=== PATIENT | female | born 1960 | race Caucasian/White ===

== ENCOUNTER 2024-05-19 13:02 | Outpatient (AMB) | payer MEDICARE, SELFPAY ==
[2024-05-19 13:07] VITALS: BP 136/70; PULSE 83; O2SAT 95; BMI 32.3
--- NOTE | 2024-05-19 13:07 | MHC.OFFVIS ---
Vital Signs 05/19/24 13:07 Height 5 ft 2 in Weight 176 lb 5.917 oz BMI 32.3 BP 136/70 Blood Pressure Location Lt brachial Position Sitting Pulse 83 Pulse Source Pulse Oximeter Pulse Oximetry (%) 95 Oxygen Delivery Method Room Air Intake Visit Reasons: RA/PSA/MR RECIEVED Intake Note: Patient presents today for RA/PSA follow up. She was last seen by Dr. Lindsey on 02/20/2024. Patient is requesting Celebrex refill, and hydroxychloroquine, Lefleunomide, and Taltz. Allergies adalimumab [From Humira] Allergy (Mild, Verified 05/19/24 13:12) rashes amoxicillin Allergy (Mild, Verified 05/19/24 13:12) Rash Sulfa (Sulfonamide Antibiotics) Allergy (Mild, Verified 05/19/24 13:12) rashes Medication List - Last Reconciled 05/19/24 by Michele Jorgensen MD albuterol-budesonide 90-80 mcg/actuation 2 inhalations inhalation DAILY PRN alendronate 70 mg PO QWEEK celecoxib (Celebrex) 200 mg PO BID cetirizine (Zyrtec) 10 mg PO DAILY PRN cyclosporine 0.05% 1 drp ophthalmic (eye) Q12H estradiol 0.01%(0.1mg/gram) 1 appful vaginal DAILY oqjiainrfsj-mxxjkymkf-lfolhlou 100-62.5-25 mcg (Trelegy Ellipta) 1 inh inhalation DAILY hydroxychloroquine 200 mg PO BID ixekizumab (Taltz Autoinjector) 80 mg subcut Q4W leflunomide 10 mg PO DAILY levothyroxine (Synthroid) 100 mcg PO DAILY lisinopril 40 mg PO DAILY multivitamin 1 tab PO DAILY pantoprazole 40 mg PO DAILY simvastatin 40 mg PO DAILY trospium 20 mg PO BID HPI HPI RA/PSA/MR RECIEVED: Details: She is doing well. No recent exacerbations of psoriatic arthritis. Psoriasis in lower extremities has resolved on current regimen. She saw Dr. Lindsey in 02/17/2024. Dr. Lindsey increased leflunomide dose. Review of Systems Const All systems reviewed & are unremarkable except as noted in HPI and below Physical Exam Vital Signs: Last Vital Signs Pulse 83 05/19/24 13:07 BP 136/70 05/19/24 13:07 Pulse Ox 95 05/19/24 13:07 Oxygen Delivery Method Room Air 05/19/24 13:07 BMI result Body Mass Index 32.3 Const Other: General: Comfortable CVS: RRR Respiratory: clear to auscultation bilaterally. Good respiratory effort Skin: No lesions seen MSK: No tenderness on palpation of all joints of upper extremity lower extremity. No synovitis present. Good range of motion of all joints. Assessment & Plan Assessment & Plan (1) Psoriatic arthritis: Comment: Initially diagnosed with rheumatoid arthritis by Dr. Stoner. Anti CCP positive greater than 250 and rheumatoid factor positivity 198. Diagnosis was changed to psoriatic arthritis by Dr. Potts. She has been on leflunomide since 01/17/2024, Taltz, hydroxychloroquine and Celebrex. Failed treatment with methotrexate, Humira, Enbrel, Orencia, Stelara, Cosentyx from 2020 to 10/17/2022. Remicade was started 11/16/2022 and discontinued due to development of exacerbation of psoriasis. In remission on leflunomide 20 mg daily, Taltz, hydroxychloroquine 400 mg daily and Celebrex 200 mg twice a day. Code(s): L40.50 - Arthropathic psoriasis, unspecified Category: Medical Plan: Labs for disease and drug monitoring ordered. After lab results are back, we will send prescription for leflunomide 20 mg daily, Taltz 80 mg subcutaneous injection every 4 weeks, hydroxychloroquine 400 mg daily and Celebrex 200 mg twice a day Return to clinic in 3 months (2) Other halfway (current) drug therapy: Code(s): Z79.899 - Other halfway (current) drug therapy Category: Medical Plan: See above Plan . Orders: Orders Alanine Aminotransferase Today L40.50 - Arthropathic psoriasis, unspecified, Z79.899 - Other halfway (current) drug therapy C Reactive Protein Today L40.50 - Arthropathic psoriasis, unspecified, Z79.899 - Other middle or intermediate school principal (current) drug therapy Complete Blood Count Auto Diff Today L40.50 - Arthropathic psoriasis, unspecified, Z79.899 - Other halfway (current) drug therapy T Spot TB Today L40.50 - Arthropathic psoriasis, unspecified, Z79.899 - Other halfway (current) drug therapy Aspartate Amino Transferase Today L40.50 - Arthropathic psoriasis, unspecified, Z79.899 - Other halfway (current) drug therapy Creatinine Today L40.50 - Arthropathic psoriasis, unspecified, Z79.899 - Other middle or intermediate school principal (current) drug therapy Erythrocyte Sedimentation Rate Today L40.50 - Arthropathic psoriasis, unspecified, Z79.899 - Other halfway (current) drug therapy Hepatitis B,C Profile Today L40.50 - Arthropathic psoriasis, unspecified, Z79.899 - Other middle or intermediate school principal (current) drug therapy Medications: New celecoxib (Celebrex) Take 1 tablet BID with food 200 mg PO BID 60 caps 2RF leflunomide 20 mg PO DAILY Coding Level of Care Code Est Pt Level 4 (83429) Complex EM visit Add On G2211 Diagnoses Psoriatic arthritis L40.50 Other middle or intermediate school principal (current) drug therapy Z79.890
== END 2024-05-19 13:41 | disposition home or self-care (01) ==
PROVIDERS: PCP Nurse Practitioner; Visit Provider Internal Medicine Rheumatology
DX: L40.50 Arthropathic psoriasis, unspecified (principal); Z79.899 Other long term (current) drug therapy
CPT/HCPCS: 99214; G2211

== ENCOUNTER 2024-05-19 13:02 | Outpatient (REF) | payer MEDICARE, SELFPAY ==
[2024-05-19 14:34] LABS: MANUAL DIFF FLAG NO
[2024-05-19 14:53] LABS: Basophils Absolute Auto 0.1 X10*3/uL (0.0-0.2); Basophils Percent Auto 0.9 % (0-2); Eosinophils Absolute Auto 0.2 X10*3/uL (0.0-0.4); Eosinophils Percent Auto 2.8 % (0-4); Hematocrit 38.9 % (37.0-47.0); Hemoglobin 12.7 g/dl (12.0-16.0); Imm Gran Abs Auto 0.01 X10*3/uL (0.00-0.03); Imm Gran Pct Auto 0.1 % (0.0-0.4); Lymphocytes Absolute Auto 2.2 X10*3/uL (1.2-4.9); Lymphocytes Percent Auto 27.2 % (20-40); Mean Corpuscular HGB Conc 32.6 g/dl (31.0-35.0); Mean Corpuscular Hemoglobin 30.8 pg (27.0-33.0); Mean Corpuscular Volume 94.2 fL (80.0-98.0); Mean Platelet Volume 9.8 fL (9.4-12.3); Monocytes Absolute Auto 0.9 X10*3/uL (0.1-1.2); Monocytes Percent Auto 10.9 % (2-11); Neutrophils Absolute Auto 4.6 x10*3/uL (2.0-8.3); Neutrophils Percent Auto 58.1 % (45-73); Platelet Count 239 X10*3/uL (160-400); Red Blood Count 4.13 X10*6/uL (4.20-5.50); Red Cell Distribution Width 13.1 % (11.0-16.0)
[2024-05-19 15:16] LABS: Alanine Aminotransferase 30 U/L (0-31); Aspartate Amino Transferase 42 U/L (5-31); C Reactive Protein < 0.10 mg/dL (< or = 0.50); Estimated Glomerular Filt Rate > 60
[2024-05-19 15:31] LABS: Erythrocyte Sedimentation Rate 12 MM/HR (0-20)
[2024-05-20 04:45] LABS: HBc Num1 0.11 S/CO (0.00-0.79); HBsAGNum1 0.42 S/CO (0.00-0.99); Hepatitis B Core Antibody Nonreactive (Nonreactive); Hepatitis B Surface Antigen Negative (Negative); ~HepC Num1 0.07 S/CO (0.00-0.79); ~Hepatitis B Surface Antibody NONREACTIVE (Nonreactive); ~Hepatitis C Antibody Nonreactive (Nonreactive)
[2024-05-21 23:42] LABS: TS Negative Control Passed; TS Panel A 0; TS Panel B 0; TS Positive Control Passed; TSpotTB Negative (Negative)
== END 2024-05-19 13:03 | disposition home or self-care (01) ==
LOC: HO.LAB 13:02
PROVIDERS: PCP Nurse Practitioner; Visit Provider Internal Medicine Rheumatology
DX: L40.50 Arthropathic psoriasis, unspecified (principal); Z79.899 Other long term (current) drug therapy
CPT/HCPCS: 36415; 82565; 84450; 84460; 85025; 85652; 86140; 86481; 86704; 86706; 86803; 87340; 99212

== ENCOUNTER 2024-08-19 12:25 | Outpatient (AMB) | payer MEDICARE, SELFPAY ==
[2024-08-19 12:27] VITALS: BP 150/100; PULSE 78; O2SAT 98; BMI 32.2
--- NOTE | 2024-08-19 12:27 | A.OFFVIS_ITS ---
Vital Signs 08/19/24 12:27 Height 5 ft 2 in Weight 176 lb BMI 32.2 BP 150/100 H Blood Pressure Location Rt brachial Position Sitting Pulse 78 Pulse Source Pulse Oximeter Pulse Oximetry (%) 98 Oxygen Delivery Method Room Air Intake Visit Reasons: Follow Up 3mo Intake Note: Patient presents today for RA/PSA follow up. Allergies adalimumab [From Humira] Allergy (Mild, Verified 08/19/24 12:27) rashes amoxicillin Allergy (Mild, Verified 08/19/24 12:27) Rash Sulfa (Sulfonamide Antibiotics) Allergy (Mild, Verified 08/19/24 12:27) rashes HPI HPI Follow Up 3mo: Details: She feels well. Loosing hair. No joint swelling or joint pain or joint stif fness. No rash or PsO. No recent infections. Occationally she has pain in her legs responding to tylenol PRN. Review of Systems Const All systems reviewed & are unremarkable except as noted in HPI and below Physical Exam Vital Signs: Last Vital Signs Pulse 78 08/19/24 12:27 BP 150/100 H 08/19/24 12:27 Pulse Ox 98 08/19/24 12:27 Oxygen Delivery Method Room Air 08/19/24 12:27 BMI result Body Mass Index 32.2 Const Other: General: Comfortable CVS: RRR Respiratory: clear to auscultation bilaterally. Good respiratory effort Skin: No lesions seen MSK: No tenderness on palpation of all joints of upper extremity lower extremity. No synovitis present. Good range of motion of all joints. Assessment & Plan Assessment & Plan (1) Psoriatic arthritis: Comment: In remission on current regimen. She is loosing hair, which maybe related to drug side effect from leflunomide. She had mild elevation in AST 04/2024, which maybe due to drug side effect (leflunomide vs celebrex). Repeating labs this visit. Initially diagnosed with rheumatoid arthritis by Dr. Stoner. Anti CCP positive greater than 250 and rheumatoid factor positivity 198. Diagnosis was changed to psoriatic arthritis by Dr. Potts. She has been on leflunomide since 01/17/2024, Taltz, hydroxychloroquine and Celebrex. Failed treatment with methotrexate, Hu melissa, Enbrel, Orencia, Stelara, Cosentyx from 2020 to 10/17/2022. Remicade was started 11/16/2022 and discontinued due to development of exacerbation of psoriasis. In remission on leflunomide 20 mg daily, Taltz, hydroxychloroquine 400 mg daily and Celebrex 200 mg twice a day. Leflunomide d/c 08/19/2024 due to hair loss and mild transaminitis (AST) Code(s): L40.50 - Arthropathic psoriasis, unspecified Category: Medical Plan: Stop leflunomide Labs for disease and drug monitoring ordered. Continue Taltz 80 mg subcutaneous injection every 4 weeks Continue hydroxychloroquine 400 mg daily. Requesting last eye exam for surveillance Celebrex 200 mg twice a day Return to clinic in 3 months (2) Other snf (current) drug therapy: Code(s): Z79.899 - Other environmental health nurse (current) drug therapy Category: Medical Plan: See above (3) Hyperparathyroidism: Comment: Mild elevation 69.4 06/2024 labs. Vitamin-D level is normal. She has sufficient vitamin-D. Code(s): E21.3 - Hyperparathyroidism, unspecified Category: Medical Plan: I recommend rechecking PTH in 6 months Patient has sufficient vitamin-D from diet and does not need further supplementation Follow-up with PCP (4) Muscle cramp: Comment: Intermittent in bilateral calves when resting in the evening. I will rule out electrolyte disturbance with labs. We discussed importance of adequate hydration. Code(s): R25.2 - Cramp and spasm Category: Medical Plan: She will try to increase her water intake daily Labs ordered Return to clinic in 3 months Plan . Orders: Orders Aspartate Amino Transferase Today Z79.60 - peer health promoter (current) use of unspecified immunomodulators and immunosuppressants Creatinine Today Z79.60 - [facility] (current) use of unspecified immunomodulators and immunosuppressants Potassium Today R25.2 - Cramp and spasm Albumin Level Today R25.2 - Cramp and spasm Alanine Aminotransferase Today Z79.60 - peer health promoter (current) use of unspecified immunomodulators and immunosuppressants Complete Blood Count Auto Diff Today Z79.60 - peer health promoter (current) use of unspecified immunomodulators and immunosuppressants Erythrocyte Sedimentation Rate Today Z79.899 - Other environmental health nurse (current) drug therapy C Reactive Protein Today R74.01 - Elevation of levels of liver transaminase levels, Z79.899 - Other snf (current) drug therapy Magnesium Today R25.2 - Cramp and spasm Calcium Today R25.2 - Cramp and spasm Coding Level of Care Code Est Pt Level 4 (35669) Complex EM visit Add On G2211 Diagnoses Psoriatic arthritis L40.50 Other snf (current) drug therapy Z79.899 Hyperparathyroidism E21.3 Muscle cramp R25.2
== END 2024-08-19 13:00 | disposition home or self-care (01) ==
PROVIDERS: PCP Nurse Practitioner; Visit Provider Internal Medicine Rheumatology
DX: L40.50 Arthropathic psoriasis, unspecified (principal); Z79.899 Other long term (current) drug therapy; E21.3 Hyperparathyroidism, unspecified; R25.2 Cramp and spasm
CPT/HCPCS: 99214; G2211

== ENCOUNTER 2024-08-19 12:25 | Outpatient (REF) | payer MEDICARE, SELFPAY ==
[2024-08-19 18:11] LABS: MANUAL DIFF FLAG NO
[2024-08-19 18:14] LABS: Basophils Absolute Auto 0.1 X10*3/uL (0.0-0.2); Basophils Percent Auto 1.2 % (0-2); Eosinophils Absolute Auto 0.3 X10*3/uL (0.0-0.4); Eosinophils Percent Auto 2.4 % (0-4); Hematocrit 40.8 % (37.0-47.0); Hemoglobin 13.2 g/dl (12.0-16.0); Imm Gran Abs Auto 0.03 X10*3/uL (0.00-0.03); Imm Gran Pct Auto 0.3 % (0.0-0.4); Lymphocytes Percent Auto 19.7 % (20-40); Mean Corpuscular HGB Conc 32.4 g/dl (31.0-35.0); Mean Corpuscular Hemoglobin 30.9 pg (27.0-33.0); Mean Corpuscular Volume 95.6 fL (80.0-98.0); Mean Platelet Volume 11.1 fL (9.4-12.3); Monocytes Absolute Auto 0.9 X10*3/uL (0.1-1.2); Monocytes Percent Auto 8.4 % (2-11); Platelet Count 245 X10*3/uL (160-400); Red Blood Count 4.27 X10*6/uL (4.20-5.50); Red Cell Distribution Width 12.8 % (11.0-16.0); White Blood Count 10.3 X10*3/uL (4.8-10.8)
[2024-08-19 18:20] LABS: Alanine Aminotransferase 27 U/L (0-31)
[2024-08-19 18:22] LABS: Alanine Aminotransferase 30 U/L (0-31); Albumin Level 4.4 g/dL (3.5-5.0); Aspartate Amino Transferase 38 U/L (5-31); C Reactive Protein 0.11 mg/dL (< or = 0.50); Calcium 9.6 mg/dL (8.4-10.2); Estimated Glomerular Filt Rate > 60; Magnesium 2.1 mg/dL (1.6-2.6); Potassium 4.4 mmol/L (3.3-5.1)
[2024-08-19 19:03] LABS: Erythrocyte Sedimentation Rate 8 MM/HR (0-20)
[2024-08-24 13:14] LABS: Alkaline Phosphatase Bone 11.7 mcg/L (5.6-29.0)
== END 2024-08-19 12:26 | disposition home or self-care (01) ==
LOC: HO.HKASLDS 12:25
PROVIDERS: PCP Nurse Practitioner; Visit Provider Internal Medicine Rheumatology
DX: R25.2 Cramp and spasm (principal); Z79.60 Long term (current) use of unspecified immunomodulators and immunosuppressants; R74.01 Elevation of levels of liver transaminase levels; Z79.899 Other long term (current) drug therapy; L40.50 Arthropathic psoriasis, unspecified; E21.3 Hyperparathyroidism, unspecified
CPT/HCPCS: 36415; 82040; 82310; 82565; 83735; 84075; 84132; 84450; 84460; 85025; 85652; 86140; 99212

== ENCOUNTER 2024-11-16 12:42 | Outpatient (AMB) | payer MEDICARE, SELFPAY ==
[2024-11-16 12:45] VITALS: BP 126/70; PULSE 70; O2SAT 98; BMI 32.5
--- NOTE | 2024-11-16 12:45 | MHC.OFFVIS ---
Vital Signs 11/16/24 12:45 Height 5 ft 2 in Weight 177 lb 11.081 oz BMI 32.5 BP 126/70 Blood Pressure Location Rt brachial Position Sitting Pulse 70 Pulse Source Pulse Oximeter Pulse Oximetry (%) 98 Oxygen Delivery Method Room Air Intake Visit Reasons: 3 Months Intake Note: Patient presents today for RA/PSA follow up. Allergies adalimumab [From Humira] Allergy (Mild, Verified 11/16/24 12:45) rashes amoxicillin Allergy (Mild, Verified 11/16/24 12:45) Rash Sulfa (Sulfonamide Antibiotics) Allergy (Mild, Verified 11/16/24 12:45) rashes HPI HPI 3 Months: Details: Hx bleeding PUD about 10 years ago on advil. 1 month ago she had EGD, which was normal per patient. Left elbow swelling occurred a month ago. Denies trauma. After stopping leflunomide she has not had increased hair loss. Physical Exam Vital Signs: Last Vital Signs Pulse 70 11/16/24 12:45 BP 126/70 11/16/24 12:45 Pulse Ox 98 11/16/24 12:45 Oxygen Delivery Method Room Air 11/16/24 12:45 BMI result Body Mass Index 32.5 Const Other: General: Comfortable CVS: RRR Respiratory: clear to auscultation bilaterally. Good respiratory effort Skin: No lesions seen MSK: No tenderness on palpation of all joints of upper extremity lower extremity. Left olecranon bursa enlargement present without erythema or tenderness. No synovitis present. Normal range of motion of all joints. Office Procedures AMB Joint Injection/Aspiration Joint Injection/Aspiration Details: Duplicate procedure ordered in error Coding Procedure code (CPT) selection complete AMB Joint Injection/Aspiration Joint Injection/Aspiration Details: Left olecranon bursa Prep: site was prepped using aseptic technique Injected: 2 cc of 1% plain lidocaine was injected into left olecranon bursa with 25 gauge 1-1/2 inch needle. Using 18 gauge 1 in needle 5 cc of hemorrhagic synovial fluid was aspirated from joint. Procedure: The patient tolerated the procedure well. Postprocedure protocol was discussed with patient. Coding 01116 - Medium joint Procedure code (CPT) selection complete Office Meds lidocaine (PF) 10 mg/mL (1 %) injection solution Performing Provider: Michele Jorgensen MD Performing Location: [facility] Administered by: Michele Jorgensen MD on 11/16/24 13:40 Dose Route Admin Location Dispensed Lot Number Expiration Date [employer] Prosthetics Assistant 20 mg Infiltration 2 mL [id number] [facility] Assessment & Plan Assessment & Plan (1) Psoriatic arthritis: Comment: In remission on current regimen. She had mild elevation in AST 04/2024 downtrending on labs from July 2024, which maybe due to drug side effect (leflunomide vs celebrex). Repeating labs this visit. She has history of bleeding peptic ulcer disease on Advil in the past. To reduce her risk of recurrent peptic ulcer disease I will try to reduce Celebrex frequency. A few years ago she discontinued Celebrex with increased joint pain. Initially diagnosed with rheumatoid arthritis by Dr. Stoner. Anti CCP positive greater than 250 and rheumatoid factor positivity 198. Diagnosis was changed to psoriatic arthritis by Dr. Potts. She has been on leflunomide since 01/17/2024, Taltz, hydroxychloroquine and Celebrex. Failed treatment with methotrexate, Humira, Enbrel, Orencia, Stelara, Cosentyx from 2020 to 10/17/2022. Remicade was started 11/16/2022 and discontinued due to development of exacerbation of psoriasis. In remission on leflunomide 20 mg daily, Taltz, hydroxychloroquine 400 mg daily and Celebrex 200 mg twice a day. Leflunomide d/c 08/19/2024 due to hair loss and mild transaminitis (AST). Code(s): L40.50 - Arthropathic psoriasis, unspecified Category: Medical Plan: Labs for diseaseand drug monitoring ordered. Continue Taltz 80 mg subcutaneous injection every 4 weeks Continue hydroxychloroquine 400 mg daily. Scheduled for eye exam 03/2025 Reduce Celebrex 200 mg twice a day to daily Return to clinic in 3 months (2) Other jail (current) drug therapy: Code(s): Z79.899 - Other emt intermediate (current) drug therapy Category: Medical Plan: See above (3) Hyperparathyroidism: Comment: Mild elevation 69.4 06/2024 labs. Code(s): E21.3 - Hyperparathyroidism, unspecified Category: Medical Plan: I recommend rechecking PTH, vitamin-D and calcium level. (4) Muscle cramp: Comment: Intermittent in bilateral calves when resting in the evening. Electrolytes normal. Resolved with increasing hydration Code(s): R25.2 - Cramp and spasm Category: Medical Plan: Continue hydration (5) Transaminitis: Code(s): R74.01 - Elevation of levels of liver transaminase levels Category: Medical Plan: See above (6) Olecranon bursitis, left elbow: Comment: Likely traumatic. Code(s): M70.22 - Olecranon bursitis, left elbow Category: Medical Plan: Patient had aspiration of left olecranon bursa. 5 cc of hemorrhagic fluid was aspirated. Post care was discussed with patient. She will monitor for signs of infection. Return to clinic in 3 months Plan . Orders: Orders Complete Blood Count Auto Diff Today Z79.60 - assisted (current) use of unspecified immunomodulators and immunosuppressants Alanine Aminotransferase Today Z79.60 - adjunct faculty for medical terminology (current) use of unspecified immunomodulators and immunosuppressants Vitamin D 25-OH Total Today E21.3 - Hyperparathyroidism, unspecified Creatinine Today Z79.60 - adjunct faculty for medical terminology (current) use of unspecified immunomodulators and immunosuppressants Aspartate Amino Transferase Today Z79.60 - assisted (current) use of unspecified immunomodulators and immunosuppressants Erythrocyte Sedimentation Rate Today Z79.899 - Other emt intermediate (current) drug therapy C Reactive Protein Today Z79.899 - Other jail (current) drug therapy Parathyroid Hormone Intact Today E21.3 - Hyperparathyroidism, unspecified Calcium Today E21.3 - Hyperparathyroidism, unspecified AMB Joint Injection/Aspiration Today M70.22 - Olecranon bursitis, left elbow AMB Joint Injection/Aspiration Today M70.22 - Olecranon bursitis, left elbow Medications: New lidocaine (PF) 20 mg (2 mL) Infiltration ONCE 2 mL 0RF M70.22 - Olecranon bursitis, left elbow Refilled ixekizumab (Taltz Autoinjector) 80 mg subcut Q4W 1 mL 2RF Discontinued leflunomide Discontinued Reason: Doctor's Order 20 mg PO DAILY 30 tabs 2RF Coding Level of Care Code Est Pt Level 4 (25224) Complex EM visit Add On G2211 Diagnoses Psoriatic arthritis L40.50 Other emt intermediate (current) drug therapy Z79.899 Hyperparathyroidism E21.3 Muscle cramp R25.2 Transaminitis R74.01 Olecranon bursitis, left elbow M70.22 CPT Codes Coding - 24605 Medium joint: 24371 - Medium joint ([id number])
== END 2024-11-16 13:23 | disposition home or self-care (01) ==
LOC: HO.RHES 12:43
PROVIDERS: PCP Nurse Practitioner; Visit Provider Internal Medicine Rheumatology
DX: L40.50 Arthropathic psoriasis, unspecified (principal); Z79.899 Other long term (current) drug therapy; E21.3 Hyperparathyroidism, unspecified; R25.2 Cramp and spasm; R74.01 Elevation of levels of liver transaminase levels; M70.22 Olecranon bursitis, left elbow
CPT/HCPCS: 20605; 99214

== ENCOUNTER 2024-11-16 12:42 | Outpatient (REF) | payer MEDICARE, SELFPAY ==
--- OUTSIDE RECORDS SUMMARY | 2024-11-16 14:35 | XMS_ITS | Data Portability ---
Author Organization [facility], [facility] Address [address] [place] [address] Care Team Providers Care Supervisor Liquid Yeast Name Role Phone [facility] Raw Sampler NEHA YARBROUGH Director Emergency Department FAITH CARSON Primary Care Provider [facility] Wage And Salary Specialist TEE SALMON Heavy Duty Mechanic Farm Equipment Assessment Encounter Date Assessment Date Assessment LastModified by Organization Details LastModified Time 01/20/2024 01/20/2024 We completed your Medicare Wellness exam today. This was an opportunity to assess your overall well being including your ability to care for yourself, your mobility, memory, mental health, as well as your safety. With advancing age, it is important to assign someone in your life as your Health Care Proxy (HCP). This person should know what is important to you and what your wishes are for medical procedures if you cannot communicate your wishes yourself (severe illness, unconsciousness) . We discussed having a completed Health Care Proxy form today. In addition, today we started a conversation about your End of Life wishes. These conversations will continue over the years. Please consider reading the book, Being Mortal by Sohail Garcia to help frame future conversations. We discussed the purpose of a MOLST form (Medical Orders for Life Sustaining Treatment) and completed this form if appropriate per your wishes. Vision and Hearing are senses that are critically important as we age. When impaired, they can contribute to memory loss, falls, and make it harder to drive, talk to family and friends, and engage in the world. Please get your vision checked yearly and your hearing checked when you start to notice hearing loss. We discussed approaches to lowering your risk of heart disease and stroke . Your blood pressure is at goal. Your cholesterol is at goal. We discussed cancer screening you may need as well as vaccines to prevent infections. Colon Cancer : Your risk of colon cancer is higher than average due to family history. Due for colorectal screenin. If you are not planning to have a colonoscopy please screen with stool cards yearly. Breast Cancer : Breast Cancer Screening (mammography). Next mammogram due: 2023. Cervical Cancer Screening (pap test). Next pap due: not needed. Prostate Cancer : PSA testing for ages 55-69 risks and benefits discussed . Influenza Vaccine : Flu shot yearly. Tetanus Vaccine : Every 10 years. Due: 2028. The following vaccines are available from your pharmacy: Pneumonia Vaccine : PCV20: once after age 65. Shingles Vaccine : 2 shots after age 50. Covid Vaccine : Make sure you have received the most up to date covid vaccine. Your personal health goal for the year is: Not available 01/20/2024 12:37:21 Plan of Treatment Reminders Order Date Submit Date Provider Last Modified By Organization Details Last Modified Time Details Appointments Wellness Visit 30 2024 11:30A Hoa Carson NP Not available Not available Not available Lab HbA1c (hemoglob in A1c), blood 2024 025 [facility], [address] [place] [address], [id number], 10/04/2024 16:25:47 TSH, serum or plasma [address] [facility], [address] [place] [address], [id number], 08/20/2024 23:23:32 T4, free, serum [address] [facility], [address] [place] [address], [id number], 08/20/2024 23:23:32 CBC 2023 024 [facility], [address] [place] [address], [id number], 01/21/2024 10:14:05 magnesium , blood 2023 024 [facility], [address] [place] [address], 98624, 01/22/2024 12:00:18 CMP, serum or plasma 2023 024 [facility], [address] [place] [address], 78824, 01/22/2024 12:00:17 ferritin, serum or plasma 2023 024 [facility], [address] [place] [address], [id number], 01/21/2024 10:56:28 vitamin B12, serum 2023 024 [facility], [address] [place] [address], [id number], 01/22/2024 12:14:50 urinalysi s, dipstick 2023 024 [facility], [address] [place] [address], [id number], 12/08/2023 13:33:12 culture, urine 2023 024 [facility], [address] [place] [address], [id number], 12/09/2023 21:47:50 Referral None recorded. Procedures None recorded. Surgeries None recorded. Imaging MAMMO, screening , tomosynth esis, bilateral - Note to Provider: 2nd look consult/D iag Mammo/US Breast/Gu ided Asp/Breas t Bx as clinicall y indicated . [address] - Outpatient Imaging, All Locations, [place], [address], 01/23/2024 09:20:56 bone density - last scan 06/11/22[address] - Outpatient Imaging, All Locations, [place], [address], 01/20/2024 13:26:02 Medication Orders levothyro xine 100 mcg tablet 2024 025 [facility], [facility] [address], [facility] [address], [place], [place], [id number], 08/20/2024 23:23:33 prednison e 10 mg tablet 2023 024 [facility], [address] [place] [address], [id number], 08/18/2024 09:37:03 ketoconaz ole 2 % topical cream 2023 024 [facility], [address] [place] [address], [id number], 04/27/2024 16:22:05 prednison e 20 mg tablet 2023 025 [facility], [address] [place] [address], [id number], 08/18/2024 09:46:56 Macrobid 100 mg capsule 2023 024 [facility], [address] [place] [address], [id number], 01/20/2024 11:38:59 Patient TargetsNo targets recorded. Patient Instructions Encounter Date Encounter Id Patient Instructions Last Modified By Organization Details Last Modified Time 01/20/2024 [id number] vision screen* Not available 01/20/2024 12:27:47 CCM: The provide r and patient discussed the Chronic Care Management program, including the services provided, and any fees associated with them. [email or web address] Not available 01/20/2024 11:35:57 Reason for Referral None Reported. Results Created Date Observation Date Name Description Value Unit Range Abnormal Flag Note LastModifiedBy Organization Detail LastModifiedTime 12/08/19 24 12/08/2023 POC UA glu UA NEGATI VE Not Available [facility] [address] [facility], [place], [address], 12/08/2023 11:23:10 12/08/19 24 12/08/2023 POC UA clarity UA CLEAR Not Available [facility] [address] [place] [address], [id number], 12/08/2023 11:23:10 12/08/19 24 12/08/2023 POC UA uro UA 1.0000 Not Available [facility] [address] [place] [address], [address], 12/08/2023 11:23:10 12/08/19 24 12/08/2023 POC UA ket UA NEGATI VE Not Available [facility] [address] [place] [address], [address]23[address], 12/08/2023 11:23:10 12/08/19 24 12/08/2023 POC UA pro UA NEGATI VE Not Available [facility] [address] [place] [address], [id number], 12/08/2023 11:23:10 12/08/19 24 12/08/2023 POC UA nit UA NEGATI VE Not Available [facility] [address] [place] [address], 53697, 12/08/2023 11:23:10 12/08/19 24 12/08/2023 POC UA carlita UA 1+ abnormal Not Available [facility] [address] [place] [address], 49453, 12/08/2023 11:23:10 12/08/19 24 12/08/2023 POC UA pH UA 6.5000 Not Available [facility] [address] [place] [address], 78544, 12/08/2023 11:23:10 12/08/19 24 12/08/2023 POC UA SG UA 1.0200 Not Available [facility] [address] [place] [address], 87584, 12/08/2023 11:23:10 12/08/19 24 12/08/2023 POC UA color UA YELLOW Not Available [facility] [address] [place] [address], 23757, 12/08/2023 11:23:10 12/08/19 24 12/08/2023 POC UA blo UA NEGATI VE Not Available [facility] [address] [place], [address], 12/08/2023 11:23:10 12/08/19 24 12/08/2023 POC UA jim UA NEGATI VE Not Available [facility] [address] [place] [address], 17890, 12/08/2023 11:23:10 12/08/19 24 12/09/2023 CULTU RE, URINE , ROUTI NE culture, urine, routine CULTU RE, URINE , ROUTI NE Micro Numbe r: [id number] Test Statu s: Final Speci men Sourc e: Urine Speci men Quali ty: Adequ ate Resul t: Mixed genit al karissa isola freddy. These super ficia l bacte celestine are not indic ative of a urina ry tract infec tion. No furth er organ ism ident ifica tion is warra nted on this speci men. If clini carson indic ated, recol lect clean -catc h, mid-s tream urine and trans rosa immed iatel y to Urine Cultu re Trans port Tube. Not Available [facility] [place] [facility] [address], [place], [address], 12/09/2023 21:47:50 01/16/20 24 01/16/2024 HGB A1C hemoglobin A1C 5.6 % 4.8-6. 0 Goal: <7% in Patie nts with Diabe dariel An A1c betwe en 5.7-6 .4% is ident ified as pre-d iabet es and sugge sts risk for progr essio n to diabe dariel Two a1c value s of 6.5% or highe r is consi stent with a diagn osis of diabe dariel but may need furth er confi rmati on Not Available [address], [address], 01/16/2024 11:38:53 01/16/20 24 01/16/2024 HGB A1C estimated average glucose 114.0 mg/dL Not Available [address], [address], 01/16/2024 11:38:53 01/16/20 24 01/20/2024 LIPID PANEL cholesterol 152 mg/dL <200 mg/dl Elbert able 200-2 39 mg/dl Borde rline High >240 mg/dl High Not Available [address], [address], 01/20/2024 12:51:01 01/16/20 24 01/20/2024 LIPID PANEL triglyceride s 82 mg/dL <150 mg/dL Jessica l 150-1 99 mg/dL Borde rline High 200-4 99 mg/dL High >500 mg/dL Very High Not Available [address], [address], 01/20/2024 12:51:01 01/16/20 24 01/20/2024 LIPID PANEL direct HDL 64 mg/dL <40 mg/dl - Major Risk for CHD >60 mg/dl - Negat emilia Risk for CHD Not Available [address], [address], 01/20/2024 12:51:01 01/16/20 24 01/20/2024 RENAL PANEL glucose 90 mg/dL 70-100 Not Available [address], [address], 01/20/2024 12:51:02 01/16/20 24 01/20/2024 RENAL PANEL BUN 22 mg/dL 7-18 high Not Available [address], 49[address], 01/20/2024 12:51:02 01/16/20 24 01/20/2024 RENAL PANEL creatinine 1.1 mg/dL 0.8-1. 3 Not Available [address], 73749, 01/20/2024 12:51:02 01/16/20 24 01/20/2024 RENAL PANEL B/C 20.0 ratio Not Available [address], 99661, 01/20/2024 12:51:02 01/16/20 24 01/20/2024 RENAL PANEL GFR 55.8 mL/mi n abnormal >=60m L/min - Jessica l or midly reduc ed <60mL /min- Decre ased kidne y funct ion <15mL /min - Kidne y failu re [facility] calcu lates estim ated Glome rular Filtr ation Rate (eGFR ) using the Chron ic Kidne y Disea se Epide miolo gy Colla borat ion (CKD- EPI) Equat ion (Rosendo r et. al 2020) as recom dario d by the Natio nal Kidne y Found ation . eGFR is based on age, serum creat inine , and sex. CKD-E PI does not calcu late eGFR by race, does not apply to child miladis (age <18 years ), and shoul d not be used in pregn jimmie. Not Available [address], [address], 01/20/2024 12:51:02 01/16/20 24 01/20/2024 RENAL PANEL sodium 143 mmol/ L 136-14 5 Not Available [address], [address], 01/20/2024 12:51:02 01/16/20 24 01/20/2024 RENAL PANEL potassium 4.5 mmol/ L 3.5-5. 1 Not Available [address], [address]92, 01/20/2024 12:51:02 01/16/20 24 01/20/2024 RENAL PANEL chloride 105 mmol/ L 96-107 Not Available [address], 45843, 01/20/2024 12:51:02 01/16/20 24 01/20/2024 RENAL PANEL anion gap 13.2 5.0-15 .0 Not Available [address], 74219, 01/20/2024 12:51:02 01/16/20 24 01/20/2024 RENAL PANEL CO2 25 mmol/ L 21-32 Not Available [address], 73978, 01/20/2024 12:51:02 01/16/20 24 01/20/2024 RENAL PANEL calcium 9.7 mg/dL 8.5-10 .3 Not Available [address], 78515, 01/20/2024 12:51:02 01/16/20 24 01/20/2024 RENAL PANEL albumin 4.0 g/dL 3.4-5. 0 Not Available [address], 85715, 01/20/2024 12:51:02 01/16/20 24 01/20/2024 RENAL PANEL phosphorous 3.70 mg/dL 2.50-4 .90 Not Available [address], 52774, 01/20/2024 12:51:02 01/16/20 24 01/20/2024 LDL - CALCU LATED LDL - calculated 71.6 RISK CATEG ORY LDL GOAL _ CHD or CHD Risk Equiv alent s <100 mg/dl (10-y ear risk >20%) 2+ Risk Facto rs <130 mg/dl (10-y ear risk <= 20%) 0-1 Risk Facto r? <160 mg/dl ? Almos t all peopl e with 0-1 risk facto r have a 10 year risk <10%, thus 10 year risk asses ment in peopl e with 0-1 risk facto r is not neces candace. Not Available [address], [address], 01/20/2024 12:51:02 01/20/20 24 01/21/2024 JAKE TIN ferritin 99 NG/mL 15-200 Not Available [address], [address], 01/21/2024 10:56:28 01/20/20 24 01/21/2024 VITAM IN D 25-HY DROXY TOTAL vitamin D 25-hydroxy EIA 58.9 NG/mL 20.0-9 9.9 Thera py is based on measu remen t of total 25-OH D, with level s less than 20 ng/mL indic ative of Vitam in D defic iency . Level s betwe en 20ng/ mL and 30 ng/mL sugge st insuf ficie ncy. Optim al Level s are great er than 30 ng/mL . Not Available [address], [address], 01/21/2024 10:56:29 01/20/20 24 01/21/2024 TSH TSH 0.44 uIU/m L 0.50-6 .00 low The Ameri can Colle ge of Endoc rinol ogy and Ameri can Thyro id Assoc iatio n recom mend goal TSH value s betwe en 0.4-4 .0 mIU/m L. Not Available [address], [address], 01/21/2024 11:12:17 01/20/20 24 01/22/2024 COMP. METAB OLIC PANEL glucose 78 mg/dL 70-100 Not Available [address], 287[address], 01/22/2024 12:00:17 01/20/20 24 01/22/2024 COMP. METAB OLIC PANEL BUN 24 mg/dL 7-18 high Not Available [address], [address]60, 01/22/2024 12:00:17 01/20/20 24 01/22/2024 COMP. METAB OLIC PANEL creatinine 1.2 mg/dL 0.8-1. 3 Not Available [address], 06709, 01/22/2024 12:00:17 01/20/20 24 01/22/2024 COMP. METAB OLIC PANEL B/C 20.0 ratio Not Available [address], 00143, 01/22/2024 12:00:17 01/20/20 24 01/22/2024 COMP. METAB OLIC PANEL GFR 50.2 mL/mi n abnormal >=60m L/min - Jessica l or midly reduc ed <60mL /min- Decre ased kidne y funct ion <15mL /min - Kidne y failu re [facility] calcu lates estim ated Glome rular Filtr ation Rate (eGFR ) using the Chron ic Kidne y Disea se Epide miolo gy Colla borat ion (CKD- EPI) Equat ion (Rosendo r et. al 2020) as recom dario d by the Natio nal Kidne y Found ation . eGFR is based on age, serum creat inine , and sex. CKD-E PI does not calcu late eGFR by race, does not apply to child miladis (age <18 years ), and shoul d not be used in pregn jimmie. Not Available [address], [address], 01/22/2024 12:00:17 01/20/20 24 01/22/2024 COMP. METAB OLIC PANEL sodium 141 mmol/ L 136-14 5 Not Available [address], [address], 01/22/2024 12:00:17 01/20/20 24 01/22/2024 COMP. METAB OLIC PANEL potassium 5.4 mmol/ L 3.5-5. 1 high Not Available [address], 08130, 01/22/2024 12:00:17 01/20/20 24 01/22/2024 COMP. METAB OLIC PANEL chloride 104 mmol/ L 96-107 Not Available [address], [address], 01/22/2024 12:00:17 01/20/20 24 01/22/2024 COMP. METAB OLIC PANEL anion gap 15.6 5.0-15 .0 high Not Available [address], 16[address], 01/22/2024 12:00:17 01/20/20 24 01/22/2024 COMP. METAB OLIC PANEL CO2 21 mmol/ L 21-32 Not Available [address], 87491, 01/22/2024 12:00:17 01/20/20 24 01/22/2024 COMP. METAB OLIC PANEL calcium 9.6 mg/dL 8.5-10 .3 Not Available [address], 93627, 01/22/2024 12:00:17 01/20/20 24 01/22/2024 COMP. METAB OLIC PANEL total protein 8.3 g/dL 6.4-8. 2 high Not Available [address], 6[address]28, 01/22/2024 12:00:17 01/20/20 24 01/22/2024 COMP. METAB OLIC PANEL albumin 4.4 g/dL 3.4-5. 0 Not Available [address], 98586, 01/22/2024 12:00:17 01/20/20 24 01/22/2024 COMP. METAB OLIC PANEL globulin 3.9 g/dL Not Available [address], 93615, 01/22/2024 12:00:17 01/20/20 24 01/22/2024 COMP. METAB OLIC PANEL A/G 1.1 ratio 0.8-2. 0 Not Available [address], 20255, 01/22/2024 12:00:17 01/20/20 24 01/22/2024 COMP. METAB OLIC PANEL total bilirubin 0.40 mg/dL 0.00-1 .00 Not Available [address], [address], 01/22/2024 12:00:17 01/20/20 24 01/22/2024 COMP. METAB OLIC PANEL AST 37 U/L 0-37 Not Available [address], 14336, 01/22/2024 12:00:17 01/20/20 24 01/22/2024 COMP. METAB OLIC PANEL ALT 35 U/L 6-63 Not Available [address], 6[address], 01/22/2024 12:00:17 01/20/20 24 01/22/2024 COMP. METAB OLIC PANEL alk. phos. 89 U/L 50-136 Not Available [address], [address]86, 01/22/2024 12:00:17 01/20/20 24 01/22/2024 MAGNE SIUM magnesium 2.1 mg/dL 1.8-2. 4 Not Available [address], 10727, 01/22/2024 12:00:18 01/20/20 24 01/22/2024 PTH INTAC T WITH CALCI UM PTH intact 74.5 pg/mL 9.6-66 .3 high Not Available [address], [address]84, 01/22/2024 12:00:18 01/20/20 24 01/22/2024 PTH INTAC T WITH CALCI UM calcium 9.6 mg/dL 8.5-10 .3 Not Available [address], [address]30, 01/22/2024 12:00:18 01/20/20 24 01/22/2024 VITAM IN B12 vitamin B12 1012 pg/mL 230-10 50 Not Available [address], [address]61, 01/22/2024 12:14:50 01/20/20 24 01/20/2024 visio n scree n* Right Not Available [address], [address]98, 01/20/2024 11:41:22 01/20/20 24 01/20/2024 visio n scree n* Left Not Available [address], [address]87, 01/20/2024 11:41:22 01/20/20 24 01/20/2024 visio n scree n* Both Not Available [address], 365[address], 01/20/2024 11:41:22 01/20/20 24 01/20/2024 visio n scree n* Corrective Lenses glasse s Not Available [address], [address], 01/20/2024 11:41:22 03/19/20 24 03/19/2024 FREE T4 free T4 1.27 NG/dL 0.75-1 .54 Not Available [address], [address], 03/19/2024 15:46:48 03/19/20 24 03/19/2024 TSH TSH 2.40 uIU/m L 0.50-6 .00 The Ameri can Colle ge of Endoc rinol ogy and Ameri can Thyro id Assoc iatio n recom mend goal TSH value s betwe en 0.4-4 .0 mIU/m L. Not Available [address], [address], 03/19/2024 16:08:35 05/31/20 24 06/01/2024 COMP. METAB OLIC PANEL glucose 91 mg/dL 70-100 Not Available [address], [address]462, 06/01/2024 15:49:00 05/31/20 24 06/01/2024 COMP. METAB OLIC PANEL BUN 11 mg/dL 7-18 Not Available [address], [address], 06/01/2024 15:49:00 05/31/20 24 06/01/2024 COMP. METAB OLIC PANEL creatinine 0.8 mg/dL 0.8-1. 3 Not Available [address], [address]362, 06/01/2024 15:49:00 05/31/20 24 06/01/2024 COMP. METAB OLIC PANEL B/C 13.8 ratio Not Available [address], [address], 06/01/2024 15:49:00 05/31/20 24 06/01/2024 COMP. METAB OLIC PANEL GFR >=60ML /MIN mL/mi n normal >=60m L/min - Jessica l or midly reduc ed <60mL /min- Decre ased kidne y funct ion <15mL /min - Kidne y failu re [facility] calcu lates estim ated Glome rular Filtr ation Rate (eGFR ) using the Chron ic Kidne y Disea se Epide miolo gy Colla borat ion (CKD- EPI) Equat ion (Rosendo bernard et. al 2020) as recom dario d by the Natio nal Kidne y Found ation . eGFR is based on age, serum creat inine , and sex. CKD-E PI does not calcu late eGFR by race, does not apply to child miladis (age <18 years ), and shoul d not be used in pregn jimmie. Not Available [address], [address], 06/01/2024 15:49:00 05/31/20 24 06/01/2024 COMP. METAB OLIC PANEL sodium 146 mmol/ L 136-14 5 high Not Available [address], 7[address], 06/01/2024 15:49:00 05/31/20 24 06/01/2024 COMP. METAB OLIC PANEL potassium 4.5 mmol/ L 3.5-5. 1 Not Available [address], [address], 06/01/2024 15:49:00 05/31/20 24 06/01/2024 COMP. METAB OLIC PANEL chloride 109 mmol/ L 96-107 high Not Available [address], [address], 06/01/2024 15:49:00 05/31/20 24 06/01/2024 COMP. METAB OLIC PANEL anion gap 10.8 5.0-15 .0 Not Available [address], [address], 06/01/2024 15:49:00 05/31/20 24 06/01/2024 COMP. METAB OLIC PANEL CO2 26 mmol/ L 21-32 Not Available [address], [address]32, 06/01/2024 15:49:00 05/31/20 24 06/01/2024 COMP. METAB OLIC PANEL calcium 9.1 mg/dL 8.5-10 .3 Not Available [address], [address], 06/01/2024 15:49:00 05/31/20 24 06/01/2024 COMP. METAB OLIC PANEL total protein 6.8 g/dL 6.4-8. 2 Not Available [address], 06398, 06/01/2024 15:49:00 05/31/20 24 06/01/2024 COMP. METAB OLIC PANEL albumin 3.9 g/dL 3.4-5. 0 Not Available [address], 06277, 06/01/2024 15:49:00 05/31/20 24 06/01/2024 COMP. METAB OLIC PANEL globulin 2.9 g/dL Not Available [address], 36480, 06/01/2024 15:49:00 05/31/20 24 06/01/2024 COMP. METAB OLIC PANEL A/G 1.3 ratio 0.8-2. 0 Not Available [address], 84184, 06/01/2024 15:49:00 05/31/20 24 06/01/2024 COMP. METAB OLIC PANEL total bilirubin 0.60 mg/dL 0.00-1 .00 Not Available [address], [address], 06/01/2024 15:49:00 05/31/20 24 06/01/2024 COMP. METAB OLIC PANEL AST 29 U/L 0-37 Not Available [address], 57889, 06/01/2024 15:49:00 05/31/20 24 06/01/2024 COMP. METAB OLIC PANEL ALT 36 U/L 6-63 Not Available [address], [address]127, 06/01/2024 15:49:00 05/31/20 24 06/01/2024 COMP. METAB OLIC PANEL alk. phos. 78 U/L 50-136 Not Available [address], [address]48, 06/01/2024 15:49:00 05/31/20 24 06/05/2024 ALKAL INE PHOSP HATAS E, BONE SPECI FIC alkaline phosphatase, bone specific 10.7 mcg/L 5.6-29 .0 Refer ence Range , Preme nopau awa (mcg/ L) 35-45 years 5.0-1 8.2 Not Available [facility] [address] [place], [address], 06/05/2024 15:03:00 07/15/19 25 07/15/2024 PTH INTAC T PTH intact 69.4 pg/mL 9.6-66 .3 high Not Available [address], [address], 07/15/2024 16:01:25 07/15/19 25 07/15/2024 VITAM IN D 25-HY DROXY TOTAL vitamin D 25-hydroxy EIA 49.2 NG/mL 20.0-9 9.9 Thera py is based on measu remen t of total 25-OH D, with level s less than 20 ng/mL indic ative of Vitam in D defic iency . Level s betwe en 20ng/ mL and 30 ng/mL sugge st insuf ficie ncy. Optim al Level s are great er than 30 ng/mL . Not Available [address], [address], 07/15/2024 16:09:45 07/15/19 25 07/19/2024 RENAL PANEL glucose 93 mg/dL 70-100 Not Available [address], [address], 07/19/2024 09:50:35 07/15/19 25 07/19/2024 RENAL PANEL BUN 15 mg/dL 7-18 Not Available [address], [address], 07/19/2024 09:50:35 07/15/19 25 07/19/2024 RENAL PANEL creatinine 0.8 mg/dL 0.8-1. 3 Not Available [address], [address], 07/19/2024 09:50:35 07/15/19 25 07/19/2024 RENAL PANEL B/C 18.8 ratio Not Available [address], [address], 07/19/2024 09:50:35 07/15/19 25 07/19/2024 RENAL PANEL GFR >=60ML /MIN mL/mi n normal >=60m L/min - Jessica l or midly reduc ed <60mL /min- Decre ased kidne y funct ion <15mL /min - Kidne y failu re [facility] calcu lates estim ated Glome rular Filtr ation Rate (eGFR ) using the Chron ic Kidne y Disea se Epide miolo gy Colla borat ion (CKD- EPI) Equat ion (Rosendo r et. al 2020) as recom dario d by the Natio nal Kidne y Found ation . eGFR is based on age, serum creat inine , and sex. CKD-E PI does not calcu late eGFR by race, does not apply to child miladis (age <18 years ), and shoul d not be used in pregn jimmie. Not Available [address], [address], 07/19/2024 09:50:35 07/15/19 25 07/19/2024 RENAL PANEL sodium 144 mmol/ L 136-14 5 Not Available [address], [address], 07/19/2024 09:50:35 07/15/19 25 07/19/2024 RENAL PANEL potassium 4.6 mmol/ L 3.5-5. 1 Not Available [address], [address], 07/19/2024 09:50:35 07/15/19 25 07/19/2024 RENAL PANEL chloride 107 mmol/ L 96-107 Not Available [address], 06387, 07/19/2024 09:50:35 07/15/19 25 07/19/2024 RENAL PANEL anion gap 9.8 5.0-15 .0 Not Available [address], [address]107, 07/19/2024 09:50:35 07/15/19 25 07/19/2024 RENAL PANEL CO2 27 mmol/ L 21-32 Not Available [address], [address], 07/19/2024 09:50:35 07/15/19 25 07/19/2024 RENAL PANEL calcium 9.4 mg/dL 8.5-10 .3 Not Available [address], [address], 07/19/2024 09:50:35 07/15/19 25 07/19/2024 RENAL PANEL albumin 4.1 g/dL 3.4-5. 0 Not Available [address], [address], 07/19/2024 09:50:35 07/15/19 25 07/19/2024 RENAL PANEL phosphorous 3.10 mg/dL 2.50-4 .90 Not Available [address], [address], 07/19/2024 09:50:35 07/15/19 25 07/19/2024 ALT ALT 30 U/L 6-63 Not Available [address], [address], 07/19/2024 11:27:15 07/15/19 25 07/19/2024 ALKAL INE PHOSP HATAS E, BONE SPECI FIC alkaline phosphatase, bone specific 10.5 mcg/L 5.6-29 .0 Refer ence Range , Preme nopau awa (mcg/ L) 35-45 years 5.0-1 8.2 Not Available [facility] [address] [place] [address], [place], [address], 07/19/2024 16:43:00 10/05/19 25 10/04/2024 HGB A1C hemoglobin A1C 5.4 % 4.8-6. 0 Goal: <7% in Patie nts with Diabe dariel An A1c betwe en 5.7-6 .4% is ident ified as pre-d iabet es and sugge sts risk for progr essio n to diabe dariel Two a1c value s of 6.5% or highe r is consi stent with a diagn osis of diabe dariel but may need furth er confi rmati on Not Available [address], [address], 10/04/2024 16:25:47 10/05/19 25 10/04/2024 HGB A1C estimated average glucose 108.3 mg/dL Not Available [address], [address], 10/04/2024 16:25:47 10/05/19 25 10/04/2024 BASIC METAB OLIC PANEL glucose 87 mg/dL 70-100 Not Available [address], [address], 10/04/2024 16:32:23 10/05/19 25 10/04/2024 BASIC METAB OLIC PANEL BUN 11 mg/dL 7-18 Not Available [address], [address], 10/04/2024 16:32:23 10/05/19 25 10/04/2024 BASIC METAB OLIC PANEL creatinine 0.8 mg/dL 0.8-1. 3 Not Available [address], [address], 10/04/2024 16:32:23 10/05/19 25 10/04/2024 BASIC METAB OLIC PANEL B/C 13.8 ratio Not Available [address], [address], 10/04/2024 16:32:23 10/05/19 25 10/04/2024 BASIC METAB OLIC PANEL GFR >=60ML /MIN mL/mi n normal >=60m L/min - Jessica l or midly reduc ed <60mL /min- Decre ased kidne y funct ion <15mL /min - Kidne y failu re [facility] calcu lates estim ated Glome rular Filtr ation Rate (eGFR ) using the Chron ic Kidne y Disea se Epide miolo gy Colla borat ion (CKD- EPI) Equat ion (Rosendo r et. al 2020) as recom dario d by the Natio nal Kidne y Found ation . eGFR is based on age, serum creat inine , and sex. CKD-E PI does not calcu late eGFR by race, does not apply to child miladis (age <18 years ), and shoul d not be used in pregn jimmie. Not Available [address], [address], 10/04/2024 16:32:23 10/05/19 25 10/04/2024 BASIC METAB OLIC PANEL sodium 144 mmol/ L 136-14 5 Not Available [address], [address], 10/04/2024 16:32:23 10/05/19 25 10/04/2024 BASIC METAB OLIC PANEL potassium 4.6 mmol/ L 3.5-5. 1 Not Available [address], [address], 10/04/2024 16:32:23 10/05/19 25 10/04/2024 BASIC METAB OLIC PANEL chloride 106 mmol/ L 96-107 Not Available [address], [address], 10/04/2024 16:32:23 10/05/19 25 10/04/2024 BASIC METAB OLIC PANEL anion gap 11.8 5.0-15 .0 Not Available [address], [address], 10/04/2024 16:32:23 10/05/19 25 10/04/2024 BASIC METAB OLIC PANEL CO2 26 mmol/ L 21-32 Not Available [address], [address], 10/04/2024 16:32:23 10/05/19 25 10/04/2024 BASIC METAB OLIC PANEL calcium 9.4 mg/dL 8.5-10 .3 Not Available [address], [address], 10/04/2024 16:32:23 10/05/19 25 10/04/2024 LIPID PANEL cholesterol 180 mg/dL <200 mg/dl Elbert able 200-2 39 mg/dl Borde rline High >240 mg/dl High Not Available [address], [address], 10/04/2024 16:32:25 10/05/19 25 10/04/2024 LIPID PANEL triglyceride s 106 mg/dL <150 mg/dL Jessica l 150-1 99 mg/dL Borde rline High 200-4 99 mg/dL High >500 mg/dL Very High Not Available [address], [address], 10/04/2024 16:32:25 10/05/19 25 10/04/2024 LIPID PANEL direct HDL 71 mg/dL <40 mg/dl - Major Risk for CHD >60 mg/dl - Negat emilia Risk for CHD Not Available [address], [address], 10/04/2024 16:32:25 10/05/19 25 10/04/2024 LDL - CALCU LATED LDL - calculated 88 RISK CATEG ORY LDL GOAL _ CHD or CHD Risk Equiv alent s <100 mg/dl (10-y ear risk >20%) 2+ Risk Facto rs <130 mg/dl (10-y ear risk <= 20%) 0-1 Risk Facto r? <160 mg/dl ? Almos t all peopl e with 0-1 risk facto r have a 10 year risk <10%, thus 10 year risk asses ment in peopl e with 0-1 risk facto r is not norris maria. Not Available [facility] [address] [place], [address], 10/04/2024 16:32:26 12/02/19 24 12/02/2023 pulmo nary funct ion test* No observ ation record ed. [facility] [address] [place], [address], 12/12/2023 12:50:10 03/10/2003/10/2024 chema BROOKS No observ ation record ed. [email or web address] [facility] [address] [place], [address], 03/12/2024 08:18:03 Result Notes None recorded. 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 Yarbrough (pulmona ry) Not Available [facility] 3 03:54:07 Acid reflux 215840872 Active 2018 PER PULMONAR Y CONSULT NOTE 09/11/18 Faith Carson NP [address] [place] [address], [address] , [facility] 5 23:20:31 Candidia sis of the esophagu s 77391203 Active 2018 Not Available [facility] 3 03:54:06 Esophage al chest pain 17779011 Completed 201803/26/2019 Josey Lema MD [address] [place] [address], [address] , [facility] 9 12:12:06 Atypical chest pain 038107525 Completed 201803/26/2019 Josey Lema MD [address] [place] [address], [address] , [facility] 9 12:13:01 Swallowi ng painful 08929769 Active 2018 Not Available [facility] 3 03:54:07 Esophage al dysphagi a 42387994 Active 2018 Not Available [facility] 3 03:54:07 Prediabe dariel 975416084 Active 2019 Not Available [facility] 3 03:54:07 Essentia l hyperten aneudy 48057080 Active 2020 Faith Carson NP [address] [place] [address], [address] , [facility] 3 22:52:15 Restless legs 72455379 Active 2021 Not Available [facility] 3 03:54:07 SARS-CoV -2 Active 2022 Not Available [facility] 3 03:54:07 Hyperpar athyroid ism 66047232 Active 2022 Faith Carson NP [address] [place] [address], [address] , [facility] 5 09:54:09 Psoriati c arthriti s 297800625 Active 2022 Not Available [facility] 3 03:54:06 Osteopen ia with high fracture risk 94578772130 9101 Active 2022 Not Available [facility] 3 03:54:06 Family history of cancer of colon 624320593 Active 2024 Faith Carson NP [address] [place] [address], [address] , [facility] 5 10:05:39 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 Not Available [facility] 3 03:54:06 Rotator cuff shoulder syndrome and allied disorder s Completed 05/19/2013 Not Available [facility] 3 02:03:33 Carpal tunnel syndrome 99526976 Active Not Available [facility] 3 03:54:07 Gastroes ophageal reflux disease 754720950 Active 2007 Elyse Nunez RN null, [facility] 4 16:28:51 Rheumato id arthriti s 14625747 Active 2004 Elyse Nunez RN null, [facility] 4 16:28:51 Enthesop athy of wrist AND/OR carpus 98232546 Completed 200505/19/2013 Not Available [facility] 3 02:03:35 Synoviti s and tenosyno vitis 920557411 Completed 05/19/2013 Not Available [facility] 3 02:04:12 Elevated level of transami nase and lactic acid dehydrog enase 008928658 Completed 12/17/2018 Removal Reason: normal recently Josey Lema MD [address] [place] [address], [address] , [facility] 9 06:13:03 Sj? ? ?gren's syndrome 69979255 Active 2005 Not Available [facility] 3 03:54:07 Disorder of function of stomach 051613598 Active 2006 Not Available [facility] 3 03:54:07 Tendinit is 13460004 Active 2004 Not Available [facility] 3 03:54:07 Enthesop athy of hip region 95960431 Completed 200605/19/2013 Not Available [facility] 3 02:03:09 Pain of hip region 37450335 Completed 200705/19/2013 Not Available [facility] 3 02:01:32 Psoriasi s with arthropa thy Active Not Available [facility] 3 03:54:07 On examinat ion - a rash Completed 05/19/2013 Not Available [facility] 3 02:00:49 Psoriasi s 3182603 Completed 08/14/2018 Removal Reason: resolved Josey Lema MD [address] [place] [address], [address] , [facility] 9 10:00:45 Hyperlip idemia 06783671 Active Faith Carson NP [address] [place] [address], [address] , [facility] 4 12:35:28 Neuralgi a 13415626 Active 2006 Not Available [facility] 3 03:54:06 Hypothyr oidism 33785686 Active Faith Carson NP [address] [place] [address], [address] , [facility] 3 22:52:17 Pain in limb 33813012 Completed 200405/19/2013 Not Available [facility] 3 02:00:56 Malaise and fatigue 606770804 Completed 05/19/2013 Not Available [facility] 3 02:00:19 Problem Notes None recorded. Procedures Surgical History Date Name Laterality Status Provider Name and Address Organization Details Recorded Time 2023 Medicare Wellness Visit completed Dawit Pradhan MA [facility] 4 11:29:21 2022 62556: Therapeutic Exercise completed CHAUNCEY WILEY, PT [address] [place], [address], [facility] 3 09:54:59 2022 Neuromuscular re-education completed CHAUNCEY WILEY, PT [address] [place], [address], [facility] 3 10:00:40 2022 Treatment and Advice completed CHAUNCEY WILEY, PT [address] [place], [address], [facility] 3 09:43:32 2022 [address]: Therapeutic Exercise completed CHAUNCEY WILEY, PT [address] [facility], [address], [facility] 3 09:47:55 2022 Neuromuscular re-education completed CHAUNCEY WILEY, PT [address] [place], [address], [facility] 3 09:59:00 2022 Treatment and Advice completed CHAUNCEY WILEY, PT [address] [place], [address], [facility] 3 09:44:56 2022 Neuromuscular re-education completed CHAUNCEY WILEY, PT [address] [place], [address], [facility] 3 15:03:16 2022 Treatment and Advice completed CHAUNCEY WILEY, PT [address] [place], [address], [facility] 3 15:05:50 2022 Suture/staple Removal completed Michele Starkey RN [facility] 3 14:10:26 2022 [address]: Therapeutic Exercise completed CHAUNCEY WILEY, PT [address] [place], [address], [facility] 3 11:39:46 2022 Neuromuscular re-education completed CHAUNCEY WILEY, PT [address] [place], [address], [facility] 3 12:01:14 2022 [address]: Therapeutic Activities - Direct 1:1 completed CHAUNCEY WILEY, PT [address] [place], [address], [facility] 3 12:01:20 2022 Treatment and Advice completed CHAUNCEY WILEY, PT [address] [place], [address], [facility] 3 11:35:13 2022 [address]: Therapeutic Exercise completed CHAUNCEY WILEY, PT [address] [place], [address], [facility] 3 10:01:36 2022 Treatment and Advice completed CHAUNCEY WILEY, PT [address] [place], [address], [facility] 3 09:58:11 2022 Punch Biopsy completed Hilda Danielson PA-C [address] [place], [address], [facility] 3 20:57:07 2022 Physical Activity Counselling completed CHAUNCEY WILEY, PT [address] [place], [address], [facility] 3 09:02:30 2022 [address]: PT Memo, Moderate Complexity completed CHAUNCEY WILEY, PT [address] [place], [address], [facility] 3 09:02:33 2022 Treatment and Advice completed CHAUNCEY WILEY, PT [address] [place], [address], [facility] 3 10:04:29 2021 Trigger Finger Injection RB completed Vance Hernandez MD [address] [place] [address], [address], [facility] 2 09:47:42 2021 prevention-cardiovascu lar risk reduction counseling completed Faith Carson NP [address] [place] [address], [address], [facility] 2 16:05:17 2020 Generic Procedure Template completed Tee Stoner MD [address] [place] [address], [address], [facility] 1 09:19:15 2020 prevention-cardiovascu lar risk reduction counseling completed Cheryl Ruiz MA [facility] 1 08:46:41 2020 prevention-annual alcohol misuse screening completed Cheryl Ruiz MA [facility] 1 08:46:41 05/06/ 2021 Incise and Drain without packing completed Faith Carson NP [address] [place] [address], [address], [facility] 1 22:22:52 2018 Skin Tag Removal (up to 15) completed Josey Lema MD [address] [place] [address], [address], [facility] 9 08:20:54 2018 Jacklyn - EGD completed Wally Villasenor MD [address] [place] [address], [address], [facility] 9 15:28:12 2018 Esophagoduodenoscopy completed Catherine Hitchcock MD [address] [place] [address], [address], [facility] 9 18:05:06 2018 Post hospital/SNF follow-up/Transitional Care completed Faith Carson NP [address] [place] [address], [address], [facility] 9 13:23:43 2012 Generic Procedure Template completed Tee Stoner MD [address] [place] [address], [address], [facility] 3 08:19:55 2011 Generic Procedure Template completed Tee Stoner MD [address] [place] [address], [address], [facility] 2 12:03:39 2011 Shoulder (Right) Injection completed Tee Stoner MD [address] [place] [address], [address], [facility] 2 10:17:04 Imaging Results Imaging Date Name Status LastModified by Organiz [facility] Details LastModified Time 12/02/2023 pulmonary function test* completed [facility] [address] [place], [address], 12/12/2023 12:50:10 03/10/2024 MAMMO, screening completed [address] [place], [address], 03/12/2024 08:18:03 Procedure Notes None recorded. Medical Equipment None Reported. Allergies Allergen ID Allergen Name Allergen Category Reaction Reaction Severity Criticality Documentation Date Start Date Code Code System Note Provider Name and Address Organization Details Recorded Time 504637 adhesive environme nt,medica tion other Not available Not available 02/11/2013 33559 UNK Blis ters Can use paper tape Wyatt Juarez LPN [facility] 5 08:48:17 65186 Humira medicatio n rash Not available Not available 11/14/2009 54365 4 RxNorm Not Available [facility] 1 06:05:41 3283 Substance with sulfonami de structure and antibacte rial mechanism of action (substanc e) medicatio n rash Not available Not available 08/22/2008 18362 8003 SNOMED Not Available [facility] 1 06:05:20 3284 amoxicill in medicatio n rash Not available Not available 08/22/2008 723 RxNorm Not Available [facility] 1 06:05:20 Medications Name Sig Start Date Stop Date Status Note LastModified by Organization Details LastModified Time Prescript ion - New 10/29 completed orencia (self injectab le) Not Available Not Available Not Available Prescript ion - Prior Authoriza tion Request INJECT 45MG SUBCUTAN EOUSLY EVERY 12 WEEKS (CAUTION IF LATEX ALLERGY- NEEDLE CAP CONTAINS LATEX) 05/05 completed Not Available Not Available Not Available carisopro dol 350 mg tablet TAKE 1 OR 2 TABLETS BY MOUTH AT BEDTIME DAILY 01/18 completed Not taking Not Available Not Available Not Available celecoxib 200 mg capsule TAKE 1 CAPSULE TWICE A DAY active Not Available Not Available No t Available Qvar 80 mcg/actua tion Metered Aerosol oral inhaler Inhale 2 puffs twice a day by inhalati on route as directed . 02/07 completed Using Treligy Not Available Not Available Not Available prednison e 10 mg tablet Take 6 tablets by mouth on day 1, 5 tablets by mouth on day 2, 4 tablets by mouth on day 3, 3 tablets by mouth on day 4, 2 tablets by mouth on day 5, 1 tablet by mouth on day 6 08/18 completed Not Available Not Available Not Available doxycycli ne hyclate 100 mg capsule Take 1 capsule every 12 hours by oral route for 7 days. 01/17 completed Not Available Not Available Not Available fluconazo le 150 mg tablet TAKE 1 TABLET BY MOUTH ONCE 03/08 completed Not Available Not Available Not Available ranitidin e 300 mg tablet Take 1 tablet every day by oral route. 08/29 completed Pt not taking Not Available Not Available Not Available Claritin 10 mg tablet Take 1 tablet every day by oral route. 02/07 completed Pt stopped, not needed, sx gone Not Available Not Available Not Available sucralfat e 1 gram tablet Take 1 tablet by mouth 15 minutes before meals tid and at hs. 08/29 completed Not Available Not Available Not Available lisinopri l 20 mg tablet Take 1 tablet every day by oral route. 01/23 completed Not Available Not Available Not Available famotidin e 40 mg tablet 08/22 completed Take 1.00 tabs every day Not Available Not Available Not Available prednison e 20 mg tablet Take 2 tablets every day by oral route with meal(s) for 5 days, for itchy rash. 08/18 completed Not Available Not Available Not Available alendrona te 70 mg tablet TAKE 1 TABLET BY MOUTH WEEKLY WITH 8 OZ OF PLAIN WATER 30 MINUTES BEFORE FIRST FOOD, DRINK OR MEDS. STAY UPRIGHT FOR 30 MINS active Not Available Not Available No t Available prednison e 5 mg tablet 2 po qd 11/02 completed 5 mg/d 10/24/20 Not Available Not Available Not Available clobetaso l 0.05 % topical cream APPLY A THIN LAYER TO THE AFFECTED AREA(S) BY TOPICAL ROUTE 2 TIMES PER DAY 07/24 completed Not Available Not Available Not Available leflunomi de 10 mg tablet 1 po qod for 1 week, then 1 po qd 04/14 completed Not Available Not Available Not Available Zyrtec 10 mg tablet Take 1 tablet every day by oral route. active Not Available Not Available No t Available azathiopr ine 50 mg tablet TAKE 2 TABLETS DAILY 08/01 completed Not Available Not Available Not Available acetamino phen 300 mg-codein e 30 mg tablet Take 1 tablet every 6 hours by oral route. 01/30 completed Not Available Not Available Not Available amlodipin e 5 mg tablet TAKE 1 TABLET BY MOUTH DAILY 01/19 completed Not Available Not Available Not Available methotrex ate sodium 25 mg/mL injection solution INJECT 1ML EVERY WEEK DIRECTED 02/07 completed Pt not taking 09/13/19 Not Available Not Available Not Available omeprazol e 40 mg capsule,d elayed release Take 1 capsule every day by oral route. 11/24 completed Not Available Not Available Not Available leflunomi de 20 mg tablet Take 1 tablet every day by oral route for 30 days. active Not Available Not Available No t Available triamcino lone acetonide 0.1 % topical cream 01/19 completed Not Available Not Available Not Available simvastat in 40 mg tablet TAKE 1 TABLET BY MOUTH DAILY active Not Available Not Available No t Available levothyro xine 100 mcg tablet Take 1 tablet by mouth daily x 6 days/wk and 1/2 tablet on Sundays (6.5 tabs/wk) . 2024 active Not Available Not Available Not Avai lable prednisol one acetate 1 % eye drops,rosi pension 12/07 completed Not Available Not Available Not Available prednison e 1 mg tablet TAKE 4 TABLETS DAILY 11/26 completed Consult note Rheum 10/01/22 3 tabs daily Not Available Not Available Not Available prednison e 2.5 mg tablet 11/26 completed Not Available Not Available Not Available pantopraz ole 40 mg tablet,de layed release TAKE ONE TABLET BY MOUTH TWICE A DAY active Not Available Not Available No t Available lisinopri l 10 mg tablet Take 1 tablet every day by oral route in the evening. 01/17 completed Not Available Not Available Not Available levothyro xine 150 mcg tablet 1 tab daily 08/14 completed is taking 112mcg Not Available Not Available Not Available Qvar 40 mcg/actua tion Metered Aerosol oral inhaler Inhale 2 puffs twice a day by inhalati on route. 08/11 completed Not Available Not Available Not Available lisinopri l 30 mg tablet TAKE 1 TABLET DAILY 01/21 completed Not Available Not Available Not Available docusate sodium 100 mg capsule TAKE 1 CAPSULE BY MOUTH ONCE DAILY FOR 10 DAYS NEEDED FOR CONSTIPA TION 01/21 completed Not Available Not Available Not Available gabapenti n 300 mg capsule TAKE 3 CAPSULES BY MOUTH TWICE DAILY 10/24 completed 1 cap twice daily Not Available Not Available Not Available omeprazol e 20 mg capsule,d elayed release TAKE 1 CAPSULE BY MOUTH EVERY DAY 01/30 completed Not Available Not Available Not Available leucovori n calcium 5 mg tablet 2 tabs po approx 8 - 12 hrs after weekly MTX dose 02/07 completed Not Available Not Available Not Available folic acid 1 mg tablet TAKE 1 TABLET BY MOUTH DAILY 02/07 completed Pt not taking 09/13/19 Not Available Not Available Not Available hydroxyzi ne HCl 25 mg tablet Take 1-2 tabs PO QHS PRN itch 01/19 completed Not Available Not Available Not Available BD Tuberculi n Syringe 1 mL 25 gauge x 5/8 USE DIRECTED 01/21 completed Not Available Not Available Not Available hydroxych loroquine 200 mg tablet TAKE 1 TABLET TWICE A DAY active Not Available Not Available No t Available estradiol 0.01% (0.1 mg/gram) vaginal cream APPLY 1 GRAM VAGINALL Y TWICE WEEKLY 2024 active Not Available Not Available Not Avai lable ketoconaz ole 2 % topical cream APPLY TO THE AFFECTED AREA(S) BY TOPICAL ROUTE ONCE DAILY active Not Available Not Available No t Available betametha sone dipropion ate 0.05 % topical ointment Apply a thin film to the affected skin areas by topical route once daily 01/[address]Gordo langley Not Available Not Available Not Available lisinopri l 40 mg tablet TAKE 1 TABLET BY MOUTH DAILY active Not Available Not Available No t Available levothyro xine 112 mcg tablet TAKE 1 TABLET BY MOUTH DAILY 01/22 completed Not Available Not Available Not Available tobramyci n 0.3 %-dexamet hasone 0.1 % eye drops,rosi pension INSTILL 1 DROP INTO AFFECTED EYE(S) BY OPHTHALM IC ROUTE EVERY 6 HOURS x 5 days 03/08 completed Not Available Not Available Not Available oxycodone 5 mg tablet TAKE 1 TABLET BY MOUTH EVERY SIX HOURS NEEDED FOR PAIN FOR 3 DAYS 01/18 completed Not Available Not Available Not Available Laxative (bisacody l) 5 mg tablet,de layed release 08/18 completed Not Available Not Available Not Available calcium 750 mg chewable tablet Take by oral route. 12/15 completed Not Available Not Available Not Available Methotrex ate Sodium Parentera l 25 mg/mL injection solution active Not Available Not Available Not Available cyclospor ine 0.05 % eye drops in a dropperet te bid active Not Available Not Available Not Available nitrofura ntoin monohydra te/macroc rystals 100 mg capsule Take 1 capsule every 12 hours by oral route. 01/19 completed Not Available Not Available Not Available trospium 20 mg tablet Take 1 tablet twice a day by oral route for 90 days. 01/19 completed Not Available Not Available Not Available darifenac in ER 7.5 mg tablet,ex tended release 24 hr Take 1 tablet every day by oral route for 30 days. 01/19 completed Not Available Not Available Not Available Fish Oil active 2 bid Not Available Not Avai lable Not Available folic acid 2mg daily active Not Available Not Available No t Available prednisol one 60mg daily 2012 active taking 10mg daily 03-31-15 Not Available Not Available Not Available flaxseed active bid Not Available Not Avai lable Not Available B-100 Complex 08/14 completed qd Not Available Not Available Not Available Restasis twice daily 03/08 completed Not Available Not Available Not Available Humira Pen 40 mg/0.8 mL subcutane ous kit INJECT 40MG (0.8ML) SUBCUTAN EOUSLY EVERY OTHER WEEK REFRI GERATE * 2008 active Not Available Not Available Not Avai lable trospium ER 60 mg capsule,e xtended release 24 hr Take 1 capsule every day by oral route. 10/24 completed Not taking, unavaila ble Not Available Not Available Not Available GaviLyte- G 236 gram-22.7 4 gram-6.74 gram-5.86 gram oral solution 08/18 completed Not Available Not Available Not Available Stelara 90 mg/mL subcutane ous syringe Inject 1 mL by subcutan eous route. 03/31 completed Not Available Not Available Not Available Stelara 45 mg/0.5 mL subcutane ous syringe INJECT 45MG SUBCUTAN EOUSLY EVERY 12 WEEKS (CAUTION IF LATEX ALLERGY- NEEDLE CAP CONTAINS LATEX) 12/20 completed ineffect emilia Not Available Not Available Not Available Orencia 125 mg/mL subcutane ous syringe active Not Available Not Available Not Available Myrbetriq 25 mg tablet,ex tended release Take 1 tablet every day by oral route for 90 days. active Not Available Not Available No t Available Breo Ellipta 100 mcg-25 mcg/dose powder for inhalatio n Inhale 1 puff every day by inhalati on route. 11/24 completed Not Available Not Available Not Available Breo Ellipta 08/14 completed pt. unsure of dose Not Available Not Available Not Available Cosentyx 300 mg/2 Syringes (150 mg/mL) subcutane ous syringe 11/26 completed Not Available Not Available Not Available Cosentyx Pen 300 mg/2 pens (150 mg/mL) subcutane ous pen injector INJECT THE CONTENTS OF 2 PENS (300 MG) UNDER THE SKIN EVERY 4 WEEKS 11/26 completed Not Available Not Available Not Available albuterol sulfate 90 mcg/actua tion breath activated powder inhaler Inhale 2 puffs every 4 hours by inhalati on route. active Not Available Not Available No t Available Taltz Autoinjec tor 80 mg/mL subcutane ous q 8 weeks active q 4 weeks 08/18/24 Not Available Not Available Not Available Inflectra 100 mg intraveno us solution q 8 weeks 12/07 completed Not Available Not Available Not Available Inflectra q 8 weeks 07/24 completed Not Available Not Available Not Available Trelegy Ellipta 100 mcg-62.5 mcg-25 mcg powder for inhalatio n Inhale 1 puff every day by inhalati on route. active Not Available Not Available No t Available Vitals Date Recorded Body height Oxygen saturation Oxygen saturation in Arterial blood by Pulse oximetry Heart rate Systolic blood pressure Diastolic blood pressure Provider Name and Address Organization Details Last Updated DateTime 4 156.85 cm 98 % 98 % 75 /min 106 mm[Hg] 66 mm[Hg] Dawit PradhanNICHOLAS [facility] 4 11:17:55 Date Recorded Body height Body mass index (BMI) Body weight Oxygen saturation Oxygen saturation in Arterial blood by Pulse oximetry Heart rate Systolic blood pressure Diastolic blood pressure Provider Name and Address Organization Details Last Updated DateTime 4 156.85 cm 32.6 kg/m2 55754.8 5 g 96 % 96 % 80 /min 116 mm[Hg] 68 mm[Hg] Dawit Pradhan NICHOLAS [facility] 4 11:40:05 Date Recorded Body height Provider Name an d Address Organization Details Last Updated DateTime 04/14/2024 156.85 cm FRANCI Gonzales [facility] 04/14/2024 10:22:43 Date Recorded Body height Body mass index (BMI) Body weight Oxygen saturation Oxygen saturation in Arterial blood by Pulse oximetry Heart rate Body temperature Systolic blood pressure Diastolic blood pressure Provider Name and Address Organization Details Last Updated DateTime 4 156.85 cm 32.6 kg/m2 92098.8 5 g 97 % 97 % 82 /min 98 [degF] 114 mm[Hg] 66 mm[Hg] Dawit PradhanNICHOLAS [facility] 4 15:04:49 Date Recorded Body height Body mass index (BMI) Body weight Oxygen saturation Oxygen saturation in Arterial blood by Pulse oximetry Heart rate Systolic blood pressure Diastolic blood pressure Provider Name and Address Organization Details Last Updated DateTime 5 156.85 cm 32.4 kg/m2 41181.2 6 g 95 % 95 % 70 /min 122 mm[Hg] 82 mm[Hg] Dawit Pradhan NICHOLAS [facility] 5 09:39:10 Social History Question Answer Notes LastModified by Organizat ion Details LastModified Time Tobacco Smoking Status Former Smoker 4 cigs/d for couple years Josey Lema MD [address] [place] [address], [phone], [facility] 08/14/2018 10:22:07 What Is Your Level Of Caffeine Consumption? Moderate 1 Cup Coffee Information not available 08/14/2018 How Much Tobacco Do You Chew? None [email or web address] Information not available 05/16/2011 What Type Of Diet Are You Following? REGULAR [email or web address] Information not available 05/16/2011 Which Illicit Or Recreational Drugs Have You Used? None [email or web address] Information not available 05/16/2011 Education 12 Information no t available 08/14/2018 What Is The Highest Grade Or Level Of School You Have Completed Or The Highest Degree You Have Received? [id number] Information not available 01/18/2022 Have There Been Any Changes To Your Family Or Social Situation? No [email or web address] Information not available 01/17/2021 When Did You Quit Smoking? 16+yearssin celastcigar ette Information not available 08/14/2018 How Many Days In The Past Year Have You Had A Heavy Drinking Consumption (4+ Female, 5+ Male)? 0 02/11/13 [email or web address] Information not available 02/11/2013 Are There Any Guns Present In Your Home? Yes Locked Information not available 08/14/2018 Do You Use Insect Repellent Routinely? No [email or web address] Information not available 01/17/2021 Live Alone Or With Others? With Others Information not available 08/14/2018 CCM Consent Discussion 01/20/2024 [email or web address] Information not available 01/21/2024 Marital Status Ariel; Since 1979 Information not available 08/14/2018 Mosquito Repellent Used Routinely Yes Information not available 08/14/2018 What Was The Date Of Your Most Recent Tobacco Screening? 08/18/2024 Information not available 08/18/2024 How Many Children Do You Have? 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 [email or web address] Information not available 01/20/2024 What Is Your Relationship Status? Information not available 01/18/2022 Do You Use Your Seat Belt Or Car Seat Routinely? Yes [email or web address] Information not available 01/17/2021 Seat Belts Used Routinely Yes Information not available 08/14/2018 Smoke Alarm In Home Yes Information not available 08/14/2018 Do You Have Smoke And Carbon Monoxide Detectors In Your Home? Yes [email or web address] Information not available 01/17/2021 At What Age Did You Start Smoking Tobacco? 16 Information not available 04/14/2024 Are You Passively Exposed To Smoke? No [email or web address] Information not available 01/17/2021 How Much Tobacco Do You Smoke? No Information not available 01/20/2024 General Stress Level Medium Information not available 08/14/2018 Do You Use Sunscreen Routinely? Yes Information not available 08/14/2018 How Many Years Have You Smoked Tobacco? 3 Information not available 04/14/2024 Sex: Female Functional Status Question Answer Note LastModified by Organizat ion Details LastModified Time Do you use any illicit or recreational drugs? No Information not available 01/18/2022 Do you or have you ever used any other forms of tobacco or nicotine? No Information not available 01/21/2023 What is your level of alcohol consumption? None Information not available 01/18/2022 Are you currently employed? No Information not available 01/21/2023 What is your occupation? retired Information not available 01/21/2023 What is your exercise level? Moderate Information not available 01/20/2024 Mental Status None recorded. Family History Relationship Description Onset Age of this Age Resolved Age Notes LastModified by Organization Details LastModified Time Mother Arthritis [email or web address] Not available 05/14/2013 08:41:43 Mother Chronic obstructive pulmonary disease 77 from lung compli cation s of COPD, a year after her husbd [email or web address] Not available 08/14/2018 10:15:14 Mother Malignant neoplasm of urinary bladder 77 Not available 01/17 14:08:50 Brother Malignant tumor of colon 64 Not available 08/18 10:07:02 Brother Pancreatitis blocke d duct, lost 99% of pancre atic functi on [email or web address] Not available 08/14/2018 10:17:17 Brother Malignant neoplasm of prostate 60 recurr ence age 70 Not available 08/18/2024 10:06:42 Brother Hypertensive disorder Not available 02/28 08:09:11 Brother Hypertensive disorder both take lisino pril Not available 03/10/2020 08:10:06 Brother Methicillin resistant Staphylococc us aureus infection Not available 11/02 11:46:29 Brother Malignant neoplasm of prostate 75 Not available 08/18 10:06:24 Paternal Grandmother Diabetes mellitus [email or web address] Not available 2018 10:13:04 Father Myocardial infarction 77 from heart. in 2005 [email or web address] Not available 08/14/2018 10:14:00 Sister Crohn's disease 47 from bowel- relate d issues 2010 Not available 11/02/2020 11:46:49 Sister Depressive disorder [email or web address] Not available 2018 10:17:56 Sister Diabetes mellitus 47 Not available 01/18 08:47:49 Notes:has 5 sibs. she was in the middle. 3 older brothers, younger sister Medical History Condition Response SKIN Y Hyperlipidemia Y Rheumatoid Arthritis Y Hypothyroid Y NEUROLOGIC Y EYE Y GERD Y RHEUMATOLOGIC Y Gynecological History Statement/Question Response Hysterectomy Y Obstetrics History GPAL:G 0 P 0 0 0 0 Immunizations Vaccine Type Date Status Note Provider Nam e and Address Organization Details Recorded Time influenza, unspecified formulation 5 completed Not Available [facility] 04/15/2023 19:29:43 influenza, unspecified formulation 5 completed Not Available [facility] 04/15/2023 19:29:43 Novel Nouxrcgar-[id number], all formulations 9 completed Not Available [facility] 04/15/2023 19:29:43 influenza, unspecified formulation 9 completed Not Available [facility] 04/15/2023 19:29:43 Influenza, split virus, trivalent, preservative 2 completed Not Available [facility] 07/17/2019 02:25:03 Influenza, split virus, trivalent, PF 3 completed Not Available [facility] 07/17/2019 02:29:18 Influenza, split virus, quadrivalent, PF 5 completed Not Available [facility] 07/17/2019 02:20:11 Influenza, split virus, trivalent, preservative 4 completed Not Available [facility] 04/15/2023 19:29:43 Influenza, split virus, quadrivalent, PF 7 completed Not Available [facility] 07/17/2019 02:28:43 Tdap 9 completed Not Available [facility] 07/17/2019 02:37:59 pneumococcal polysaccharide PPV23 9 completed Not Available [facility] 07/17/2019 02:24:00 Influenza, split virus, quadrivalent, PF 9 completed Not Available [facility] 07/17/2019 02:32:22 influenza, unspecified formulation 8 completed Not Available [facility] 04/15/2023 19:29:43 Influenza, split virus, quadrivalent, PF 0 completed Amanda Magana LPN null, [facility] 03/28/2020 09:07:39 zoster recombinant 9 completed Faith Carson, LISANDRA [address] [place] [address], [phone], [facility] 01/20/2024 12:33:26 zoster recombinant 9 completed Faith Carson NP [address] [place], [address], [facility] 01/20/2024 12:33:26 Pneumococcal conjugate PCV 13 2 completed LUIS A Saldana, [facility] 02/06/2022 10:00:50 Influenza, split virus, trivalent, preservative 0 completed Not Available [facility] 07/17/2019 02:17:47 COVID-19, mRNA, LNP-S, PF, 30 mcg/0.3 mL dose 1 completed Not Available [facility] 04/15/2023 19:29:43 COVID-19, mRNA, LNP-S, PF, 30 mcg/0.3 mL dose 1 completed Not Available [facility] 04/15/2023 19:29:43 Influenza, split virus, quadrivalent, preservative 1 completed Faith Carson, LISANDRA [address], [place], , [facility] 01/20/2024 12:29:14 COVID-19, mRNA, LNP-S, PF, 30 mcg/0.3 mL dose 1 completed Faith Carson NP [address], [place], , [facility] 01/20/2024 12:33:26 COVID-19, mRNA, LNP-S, PF, 30 mcg/0.3 mL dose 2 completed Faith Carson NP [address], [place], , [facility] 01/20/2024 12:33:26 Influenza, split virus, quadrivalent, preservative 2 completed Faith Carson NP [address], [place], , [facility] 01/20/2024 12:33:26 COVID-19, mRNA, LNP-S, PF, 30 mcg/0.3 mL dose 2 completed Not Available [facility] 04/15/2023 19:29:43 COVID-19, mRNA, LNP-S, PF, 30 mcg/0.3 mL dose 3 completed LUIS A Taylor, [facility] 05/01/2023 11:15:19 influenza, unspecified formulation 3 completed Faith Carson NP [address], [place], , [facility] 07/24/2023 10:12:02 Influenza, MDCK, quadrivalent, PF 1 completed Faith Carson NP [address], [place], , [facility] 01/20/2024 12:33:26 COVID-19, mRNA, LNP-S, PF, 30 mcg/0.3 mL dose, melina-sucrose 2 completed Faith Carson NP [address], [place], , [facility] 01/20/2024 12:33:26 COVID-19, mRNA, LNP-S, bivalent, PF, 30 mcg/0.3 mL dose 2 completed Faith Carson NP [address] [place], [address], [facility] 08/18/2024 10:11:10 COVID-19, mRNA, LNP-S, PF, melina-sucrose, 30 mcg/0.3 mL 3 completed Faith Carson, LISANDRA [address] [place], [address], [facility] 01/20/2024 12:33:26 Influenza, split virus, quadrivalent, PF 2 completed Faith Carson NP [address] [place] [address], [phone], [facility] 01/20/2024 12:33:27 RSV, recombinant, protein subunit RSVpreF, adjuvant reconstituted, 0.5 mL, PF 4 [facility] 01/20/[facility] 16:44:22 Pneumococcal conjugate PCV20, polysaccharide XJH400 conjugate, adjuvant, PF 4 completed [facility] 01/20/2024 16:45:04 COVID-19, mRNA, LNP-S, PF, 100 mcg/0.5mL dose or 50 mcg/0.25mL dose 4 completed [facility] 03/31/2024 14:25:14 influenza, unspecified formulation 4 completed [facility] 03/29/2024 15:40:20 COVID-19, mRNA, LNP-S, PF, melina-sucrose, 30 mcg/0.3 mL 4 completed Vale Stubbs LPN [facility] 03/31/2024 14:25:14 Past Encounters Encounter ID Performer Location Encounter Start Date Encounter Closed Date Diagnosis/Indication Diagnosis SNOMED-CT Code Diagnosis ICD10 Code Diagnosis Note [id number] Tee Stoner MD Rheumatol nam, [address] [place] [address] 04/30/2005 08:15:49 04/30/2005 10:29:35 [id number] [facility] - [address] [place] [address] 04/30/2005 08:54:28 04/30/2005 08:55:08 [id number] [facility] [address] [facility] , [address] [place] [address] 06/10/2005 09:41:15 06/10/2005 12:09:53 [id number] Tee Stoner MD Rheumatol nam[address] [place] [address] 06/10/2005 09:15:29 06/11/2005 08:51:05 [id number] [facility] - [address] [place] [address] 07/23/2005 16:20:28 07/23/2005 16:20:51 [id number] Tee Stoner MD Rheumatol nam[address] [place] [address] 08/02/2005 07:54:43 08/02/2005 14:05:46 [id number] [facility] - [address] [place] [address] 09/02/2005 11:37:20 09/02/2005 11:37:34 [id number] Tee Stoner MD Rheumatevan [address] [place] [address] 09/06/2005 10:38:11 09/11/2005 17:15:28 [id number] FAMILY PRACTICE TREATMENT NURSE [facility], [facility], OFFICE [address] [place], [place] [address] [address] 09/11/2005 15:24:06 09/11/2005 16:22:21 [id number] Tee Stoner MD Rheumatol nam, [address] [place] [address] 10/25/2005 08:16:03 10/28/2005 11:17:02 [id number] [facility] - [address] [place] [address] 10/25/2005 10:20:50 10/25/2005 10:21:13 [id number] [facility] - [facility] [place] [address] 12/06/2005 12:51:39 12/06/2005 13:21:17 [id number] [facility] [place] [address] 01/17/2006 07:55:17 01/17/2006 16:06:31 [id number] [facility] - [facility] [place] [address] 01/17/2006 08:11:36 01/17/2006 08:11:52 [id number] [facility] - [facility] [place] [place] [address] 04/01/2006 09:23:48 04/01/2006 09:23:56 [id number] Tee Stoner MD Rheumatol nam[address] [place] [address] 04/21/2006 07:57:26 04/22/2006 14:30:06 [id number] [facility] - [facility] [place] [address] 05/13/2006 15:44:26 05/13/2006 15:44:39 [id number] [facility] - [facility] [place] [address] 07/01/2006 15:28:53 07/01/2006 15:29:03 [id number] Tee Stoner MD Rheumatol nam[address] [place] [address] 07/22/2006 07:49:19 07/28/2006 06:29:14 [id number] Tee Stoner MD Rheumatol nam[address] [place] [address] 10/31/2006 10:27:55 11/03/2006 06:33:52 [id number] [facility] - [place] [address] [place] [address] 10/31/2006 12:43:06 10/31/2006 12:43:09 [id number] Tee Stoner MD Rheumatol ogjames, [address] [place], [place] [address] 02/12/2007 09:32:13 02/17/2007 09:27:21 [id number] Tee Stoner MD Rheumatol ogjames, [address] [place], [place] [address] 05/15/2007 08:01:37 07/20/2008 02:02:29 [id number] [facility] - [address] [place], [place] [address] 05/15/2007 08:25:19 05/15/2007 08:25:27 [id number] Tee Stoner MD Rheumatol ogjames, [address] [place], [place] [address] 08/21/2007 07:54:56 07/20/2008 02:02:29 [id number] Tee Stoner MD Rheumatol ogjames, [address] [place] [address] 11/20/2007 08:02:08 07/20/2008 02:02:29 [id number] [facility] , [address] [place] [address] 11/20/2007 08:34:54 07/20/2008 02:02:29 [id number] [facility] [address] [facility] , [address] [place] [address] 11/20/2007 00:00:00 07/20/2008 02:02:29 [id number] Tee Stoner MD Rheumatol ogjames, [address] [place] [address] 12/04/2007 16:16:20 07/20/2008 02:02:29 [id number] [facility] , [address] [place] [address] 12/04/2007 00:00:00 07/20/2008 02:02:29 [id number] Tee Stoner MD Rheumatol nam, [address] [place] [address] 02/22/2008 07:58:07 07/20/2008 02:02:29 [id number] Tee Stoner MD Rheumatol ogjames, [address] [place], [place] [address] 08/22/2008 07:59:39 08/24/2008 12:15:06 [id number] Tee Stoner MD Rheumatol ogjames, [address] [place], [place] [address] 02/13/2009 09:30:34 02/14/2009 09:26:12 [id number] [facility] - [address] [place] [address] 08/22/2008 08:36:47 08/22/2008 08:37:25 [id number] Tee Stoner MD Rheumatol nam, [address] [place], [place] [address] 07/03/2009 08:02:29 07/04/2009 09:24:55 [id number] Tee Stoner MD Rheumatol nam, [address] [place], [place] [address] 10/03/2009 09:36:17 10/03/2009 13:20:33 [id number] Tee Stoner MD Rheumatol ogjames, [address] [place], [place] [address] 11/14/2009 07:58:49 11/15/2009 08:46:00 [id number] Tee Stoner MD Rheumatol ogjames, [address] [place], [place] [address] 12/22/2009 11:35:50 12/25/2009 13:37:31 [id number] Tee Stoner MD Rheumatol nam, [address] [place], [place] [address] 01/16/2010 08:11:00 01/18/2010 08:13:58 [id number] Tee Stoner MD Rheumatol nam, [address] [place], [place] [address] 02/27/2010 07:57:47 03/01/2010 08:47:02 [id number] Tee Stoner MD Rheumatol ogjames, [address] [place] [address] 04/12/2010 08:16:55 04/13/2010 09:31:47 [id number] Tee Stoner MD Rheumatol ogy, [address] [place], [place] [address] 07/27/2010 07:55:55 07/27/2010 15:53:18 [id number] Tee Stoner MD Rheumatol ogy, [address] [place], [place] [address] 10/25/2010 07:53:10 10/25/2010 12:12:23 [id number] Tee Stoner MD Rheumatol ogy, [address] [place], [place] [address] 11/22/2010 07:50:03 11/22/2010 09:06:18 [id number] [facility] , [address] [place], [place] [address] 11/22/2010 08:28:23 11/22/2010 08:42:00 [id number] Tee Stoner MD Rheumatol ogy, [address] [place], [place] [address] 02/19/2011 14:34:31 02/20/2011 08:55:54 [id number] Tee Stoner MD Rheumatol ogy, [address] [place], [place] [address] 03/22/2011 07:55:09 03/22/2011 09:18:50 [id number] Tee Stoner MD Rheumatol ogy, [address] [place], [place] [address] 05/17/2011 08:01:28 05/17/2011 08:27:35 [id number] Tee Stoner MD Rheumatol ogjames, [address] [place], [place] [address] 09/16/2011 07:55:09 09/16/2011 12:23:39 [id number] Tee Stoner MD Rheumatol ogjames, [address] [place], [place] [address] 11/07/2011 08:49:08 11/07/2011 10:50:53 [id number] Tee Stoner MD Rheumatol ogy, [address] [place], [place] [address] 01/09/2012 11:18:54 01/09/2012 13:47:08 [id number] Tee Stoner MD Rheumatol ogy, [address] [place] [address] 02/03/2012 07:55:58 02/03/2012 11:10:35 [id number] Tee Stoner MD Rheumatol ogjames, [address] [place] [address] 03/23/2012 10:20:36 03/23/2012 11:01:58 [id number] Tee Stoner MD Rheumatol ogjames, [address] [place] [address] 04/22/2012 08:54:06 04/22/2012 15:13:23 [id number] Tee Stoner MD Rheumatol ogjames, [address] [place] [address] 07/17/2012 11:36:27 07/17/2012 12:08:38 [id number] Tee Stoner MD Rheumatol ogjames, [address] [place] [address] 08/13/2012 08:56:23 08/17/2012 09:01:15 [id number] Tee Stoner MD Rheumatol ogjames, [address] [place] [address] 09/24/2012 08:37:11 09/28/2012 09:29:02 [id number] Tee Stoner MD Rheumatol ogjames, [address] [place] [address] 12/24/2012 08:37:39 12/28/2012 09:19:37 [id number] Tee Stoner MD Rheumatol ogjames, [address] [place] [address] 02/11/2013 08:54:07 02/12/2013 09:23:05 Rheumatoid arthritis [id number] Hx of RA with secondary Sjogren's. Sj? ? ?gren's syndrome [id number] Mild sicca sx's. 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 I have not seen reports of this previously . Some improvemen t on higher dose of AZA and the prednisone , but rash persists and active synovitis despite azathiopri ne and prednisone . We have been through most medication options. I do not want to try cyclospori n as she has had tendency toward HTN in past. . Tolerating meds. Continue for now. I asked Dr Simpson re use of Stellara, but he did not think skin bad enough to warrant that. . Some LFT abnormalit y coincident with increasing the AZA dose. Follow labs q 2 mo. Long-term drug therapy [id number] AZA. Mild LFT abnormalit y. Follow counts. [id number] Tee Stoner MD Rheumatol [address] [address] 05/14/2013 08:15:49 05/17/2013 10:47:22 Rheumatoid arthritis [id number] Hx of RA with secondary Sjogren's. Inflammato ry arthritis has definitely flared. Despite azathiopri ne 250 daily, prednisone 5 daily she has active synovitis multiple joints. Enbrel clearly provoked a bad psoriasis- like rash and all TNF agents need to be avoided. We have been through methotrexa te, leflunomid e, Plaquenil. She has allergy to sulfasalaz ine. Azathiopri ne is ineffectiv e. Cyclospori n is relatively contraindi cated with her hypertensi on. I would like to try her on Orencia. We discussed medication . Recurrence of the psoriasis- like rash should be much less likely on this medication . I discussed that it may take 2-3 months to see results. For the meantime, she should continue on the azathiopri ne. We will have to fly for prior authorizat ion. Influenza vaccine needed [id number] Tee Stoner MD Rheumatol nam, [address] [address] 06/07/2013 11:25:45 06/08/2013 09:35:50 Rheumatoid arthritis [id number] Hx of RA with secondary Sjogren's. Inflammato ry arthritis has definitely flared. Despite azathiopri ne 250 daily, prednisone 5 daily she has active synovitis multiple joints. Enbrel clearly provoked a bad psoriasis- like rash and all TNF agents need to be avoided. We have been through methotrexa te, leflunomid e, Plaquenil. She has allergy to sulfasalaz ine. Azathiopri ne is ineffectiv e. Cyclospori n is relatively contraindi cated with her hypertensi on. To start Orencia. I have suggested she hold off until next week. Weathers's palsy [id number] O nset 5 days ago. On prednisone . Improving. Discussed Tx: usual course is 10 d prednisone . Taper off over next 5 days. Lyme test negative, but will repeat in approx 2-3 mo. [id number] Tee Stoner MD Rheumatol [address] [address] 06/14/2013 15:24:46 06/15/2013 09:28:06 Rheumatoid arthritis [id number] Hx of RA with secondary Sjogren's. Inflammato ry arthritis has definitely flared. Despite azathiopri ne 250 daily, prednisone 5 daily she has active synovitis multiple joints. Enbrel clearly provoked a bad psoriasis- like rash and all TNF agents need to be avoided. We have been through methotrexa te, leflunomid e, Plaquenil. She has allergy to sulfasalaz ine. Azathiopri ne is ineffectiv e. Cyclospori n is relatively contraindi cated with her hypertensi on. To start Orencia. I have suggested she hold off until next week. [id number] Tee Stoner MD Rheumatol [address] [address] 07/06/2013 09:33:14 2013 09:48:01 Rheumatoid arthritis 47492070 Hx of RA with secondary Sjogren's. Inflammato ry arthritis flared recently. She was on high dose prednisone for 10 days and concurrent ly, started Orencia. Now after 1 mo Orencia, still feeling very well with only minimal joint sx's. Continue Orencia. Reduce AZA to 100 mg daily (and expect to try to d/c if still doing well at next visit.) Continue prednisone 5/d for now. Return 2 mo. Weathers's palsy [id number] R esolved after about 2 weeks. Treated with high dose prednisone . Long-term drug therapy [id number] AZA. Mild LFT abnormalit y. Follow counts. Reducing dose. [id number] Tee Stoner MD Rheumatol [address] [place] [address] 08/31/2013 07:56:54 08/31/2013 08:15:57 Rheumatoid arthritis 92253582 Hx of RA with secondary Sjogren's. Inflammato ry arthritis flared recently. . Now after 2.5 mo Orencia, feeling very well with only minimal joint sx's. Continue Orencia. Reduce AZA to 50mg daily for 1 mo, then d/c. Continue prednisone 5/d for now. Return 4 mo. Expect to wean off prednisone starting next visit. [id number] Tee Stoner MD Rheumatol [address] [place] [address] 01/06/2014 08:39:52 01/06/2014 09:09:00 Rheumatoid arthritis 65497577 Psoriasis 9339604 TNF induced psoriasis. Onset ~ 2010. Still persisting . Psoriasis with arthropathy 67953260 Probable psoriatic arthritis in a patient with ahx of definite hx RA, whose psoriasis was induced by Enbrel. I have not seen reports of this previously . Both her RA and what I am assuming is Ps Arth is improved on Orencia. Continue for now. [id number] Tee Stoner MD Rheumatol [address] [place] [address] 03/17/2014 10:53:42 03/17/2014 11:22:48 Rheumatoid arthritis 75353435 Psoriasis with arthropathy 36118331 Probable psoriatic arthritis in a patient with a definite hx RA, whose psoriasis was induced by Enbrel. I have not seen reports of this previously . Both her RA and what I am assuming is Ps Arth initially improved on Orencia plus AZA. Stopped AZA about 10 mo ago. Now polyarticu lar small joint flare that includes DIP joints. Very symptomati c. Plan: Increase prednisone : 20 for 2 days then taper gradually to 7 mg and call to report. Intolerant of MTX, LEF. Restart AZA at 200 mg daily. Return 2 mo . Psoriasis 0915039 TNF induced psoriasis. Onset ~ 2010. Still persisting , but better than it was.. [id number] Tee Stoner MD Rheumatol [address] [address] 05/17/2014 08:22:43 05/18/2014 09:26:10 Psoriasis with arthropathy 89807409 Probable psoriatic arthritis in a patient with a definite hx RA, whose psoriasis was induced by Enbrel. I have not seen reports of this previously . Both her RA and what I am assuming is Ps Arth initially improved on Orencia plus AZA. Stopped AZA for a few months and had significan t flare. Now joint sx's well controlled again on current meds: Orencia, AZA 200/d, and prednisone 3 mg/d. Plan: Cont Orencia. Reduce AZA to 150/d. Continue prednisone 3mg/d until at least next visit. Labs today. Return 3 mo. . Long-term drug therapy [id number] AZA. . Follow counts. Reducing dose. Rheumatoid arthritis 89882976 Sj? ? ?gren's syndrome 90421701 Mild sicca sx's. Has periph neuropathy perhaps related. [id number] Tee Stoner MD Rheumatol [facility] [place], [address] [address] 08/22/2014 08:45:21 08/29/2014 10:22:42 Psoriasis with arthropathy 83900136 Probable psoriatic arthritis in a patient with a definite hx RA, whose psoriasis was induced by Enbrel. I have not seen reports of this previously . Both her RA and what I am assuming is Ps Arth initially improved on Orencia plus AZA. Stopped AZA for a few months and had significan t flare. but now joint sx's again well controlled on current meds: Orencia, AZA 150/d, and prednisone 3 mg/d. Plan: Cont Orencia. Continue prednisone 3mg/d until at least next visit. Labs today. Return 3 mo. . Rheumatoid arthritis 91873915 Sero+, CCP+ RA sx's and synovitis well controlled with meds as above. Psoriasis 2023055 TNF induced psoriasis. Onset ~ 2010. Still persisting . Apparently same drug induced psoriasis type rash has been reported with Orencia. Since starting Orencia, psoriasis is no worse, but also no better despite the AZA. Apremilast (Otezla) might be an option, but it does not have efficacy for RA. Long-term drug therapy [id number] AZA. . Follow counts. Sj? ? ?gren's syndrome 28596607 Mild sicca sx's. Has periph neuropathy perhaps related. Unchanged, follow sx's. [id number] Tee Stoner MD Rheumatol [address] [place] [address] 11/14/2014 08:34:26 11/15/2014 09:49:34 Psoriasis with arthropathy 41642643 Probable psoriatic arthritis in a patient with a definite hx RA, whose psoriasis was induced by Enbrel. I have not seen reports of this previously . Both her RA and what I am assuming is Ps Arth initially improved on Orencia plus AZA. Stopped AZA for a few months and had significan t flare. but now joint sx's again well controlled on current meds: Orencia, AZA 150/d, and prednisone 3 mg/d. Plan: Cont Orencia. Continue prednisone 3mg/d until at least next visit. Labs today. Return 3 mo. . Sciatica 15203022 She clark s a prior history of lumbar fusion, but I do not have access to details. She now has had a month of right sciatic pain, worse at night. She does not have any sensory, reflex, or muscular strength changes on exam. We should update a plain x-ray. I have suggested she go back and see [facility]. Therapeuti carson, I will give her a short course of prednisone . Long-term drug therapy [id number] AZA. . Follow counts. [id number] Tee Stoner MD [facility]umat[facility] [address] [place] [address] 12/26/2014 08:13:24 12/29/2014 10:20:47 Psoriasis with arthropathy 83023661 Both her RA and what I am assuming is Ps Arth initially improved on Orencia plus AZA. However, psoriasis persists, is worse. Stop Orencia, continue azathiopri ne, start Stelara under supervisio n of Dr. Simpson. Psoriasis 5662667 TNF induced psoriasis. Onset ~ 2010. Still persisting . We now think this is likely [place] psoriasis with associated psoriatic arthritis. Plan is to start treatment with Stelara. [id number] Tee Stoner MD Rheumatol [address] [place] [address] 02/07/2015 08:40:17 02/08/2015 16:17:35 Psoriasis with arthropathy 75303632 Both her RA and what appears to be Ps Arth initially improved on Orencia plus AZA. However, psoriasis persists, is worse. Stopped Orencia, continues azathiopri ne, started Stelara under supervisio n of Dr. Simpson. Peripheral joint symptoms seem adequately controlled so far. Psoriasis has not yet responded. Continue azathiopri ne 150 mg daily. Check labs. Return 3 months. Long-term drug therapy [id number] AZA. . Follow counts. Neuralgia 92057135 She h as a long history of some lower extremity neuropathi c pains, possibly related to her secondary Sjogren's. In the remote past she was on gabapentin for this but stopped it. Recently, however, she was given gabapentin for a right lumbar radiculopa thy and noted that it was quite helpful for her ongoing foot symptoms. The plan had been to taper her off the gabapentin , but I see no reason why she should not continue on this if it is helpful. She has no perceived side effects. [id number] Tee Stoner MD Rheumatol [facility] [place], [address] [place] [address] 03/31/2015 08:37:34 04/03/2015 11:56:37 Psoriasis with arthropathy 46403007 L40.50 Now felt to have [place] psoriasis with psoriatic arthritis. On Stellar about 2 mo. Psoriasis improving, but the arthritis component has not yet responded. I have read reports of a discordant response to Stelara regarding psoriasis vs the arthritis. Continue azathiopri ne 150 mg daily. Check labs. Return 3 months. Took recent short course of prednisone and this was helpful. Long-term drug therapy 652341634 Z79.899 AZA. . Follow counts. Rheumatoid arthritis 698 48048 M05.79 Sero+, CCP+ RA sx's and synovitis well controlled with meds as above. Sj? ? ?gren's syndrome 99683669 M35.01 Mild sicca sx's. Has periph neuropathy perhaps related. Unchanged, follow sx's. [id number] Tee Stoner MD Rheumatol [facility] [place], [facility] [address] [facility] [place] [address] 06/02/2015 08:36:01 06/02/2015 09:27:28 Psoriasis with arthropathy 84323812 L40.50 Now felt to have [place] psoriasis with psoriatic arthritis. Current flare in arthritis has the clinical appearance of psoriatic arthritis, not a flare in her RA. On Stelara about 4 mo. Psoriasis perhaps a little, but the arthritis component is worse. I have read of reports of a discordant response to Stelara regarding psoriasis vs the arthritis. Confusing case. Offered to arrange second opinion. She will think about it. Discussed options. She developed the psoriasis while on TNF agents. Previously LFT abnormalit y when on combo of MTX + LEF. It is not clear that she had problem from the MTX alone. I have asked her to go back on injectable MTX at 15/wk, reduce AZA to 100/d. For symptom control, will give prednisone again: 15 for 1 wk, 10 fr 1 wk, then 7.5 until next visit in 4-5 weeks. Next dose of Stelara is in about 2 mo. and we will have to decide before then whether it is worthwhile continuing it. Active or passive immunization [id number] Z23 Rheumatoid arthritis 698 37431 M05.79 Sero+, CCP+ RA sx's and synovitis seems well controlled .Current joint flare suggests PsArth. Long-term drug therapy 302192171 Z79.899 AZA. . Follow counts. [id number] Tee Stoner MD Rheumatol [facility] [place], [facility] [address] [place] [address] 07/10/2015 08:14:25 07/10/2015 08:50:44 Psoriasis with arthropathy 48165651 L40.50 Now felt to have [place] psoriasis with psoriatic arthritis. Current flare in arthritis has the clinical appearance of psoriatic arthritis, not a flare in her RA. On Stelara about 5 mo. Since last visit some improvemen t in psoriasis and in arthritis. This could be related to boost in prednisone to current 7.5/d and/or to resuming MTX. Plan will be to check labs, increase MTX dose tp 20 mg/wk unless lab abnormalit y. Continue prednisone at 7.5 mg for next 3 weeks, then down to 5 mg. See her again in about 5 weeks. Rheumatoid arthritis 698 59109 M05.79 Sero+, CCP+ RA sx's and synovitis seems well controlle. Most of current joint sxs incolve DIP joints and is more suggestive of psoriatic arthritis. . Quite unusual to have both conditions , but I think that is what we are seeing. Long-term drug therapy 184914340 Z79.899 AZA. . Follow counts. Now MTX. Psoriasis 6674994 L40.9 TNF induced psoriasis? ? Onset ~ 2010. Still persisting . We now think this is likely [place] psoriasis with associated psoriatic arthritis. Improvemen t with current drugs. [id number] Tee Stoner MD Rheumatol [address] [address] 08/07/2015 08:11:32 08/07/2015 08:43:26 Psoriasis with arthropathy 98070479 L40.50 Now felt to have [place] psoriasis with psoriatic arthritis. Current flare in arthritis has the clinical appearance of psoriatic arthritis, not a flare in her RA. On Stelara about 6 mo. Still not adequate control of inflammato ry arthritis. Too many involved joints to inject locally. Suggested further increase MTX to 25 mg sc weekly. Increase predniosne back to 7.5 mg. I want to try to get her off the azathiopri ne, but continue at 100mg/d for now. Re-check labs about 4 weeks, return 6 wweks. WILL BE NEEDING re-treatme nt with Stelara early May Long-term drug therapy 292506332 Z79.899 AZA. . Follow counts. Now MTX. Psoriasis 8719546 L40.9 TNF induced psoriasis? ? Onset ~ 2010. Still persisting . We now think this is likely [place] psoriasis with associated psoriatic arthritis. Improvemen t with current drugs. Rheumatoid arthritis 698 25411 M05.79 Sero+, CCP+ Most of current joint sxs incolve DIP joints and is more suggestive of psoriatic arthritis. . Quite unusual to have both conditions , but I think that is what we are seeing. [id number] Tee Stoner MD Rheumatol [address] [place] [address] 09/22/2015 08:16:58 09/22/2015 08:45:04 Psoriasis with arthropathy 65146173 L40.50 Now felt to have [place] psoriasis with psoriatic arthritis. Current flare in arthritis has the clinical appearance of psoriatic arthritis, not a flare in her RA. On Stelara about 9 mo. Still not adequate control of inflammato ry arthritis, but better than she was at last visit. Continue MTX 25 mg sc weekly. Continue current prednisone 7.5 weekly. I want to try to get her off the azathiopri ne, but continue at 100mg/d for now. Re check labs WILL BE NEEDING re-treatme nt with Stelara early May Rheumatoid arthritis 698 58329 M05.79 Sero+, CCP+ Most of current joint sxs incolve DIP joints and is more suggestive of psoriatic arthritis. . Quite unusual to have both conditions , but I think that is what we are seeing. Long-term drug therapy 487528073 Z79.899 AZA. . Follow counts. Now MTX. Neuralgia 65719780 M79.2 She has a long history of some lower extremity neuropathi c pains, possibly related to her secondary Sjogren's. In the remote past she was on gabapentin for this but stopped it. Recently, however, she was given gabapentin for a right lumbar radiculopa thy and noted that it was quite helpful for her ongoing foot symptoms. The plan had been to taper her off the gabapentin , but I see no reason why she should not continue on this if it is helpful. She has no perceived side effects. [id number] Tee Stoner MD Rheumatol [facility] [place], [facility] [address] [facility] [place] [address] 10/31/2015 08:18:04 10/31/2015 10:53:50 Psoriasis with arthropathy 05868922 L40.50 Now felt to have [place] psoriasis with psoriatic arthritis. Current flare in arthritis has the clinical appearance of psoriatic arthritis, not a flare in her RA. On Stelara about 9 mo. Sicnce last visit doing better. Arthritis under good control and psoriasis has resolved. fNot sure if this is prednisone (current 7.5/d) or stelara etc. Try reducing prednisone to 5 mg/d. Continue other meds. STELARA 45mg injected today. I am anxious to get her on less medication . Hope to taper AZA next visit. Re check labs Return 3 mo Psoriasis 1332328 L40.9 TNF induced psoriasis? ? Onset ~ 2010. We now think this is likely [place] psoriasis with associated psoriatic arthritis. Improvemen t with current drugs. Long-term drug therapy 951180457 Z79.899 AZA. . Follow counts. Now MTX. Update labs today and return 3 mo Hereditary and idiopathic peripheral neuropathy 770890143 G60.9 Lower extrem sx's stable. Gabapentin helps. ?? related to Sjogren's (though this is not a definite dx in pt). [id number] Tee Stoner MD Rheumatol nam, [address] [place], [place] [address] 01/30/2016 08:13:30 01/30/2016 08:36:31 Psoriasis with arthropathy 76527302 L40.50 Psoriasis and Psoriatic arthritis. Finally under good control. Psoriasis virtually clear.Cont inue Stelara and injectable MTX. Will try to taper her off AZA. Continue pred 5/d for now. Rheumatoid arthritis 698 77646 M06.9 Sero +, CCP+ RA. This pre-dated her psoriatic arthritis. Current meds are controllin g this well. No chronic deformity. Sj? ? ?gren's syndrome 74178279 M35.01 Mild sicca sx's. Has periph neuropathy perhaps related. Unchanged, follow sx's. Hereditary and idiopathic peripheral neuropathy 736431990 G60.9 Lower extrem sx's stable. Gabapentin helps. ?? related to Sjogren's (though this is not a definite dx in pt). Long-term drug therapy 715673340 Z79.899 AZA. . Follow counts. Now MTX. Update labs today and return 3 mo [id number] Tee Stoner MD Rheumatol nam, [address] [place], [place] [address] 04/30/2016 08:15:21 05/02/2016 09:07:29 Psoriasis with arthropathy 24553648 L40.50 Psoriasis and Psoriatic arthritis. Finally under good control. Psoriasis virtually clear.Cont inue Stelara and injectable MTX. Has tapered off AZA. Will have her reduce MTX to 20mg sc weekly. Continue pred 5/d for now, but if doing well in 2 mo, try reduceing to 4 mg. Stellara 40 mg today. [id number] Tee Stoner MD Rheumatol nam, [address] [place], [place] [address] 08/01/2016 08:25:50 08/02/2016 07:39:03 Fatigue 87849513 R53.83 Increasee fatigue lately. Requests TSH check. Ordered. Psoriasis with arthropathy 34166812 L40.50 Psoriasis and Psoriatic arthritis. Finally under good control. Psoriasis virtually clear.Cont inue Stelara and injectable MTX. Has tapered off AZA. Will have her continue MTX 20mg sc weekly.Red uce prednisone to 3 mg. Will try to taper off very slowly, then we will work on the MTX.Haylee ra 40 mg today. Long-term drug therapy 410637725 Z79.899 AZA. . Follow counts. Now MTX. Update labs today and return 3 mo [id number] Tee Stoner MD Rheumatol [facility] [place], [address] [place] [address] 10/29/2016 08:42:57 10/29/2016 09:12:13 Psoriasis with arthropathy 34618895 L40.50 Psoriasis and Psoriatic arthritis. Finally under good control. Psoriasis virtually clear.Arth ritis seems a little more active than last time.Elisabeth nue Stelara and injectable MTX. . Will have her continue MTX 20mg sc weekly.Gay rice prednisone at 3 mg.Stellar a 40 mg today. Today's mild flare in sxs could be that she is due for another Stelara injeciton. If her sxs do not settle down in 2 or 3 weeks, could consider increasing prednisone back to 4 mg and/or inceasing MTX back to 25 mg/wk sc. Return 3 mo, but told to call sooner if she feels the need for more prednisone etc. Long-term drug therapy 908757307 Z79.899 Follow counts. Now MTX. Update labs today and return 3 mo Hereditary and idiopathic peripheral neuropathy 485976629 G60.9 Lower extrem sx's stable. Gabapentin helps. ?? related to Sjogren's (though this is not a definite dx in pt). Sxs stable, but gabapepnti n is necessary. Psoriasis 5684688 L40.9 TNF induced psoriasis? ? Onset ~ 2010. We now think this is likely [place] psoriasis with associated psoriatic arthritis. Finally improvemen t with current drugs. [id number] Tee Stoner MD Rheumatol og, [address] [place] [address] 01/30/2017 08:48:33 01/30/2017 09:25:32 Psoriasis with arthropathy 46633219 L40.50 Psoriasis and Psoriatic arthritis. Finally under good control. Psoriasis virtually clear.Arth ritis seems very well controlled .Continue Stelara and injectable MTX. . Will have her continue MTX 20mg sc weekly. Will have her try to taper off prednisone entirely: should be off by April. Stellara 40 mg today. Return 3 mo Long-term drug therapy 914705815 Z79.899 Follow counts. Now MTX. Update labs today and return 3 mo [id number] Tee Stoner MD Rheumatol nam, [facility] [address] [facility] [place] [address] 05/05/2017 08:35:51 05/05/2017 09:11:53 Psoriasis with arthropathy 68967685 L40.50 Psoriasis and Psoriatic arthritis. Finally under good control. Psoriasis virtually clear.Arth ritis seems very well controlled .Continue Stelara and injectable MTX. . Will have her continue MTX 20mg sc weekly. She will taper off prednisone entirely: should be off by May. Stellara 40 mg today. Return 3 mo Active or passive immunization [id number] Z23 Dyspnea on exertion 6084 5006 R06.09 Reportedly has some lung disease associated with her arthritis. 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 If related to arthritis, much more likely to be interstiti al dz.Also should at least consider MTX toxicity, though she has been off and on this for more than 10 years. She is seeing Dr Yarbrough again soon. I have asked that she have a copy of note sent to me. Long-term drug therapy 252047707 Z79.899 Follow counts. Now MTX. Update labs today and return 3 mo [id number] Tee Stoner MD Rheumatol nam, [facility] [address] [facility] [place] [address] 08/11/2017 08:37:04 08/11/2017 09:00:01 Psoriasis with arthropathy 05594708 L40.50 Psoriasis and Psoriatic arthritis. Finally under good control. Psoriasis virtually clear.Arth ritis seems very well controlled with the exceptio of new sl swelling L 4th DIP.Contin ue Stelara and injectable MTX. . Will have her continue MTX 20mg sc weekly. Try topical Asperecrem e to one involved finger. Return for injection if not improving. Stellara 45mg today. Return 3 mo Long-term drug therapy 737610768 Z79.899 Follow counts. Now MTX. Update labs today and return 3 mo [id number] Tee Stoner MD Rheumatol [place], [address] [place] [address] 11/07/2017 13:30:37 11/07/2017 13:58:00 Psoriasis with arthropathy 93888280 L40.50 Psoriasis and Psoriatic arthritis. She had been under good control. Psoriasis virtually clear. Now swelling and pain DIP and PIP joints. This looks like flare of PsArth rather than her RA.She was scheduled for Stelara next week. We will give Stellara 45mg today.Incr ease MTX to 25 mg sc/wk.Pred nisone course for 6 days. Repeat if needed.If ongoing sxs will need to see me earlier. Return 3 mo Long-term drug therapy 182189874 Z79.899 Follow counts. Now MTX. Update labs today and return 3 mo Rheumatoid arthritis 698 06963 M06.9 Documented CCP+ RA, but current joint sxs appear much more like PsArth. [id number] Tee Stoner MD Rheumatol nam, [address] [place] [address] 01/12/2018 08:36:17 01/12/2018 08:51:13 Psoriasis with arthropathy 82199067 L40.50 Psoriasis and Psoriatic arthritis. She had been under good control. Psoriasis virtually clear. Stelara, MTX now at 25 mg sc weekly. Considerab ly improved from last visit 2 mo ago. Continue current meds.check labs today. Return 1 mo for her Stelara injection. Long-term drug therapy 315262212 Z79.899 Follow counts. Now MTX. Update labs today [id number] Tee Stoner MD Rheumatol [facility] [place], [address] [address] 02/16/2018 08:11:10 02/16/2018 08:36:50 Psoriasis with arthropathy 82789258 L40.50 Psoriasis and Psoriatic arthritis. She had been under good control. Psoriasis clear. Stelara, MTX now at 25 mg sc weekly. Doing very well.Some residual swelling at PIP joints, but no sxs. Inadverten tly given 90 mg dose of Stelara today. Disclosed this to patient. I can see no possible harm from this. Incident report followed. Return 3 mo. Long-term drug therapy 050952170 Z79.899 Follow counts. Now MTX. Update labs today [id number] Tee Stoner MD Rheumatol [address] [address] 05/25/2018 08:16:07 05/25/2018 08:47:25 Psoriasis with arthropathy 77355445 L40.50 Psoriasis and Psoriatic arthritis. She had been under good control. Psoriasis clear. Stelara, MTX now at 25 mg sc weekly. Doing very well. Some residual swelling at PIP joints, but no sxs. Stelara today. Long-term drug therapy 210957095 Z79.899 MTX. 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 Should obtain. Leukocytosis 988867316 D 72.829 Mild leukocytos is at last labs. re-check today. [id number] Josey Lema MD , [facility], OFFICE [address] [place] [address] 08/14/2018 09:34:49 08/14/2018 10:29:52 Hyperlipidemia 23592027 E78.5 Gastroesop hageal reflux disease 987708934 K21.0 Family his tory of diabetes mellitus 585947891 Z83.3 Body mass index 30+ - obesity 621842698 Z68.30 Psoriasis with arthropathy 24368544 L40.50 Hypothyroidism 12982476 E03.9 [id number] Tee Stoner MD Rheumatol [address] [place] [address] 08/24/2018 08:15:51 08/24/2018 08:48:49 Psoriasis with arthropathy 72251597 L40.50 Psoriasis and Psoriatic arthritis. She had been under good control. Psoriasis clear. Stelara, MTX now at 25 mg sc weekly. Doing very well. Some residual swelling at PIP joints, but no sxs. Stelara today. Carpal kvng ilana syndrome of left wrist 6315737972 93715 G56.02 Mild, but convincing sxs of L CTS. No obvious precipitia nt. Suggested splinting, espec at night (loosely). If not improving, discussed options. Long-term drug therapy 360026350 Z79.899 MTX. On halfway MTX; Needs lab monitoring ; Check CBC, LFT's, creat Update labs today Also discussed Shingrix vaccine. Should obtain. Rheumatoid arthritis 698 20217 M06.9 Documented CCP+ RA, but current joint sxs appear much more like PsArth. [id number] Tee Stoner MD Rheumatol [facility] [place], [facility] [address] [facility] [place] [address] 11/24/2018 08:19:17 11/26/2018 06:06:07 Psoriasis with arthropathy 17460238 L40.50 Psoriasis and Psoriatic arthritis. She had been under good control. Psoriasis clear. Stelara, MTX now at 25 mg sc weekly. Doing very well. Some residual swelling at PIP joints, but no sxs. Stelara today. Hypothyroidism 87384266 E03.9 On replacemen t. Most recent TSH 0.48. Will re-check TFTs. Send results to Primary Care. Nocturnal muscle cramp 1074547548 93545 G47.62 Bothersome . Taking supplement al calcium and quite a lot of magnesium (she thinks). Check Mg level to be sure not too much.discu ssed treatment strategies . Could try small amount tonic water at bedtime. Psoriasis 0824368 L40.9 TNF induced psoriasis? ? Onset ~ 2010. We now think this is likely [place] psoriasis with associated psoriatic arthritis. Finally improvemen t with current drugs. Continue Stelara and MTX. [id number] Josey Lema MD , [facility], OFFICE [address] [facility] [place] [address] 12/15/2018 14:03:20 12/17/2018 08:30:44 Adult health examination 518323368 Z00.00 UTD on colonoscop y. will obtain from GI. Depression screening 171 284479 Z13.89 0/6 normal screen. Body mass index 30+ - obesity 471075823 Z68.30 Obesity increases risks for several chronic diseases (ex: diabetes, hypertensi on, chronic reflux) and also increases risk for cancer (ex: breast, prostate, colon, and uterine). We discussed the importance of getting to a healthy body weight. reviewed the BMI chart. Gastroesop hageal reflux disease 759526395 K21.0 controlled on current regimen. Hypothyroidism 38075285 E03.9 TSH now in normal range with the dose reduction we did last time. Hyperlipidemia 32577009 E78.5 LDL at goal (under 130) with simvastati n. Moderate p ersistent asthma 279921484 J45.[address] Yarbrough's regimen. Neuralgia 28484227 M79.2 continue current medication s to manage this. Screening for malignant neoplasm of cervix 140358701 Z12.4 discussed HPV screening as well. Active or passive immunization 309230346 Z23 recommende d these vaccines. will obtain dates of Shingrix from pharmacy. Screening for disorder 635629365 Z11.59 will add for next year [id number] Catherine Hitchcock MD , [facility], OFFICE [address] [place] [address] 02/10/2019 10:17:17 02/10/2019 15:06:27 Epigastric pain 87029036 R10.13 Lightheadedness 55509706 8 R42 [id number] Tee Stoner MD Rheumatol og, [address] [address] 02/15/2019 08:16:44 02/15/2019 08:56:01 Psoriasis with arthropathy 10250222 L40.50 Psoriasis and Psoriatic arthritis. She had been under good control. Psoriasis clear. Stelara, MTX now at 25 mg sc weekly. Doing very well. Some residual swelling at PIP joints, but no sxs. Advised reducing MTX to 20 mg sc/wk. Stelara today. Asthma 445203683 J45.90 9 Some asthma for about a year, she says.Recen t ER visit for SOB. Improveing with bronchdila tors, but still 1 flight [place]. Will give 5 d moderate dose prednisone for asthma and for chest wall pain. (Should avoid NSAID with GERD and possible ulcer disease). Chest wall pain 36156942 6 R07.89 Tender chest wall directly over the sterno-man ubrial articulati on. No swelling.T his is not a joint involved by RA. I suppose it could possibly be related to psoriatic arthritis. Sxs improving. No specific treatment. [id number] Catherine Hitchcock MD , [facility], OFFICE [address] [place] [address] 03/03/2019 10:38:13 03/03/2019 15:50:00 Candidiasis of the esophagus 32653400 B37.81 [id number] Wally Villasenor MD [facility] [address] [place] [address] 03/22/2019 13:29:39 03/24/2019 06:58:05 [id number] Josey Lema MD , [facility], OFFICE [address] [place] [address] 03/26/2019 10:40:54 03/26/2019 17:56:27 Multiple skin tags 317216154 L91.8 removed. see procedure note. reviewed warning signs to report. Epidermoid cyst of skin 120272310 L72.3 L axilla, benign, asymptomat ic. recommende d against excision since it doesn't have symptoms. Atypical chest pain 1025 77413 R07.89 disability form filled out with her. [id number] Catherine Hitchcock MD , [facility], OFFICE [address] [place] [address] 05/03/2019 07:34:04 05/03/2019 15:26:31 Active or passive immunization 280187578 Z23 [id number] Tee Stoner MD Rheumatol [facility] [place], [facility] [address] [place] [address] 06/10/2019 08:00:03 06/10/2019 08:38:31 Psoriasis with arthropathy 76644327 L40.50 Psoriasis and Psoriatic arthritis. She had been under good control on Stelata + MTX. . Psoriasis clear.Lawson joe, stopped MTX 2 weeks ago because of fatigue and GI distress. I am worried arthritis will flare again.Lizz batista see if she can tolerate 10 mg sc/wk. 4 wks late for Stelara. Give today. Rheumatoid arthritis 698 86974 M06.9 Documented CCP+ RF + rheumatoid arthritis with mild secondary Sjogren's. She had this starting over 12 yrs ago. More recent joint findings appear much more like PsArth. She is felt to have both Sero+ RA and Psoriatic arthritis. Long-term drug therapy 025458968 Z79.899 MTX. On halfway MTX; Needs lab monitoring ; Check CBC, LFT's, creat Update labs today Had Shingix and pneumococc al vaccines. [id number] Tee Stoner MD Rheumatol james, [address] [place] [address] 08/30/2019 11:12:54 09/06/2019 07:16:53 Psoriasis with arthropathy 51204334 L40.50 Psoriasis and Psoriatic arthritis. She had been under good control on Stelata + MTX. . Psoriasis clear.Lawson joe, stopped MTX 2 months ago because of fatigue and GI distress.N ow mild recurrence psoriasis and worsening inflammato ry joint sxs. For current sxs, can give brief course prednisone : 20 mg 7 d, 10 mg 7 days.Try leflunomid e again: 10 mg qod for 1 week, then 10 mg daily. If tolerated, my want to further increase dose. Has follow up in 2 weeks for next Stelara injection. Will need to follow labs on LEF. Rheumatoid arthritis 698 87088 M06.9 Documented CCP+ RF + rheumatoid arthritis with mild secondary Sjogren's. She had this starting well over 12 yrs ago. More recent joint findings appear much more like [place]. She is felt to have both Sero+ RA and Psoriatic arthritis. Candidiasi s of the esophagus 07585668 B37.81 Thought related to steroid inhalers.S xs improved. [id number] Tee Stoner MD Rheumatol [facility] [place], [address] [place] [address] 09/13/2019 08:16:21 09/13/2019 15:34:17 Psoriasis with arthropathy 41519486 L40.50 Psoriasis and Psoriatic arthritis. She had been under good control on Stelata + MTX. . Psoriasis clear.Lawson joe, stopped MTX 2 months ago because of fatigue and GI distress.N ow mild recurrence psoriasis and worsening inflammato ry joint sxs. we gave prednisone : 20 mg 7 d, and now 10 mgTried LEF, but did not tolerate. I am reluctant to consider changing from Stelara which has been useful for the past 4 years.She definitely was doing better with concurrent MTX. Plan luanne be to see if very low dose prednisone is adequate to control sxs while on Stelara.Pr ednisone 7.5/d for 2 wks, then 5/d, and perhaps reduce further by 1 mg increments .With hx of esophageal candidiasi s, the prednisone is not ideal.If not, perhaps consider trying very low doses of injectable MTX again. Discussed risk of rheum meds and saavedra virus. Stelara injection today Fibromyalgia 303178295 M 79.7 Stable dose Soma at hs for years. Just low dose: 350 mg/hs. Works particular ly well for sleep and fibromyalg ia sxs. I see no reason to alter this, though I explained that she will need to have this prescribed through Primary Care in the future. [id number] Tee Stoner MD Rheumatol ogy, [facility] [address] [place] [address] 12/21/2019 07:57:16 12/21/2019 12:15:16 Psoriasis with arthropathy 53339324 L40.50 Psoriasis and Psoriatic arthritis. ALSO sero + , CCP+ RA. Psoriasis and PsArth sxs have been predominan t. She had been under good control on Stelata + MTX. . Psoriasis clear.Lawson joe, stopped MTX 5 months ago because of fatigue and GI distress.S katerine stopping MTX recurrence psoriasis and worsening inflammato ry joint sxs.Multip le joint pain, stiffness, and describes swelling. Prednisone course gave transient relief. Discussed options.Al though co-existin g RA and PsArth, the Psoriatic arthritis seems to predominat e.Will have her try Cosentyx with loading dose. May well require maintainan ce dose of 300/wk.Dis cussed med, risks. Hx diverticul osis, not diverticul itis. Discussed risk of rheum meds and saavedra virus. Note to reviewers: MTX various dates: intolerant , ineffectiv e.LEF August 2019: intolerant (GI)SSZ: AllergyEnb rel: Ineffectiv eHumira: 2007 - 2009: effective but induced severe psoriasis (Other TNF drugs therefore contraindi cated)Edmund fco 2012 - 2014: ineffectiv e.Stelara 2014 - present: Lost effectiven ess. Hypothyroidism 27908213 E03.9 On replacemen t. Last check 1 yr ago. Will re-check TSH Send results to Primary Care. Rheumatoid arthritis 698 04448 M06.9 Documented CCP+ RF + rheumatoid arthritis with mild secondary Sjogren's. She had this starting well over 12 yrs ago. More recent joint findings appear much more like PsArth. She is felt to have both Sero+ RA and Psoriatic arthritis. Sj? ? ?gren's syndrome 69985734 M35.01 Mild sicca sx's. Has periph neuropathy perhaps related. Unchanged, follow sx's. [id number] Tee Stoner MD Rheumatol og, [facility] [address] [facility] [place] [address] 02/08/2020 08:32:32 02/09/2020 12:39:04 Psoriasis with arthropathy 06714036 L40.50 Psoriasis and Psoriatic arthritis. ALSO sero + , CCP+ RA. Psoriasis and PsArth sxs have been predominan t. She had been under good control on Stelata + MTX. . Psoriasis clear.Lawson joe, stopped MTX 7 months ago because of fatigue and GI distress.A fter stopping MTX recurrence psoriasis and worsening inflammato ry joint sxs.Multip le joint pain, stiffness, and describes swelling. Now on Cosentyx and seems to be doing very well, but prednisone could be contributi ng. Taper prednisone : 6 mg Jan, 5 mg Sept 4 mg Mar etc. Return 3 mo. Discussed risk of rheum meds and saavedra virus. Note to reviewers: MTX various dates: intolerant , ineffectiv e.LEF August 2019: intolerant (GI)SSZ: AllergyEnb rel: Ineffectiv eHumira: 2007 - 2009: effective but induced severe psoriasis (Other TNF drugs therefore contraindi cated)Edmund fco 2012 - 2014: ineffectiv e.Stelara 2015 - present: Lost effectiven ess. Long-term drug therapy 431826093 Z79.899 On prednisone 6 mg and anticipate taper off. Takes calcium.Clark d Shingix and pneumococc al vaccines. [id number] MD ARIAN Stubbs, [facility], OFFICE [address] [facility] [place] [address] 02/29/2020 08:01:41 02/29/2020 08:59:18 Hypothyroidism 19566142 E03.9 Elevated blood-pressure reading without diagnosis of hypertension 106372678 R03.0 [id number] Catherine Hitchcock MD , [facility], OFFICE [address] [place] [address] 03/10/2020 08:02:47 03/10/2020 08:23:18 Essential hypertension 66855552 I10 Hypothyroidism 56285620 E03.9 [id number] Suzanna Padilla MD , [facility], OFFICE [address] [place] [address] 03/28/2020 06:44:31 03/28/2020 10:58:32 Active or passive immunization 809572518 Z23 [id number] Catherine Hitchcock MD , [facility], OFFICE [address] [place] [address], [place] [address] 03/30/2020 08:57:43 03/30/2020 11:04:00 Essential hypertension 14653110 I10 Blood gluc ose outside reference range 772241498 R73.09 RBC's - megaloblasts 165 501629 R71.8 [id number] Catherine Hitchcock MD , [facility], OFFICE [address] [place] [address] 05/04/2020 09:01:05 05/04/2020 10:00:11 Essential hypertension 94310258 I10 Hypothyroidism 17437678 E03.9 Prediabetes 496347050 R7 3.03 Psoriasis with arthropathy 09755164 L40.50 F/b rheumatolo gy. Flare improving. Rheumatoid arthritis 698 83095 M06.9 F/b rheumatolo gy. Flare improving. [id number] Tee Stoner MD Rheumatol [facility] [place], [address] [address] 05/16/2020 08:05:40 05/18/2020 07:06:43 Psoriasis with arthropathy 26452097 L40.50 Psoriasis and Psoriatic arthritis. ALSO sero + , CCP+ RA. Psoriasis and PsArth sxs have been predominan t. She had been under good control on Stelata + MTX. . Psoriasis clear.Renny diaz, stopped MTX 7 months ago because of fatigue and GI distress.A fter stopping MTX recurrence psoriasis and worsening inflammato ry joint sxs.Multip le joint pain, stiffness, and describes swelling. Now on Cosentyx and seems to be helping, but recent polyarticu lar flare. Seems to flare about a week prior to her montly Cosentyx.T aper prednisone : 5 mg/d. But if begins to be more symptomati c week before Cosentyx, may take 7 days of 7.5. Consider trial on Celebrex (though she has a sulfa allergy). Return 3 mo. Note to reviewers: MTX various dates: intolerant , ineffectiv e.LEF August 2019: intolerant (GI)SSZ: AllergyEnb rel: Ineffectiv eHumira: 2007: effective but induced severe psoriasis (Other TNF drugs therefore contraindi cated)Edmund fco 2012 - 2014: ineffectiv e.Stelara 2014 - present: Lost effectiven ess. Long-term current use of systemic steroid 6917037089 68482 Z79.52 Last BMD 2008. Repeat. [id number] Tee Stoner MD Rheumatol [facility] [place], [facility] [address] [place] [address] 08/08/2020 08:07:21 08/09/2020 19:05:44 Psoriasis with arthropathy 47700583 L40.50 Psoriasis and Psoriatic arthritis. ALSO sero + , CCP+ RA. Psoriasis and PsArth sxs have been predominan t. She had been under good control on Stelata + MTX. . Psoriasis clear. However, stopped MTX because of fatigue and GI distress. After stopping MTX recurrence psoriasis and worsening inflammato ry joint sxs. Multiple joint pain, stiffness, and describes swelling. Now on Cosentyx and seems to be helping, but recent polyarticu lar flare. Still on prednisone , currently 10 mg. Discussed halfway prednisone . Start alendronat e (see below) Needs additional DMARD. She has both RA and PsArth. Will try adding Plaquenil. (Has been on this in remote past; no record of intoleranc e.) Will need eye exam if stays on for > 6 mo. Also consider Tremfya ? Return 3 mo. Note to reviewers: MTX various dates: intolerant , ineffectiv e. LEF August 2019: intolerant (GI) SSZ: Allergy Enbrel: Ineffectiv e Humira: 2007: effective but induced severe psoriasis (Other TNF drugs therefore relatively contraindi cated) Orencia 2012: ineffectiv e. Stelara 2014 - present: Lost effectiven ess. Rheumatoid arthritis 698 48785 M06.9 Documented CCP+ RF + rheumatoid arthritis with mild secondary Sjogren's. She had this starting well over 12 yrs ago. More recent joint findings appear much more like PsArth, though last flare up involved mostly hand PIP joints. She is felt to have both Sero+ RA and Psoriatic arthritis. Osteopenia 565701019 M85 .80 Osteopenia on recent scan, but bone density hip declined by 21% and patient still on prednisone . Discussed risks alendronat e. Start med and continue while on prednisone . [id number] Tee Stoner MD Rheumatol nam, [address] [place], [place] [address] 10/24/2020 07:56:07 10/24/2020 19:52:28 Psoriasis with arthropathy 97052849 L40.50 Psoriasis and Psoriatic arthritis. ALSO sero + , CCP+ RA. Psoriasis and PsArth sxs have been predominan t. She had been under good control on Stelata + MTX. . Psoriasis clear. However, stopped MTX because of fatigue and GI distress and after stopping MTX, recurrence psoriasis and worsening inflammato ry joint sxs. Now on Cosentyx, prednisone 5 mg/d, and recently started Plaquenil. Seems to be doing quite well. Advised reduce prednisone to 4 mg/d for 1 mo, then 3 mg/d until follow up with dr Hernandez. Note to reviewers: MTX various dates: intolerant , ineffectiv e. LEF August 2019: intolerant (GI) SSZ: Allergy Enbrel: Ineffectiv e Humira: 2007 - 2009: effective but induced severe psoriasis (Other TNF drugs therefore relatively contraindi cated) Orencia 2012 - 2014: ineffectiv e. Stelara 2014 - present: Lost effectiven ess. Long-term current use of systemic steroid 0117327602 66539 Z79.52 Osteopenia on bone scan (Done at [facility] [place] 05[place]2020). On alendronat e since 07/2020. [id number] LISANDRA Benjamin, [facility], OFFICE [address] [facility] [place], [place] [address] 11/02/2020 10:52:21 11/02/2020 12:24:41 Essential hypertension 34218329 I10 Abscess of left axilla 7595109986 1083748 L02.932 [id number] Catherine Hitchcock MD , [facility], OFFICE [address] [facility] [place] [address] 01/17/2021 13:22:37 01/17/2021 14:30:28 Adult health examination 724512403 Z00.00 Your personal health plan:Healt hy diet -- recommende d focusing on vegetables , fruits, whole grains, and legumes as much as possibleEx ercise -- aim for at least 30 minutes dailyVacci rashmi -- up to datePreven tative screenings -- colonoscop y next due 02/2029, due for mammogram, will need BMD next year at [facility] [place], next Pap 2021 Depression screening 171 358486 Z13.31 depression screening tool administer ed, entered into emr, scored and discussed, time greater than 7.5 minutes Screening for alcohol abuse 460615008 Z13.39 Counseling 282794866 Z71 .89 Lipoma of back 860915583 D17.1 Screening mammography 24 465852 Z12.31 Long-term drug therapy 359519546 Z79.899 Essential hypertension 72611109 I10 Prediabetes 466291998 R7 3.03 Psoriasis with arthropathy 56016668 L40.50 F/b rheumatolo gy. Stable. Rheumatoid arthritis 698 15968 M06.9 F/b rheumatolo gy. Stable. Sj? ? ?gren's syndrome 64454698 M35.00 Stable. Gastroesop hageal reflux disease 316270670 K21.9 Doing well w/ PPI. Osteopenia 414940815 M85 .80 [id number] Tee Stoner MD Rheumatol ogy, [address] [place] [address] 02/06/2021 08:39:58 02/06/2021 19:23:51 Psoriasis with arthropathy 06375124 L40.50 Psoriasis and Psoriatic arthritis. ALSO sero + , CCP+ RA. See HPI. Psoriasis and PsArth sxs have been predominan t. She had been under good control on Stelata + MTX. . Psoriasis clear. However, stopped MTX because of fatigue and GI distress and after stopping MTX, recurrence psoriasis and worsening inflammato ry joint sxs. Now on Cosentyx, prednisone 3 mg/d, and recently started Plaquenil. Some increase synovitis several finger joints today. Local injections x 4. Note to reviewers: MTX various dates: intolerant , ineffectiv e. LEF August 2019: intolerant (GI) SSZ: Allergy Enbrel: Ineffectiv e Humira: 2007: effective but induced severe psoriasis (Other TNF drugs therefore relatively contraindi cated) Orencia 2012: ineffectiv e. Stelara 2014 - present: Lost effectiven ess. Long-term current use of systemic steroid 1880578591 10456 Z79.52 Osteopenia on bone scan (Done at [facility] 05/[place]). On alendronat e since 07/2020. Finger joint effusion 29 0788383 M25.441 M25.442 Injections R 2,3,5 PIP, L 3 PIP. See procedure note. [id number] Amelie Hernandez MD Rheumatol [facility] [place], [facility] [address] [facility] [place], [place] [address] 07/31/2021 11:31:28 07/31/2021 15:26:30 Psoriasis with arthropathy 68017763 L40.50 Psoriasis and Psoriatic arthritis. ALSO sero + , CCP+ RA. See HPI. Psoriasis and PsArth sxs have been predominan t. She had been under good control on Stelata + MTX. . Psoriasis clear. However, stopped MTX because of fatigue and GI distress and afterstopp ing MTX, recurrence psoriasis and worsening inflammato ry joint sxs. Now on Cosentyx, prednisone 3 mg/d, and Plaquenil. Will check labs.Short course of prednisone .Reassess in 2 months. Patient got the COVID booster, flu shot.Will arrange for PCV-13. Note to reviewers: MTX various dates: intolerant , ineffectiv e. LEF August 2019: intolerant (GI) SSZ: Allergy Enbrel: Ineffectiv e Humira: 2007: effective but induced severe psoriasis (Other TNF drugs therefore relatively contraindi cated) Orencia 2012: ineffectiv e. Stelara 2014 - present: Lost effectiven ess. Long-term current use of systemic steroid 2305719205 66250 Z79.52 Osteopenia on bone scan (Done at [facility] 05/2020). On alendronat e since 07/2020. Unintentio nal weight loss 776151618 R63.4 Patient to follow with pcp on this, soon.Check above labs.Shelli moreno is not a smoker.She is UTD with mammogram and colonoscop y per patient. [id number] Amelie Hernandez MD Rheumatol ogjames, [facility] [address] [facility] [place] [address] 10/03/2021 11:01:38 10/07/2021 09:09:22 Psoriasis with arthropathy 20466943 L40.50 Psoriasis and Psoriatic arthritis. ALSO sero + , CCP+ RA. See HPI. Psoriasis and PsArth sxs have been predominan t. She had been under good control on Stelata + MTX. . Psoriasis clear. However, stopped MTX because of fatigue and GI distress and afterstopp ing MTX, recurrence psoriasis and worsening inflammato ry joint sxs. Now on Cosentyx, prednisone 3 mg/d, and Plaquenil. States that she is doing well. Try to decrease plaquenil to once daily.Brittny ent to follow with ophthalmol nam.Pkan also to wean celebrex in the future. Will check labs before next visit.RTC in 4 months. Patient got the COVID series. Counselled about 4th dose.Shelli moreno got flu shot, shingrix and PPV23. Note to reviewers: MTX various dates: intolerant , ineffectiv e. LEF August 2019: intolerant (GI) SSZ: Allergy Enbrel: Ineffectiv e Humira: 2007 - 2009: effective but induced severe psoriasis (Other TNF drugs therefore relatively contraindi cated) Orencia 2012 - 2014: ineffectiv e. Stelara 2015 - present: Lost effectiven ess. Long-term current use of systemic steroid 8417465337 24171 Z79.52 Osteopenia on bone scan (Done at [facility] 05/2020). On alendronat e since 07/2020. Unintentio nal weight loss 921581159 R63.4 Patient lost about 20 pounds over 6 months (October 18-April 19). Weight stabilized since the beginning of the year. Patient to follow with pcp on this Patient is not a smoker.She is UTD with mammogram and colonoscop y per patient. Macrocytosis 859907902 D 75.89 Patient is off methotrexa te.If labs normal, patient needs a hematology evaluation . [id number] Jean Claude Tristan MD , [facility], OFFICE [address] [facility] [place] [place] [address] 01/18/2022 08:10:23 01/18/2022 09:21:26 Adult health examination 571630516 Z00.00 Your personal health plan:Healt hy diet -- recommende d focusing on vegetables , fruits, whole grains, and legumes as much as possibleEx ercise -- aim for at least 30 minutes dailyVacci rashmi -- up to datePreven tative screenings -- colonoscop y next due 2023, due for mammogram, needs [place] this year at [facility], Pap updated today Counseling 402544299 Z71 .9 including cardiovasc ular risk reduction counseling Depression screening 171 328018 Z13.31 depression screening tool administer ed, entered into emr, scored and discussed, time greater than 7.5 minutes Screening for alcohol abuse 885168804 Z13.39 Screening for malignant neoplasm of cervix 902527769 Z12.4 Atrophic vaginitis 75219 000 N95.2 Restless legs 99493535 G 25.81 Able to get to sleep w/ Tylenol Arthritis. Essential hypertension 28304563 I10 At goal <130/80. Gastroesop hageal reflux disease 133809177 K21.9 Stable on pantoprazo wilmer, f/b Dr. Villasenor. Hyperlipidemia 40715628 E78.5 Stable on statin. Hypothyroidism 12981310 E03.9 Moderate p ersistent asthma 035573976 J45.40 Stable. Psoriasis with arthropathy 72284964 L40.50 F/b rheumatolo gy. Stable. Rheumatoid arthritis 698 23538 M06.9 F/b rheumatolo gy. Stable. Sj? ? ?gren's syndrome 74757690 M35.00 F/b rheumatolo gy. Stable. Prediabetes 397359499 R7 3.03 A1c 5.8 as of 01/2021. Osteopenia 307295358 M85 .80 On alendronat e. Last DXA 05/2020 at [facility]. Screening mammography 24 657606 Z12.31 Conjunctivitis 3950945 H 10.9 [id number] Amelie Hernandez MD Rheumatol nam, [facility] [address] [facility] [place] [address] 02/06/2022 09:17:50 02/12/2022 08:38:48 Rheumatoid arthritis 22175955 M06.9 Psoriasis with arthropathy 73463563 L40.50 Psoriasis and Psoriatic arthritis. ALSO sero + , CCP+ RA. See HPI. Psoriasis and PsArth sxs have been predominan t. She had been under good control on Stelata + MTX. . Psoriasis clear. However, stopped MTX because of fatigue and GI distress and after stopping MTX, recurrence psoriasis and worsening inflammato ry joint sxs. Now on Cosentyx, prednisone 3 mg/d, and Plaquenil. Having a flare now, will give a short course of prednisone .Patient to follow with ophthalmol nam.Plan also to wean celebrex in the future. Patient got the COVID series.Pat ient got Shingrix and PPV23. Patient to get PCV-13 today.Brittny ent to get flu shot in the fall. Will check labs before next visit.RTC in 4 months. Note to reviewers: MTX various dates: intolerant , ineffectiv e. LEF August 2019: intolerant (GI) SSZ: Allergy Enbrel: Ineffectiv e Humira: 2007 - 2009: effective but induced severe psoriasis (Other TNF drugs therefore relatively contraindi cated) Orencia 2012 - 2014: ineffectiv e. Stelara 2014 - present: Lost effectiven ess. Long-term current use of systemic steroid 1139629104 99874 Z79.52 Osteopenia on bone scan (Done at [facility] 05/2020). On alendronat e since 07/2020.Bon e density next visit. Unintentio nal weight loss 659966793 R63.4 Patient lost about 20 pounds over 6 months (October 18-April 19). Weight stabilized since the beginning of the year. States that her weight has stabilized . Patient is not a smoker.She is UTD with mammogram and colonoscop y per patient. Active or passive immunization 815667857 Z23 [id number] MD ARIAN Wise, [facility], OFFICE [address] [facility] [place] [address] 11/26/2022 11:06:42 11/26/2022 12:44:24 Pain of hip region 09533380 M25.559 Etiology unclear -- psoriatic arthritis vs osteoarthr itis. Will check X-rays, refer as indicated. Hyperparathyroidism 6699 9008 E21.3 Needs labs rechecked. Has osteopenia per DXA 06/11/22. Restless legs 38708958 G 25.81 Able to get to sleep w/ Tylenol Arthritis but states RLE symptoms are bothersome . Essential hypertension 17711106 I10 Not at goal <130/80. Will increase lisinopril to 40mg/d and recheck in three weeks. [id number] Jean Claude Tristan MD , [facility], OFFICE [address] [place] [address] 12/18/2022 09:34:40 12/18/2022 09:56:46 Essential hypertension 65440047 I10 Patient currently taking lisinopril 40mg QD in the PM. Patient denies concerns/s valente effect, sob, cp, clark, n/v, swelling in feet/ankle s. Patient has not consistent ly been monitoring BPs home and has a home BP cuff. Average BP during visit: 126/73 (126/74, 126/71, 125/73). Patient BP at goal of <130/80. Patient will f/u with [facility] at [place] on 01/21/23. New prescripti on for lisinopril 40mg sent to pharmacy. [id number] Jean Claude Tristan MD , [facility], OFFICE [address] [place] [address] 01/21/2023 09:21:18 01/21/2023 11:12:37 Adult health examination 128352286 Z00.00 Your personal health plan:Healt hy diet -- recommende d focusing on vegetables , fruits, whole grains, and legumes as much as possibleEx ercise -- aim for at least 30 minutes dailyVacci rashmi -- up to datePreven tative screenings -- colonoscop y next due 2023, due for mammogram, final Pap in 2023, DXA due late 2022 into 2023 Depression screening 171 126787 Z13.31 depression screening tool administer ed Screening for alcohol abuse 222735577 Z13.39 Alcohol use screening tool administer ed Pain of bi lateral hip joints 4585261670 9684204 M25.551 M25.552 Essential hypertension 26212360 I10 At goal <130/80 w/ lisinopril 40mg/d, will continue. Hypothyroidism 30839231 E03.9 Hyperthyro id -- will decrease dose and recheck in 7-8 weeks. Moderate p ersistent asthma 818844992 J45.40 Stable. Prediabetes 412739651 R7 3.03 A1c 5.6, stable. Rheumatoid arthritis 698 90355 M06.9 F/b rheumatolo gy -- now through [facility] in [facility]. Sj? ? ?gren's syndrome 54471205 M35.00 F/b Dr. Jorgensen at [facility] in [facility]. Psoriatic arthritis 1563 72841 L40.50 F/b Dr. Jorgensen at [facility] in [facility]. Psoriasis 2120061 L40.9 Requests treatment. Osteopenia with high fracture risk 6863380192 86155 M85.80 Taking alendronat e. Due for DXA 05/2023- 24. Mammography abnormal 168 440842 R92.8 Will have additional imaging soon at [facility]. [id number] Navjot Colon MD Sports Medicine, [facility] [address] [facility] [place] [address] 03/13/2023 08:40:36 03/13/2023 15:52:28 Pain of hip region 45637134 M25.551 M25.552 Nikki is a 62-year-ol d female with bilateral hip pain that I believe is due to greater trochanter ic pain syndrome. We discussed that most likely this is related to a local tendinitis of her hip abductor's bilaterall y. We also discussed the potential that this may be secondary to her autoimmune disease although I do feel this is less likely. I reviewed this diagnosis with her as well as discussing treatment. We discussed that physical therapy has shown to be the superior treatment for long-term symptom relief. We also discussed the use of Tylenol or NSAIDs as well as corticoste roid injections for further symptom control. Unfortunat tigist due to a history of a gastric ulcer NSAIDs are contraindi cated for her. She would like to try physical therapy and was given a referral and will call to set up an appointmen t. Her will plan to follow-up with me in 12 weeks if her symptoms have not improved. [id number] VAUGHN WILEY, PT Physical Therapy, [address] [place] [address] 04/18/2023 09:24:41 04/18/2023 14:51:28 Pain of left hip joint 5719996404 09029 M25.552 Pain of ri ght hip joint 2246959840 10536 M25.551 Muscle weakness 83656920 M62.81 [id number] ELBA Langley MD , [facility], OFFICE [address] [facility] [place] [address] 04/22/2023 16:20:40 04/22/2023 17:17:53 Pruritic rash 31793082 L28.2 complex current medical hx. will r/o FDE vs infectious etiologyre ports honey crust with wet sensation with scratching , will defer to PCP vis a vis add abx for secondary impetigini zation since I don't see that clinically .use bag balm, sarna and avoid scratching . Use zyrtec 10 mgs every AM and hydroxyzin e at night PRN Scratch/it ch cycle discussed; rash improves 80% in 2 weeks if scratching stopped. Use cold to decrease itch impulse. Avoid triggers. Use gentle soaps (Dr. Slater's [place]; avoid Ivory, Dial or [place]). Moisturize each day to improve skin barrier function. (oTc Cerave, Sarna, Vanicream) . ALL Free & Clear preferred laundry products, no dryer sheets, etc. Avoid prolonged bathing with hot water. Recommend cetirizine each AM, +/- benadryl as tolerated at PM. Neoplasm o f uncertain behavior of skin of lower limb 04446181 D48.5 R upper merida, PS vs Majocchi's granuloma vs lichenifie d eczemasent for pathology, pt advised may receive results over the portal before I have reviewed them. Long-term current use of immunosuppressive drug 148693595 Z79.60 Lichenified eczema 99349 4008 L28.0 unclear fully from biopsy results except not PS or fungal componentR upper merida, chronic eczematous process however the mention of pityriasis rubra may indicate either an infection or medication reaction. [id number] VAUGHN WILEY, PT Physical Therapy, [address] [address] 04/23/2023 09:16:19 04/23/2023 10:07:38 Pain of left hip joint 6591607806 89249 M25.552 Pain of ri ght hip joint 2586410749 11481 M25.551 Muscle weakness 24750748 M62.81 [id number] VAUGHN WILEY, PT Physical Therapy, [address] [address] 04/30/2023 11:21:08 04/30/2023 12:25:35 Pain of left hip joint 2885288008 25265 M25.552 Pain of ri ght hip joint 8363302212 22667 M25.551 Muscle weakness 76157078 M62.81 [id number] ELBA Langley MD , [facility], OFFICE [address] [place] [address] 05/02/2023 13:39:26 05/02/2023 14:11:07 Neoplasm of uncertain behavior of skin of lower limb 35037481 D48.5 R upper merida, PS vs Majocchi's granuloma vs lichenifie d eczemasent for pathology, pt advised may receive results over the portal before I have reviewed them. [id number] VAUGHN WILEY, PT Physical Therapy, [address] [address] 05/05/2023 14:23:08 05/05/2023 15:23:32 Pain of left hip joint 3611434746 50223 M25.552 Pain of ri ght hip joint 1883144011 26748 M25.551 Muscle weakness 39677405 M62.81 [id number] VAUGHN WILEY, PT Physical Therapy, [address] [address] 05/14/2023 09:28:22 05/14/2023 10:02:19 Pain of left hip joint 4188668931 55844 M25.552 Pain of ri ght hip joint 2199332299 34573 M25.551 Muscle weakness 56902551 M62.81 [id number] VAUGHN WILEY, PT Physical Therapy, [address] [address] 05/20/2023 09:26:31 05/20/2023 10:34:58 Pain of left hip joint 1496142816 08324 M25.552 Pain of ri ght hip joint 1864784423 55388 M25.551 Muscle weakness 77306520 M62.81 [id number] Jean Claude Tristan MD , [facility], OFFICE [address] [place] [address] [place] [address] 07/24/2023 09:25:11 07/24/2023 10:25:52 Essential hypertension 90629816 I10 Not at goal <130/80; will add amlodipine 5mg/d and recheck in three weeks. If not at goal then would increase to 7.5mg/d and recheck again three weeks later. Immunization due 8649497 08 Z28.39 [id number] Jean Claude Tristan MD , [facility], OFFICE [address] [place] [address] [place] [address] 08/15/2023 09:24:07 08/15/2023 09:37:30 Essential hypertension 97141922 I10 Your blood pressure is at goal.Pleas e call with any concerning side effects or symptoms.D iscuss lifestyle changes: DASH dietLow sodium 2300 mg per dayExercis eWeight lossSmokin g counseling /Osman Dent/ dsNutritio n consult/co unselingRe commended alcohol intake [id number] James Huntley MD , [facility], OFFICE [address] [place] [address] [place] [address] 12/08/2023 10:58:03 12/08/2023 11:46:47 Dysuria 87125624 R30.0 consitent with prior UTIs, Will get culture, rx macrobid. Follow up if not improving or new symptoms develop. [id number] Suzanna Padilla MD , [facility], OFFICE [address] [facility] [place] [address] 01/20/2024 11:25:02 01/20/2024 12:44:57 Adult health examination 597744034 Z00.00 Your personal health plan:Healt hy diet -- recommende d focusing on vegetables , fruits, whole grains, and legumes as much as possibleEx ercise -- aim for at least 30 minutes dailyVacci rashmi -- up to datePreven tative screenings -- colonoscop y next due 2024, due for mammogram, DXA due late 2022 into 2023 Depression screening 171 972153 Z13.31 depression screening tool administer ed Screening for alcohol abuse 027473551 Z13.39 Alcohol use screening tool administer ed Essential hypertension 08573652 I10 At goal <130/80 on current regimen but has been dizzy w/ even lower readings recently; will hold amlodipine and monitor -- will send readings from home next week. Cramp in l ower leg associated with rest 246639410 G47.62 Etiology unclear; will check labs. Hypothyroidism 18876570 E03.9 Due for recheck. Hyperlipidemia 92127738 E78.5 Stable on statin, will continue. Postmenopausal state 764 02223 Z78.0 Taking alendronat e, due for recheck. Screening for malignant neoplasm of breast 105623705 Z12.39 [id number] Jean Claude Tristan MD , [facility], OFFICE [address] [place] [address] 04/14/2024 10:16:53 04/14/2024 11:56:22 Eruption 904000714 R21 unclear cause, though review of info in UTD on cutaneous reactions to covid vaccines suggests that rarely morbillifo rm eruptions occur following administra tion of mRNA especially . There is nothing else in history to suggest a drug reaction, contact dermatitis , viral exanthem, or scabies infestatio n. She seems well and denies fever or other systemic sxs. We agreed that a short course of PO steroid is reasonable to help calm the scratch-it ch cycle. If this is in fact a reaction to covid vaccine, rash can be expected to resolve within a total of 2 weeks or so. If pt finishes prednisone burst and rash is unchanged, she should make sure to come for an in-person visit for re-eval. [id number] SHAYY BLACKMAN MD , [facility], OFFICE [address] [place] [address] 04/27/2024 14:54:14 04/27/2024 15:36:46 Tinea pedis 1666591 B35.3 Eruption 022761384 R21 Unclear cause of allergic type rash. Only possible trigger eggs which she will avoid now. Prednisone taper, continue cetirizine , return precaution s given. [id number] Suzanna Padilla MD , [facility], OFFICE [address] [facility] [place] [address] 08/18/2024 09:19:08 08/18/2024 10:32:59 Essential hypertension 64521139 I10 Z79.899 Essentiall y at goal <130/80 on current regimen, will continue. Hyperparathyroidism 6699 9008 E21.3 Not taking vitamin D per rheumatolo gist -- states she d/c'd it summer 2023. PTH is still elevated. Will see Dr. Jorgensen tomorrow and will ask about this. Osteopenia with high fracture risk 2936113750 57742 M85.80 Taking alendronat e. Scheduled for repeat DXA 08/2024. Family his tory of cancer of colon 467722624 Z80.0 Brother had colectomy; pt thinks before age 65. Pt will have colonoscop y next month. Psoriatic arthritis 1563 80018 L40.50 F/b Dr. Jorgensen. Prediabetes 605153538 R7 3.03 A1c 5.6 as of 12/2023, stable. Overdue for recheck. Rheumatoid arthritis 698 72938 M06.9 F/b rheumatolo gist Michele Jorgensen MD, now based in [place]. Hypothyroidism 06670949 E03.9 Stable on current regimen; due for recheck 02/2025. Acid reflux 587805947 K2 1.9 Taking pantoprazo le per [facility] w/ good effect, will continue. Health Concerns Section Related Observation LastModified by Organization Detai ls LastModified Time None Recorded Concern Status LastModified by Organization Details LastModified Time None Recorded Advance Directives Directive None Recorded Payers Encounter Date Sequence Insurance Name Policy Number Policy Higuera Covered Member ID Higuera Member ID Guarantor Name 12/08/2023 1 [facility] (MEDICARE REPLACEMENT /ADVANTAGE - PPO) [id number] Nikki Kumar [id number] Nikki Kumar 01/20/2024 1 [facility] (MEDICARE REPLACEMENT /ADVANTAGE - PPO) [id number] Nikki Kumar [id number] Nikki Kumar 04/14/2024 1 [facility] (MEDICARE REPLACEMENT /ADVANTAGE - PPO) [id number] Nikki Kumar [id number] Nikki Kumar 04/27/2024 1 [facility] (MEDICARE REPLACEMENT /ADVANTAGE - PPO) [id number] Nikki Kumar [id number] Nikki Kumar 08/18/2024 1 [facility] (MEDICARE REPLACEMENT /ADVANTAGE - PPO) [id number] Nikki Kumar [id number] Nikki Kumar Notes Date Note Type Note Provider Name and Address Organization Details Recorded Time 12/08/2023 text/html a [facility] Dysuria ur inary symptomsReported bypatient.Duration:Symp toms began 5 days ago Severity:Symptoms persisting Associated Symptoms:Burning on urination(and itching);Urinary frequency James Huntley MD [address] [place] [address], [phone] 12/08/2023 11:37:59 01/20/2024 text/html Risk Assessment and Lifestyle Change Counseling (Medicare)Reported bypatient.Coronary Artery Disease Risk Assessment:No Family history of coronary artery disease; No personal history of diabetes; No history of peripheral vascular disease, AAA, or carotid disease; No personal history of coronary artery disease Breast Cancer Risk Assessment:No family history of breast cancer; No history of breast cancer or dcis Colon Cancer Risk Assessment:Family history of pre cancerous colon polyps or colon cancer Lung Cancer Risk Assessment:Former smoker quit more than 15 years ago; No asbestos exposure Cognitive/Behavioral Risk Assessment:No personal history of mental illness; No family history of mental illness Safety Risk Assessment:Has grab bars in bathroom; Has rails on steps Functional Status:Patient does not have trouble hearing the television or radio when others do not.; Patient does not have to strain or struggle to hear/understand conversations; Patient does not need help with preparing meals, transportation, shopping, taking medicine, managing finances, or other activities of daily living.; Does not live alone; Patient was not unsteady and did not take longer than 30 seconds during the timed get up and go test. Diet:Counseled about eating a diet low in trans and saturated fats and high in fiber, fruits and vegetables Exercise counseling:Discussed the importance of daily physical activity; Discussed the importance of weight bearing exercise Safety:Counseled about protecting skin from the sun and lowering the risk of skin cancer --here for wellness visit --states BP has been low -- noticed dizziness while pulling weeds in her garden past three days: 87/59 to 110/56 on calibrated BP machine--says she's drinking lots of water -- all day -- and more when dizzy --she has lost a few pounds since adding amlodipine six months ago--will hold amlodipine and monitor -- will continue lisinopril for now and send readings next week--of note, has had swelling in feet and ankle as well -- will monitor off amlodipine --says her legs ache at noc -- has to move them to control the discomfort--not new -- will check labs Faith Carson NP [address] [place] [address], [phone], [facility] 01/21/2024 23:24:33 04/14/2024 text/html Patient agreed t o this visit via phone or secure telehealth platform. Patient understands this is a scheduled visit and the usual procedures with regard to billing and confidentiality apply.Patient was notified that the provider location is [facility] location: homeDuring the visit the patient? s medical history and medical record were reviewed.The patient was notified to call our office for worsening or urgent symptoms. VV to discuss a rash that started about 10 days ago. She thinks it's an allergic rx to something . It started on bilateral upper arms, since then has spread also to back and sides of legs and stomach. Rash consists of little bumps , is itchy all over and prickly . Denies new soaps, lotions, or detergents, no travel outside of this area. She had COVID vax on 03/30/24 but had no reactions to previous ones. Denies fevers, joint pain or body aches. Myrbetriq and hydroxychloroquine are relatively new meds, but predate the rash by a couple of months. Denies any rash on hands or face. Michael Michele PA-C [address] [place] [address], [phone], [facility] 04/14/2024 11:54:09 04/27/2024 text/html 04/27/24Rash per silke, itchyPrednisone helped but when stopped it came backRecently increased leflunomide to 20 mg (3 months ago) no other recent med changesTaking zyrtec dailyHas asthma - no new wheeze or dyspneaThis summer couldn't eat eggs - made her vomitNow egg sandwiches twice a week but none this week 04/14/24:VV to discuss a rash that started about 10 days ago. She thinks it's an allergic rx to something . It started on bilateral upper arms, since then has spread also to back and sides of legs and stomach. Rash consists of little bumps , is itchy all over and prickly . Denies new soaps, lotions, or detergents, no travel outside of this area. She had COVID vax on 03/30/24 but had no reactions to previous ones. Denies fevers, joint pain or body aches. Myrbetriq and hydroxychloroquine are relatively new meds, but predate the rash by a couple of months. Denies any rash on hands or face. SHAYY GARCIA MD [address] [place] [address], [phone], [facility] 04/27/2024 15:33:12 08/18/2024 text/html Patient informed and consents to use of AI assisted recording to improve documentation of visit. The patient, with a history of psoriatic arthritis, rheumatoid arthritis, and Sjogren's syndrome, presents for a routine follow-up. She reports no new symptoms or changes in her condition. The patient has been experiencing hair loss, which she attributes to her medication, leflunomide. She expresses a desire to discontinue this medication due to this side effect.The patient also reports that she is not currently taking vitamin D. This was discontinued by her can line operator last summer due to high levels. The patient does not recall the exact level at the time it was discontinued.The patient is due for a colonoscopy and a bone density test next month. She has a family history of colon and prostate cancer, with one brother having had colon cancer before age 65 and another brother having had prostate cancer.The patient is currently taking alendronate for osteoporosis. She reports no issues with tolerating this medication. Faith Carson NP [address] [place] [address], [phone], [facility] 08/20/2024 23:23:52 OBGyn Episode No OBEpisode recorded.
[2024-11-16 18:11] LABS: MANUAL DIFF FLAG NO
[2024-11-16 18:29] LABS: Basophils Absolute Auto 0.1 X10*3/uL (0.0-0.2); Basophils Percent Auto 1.2 % (0-2); Eosinophils Absolute Auto 0.1 X10*3/uL (0.0-0.4); Eosinophils Percent Auto 1.6 % (0-4); Hematocrit 41.6 % (37.0-47.0); Hemoglobin 13.3 g/dl (12.0-16.0); Imm Gran Abs Auto 0.02 X10*3/uL (0.00-0.03); Imm Gran Pct Auto 0.2 % (0.0-0.4); Lymphocytes Absolute Auto 2.5 X10*3/uL (1.2-4.9); Lymphocytes Percent Auto 28.6 % (20-40); Mean Corpuscular Hemoglobin 30.6 pg (27.0-33.0); Mean Corpuscular Volume 95.9 fL (80.0-98.0); Monocytes Absolute Auto 0.7 X10*3/uL (0.1-1.2); Monocytes Percent Auto 8.2 % (2-11); Neutrophils Absolute Auto 5.2 x10*3/uL (2.0-8.3); Neutrophils Percent Auto 60.2 % (45-73); Platelet Count 259 X10*3/uL (160-400); Red Blood Count 4.34 X10*6/uL (4.20-5.50); Red Cell Distribution Width 13.2 % (11.0-16.0); White Blood Count 8.7 X10*3/uL (4.8-10.8)
[2024-11-16 18:40] LABS: Alanine Aminotransferase 20 U/L (0-31); Aspartate Amino Transferase 35 U/L (5-31); C Reactive Protein < 0.10 mg/dL (< or = 0.50); Calcium 9.4 mg/dL (8.4-10.2); Estimated Glomerular Filt Rate > 60
[2024-11-16 18:57] LABS: Vitamin D 25-OH Total 99.2 ng/mL (>30)
[2024-11-16 19:06] LABS: Erythrocyte Sedimentation Rate 8 MM/HR (0-20)
[2024-11-16 19:14] LABS: Parathyroid Hormone Intact 152.2 pg/mL (8.7-77.1)
== END 2024-11-16 12:43 | disposition home or self-care (01) ==
LOC: HO.HKASLDS 12:42
PROVIDERS: PCP Nurse Practitioner; Visit Provider Internal Medicine Rheumatology
DX: M70.22 Olecranon bursitis, left elbow (principal); E21.3 Hyperparathyroidism, unspecified; L40.50 Arthropathic psoriasis, unspecified; R25.2 Cramp and spasm; Z79.60 Long term (current) use of unspecified immunomodulators and immunosuppressants; Z79.899 Other long term (current) drug therapy
CPT/HCPCS: 20605; 36415; 82306; 82310; 82565; 83970; 84450; 84460; 85025; 85652; 86140; 99212; J2003

== ENCOUNTER 2025-01-10 10:45 | Outpatient (AMB) | payer MEDICARE, SELFPAY ==
--- NOTE | 2025-01-10 10:47 | A.OFFVIS_ITS ---
Vital Signs 01/10/25 10:48 Height 5 ft 2 in Weight 177 lb 7.554 oz BMI 32.5 BP 122/66 Blood Pressure Location Lt brachial Position Sitting Pulse 73 Pulse Source Pulse Oximeter Pulse Oximetry (%) 97 Oxygen Delivery Method Room Air Intake Visit Reasons: Hyperparathyroidism, unspecified Intake Note: New patient present today for Hyperparathyroidism, unspecified. Allergies adalimumab (From Humira) Allergy (Mild, Verified 01/10/25 10:50) rashes amoxicillin Allergy (Mild, Verified 01/10/25 10:50) Rash Sulfa (Sulfonamide Antibiotics) Allergy (Mild, Verified 01/10/25 10:50) rashes Medication List - Last Reconciled 01/10/25 by Kyra Whitaker MD albuterol-budesonide 90-80 mcg/actuation 2 inhalations inhalation DAILY PRN alendronate 70 mg PO QWEEK celecoxib (Celebrex) 200 mg PO BID cetirizine (Zyrtec) 10 mg PO DAILY PRN cyclosporine 0.05% 1 drp ophthalmic (eye) Q12H estradiol 0.01%(0.1mg/gram) 1 appful vaginal DAILY zenmtdylypl-rkijbawbz-fsonfjwy 100-62.5-25 mcg (Trelegy Ellipta) 1 inh inhalation DAILY hydroxychloroquine 200 mg PO BID ixekizumab (Taltz Autoinjector) 80 mg subcut Q4W levothyroxine (Synthroid) 100 mcg PO DAILY lisinopril 40 mg PO DAILY mirabegron ER (Myrbetriq) 25 mg PO DAILY multivitamin 1 tab PO DAILY pantoprazole 40 mg PO DAILY simvastatin 40 mg PO DAILY trospium 20 mg PO BID HPI Comments Details: 64-year-old female coming in today for initial evaluation of elevated PTH level. Labs from 11/16/2024 show calcium of 9.4, vitamin-D 99.2, PTH intact 152.2, EGFR greater than 60. Labs from July 2024 show a calcium of 9.6 with albumin of 4.4, corrected calcium would be 9.2. Normal magnesium. PTH was checked by rheum, she follows with them for RA and psoriatic arthritis both. Bone density : at [facility] , 2021 or 2022, has one scheduled for March or April 2025, per patient last was normal Fosamax 70 mg weekly for 10 years ?? Prescribed by PCP Faith Carson NP. so either diagnosed with osteoporosis many years ago or osteopenia with high FRAX? patient doesnt know. 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 DJD Kidney stones : none Family history : no one with calcium problems ,or kidney stones or osteoporosis vitamin D : 1000 units of vitamin D in one a day multivitamin Calcium : 400 mg of calcium in one a day multivitamin , milk: a glass daily, yogurt: daily in the morning a cup , cheese: 2-3 servings per week Physical exam General: sitting comfortably in no acute distress HEENT: normocephalic/atraumatic, Neck: supple Cardiac: normal heart sounds Pulm: normal breath sounds B/L, no added breath sounds Abd: not distended, no tenderness Extremities: no edema, no signs of myxedema Laboratory Tests 08/19/24 11/16/24 13:10 13:30 Creatinine 0.80 Estimated GFR > 60 Calcium 9.6 9.4 Magnesium 2.1 Albumin 4.4 25-OH Vitamin D Total 99.2 PTH Intact 152.2 H Physical Exam Vital Signs: Last Vital Signs Pulse 73 01/10/25 10:48 BP 122/66 01/10/25 10:48 Pulse Ox 97 01/10/25 10:48 Oxygen Delivery Method Room Air 01/10/25 10:48 BMI result Body Mass Index 32.5 Assessment & Plan Assessment & Plan (1) Hyperparathyroidism: Comment: Mild elevation 69.4 06/2024 labs. Code(s): E21.3 - Hyperparathyroidism, unspecified Category: Medical Plan: 64-year-old female coming in today for initial evaluation of elevated PTH level. PTH was checked by Rheumatology. She had labs done in October 2024 which showed calcium of 9.4, vitamin-D 99.2, intact PTH 152.2, EGFR greater than 60. Labs prior to that in July 2024 showed calcium of 9.6 with albumin of 4.4, corrected calcium would be 9.2. Normal magnesium. She apparently has a history of osteoporosis or osteopenia with high FRAX as she has been on Fosamax 70 mg weekly for about 10 years. This is prescribed by PCP. I do not have any records available for her previous bone density. She is scheduled to get another bone density scan in follow up this year in 2024. She has a history of lumbar surgery for DJD in her 40s, so they do include her forearm. I told her this is important especially when evaluating hyperparathyroidism. She has no history of kidney stones. Age is greater than 50. Her calcium levels are not elevated. I have had some recently elevated PTH levels at [place] [facility], I would like to repeat her labs at [facility] 1st. If that is still shows elevated PTH level, she could have some elevation in PTH attributed to being on Fosamax. Antiresorptives to cause PTH elevation. Otherwise she has normal kidney function, vitamin-D is good so not related to those. If PTH continues to be elevated, we will consider getting a kidney ultrasound, 24 hour urine calcium evaluation as well as getting her bone density repeated. I will also try to obtain records of previous bone density scan. I did discuss with her that Fosamax is usually given book for about 5-6 years after which bone density is usually reassessed, maybe she continued to have suboptimal results which is why she is still on Fosamax. She has never had any fractures. I recommended her to discuss this with her primary care provider to see when she is supposed to come off the Fosamax or what is the plan for her osteoporosis. Patient has a appointment with PCP tomorrow, she will discuss with her. Plan: -ordered PTH, calcium, albumin, ionized calcium, creatinine, phosphorus, magnesium, bone resorption markers, vitamin-D to be done at [facility] -obtain bone density results -follow up in 5-6 weeks to discuss results -decreased multivitamin used to every other day given vitamin-D is on the higher side and she is taking 1000 units of vitamin-D daily Plan I spent 45 minutes in reviewing the record, seeing the patient and documenting in the medical record. Orders: Orders Calcium, Ionized Today E21.3 - Hyperparathyroidism, unspecified, M81.0 - Age- related osteoporosis without current pathological fracture Collagen Type I C-Telopeptide Today E21.3 - Hyperparathyroidism, unspecified, M81.0 - Age-related osteoporosis without current pathological fracture Parathyroid Hormone Intact Today E21.3 - Hyperparathyroidism, unspecified, M81.0 - Age-related osteoporosis without current pathological fracture Phosphorus Today E21.3 - Hyperparathyroidism, unspecified, M81.0 - Age-related osteoporosis without current pathological fracture Vitamin D 25-OH Total Today E21.3 - Hyperparathyroidism, unspecified, M81.0 - Age-related osteoporosis without current pathological fracture Creatinine Today E21.3 - Hyperparathyroidism, unspecified, M81.0 - Age-related osteoporosis without current pathological fracture Albumin Level Today E21.3 - Hyperparathyroidism, unspecified, M81.0 - Age- related osteoporosis without current pathological fracture Calcium Today E21.3 - Hyperparathyroidism, unspecified, M81.0 - Age-related osteoporosis without current pathological fracture Alkaline Phosphatase Bone Today E21.3 - Hyperparathyroidism, unspecified, M81.0 - Age-related osteoporosis without current pathological fracture Magnesium Today E21.3 - Hyperparathyroidism, unspecified, M81.0 - Age-related osteoporosis without current pathological fracture Patient Instructions: Do fasting 8 AM blood work at [facility] [address] [facility] Follow up in 6 weeks to discuss results Coding Level of Care Code New Pt Level 4 (34513) Diagnoses Hyperparathyroidism E21.3 Time Spent (min) 45
[2025-01-10 10:48] VITALS: BP 122/66; PULSE 73; O2SAT 97; BMI 32.5
--- OUTSIDE RECORDS SUMMARY | 2025-01-10 11:41 | XMS_ITS | Data Portability ---
Author Organization [facility], [facility] Address [address] [place] [address] Care Team Providers Care Sheet Sorter Name Role Phone [facility] Job Training Specialist NEHA YARBROUGH Senior Mechanical Project Engineer [facility] Band Saw Runner TEE SALMON Business Risk Analyst AZEEM IGLESIAS Primary Care Provider [phone] Assessment Encounter Date Assessment Date Assessment LastModified [...] Time Details Appointments Wellness Visit 30 2024 03:30P Hoa IGLESIAS NP Not available Not available Not available Lab HbA1c (hemoglob in A1c), blood 2024 025 [facility], [address] [place] [address], [id number], 10/04/2024 16:25:47 TSH, serum or plasma [address] [facility], [address] [place] [address], [id number], 08/20/2024 23:23:32 T4, free, serum [address] [facility], [address] [place] [address], [id number], 08/20/2024 23:23:32 CBC 2023 024 [facility], [address] [place] [address], 42506, 01/21/2024 10:14:05 magnesium , blood 2023 024 [facility], [address] [place] [address], [id number], 01/22/2024 12:00:18 CMP, serum or plasma 2023 024 [facility], [address] [place] [address], 53279, 01/22/2024 12:00:17 ferritin, serum or plasma 2023 024 [facility], [address] [place] [address], 41354, 01/21/2024 10:56:28 vitamin B12, serum 2023 024 [facility], [address] [place] [address], 64793, 01/22/2024 12:14:50 urinalysi s, dipstick 2023 024 [facility], [address] [place] [address], [id number], 12/08/2023 13:33:12 culture, urine 2023 024 [facility], [address] [place] [address], [id number], 12/09/2023 21:47:50 Referral None recorded. Procedures None recorded. Surgeries None recorded. Imaging MAMMO, screening , tomosynth esis, bilateral - Note to Provider: 2nd look consult/D iag Mammo/US Breast/Gu ided Asp/Breas t Bx as clinicall y indicated . [address] - Outpatient Imaging, All Locations, [place], [address], 01/23/2024 09:20:56 bone density - last scan 06/11/22[address] - Outpatient Imaging, All Locations, [place], [address], 01/20/2024 13:26:02 Medication Orders levothyro xine 100 mcg tablet 2024 025 [facility], [facility] [address], [facility] [address], [place], [place], [id number], 08/20/2024 23:23:33 prednison e 10 mg tablet 2023 024 [facility], [address] [place] [address], [id number], 08/18/2024 09:37:03 ketoconaz ole 2 % topical cream 2023 024 [facility], [address] [place] [address], [id number], 04/27/2024 16:22:05 prednison e 20 mg tablet 2023 025 [facility], [address] [place] [address], [id number], 08/18/2024 09:46:56 Macrobid 100 mg capsule 2023 024 [facility], [address] [place] [address], [id number], 01/20/2024 11:38:59 Patient TargetsNo targets recorded. Patient Instructions Encounter Date Encounter Id Patient Instructions Last Modified By Organization Details Last Modified Time 01/20/2024 [id number] vision screen* Not available 01/20/2024 12:27:47 CCM: [...] UA glu UA NEGATI VE Not Available [facility] [address] [facility], [place], [address], 12/08/2023 11:23:10 12/08/19 24 12/08/2023 POC UA clarity UA CLEAR Not Available [facility] [address] [place] [address], 11254, 12/08/2023 11:23:10 12/08/19 24 12/08/2023 POC UA uro UA 1.0000 Not Available [facility] [address] [place] [address], 79791, 12/08/2023 11:23:10 12/08/19 24 12/08/2023 POC UA ket UA NEGATI VE Not Available [facility] [address] [place] [address], 64604, 12/08/2023 11:23:10 12/08/19 24 12/08/2023 POC UA pro UA NEGATI VE Not Available [facility] [address] [place] [address], 21215, 12/08/2023 11:23:10 12/08/19 24 12/08/2023 POC UA nit UA NEGATI VE Not Available [facility] [address] [place] [address], 92801, 12/08/2023 11:23:10 12/08/19 24 12/08/2023 POC UA carlita UA 1+ abnormal Not Available [facility] [address] [place] [address], 39974, 12/08/2023 11:23:10 12/08/19 24 12/08/2023 POC UA pH UA 6.5000 Not Available [facility] [address] [place] [address], 54924, 12/08/2023 11:23:10 12/08/19 24 12/08/2023 POC UA SG UA 1.0200 Not Available [facility] [address] [place] [address], 67506, 12/08/2023 11:23:10 12/08/19 24 12/08/2023 POC UA color UA YELLOW Not Available [facility] [address] [place] [address], 749[address], 12/08/2023 11:23:10 12/08/19 24 12/08/2023 POC UA blo UA NEGATI VE Not Available [facility] [address] [place], [address], 12/08/2023 11:23:10 12/08/19 24 12/08/2023 POC UA jim UA NEGATI VE Not Available [facility] [address] [place], [address], 12/08/2023 11:23:10 12/08/19 24 12/09/2023 CULTU RE, URINE , ROUTI NE culture, urine, routine CULTU RE, URINE , ROUTI NE Micro Numbe r: [id number] Test Statu s: Final Speci men [...] Cultu re Trans port Tube. Not Available [facility] [address], [place], [address], 12/09/2023 21:47:50 01/16/20 24 01/16/2024 HGB A1C [...] furth er confi rmati on Not Available [address], [address], 01/16/2024 11:38:53 01/16/20 24 01/16/2024 HGB A1C estimated average glucose 114.0 mg/dL Not Available [address], 97398, 01/16/2024 11:38:53 01/16/20 24 01/20/2024 LIPID PANEL cholesterol 152 mg/dL <200 mg/dl Elbert able 200-2 39 mg/dl Borde rline High >240 mg/dl High Not Available [address], 426[address], 01/20/2024 12:51:01 01/16/20 24 01/20/2024 LIPID PANEL triglyceride s 82 mg/dL <150 mg/dL Jessica l 150-1 99 mg/dL Borde rline High 200-4 99 mg/dL High >500 mg/dL Very High Not Available [address], 69[address], 01/20/2024 12:51:01 01/16/20 24 01/20/2024 LIPID PANEL direct HDL 64 mg/dL <40 mg/dl - Major Risk for CHD >60 mg/dl - Negat emilia Risk for CHD Not Available [address], [address], 01/20/2024 12:51:01 01/16/20 24 01/20/2024 RENAL PANEL glucose 90 mg/dL 70-100 Not Available [address], 87693, 01/20/2024 12:51:02 01/16/20 24 01/20/2024 RENAL PANEL BUN 22 mg/dL 7-18 high Not Available [address], 01539, 01/20/2024 12:51:02 01/16/20 24 01/20/2024 RENAL PANEL creatinine 1.1 mg/dL 0.8-1. 3 Not Available [address], 23608, 01/20/2024 12:51:02 01/16/20 24 01/20/2024 RENAL PANEL B/C 20.0 ratio Not Available [address], 18742, 01/20/2024 12:51:02 01/16/20 24 01/20/2024 RENAL PANEL [...] be used in pregn jimmie. Not Available [address], 17390, 01/20/2024 12:51:02 01/16/20 24 01/20/2024 RENAL PANEL sodium 143 mmol/ L 136-14 5 Not Available [address], 30558, 01/20/2024 12:51:02 01/16/20 24 01/20/2024 RENAL PANEL potassium 4.5 mmol/ L 3.5-5. 1 Not Available [address], 59115, 01/20/2024 12:51:02 01/16/20 24 01/20/2024 RENAL PANEL chloride 105 mmol/ L 96-107 Not Available [address], 79380, 01/20/2024 12:51:02 01/16/20 24 01/20/2024 RENAL PANEL anion gap 13.2 5.0-15 .0 Not Available [address], 39560, 01/20/2024 12:51:02 01/16/20 24 01/20/2024 RENAL PANEL CO2 25 mmol/ L 21-32 Not Available [address], 56455, 01/20/2024 12:51:02 01/16/20 24 01/20/2024 RENAL PANEL calcium 9.7 mg/dL 8.5-10 .3 Not Available [address], 58876, 01/20/2024 12:51:02 01/16/20 24 01/20/2024 RENAL PANEL albumin 4.0 g/dL 3.4-5. 0 Not Available [address], 79082, 01/20/2024 12:51:02 01/16/20 24 01/20/2024 RENAL PANEL phosphorous 3.70 mg/dL 2.50-4 .90 Not Available [address], 80945, 01/20/2024 12:51:02 01/16/20 24 01/20/2024 LDL - CALCU LATED LDL - calculated 71.6 RISK CATEG ORY LDL GOAL _ CHD or CHD Risk Equiv alent s <100 mg/dl (10-y ear risk >20%) 2+ Risk Facto rs <130 mg/dl (10-y ear risk <= 20%) 0-1 Risk Facto r <160 mg/dl Almo st all peopl e with 0-1 risk facto r have a 10 year risk <10%, thus 10 year risk asses ment in peopl e with 0-1 risk facto r is not neces candaec. Not Available [address], 85074, 01/20/2024 12:51:02 01/20/20 24 01/21/2024 JAKE TIN ferritin 99 NG/mL 15-200 Not Available [address], 51938, 01/21/2024 10:56:28 01/20/20 24 01/21/2024 VITAM IN [...] er than 30 ng/mL . Not Available [address], 11016, 01/21/2024 10:56:29 01/20/20 24 01/21/2024 TSH TSH 0.44 uIU/m L 0.50-6 .00 low The Ameri can Colle ge of Endoc rinol ogy and Ameri can Thyro id Assoc iatio n recom mend goal TSH value s betwe en 0.4-4 .0 mIU/m L. Not Available [address], 34412, 01/21/2024 11:12:17 01/20/20 24 01/22/2024 COMP. METAB OLIC PANEL glucose 78 mg/dL 70-100 Not Available [address], 79058, 01/22/2024 12:00:17 01/20/20 24 01/22/2024 COMP. METAB OLIC PANEL BUN 24 mg/dL 7-18 high Not Available [address], 54847, 01/22/2024 12:00:17 01/20/20 24 01/22/2024 COMP. METAB OLIC PANEL creatinine 1.2 mg/dL 0.8-1. 3 Not Available [address], 63732, 01/22/2024 12:00:17 01/20/20 24 01/22/2024 COMP. METAB OLIC PANEL B/C 20.0 ratio Not Available [address], 36313, 01/22/2024 12:00:17 01/20/20 24 01/22/2024 COMP. METAB [...] be used in pregn jimmie. Not Available [address], 86021, 01/22/2024 12:00:17 01/20/20 24 01/22/2024 COMP. METAB OLIC PANEL sodium 141 mmol/ L 136-14 5 Not Available [address], 92524, 01/22/2024 12:00:17 01/20/20 24 01/22/2024 COMP. METAB OLIC PANEL potassium 5.4 mmol/ L 3.5-5. 1 high Not Available [address], 77664, 01/22/2024 12:00:17 01/20/20 24 01/22/2024 COMP. METAB OLIC PANEL chloride 104 mmol/ L 96-107 Not Available [address], 35225, 01/22/2024 12:00:17 01/20/20 24 01/22/2024 COMP. METAB OLIC PANEL anion gap 15.6 5.0-15 .0 high Not Available [address], 32480, 01/22/2024 12:00:17 01/20/20 24 01/22/2024 COMP. METAB OLIC PANEL CO2 21 mmol/ L 21-32 Not Available [address], 75668, 01/22/2024 12:00:17 01/20/20 24 01/22/2024 COMP. METAB OLIC PANEL calcium 9.6 mg/dL 8.5-10 .3 Not Available [address], 17368, 01/22/2024 12:00:17 01/20/20 24 01/22/2024 COMP. METAB OLIC PANEL total protein 8.3 g/dL 6.4-8. 2 high Not Available [address], 82240, 01/22/2024 12:00:17 01/20/20 24 01/22/2024 COMP. METAB OLIC PANEL albumin 4.4 g/dL 3.4-5. 0 Not Available [address], 74927, 01/22/2024 12:00:17 01/20/20 24 01/22/2024 COMP. METAB OLIC PANEL globulin 3.9 g/dL Not Available [address], 54793, 01/22/2024 12:00:17 01/20/20 24 01/22/2024 COMP. METAB OLIC PANEL A/G 1.1 ratio 0.8-2. 0 Not Available [address], 85922, 01/22/2024 12:00:17 01/20/20 24 01/22/2024 COMP. METAB OLIC PANEL total bilirubin 0.40 mg/dL 0.00-1 .00 Not Available [address], 78089, 01/22/2024 12:00:17 01/20/20 24 01/22/2024 COMP. METAB OLIC PANEL AST 37 U/L 0-37 Not Available [address], 17512, 01/22/2024 12:00:17 01/20/20 24 01/22/2024 COMP. METAB OLIC PANEL ALT 35 U/L 6-63 Not Available [address], 70086, 01/22/2024 12:00:17 01/20/20 24 01/22/2024 COMP. METAB OLIC PANEL alk. phos. 89 U/L 50-136 Not Available [address], 57535, 01/22/2024 12:00:17 01/20/20 24 01/22/2024 MAGNE SIUM magnesium 2.1 mg/dL 1.8-2. 4 Not Available [address], 30313, 01/22/2024 12:00:18 01/20/20 24 01/22/2024 PTH INTAC T WITH CALCI UM PTH intact 74.5 pg/mL 9.6-66 .3 high Not Available [address], 68154, 01/22/2024 12:00:18 01/20/20 24 01/22/2024 PTH INTAC T WITH CALCI UM calcium 9.6 mg/dL 8.5-10 .3 Not Available [address], 91791, 01/22/2024 12:00:18 01/20/20 24 01/22/2024 VITAM IN B12 vitamin B12 1012 pg/mL 230-10 50 Not Available [address], 67128, 01/22/2024 12:14:50 01/20/20 24 01/20/2024 visio n scree n* Right Not Available [address], 06326, 01/20/2024 11:41:22 01/20/20 24 01/20/2024 visio n scree n* Left Not Available [address], 47289, 01/20/2024 11:41:22 01/20/20 24 01/20/2024 visio n scree n* Both Not Available [address], 79504, 01/20/2024 11:41:22 01/20/20 24 01/20/2024 visio n scree n* Corrective Lenses glasse s Not Available [address], 67353, 01/20/2024 11:41:22 03/19/20 24 03/19/2024 FREE T4 free T4 1.27 NG/dL 0.75-1 .54 Not Available [address], 43582, 03/19/2024 15:46:48 03/19/20 24 03/19/2024 TSH TSH 2.40 uIU/m L 0.50-6 .00 The Ameri can Colle ge of Endoc rinol ogy and Ameri can Thyro id Assoc iatio n recom mend goal TSH value s betwe en 0.4-4 .0 mIU/m L. Not Available [address], 08967, 03/19/2024 16:08:35 05/31/20 24 06/01/2024 COMP. METAB OLIC PANEL glucose 91 mg/dL 70-100 Not Available [address], 11872, 06/01/2024 15:49:00 05/31/20 24 06/01/2024 COMP. METAB OLIC PANEL BUN 11 mg/dL 7-18 Not Available [address], 03895, 06/01/2024 15:49:00 05/31/20 24 06/01/2024 COMP. METAB OLIC PANEL creatinine 0.8 mg/dL 0.8-1. 3 Not Available [address], 85031, 06/01/2024 15:49:00 05/31/20 24 06/01/2024 COMP. METAB OLIC PANEL B/C 13.8 ratio Not Available [address], 49001, 06/01/2024 15:49:00 05/31/20 24 06/01/2024 COMP. METAB [...] be used in pregn jimmie. Not Available [address], 69923, 06/01/2024 15:49:00 05/31/20 24 06/01/2024 COMP. METAB OLIC PANEL sodium 146 mmol/ L 136-14 5 high Not Available [address], 56030, 06/01/2024 15:49:00 05/31/20 24 06/01/2024 COMP. METAB OLIC PANEL potassium 4.5 mmol/ L 3.5-5. 1 Not Available [address], 15858, 06/01/2024 15:49:00 05/31/20 24 06/01/2024 COMP. METAB OLIC PANEL chloride 109 mmol/ L 96-107 high Not Available [address], 24565, 06/01/2024 15:49:00 05/31/20 24 06/01/2024 COMP. METAB OLIC PANEL anion gap 10.8 5.0-15 .0 Not Available [address], 94177, 06/01/2024 15:49:00 05/31/20 24 06/01/2024 COMP. METAB OLIC PANEL CO2 26 mmol/ L 21-32 Not Available [address], 45711, 06/01/2024 15:49:00 05/31/20 24 06/01/2024 COMP. METAB OLIC PANEL calcium 9.1 mg/dL 8.5-10 .3 Not Available [address], 23070, 06/01/2024 15:49:00 05/31/20 24 06/01/2024 COMP. METAB OLIC PANEL total protein 6.8 g/dL 6.4-8. 2 Not Available [address], 07641, 06/01/2024 15:49:00 05/31/20 24 06/01/2024 COMP. METAB OLIC PANEL albumin 3.9 g/dL 3.4-5. 0 Not Available [address], 22591, 06/01/2024 15:49:00 05/31/20 24 06/01/2024 COMP. METAB OLIC PANEL globulin 2.9 g/dL Not Available [address], 64060, 06/01/2024 15:49:00 05/31/20 24 06/01/2024 COMP. METAB OLIC PANEL A/G 1.3 ratio 0.8-2. 0 Not Available [address], 86419, 06/01/2024 15:49:00 05/31/20 24 06/01/2024 COMP. METAB OLIC PANEL total bilirubin 0.60 mg/dL 0.00-1 .00 Not Available [address], 56477, 06/01/2024 15:49:00 05/31/20 24 06/01/2024 COMP. METAB OLIC PANEL AST 29 U/L 0-37 Not Available [address], 63430, 06/01/2024 15:49:00 05/31/20 24 06/01/2024 COMP. METAB OLIC PANEL ALT 36 U/L 6-63 Not Available [address], 11387, 06/01/2024 15:49:00 05/31/20 24 06/01/2024 COMP. METAB OLIC PANEL alk. phos. 78 U/L 50-136 Not Available [address], 55926, 06/01/2024 15:49:00 05/31/20 24 06/05/2024 ALKAL INE PHOSP HATAS E, BONE SPECI FIC alkaline phosphatase, bone specific 10.7 mcg/L 5.6-29 .0 Refer ence Range , Preme nopau awa (mcg/ L) 35-45 years 5.0-1 8.2 Not Available [facility] [address], [place], [address], 06/05/2024 15:03:00 07/15/19 25 07/15/2024 PTH INTAC T PTH intact 69.4 pg/mL 9.6-66 .3 high Not Available [address], 12636, 07/15/2024 16:01:25 07/15/19 25 07/15/2024 VITAM IN [...] er than 30 ng/mL . Not Available [address], 37471, 07/15/2024 16:09:45 07/15/19 25 07/19/2024 RENAL PANEL glucose 93 mg/dL 70-100 Not Available [address], 77103, 07/19/2024 09:50:35 07/15/19 25 07/19/2024 RENAL PANEL BUN 15 mg/dL 7-18 Not Available [address], 57981, 07/19/2024 09:50:35 07/15/19 25 07/19/2024 RENAL PANEL creatinine 0.8 mg/dL 0.8-1. 3 Not Available [address], 49219, 07/19/2024 09:50:35 07/15/19 25 07/19/2024 RENAL PANEL B/C 18.8 ratio Not Available [address], 46636, 07/19/2024 09:50:35 07/15/19 25 07/19/2024 RENAL PANEL [...] be used in pregn jimmie. Not Available [address], 33589, 07/19/2024 09:50:35 07/15/19 25 07/19/2024 RENAL PANEL sodium 144 mmol/ L 136-14 5 Not Available [address], 63843, 07/19/2024 09:50:35 07/15/19 25 07/19/2024 RENAL PANEL potassium 4.6 mmol/ L 3.5-5. 1 Not Available [address], 77784, 07/19/2024 09:50:35 07/15/19 25 07/19/2024 RENAL PANEL chloride 107 mmol/ L 96-107 Not Available [address], 07508, 07/19/2024 09:50:35 07/15/19 25 07/19/2024 RENAL PANEL anion gap 9.8 5.0-15 .0 Not Available [address], 09398, 07/19/2024 09:50:35 07/15/19 25 07/19/2024 RENAL PANEL CO2 27 mmol/ L 21-32 Not Available [address], 21751, 07/19/2024 09:50:35 07/15/19 25 07/19/2024 RENAL PANEL calcium 9.4 mg/dL 8.5-10 .3 Not Available [address], 22665, 07/19/2024 09:50:35 07/15/19 25 07/19/2024 RENAL PANEL albumin 4.1 g/dL 3.4-5. 0 Not Available [address], 00571, 07/19/2024 09:50:35 07/15/19 25 07/19/2024 RENAL PANEL phosphorous 3.10 mg/dL 2.50-4 .90 Not Available [address], 63737, 07/19/2024 09:50:35 07/15/19 25 07/19/2024 ALT ALT 30 U/L 6-63 Not Available [address], 56920, 07/19/2024 11:27:15 07/15/19 25 07/19/2024 ALKAL INE PHOSP HATAS E, BONE SPECI FIC alkaline phosphatase, bone specific 10.5 mcg/L 5.6-29 .0 Refer ence Range , Preme nopau awa (mcg/ L) 35-45 years 5.0-1 8.2 Not Available [facility] [address] [place] [address], [place], [address], 07/19/2024 16:43:00 04//20 25 10/04/2024 HGB A1C hemoglobin A1C 5.4 [...] furth er confi rmati on Not Available [address], 0[address]79, 10/04/2024 16:25:47 10/05/19 25 10/04/2024 HGB A1C estimated average glucose 108.3 mg/dL Not Available [address], 61115, 10/04/2024 16:25:47 10/05/19 25 10/04/2024 BASIC METAB OLIC PANEL glucose 87 mg/dL 70-100 Not Available [address], 12568, 10/04/2024 16:32:23 10/05/19 25 10/04/2024 BASIC METAB OLIC PANEL BUN 11 mg/dL 7-18 Not Available [address], 68296, 10/04/2024 16:32:23 10/05/19 25 10/04/2024 BASIC METAB OLIC PANEL creatinine 0.8 mg/dL 0.8-1. 3 Not Available [address], 09582, 10/04/2024 16:32:23 10/05/19 25 10/04/2024 BASIC METAB OLIC PANEL B/C 13.8 ratio Not Available [address], 75229, 10/04/2024 16:32:23 10/05/19 25 10/04/2024 BASIC METAB [...] be used in pregn jimmie. Not Available [address], 03877, 10/04/2024 16:32:23 10/05/19 25 10/04/2024 BASIC METAB OLIC PANEL sodium 144 mmol/ L 136-14 5 Not Available [address], 02059, 10/04/2024 16:32:23 10/05/19 25 10/04/2024 BASIC METAB OLIC PANEL potassium 4.6 mmol/ L 3.5-5. 1 Not Available [address], 79609, 10/04/2024 16:32:23 10/05/19 25 10/04/2024 BASIC METAB OLIC PANEL chloride 106 mmol/ L 96-107 Not Available [address], 93865, 10/04/2024 16:32:23 10/05/19 25 10/04/2024 BASIC METAB OLIC PANEL anion gap 11.8 5.0-15 .0 Not Available [address], 40555, 10/04/2024 16:32:23 10/05/19 25 10/04/2024 BASIC METAB OLIC PANEL CO2 26 mmol/ L 21-32 Not Available [address], 79229, 10/04/2024 16:32:23 10/05/19 25 10/04/2024 BASIC METAB OLIC PANEL calcium 9.4 mg/dL 8.5-10 .3 Not Available [address], 03733, 10/04/2024 16:32:23 10/05/19 25 10/04/2024 LIPID PANEL cholesterol 180 mg/dL <200 mg/dl Elbert able 200-2 39 mg/dl Borde rline High >240 mg/dl High Not Available [address], 29758, 10/04/2024 16:32:25 10/05/19 25 10/04/2024 LIPID PANEL triglyceride s 106 mg/dL <150 mg/dL Jessica l 150-1 99 mg/dL Borde rline High 200-4 99 mg/dL High >500 mg/dL Very High Not Available [address], 41489, 10/04/2024 16:32:25 10/05/19 25 10/04/2024 LIPID PANEL direct HDL 71 mg/dL <40 mg/dl - Major Risk for CHD >60 mg/dl - Negat emilia Risk for CHD Not Available [address], 77294, 10/04/2024 16:32:25 10/05/19 25 10/04/2024 LDL - CALCU LATED LDL - calculated 88 RISK CATEG ORY LDL GOAL _ CHD or CHD Risk Equiv alent s <100 mg/dl (10-y ear risk >20%) 2+ Risk Facto rs <130 mg/dl (10-y ear risk <= 20%) 0-1 Risk Facto r <160 mg/dl Almo st all peopl e with 0-1 risk facto r have a 10 year risk <10%, thus 10 year risk asses ment in peopl e with 0-1 risk facto r is not norris maria. Not Available [facility] [address] [place], [address], 10/04/2024 16:32:26 11/17/19 25 11/16/2024 lab resul t PTH 152.2 high Not Available [facility] (Medical Records) [address] [place], [address], 12/08/2024 02:10:57 12/02/19 24 12/02/2023 pulmo nary funct ion test* No observ ation record ed. [facility] [address] [place], [address], 12/12/2023 12:50:10 03/10/20 24 03/10/2024 MAMMO , scree didier No observ ation record ed. [email or web address] [address] [place], [address], 03/12/2024 08:18:03 Result Notes None recorded. 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 Yarbrough (pulmona ry) Not Available [facility] 3 03:54:07 Acid reflux 251370034 Active 2018 PER PULMONAR Y CONSULT NOTE 09/11/18 Faith Carson NP [address] [place], [address] , [facility] 5 23:20:31 Candidia sis of the esophagu s 24824718 Active 2018 Not Available [facility] 3 03:54:06 Esophage al chest pain 82094441 Completed 201803/26/2019 Josey Lema MD [address] [place] [address], [phone] , [facility] 9 12:12:06 Atypical chest pain 871109709 Completed 201803/26/2019 Josey Lema MD [address] [place] [address], [phone] , [facility] 9 12:13:01 Swallowi ng painful 37114281 Active 2018 Not Available [facility] 3 03:54:07 Esophage al dysphagi a 14448381 Active 2018 Not Available [facility] 3 03:54:07 Prediabe dariel 688800616 Active 2019 Not Available [facility] 3 03:54:07 [facility] hyperten aneudy 86240657 Active 2020 Faith Carson NP [address] [place] [address], [id number] , [facility] 3 22:52:15 Restless legs 76692270 Active 2021 Not Available [facility] 3 03:54:07 SARS-CoV -2 Active 2022 Not Available [facility] 3 03:54:07 Hyperpar athyroid ism 69948851 Active 2022 Faith Carson NP [address] [place] [address], [id number] , [facility] 5 09:54:09 Psoriati c arthriti s 723231140 Active 2022 Not Available [facility] 3 03:54:06 Osteopen ia with high fracture risk 25790594107 9101 Active 2022 Not Available [facility] 3 03:54:06 Family history of cancer of colon 220903757 Active 2024 Faith Carson NP [address] [place] [address], [id number] , [facility] 5 10:05:39 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 Not Available [facility] 3 03:54:06 Rotator cuff shoulder syndrome and allied disorder s Completed 05/19/2013 Not Available [facility] 3 02:03:33 Carpal tunnel syndrome 51663434 Active Not Available [facility] 3 03:54:07 Gastroes ophageal reflux disease 509159668 Active 2007 Elyse Nunez RN null, [facility] 4 16:28:51 Rheumato id arthriti s 98586391 Active 2004 Elyse Nunez RN null, [facility] 4 16:28:51 Enthesop athy of wrist AND/OR carpus 37904781 Completed 200505/19/2013 Not Available [facility] 3 02:03:35 Synoviti s and tenosyno vitis [id number] Completed 05/19/2013 Not Available [facility] 3 02:04:12 Elevated level of transami nase and lactic acid dehydrog enase [id number] Completed 12/17/2018 Removal Reason: normal recently Josey Lema MD [address] [place] [address], [address] , [facility] 9 06:13:03 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 2005 Not Available [facility] 3 03:54:07 Disorder of function of stomach 218339817 Active 2006 Not Available [facility] 3 03:54:07 Tendinit is 95651799 Active 2004 Not Available [facility] 3 03:54:07 Enthesop athy of hip region 32333933 Completed 200605/19/2013 Not Available [facility] 3 02:03:09 Pain of hip region 85033521 Completed 200705/19/2013 Not Available [facility] 3 02:01:32 Psoriasi s with arthropa thy Active Not Available [facility] 3 03:54:07 On examinat ion - a rash Completed 05/19/2013 Not Available [facility] 3 02:00:49 Psoriasi s 9090923 Completed 08/14/2018 Removal Reason: resolved Josey Lema MD [address] [place], [address] , [facility] 9 10:00:45 Hyperlip idemia 16474119 Active Faith Carson NP [address] [place], [address] , [facility] 4 12:35:28 Neuralgi a 59861354 Active 2006 Not Available [facility] 3 03:54:06 Hypothyr oidism 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 Procedures Surgical History Date Name Laterality Status Provider Name and Address Organization Details Recorded Time 2023 Medicare Wellness Visit completed Dawit Pradhan MA [facility] 4 11:29:21 2022 32745: Therapeutic Exercise completed CHAUNCEY WILEY, PT [address] [place], [address], [facility] 3 09:54:59 2022 Neuromuscular re-education completed CHAUNCEY WILEY, PT [address] [place], [address], [facility] 3 10:00:40 2022 Treatment and Advice completed CHAUNCEY WILEY, PT [address] [place], [address], [facility] 3 09:43:32 2022 29560: Therapeutic Exercise completed CHAUNCEY WILEY, PT [address] [place], [address], [facility] 3 09:47:55 2022 Neuromuscular re-education completed CHAUNCEY WILEY, PT [address] [place], [address], [facility] 3 09:59:00 2022 Treatment and Advice completed CHAUNCEY WILEY, PT [address] [place], [address], [facility] 3 09:44:56 2022 Neuromuscular re-education completed CHAUNCEY WILEY, PT [address] [place], [address], [facility] 3 15:03:16 2022 Treatment and Advice completed CHAUNCEY WILEY, PT [address] [place], [address], [facility] 3 15:05:50 2022 Suture/staple Removal completed Michele Starkey RN [facility] 3 14:10:26 2022 94972: Therapeutic Exercise completed CHAUNCEY WILEY, PT [address] [place], [address], [facility] 3 11:39:46 2022 Neuromuscular re-education completed CHAUNCEY WILEY, PT [address] [place], [address], [facility] 3 12:01:14 2022 66033: Therapeutic Activities - Direct 1:1 completed CHUANCEY WILEY, PT [address] [place], [address], [facility] 3 12:01:20 2022 Treatment and Advice completed CHAUNCEY WILEY, PT [address] [place], [address], [facility] 3 11:35:13 2022 03870: Therapeutic Exercise completed CHAUNCEY WILEY, PT [address] [place], [place], , [facility] 3 10:01:36 2022 Treatment and Advice completed CHAUNCEY WILEY, PT [address] [place], [address], [facility] 3 09:58:11 2022 Punch Biopsy completed Hilda Danielson PA-C [address] [place], [place], , [facility] 3 20:57:07 2022 Physical Activity Counselling completed CHAUNCEY WILEY, PT [address] [place], [address], [facility] 3 09:02:30 2022 60418: PT Eval, Moderate Complexity completed CHAUNCEY WILEY, PT [address] [place], [address], [facility] 3 09:02:33 2022 Treatment and Advice completed CHAUNCEY WILEY, PT [address] [place], [place], , [facility] 3 10:04:29 2021 Trigger Finger Injection RB completed Vance Hernandez MD [address] [place] [address], [address], [facility] 2 09:47:42 2021 prevention-cardiovascu lar risk reduction counseling completed Faith Carson NP [address] [place] [address], [address], [facility] 2 16:05:17 2020 Generic Procedure Template completed Tee Stoner MD [address] [place] [address], [address], [facility] 1 09:19:15 2020 prevention-cardiovascu lar risk reduction counseling completed Cheryl Ruiz, [facility] 1 08:46:41 2020 prevention-annual alcohol misuse screening completed Cheryl Ruiz MA [facility] 1 08:46:41 2020 Incise and Drain without packing completed Faith Carson NP [address] [place] [address], [address], [facility] 1 22:22:52 2018 Skin Tag Removal (up to 15) completed Josey Lema MD [address] [place] [address], [address], [facility] 9 08:20:54 2018 Jacklyn - EGD completed Wally Villasenor MD [address] [place] [address], [address], [facility] 9 15:28:12 2018 Esophagoduodenoscopy completed Catherine Hitchcock MD [address] [place] [address], [address], [facility] 9 18:05:06 2018 Post hospital/SNF follow-up/Transitional Care completed Faith Carson NP [address] [place] [address], [address], [facility] 9 13:23:43 2012 Generic Procedure Template completed Tee Stoner MD [address] [place] [address], [address], [facility] 3 08:19:55 2011 Generic Procedure Template completed Tee Stoner MD [address] [place] [address], [address], [facility] 2 12:03:39 2011 Shoulder (Right) Injection completed Tee Stoner MD [address] [place] [address], [address], [facility] 2 10:17:04 Imaging Results None recorded. Procedure Notes None recorded. Medical Equipment None Reported. Allergies Allergen ID Allergen Name Allergen Category Reaction Reaction Severity Criticality Documentation Date Start Date Code Code System Note Provider Name and Address Organization Details Recorded Time 549123 adhesive environme nt,medica tion other Not available Not available 02/11/2013 84978 UNK Blis ters Can use paper tape Wyatt Juarez LPN [facility] 5 08:48:17 86977 Humira medicatio n rash Not available Not available 11/14/2009 74848 4 RxNorm Not Available [facility] 1 06:05:41 3283 Substance with sulfonami de structure and antibacte rial mechanism of action (substanc e) medicatio n rash Not available Not available 08/22/2008 46331 8003 SNOMED Not Available [facility] 1 06:05:20 3284 amoxicill in medicatio n rash Not available Not available 08/22/2008 723 RxNorm Not Available [facility] 1 06:05:20 Medications Name Sig Start Date [...] t Available levothyro xine 100 mcg tablet TAKE 1 TABLET BY MOUTH DAILY X 6 DAYS/WK AND 1/2 TABLET ON SUNDAYS (6.5 TABS/WK) . 2024 active Not Available Not Available Not Avai lable prednisol one acetate 1 % eye drops,rosi pension active Not Available Not Available Not Available prednison [...] TAKE 3 CAPSULES BY MOUTH TWICE DAILY 04/27 /2021 completed 1 cap twice daily Not Available [...] (bisacody l) 5 mg tablet,de layed release 02/19 /2025 completed Not Available Not Available Not Available [...] t Available Vitals Date Recorded Body height Body mass index (BMI) Body weight Oxygen saturation Oxygen saturation in Arterial blood by Pulse oximetry Heart rate Systolic And Diastolic Provider Name and Address Organization Details Last Updated DateTime 5 156.85 cm 32.4 kg/m2 51971.2 6 g 95 % 95 % 70 /min 122/82 mm[Hg] Dawit Pradhan MA [facility] 5 09:39:10 Date Recorded Body height Oxygen saturation Oxygen saturation in Arterial blood by Pulse oximetry Heart rate Systolic And Diastolic Provider Name and Address Organization Details Last Updated DateTime 4 156.85 cm 98 % 98 % 75 /min 106/66 mm[Hg] Dawit Pradhan MA [facility] 4 11:17:55 Date Recorded Body height Body mass index (BMI) Body weight Oxygen saturation Oxygen saturation in Arterial blood by Pulse oximetry Heart rate Systolic And Diastolic Provider Name and Address Organization Details Last Updated DateTime 4 156.85 cm 32.6 kg/m2 04811.8 5 g 96 % 96 % 80 /min 116/68 mm[Hg] Dawit Pradhan MA [facility] 4 11:40:05 Date Recorded Body height Provider Name an d Address Organization Details Last Updated DateTime 04/14/2024 156.85 cm Tania Maria Stella [facility] 04/14/2024 10:22:43 Date Recorded Body height Body mass index (BMI) Body weight Oxygen saturation Oxygen saturation in Arterial blood by Pulse oximetry Heart rate Body temperature Systolic And Diastolic Provider Name and Address Organization Details Last Updated DateTime 4 156.85 cm 32.6 kg/m2 75849.8 5 g 97 % 97 % 82 /min 98 [degF] 114/66 mm[Hg] Dawit Pradhan MA [facility] 4 15:04:49 Social History Question Answer Notes LastModified by Organizat ion Details LastModified Time Tobacco Smoking Status Former Smoker 4 cigs/d for couple years Josey Lema MD [address] [place] [address], [address], [facility] 08/14/2018 10:22:07 What Is Your Level Of [...] Or The Highest Degree You Have Received? [id number] Information not available 01/18/2022 Have There Been Any Changes To Your Family Or Social Situation? No [email or web address] Information not available 01/17/2021 When Did You Quit Smoking? 16+yearssin lan johnson Information not available 08/14/2018 How Many Days In The Past Year Have You Had A Heavy Drinking Consumption (4+ Female, 5+ Male)? 0 02/11/13 [email or web address] Information not available 02/11/2013 Are There Any Guns Present In Your Home? Yes Locked Information not available 08/14/2018 Do You Use Insect Repellent Routinely? No [email or web address] Information not available 01/17/2021 Live Alone Or [...] Children Do You Have? 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 [email or web address] Information not available 01/20/2024 What Is Your Relationship Status? Information not available 01/18/2022 Do You Use Your Seat Belt Or Car Seat Routinely? Yes [email or web address] Information not available 01/17/2021 Seat Belts Used Routinely Yes Information not available 08/14/2018 Smoke Alarm In Home Yes Information not available 08/14/2018 Do You Have Smoke And Carbon Monoxide Detectors In Your Home? Yes [email or web address] Information not available 01/17/2021 At What Age Did You Start Smoking Tobacco? 16 Information not available 04/14/2024 Are You Passively Exposed To Smoke? No [email or web address] Information not available 01/17/2021 How Much Tobacco [...] Father Myocardial infarction 77 from heart. in 2006 [email or web address] Not available 08/14/2018 10:14:00 Sister Crohn's disease 47 from bowel- relate d issues 2010 Not available 11/02/2020 11:46:49 Sister Depressive disorder [email or web address] Not available 2018 10:17:56 Sister Diabetes mellitus 47 Not available 01/18 08:47:49 Notes:has 5 sibs. she was in the middle. 3 older brothers, younger sister Medical History Condition Response SKIN Y Hypothyroid Y NEUROLOGIC Y EYE Y GERD Y RHEUMATOLOGIC Y Hyperlipidemia Y Rheumatoid Arthritis Y Gynecological History Statement/Question Response Hysterectomy Y Obstetrics History GPAL:G 0 P 0 0 0 0 Immunizations Vaccine Type Date Status Note Provider Nam e and Address Organization Details Recorded Time influenza, unspecified formulation 5 completed Not Available [facility] 04/15/2023 19:29:43 influenza, unspecified formulation 5 completed Not Available [facility] 04/15/2023 19:29:43 Novel Hweutsskn-[id number], all formulations 9 completed Not Available [facility] 04/15/2023 19:29:43 influenza, unspecified formulation 9 completed Not Available [facility] 04/15/2023 19:29:43 Influenza, split virus, trivalent, preservative 2 completed Not Available [facility] 07/17/2019 02:25:03 Influenza, split virus, trivalent, PF 3 completed Not Available [facility] 07/17/2019 02:29:18 Influenza, split virus, quadrivalent, PF 5 completed Not Available [facility] 07/17/2019 02:20:11 Influenza, split virus, trivalent, preservative 4 completed Not Available [facility] 04/15/2023 19:29:43 Influenza, split virus, quadrivalent, PF 7 completed Not Available [facility] 07/17/2019 02:28:43 Tdap 9 completed Not Available [facility] 07/17/2019 02:37:59 pneumococcal polysaccharide PPV23 9 completed Not Available [facility] 07/17/2019 02:24:00 Influenza, split virus, quadrivalent, PF 9 completed Not Available [facility] 07/17/2019 02:32:22 influenza, unspecified formulation 8 completed Not Available [facility] 04/15/2023 19:29:43 Influenza, split virus, quadrivalent, PF 0 completed Amanda Magana LPN null, [facility] 03/28/2020 09:07:39 zoster recombinant 9 completed Faith Carson NP [address] [place] [address], [address], [facility] 01/20/2024 12:33:26 zoster recombinant 9 completed Faith Carson NP [address] [place] [address], [address], [facility] 01/20/2024 12:33:26 Pneumococcal conjugate PCV 13 2 completed Lissett Park LPN null, [facility] 02/06/2022 10:00:50 Influenza, split virus, trivalent, preservative 0 completed Not Available [facility] 07/17/2019 02:17:47 COVID-19, mRNA, LNP-S, PF, 30 mcg/0.3 mL dose 1 completed Not Available [facility] 04/15/2023 19:29:43 COVID-19, mRNA, LNP-S, PF, 30 mcg/0.3 mL dose 1 completed Not Available [facility] 04/15/2023 19:29:43 Influenza, split virus, quadrivalent, preservative 1 completed Faith Carson NP [address] [place] [address], [address], [facility] 01/20/2024 12:29:14 COVID-19, mRNA, LNP-S, PF, 30 mcg/0.3 mL dose 1 completed Faith Carson NP [address] [place], [address], [facility] 01/20/2024 12:33:26 COVID-19, mRNA, LNP-S, PF, 30 mcg/0.3 mL dose 2 completed Faith Carson NP [address] [place], [place], , [facility] 01/20/2024 12:33:26 Influenza, split virus, quadrivalent, preservative 2 completed Faith Carson, LISANDRA [address] [place], [place], , [facility] 01/20/2024 12:33:26 COVID-19, mRNA, LNP-S, PF, 30 mcg/0.3 mL dose 2 completed Not Available [facility] 04/15/2023 19:29:43 COVID-19, mRNA, LNP-S, PF, 30 mcg/0.3 mL dose 3 completed Mary Salamanca LPN [facility] 05/01/2023 11:15:19 influenza, unspecified formulation 3 completed Fatih Carson, LISANDRA [address] [place] [address], , [facility] 07/24/2023 10:12:02 Influenza, MDCK, quadrivalent, PF 1 completed Faith Carson NP [address] [place], [place], , [facility] 01/20/2024 12:33:26 COVID-19, mRNA, LNP-S, PF, 30 mcg/0.3 mL dose, melina-sucrose 2 completed Faith Carson NP [address] [place], [place], , [facility] 01/20/2024 12:33:26 COVID-19, mRNA, LNP-S, bivalent, PF, 30 mcg/0.3 mL dose 2 completed Faith Carson NP [address] [place], [address], [facility] 08/18/2024 10:11:10 COVID-19, mRNA, LNP-S, PF, melina-sucrose, 30 mcg/0.3 mL 3 completed Faith Carson, LISANDRA [address] [place], [address], [facility] 01/20/2024 12:33:26 Influenza, split virus, quadrivalent, PF 2 completed Faith Carson, SWING DRIVER [address] [place], [address], [facility] 01/20/2024 12:33:27 RSV, recombinant, protein subunit RSVpreF, adjuvant reconstituted, 0.5 mL, PF 4 completed [facility] 01/20/2024 16:44:22 Pneumococcal conjugate PCV20, polysaccharide ALS177 conjugate, adjuvant, PF 4 completed [facility] 01/20/2024 16:45:04 COVID-19, mRNA, LNP-S, PF, 100 mcg/0.5mL dose or 50 mcg/0.25mL dose 4 completed [facility] 03/31/2024 14:25:14 influenza, unspecified formulation 4 completed [facility] 03/29/2024 15:40:20 COVID-19, mRNA, LNP-S, PF, melina-sucrose, 30 mcg/0.3 mL 4 completed [facility] 03/31/2024 14:25:14 Past Encounters Encounter ID Performer Location Encounter Start Date Encounter Closed Date Diagnosis/Indication Diagnosis SNOMED-CT Code Diagnosis ICD10 Code Diagnosis Note [id number] Tee Stoner MD [facility], [address] [place] [address] 04/30/2005 08:15:49 04/30/2005 10:29:35 [id number] [facility] - [address] [place] [address] 04/30/2005 08:54:28 04/30/2005 08:55:08 [id number] [facility] [address] , [facility] [address] [place] [address] 06/10/2005 09:41:15 06/10/2005 12:09:53 [id number] Tee Stoner MD Rheumat[address] [place] [address] 06/10/2005 09:15:29 06/11/2005 08:51:05 [id number] [facility] - [address] [place] [address] 07/23/2005 16:20:28 07/23/2005 16:20:51 [id number] Tee Stoner MD Rheumatol [address] [place] [address] 08/02/2005 07:54:43 08/02/2005 14:05:46 [id number] [facility] - [address] [place] [address] 09/02/2005 11:37:20 09/02/2005 11:37:34 [id number] Tee Stoner MD Rheumatol nam, [address] [place] [address] 09/06/2005 10:38:11 09/11/2005 17:15:28 [id number] FAMILY PRACTICE TREATMENT NURSE [facility] FP, [facility], OFFICE [facility] [place] [address] 09/11/2005 15:24:06 09/11/2005 16:22:21 [id number] Tee Stoner MD Rheumatol nam, [address] [place] [address] 10/25/2005 08:16:03 10/28/2005 11:17:02 [id number] [facility] - [address] [place] [address] 10/25/2005 10:20:50 10/25/2005 10:21:13 [id number] [facility] - [address] [place] [address] 12/06/2005 12:51:39 12/06/2005 13:21:17 [id number] Tee Stoner MD Rheumatol nam, [address] [place] [address] 01/17/2006 07:55:17 01/17/2006 16:06:31 [id number] [facility] - [facility] [place] [address] 01/17/2006 08:11:36 01/17/2006 08:11:52 [id number] [facility] - [facility] [place] [address] 04/01/2006 09:23:48 04/01/2006 09:23:56 [id number] Tee Stoner MD Rheumatol [address] [place] [address] 04/21/2006 07:57:26 04/22/2006 14:30:06 [id number] [facility] - [facility] [place] [address] 05/13/2006 15:44:26 05/13/2006 15:44:39 [id number] [facility] - [facility] [place] [address] 07/01/2006 15:28:53 07/01/2006 15:29:03 [id number] Tee Stoner MD Rheumatol [address] [place] [address] 07/22/2006 07:49:19 07/28/2006 06:29:14 [id number] Tee Stoner MD Rheumatol [address] [place] [address] 10/31/2006 10:27:55 11/03/2006 06:33:52 [id number] [facility] - [facility] [place] [address] 10/31/2006 12:43:06 10/31/2006 12:43:09 [id number] Tee Stoner MD Rheumatol [address] [place] [address] 02/12/2007 09:32:13 02/17/2007 09:27:21 [id number] Tee Stoner MD Rheumatol [address] [place] [address] 05/15/2007 08:01:37 07/20/2008 02:02:29 [id number] [facility] - [facility] [address] [place], [place] [address] 05/15/2007 08:25:19 05/15/2007 08:25:27 [id number] Tee Stoner MD Rheumatol nam, [address] [place], [place] [address] 08/21/2007 07:54:56 07/20/2008 02:02:29 [id number] Tee Stoner MD Rheumatol nam, [address] [place], [place] [address] 11/20/2007 08:02:08 07/20/2008 02:02:29 [id number] [facility] [address] [facility] , [address] [place], [place] [address] 11/20/2007 08:34:54 07/20/2008 02:02:29 [id number] [facility] [facility] , [address] [place], [place] [address] 11/20/2007 00:00:00 07/20/2008 02:02:29 [id number] Tee Stoner MD Rheumatol nam, [address] [place], [place] [address] 12/04/2007 16:16:20 07/20/2008 02:02:29 [id number] [facility] [address] [facility] , [address] [place], [place] [address] 12/04/2007 00:00:00 07/20/2008 02:02:29 [id number] Tee Stoner MD Rheumatol nam, [address] [place], [place] [address] 02/22/2008 07:58:07 07/20/2008 02:02:29 [id number] Tee Stoner MD Rheumatol nam, [address] [place], [place] [address] 08/22/2008 07:59:39 08/24/2008 12:15:06 [id number] Tee Stoner MD Rheumatol nam, [address] [place], [place] [address] 02/13/2009 09:30:34 02/14/2009 09:26:12 [id number] [facility] - [facility] [address], [place] [address] 08/22/2008 08:36:47 08/22/2008 08:37:25 [id number] Tee Stoner MD Rheumatol nam, [address], [place] [address] 07/03/2009 08:02:29 07/04/2009 09:24:55 [id number] Tee Stoner MD Rheumatol anm, [address] [place], [place] [address] 10/03/2009 09:36:17 10/03/2009 13:20:33 [id number] Tee Stoner MD Rheumatol nam, [address] [place], [place] [address] 11/14/2009 07:58:49 11/15/2009 08:46:00 [id number] Tee Stoner MD Rheumatol nam, [address] [place], [place] [address] 12/22/2009 11:35:50 12/25/2009 13:37:31 [id number] Tee Stoner MD Rheumatol nam, [address] [place], [place] [address] 01/16/2010 08:11:00 01/18/2010 08:13:58 [id number] Tee Sotner MD Rheumatol nam, [address] [place], [place] [address] 02/27/2010 07:57:47 03/01/2010 08:47:02 [id number] Tee Stoner MD Rheumatol nam, [address] [place], [place] [address] 04/12/2010 08:16:55 04/13/2010 09:31:47 [id number] Tee Stoner MD Rheumatol nam, [address] [place], [place] [address] 07/27/2010 07:55:55 07/27/2010 15:53:18 [id number] Tee Stoner MD Rheumatol nam, [address] [place] [address] 10/25/2010 07:53:10 10/25/2010 12:12:23 [id number] Tee Stoner MD Rheumatol ogy, [address] [place], [place] [address] 11/22/2010 07:50:03 11/22/2010 09:06:18 [id number] [facility] , [address] [place], [place] [address] 11/22/2010 08:28:23 11/22/2010 08:42:00 [id number] Tee Stoner MD Rheumatol ogjames, [address] [place], [place] [address] 02/19/2011 14:34:31 02/20/2011 08:55:54 [id number] Tee Stoner MD Rheumatol nam, [address] [place], [place] [address] 1 03/22/2011 07:55:09 03/22/2011 09:18:50 [id number] Tee Stoner MD Rheumatol nam, [address] [place], [place] [address] 1 05/17/2011 08:01:28 05/17/2011 08:27:35 [id number] Tee Stoner MD Rheumatol ogjames, [address] [place], [place] [address] 1 09/16/2011 07:55:09 09/16/2011 12:23:39 [id number] Tee Stoner MD Rheumatol nam, [address] [place], [place] [address] 1 11/07/2011 08:49:08 11/07/2011 10:50:53 [id number] Tee Stoner MD Rheumatol og[facility]ames, [address] [place], [place] [address] 01/09/2012 11:18:54 01/09/2012 13:47:08 [id number] Tee Stoner MD Rheumatol nam, [address] [place], [place] [address] 02/03/2012 07:55:58 02/03/2012 11:10:35 [id number] Tee Stoner MD Rheumatol nam, [address] [place] [address] 1 03/23/2012 10:20:36 03/23/2012 11:01:58 [id number] Tee Stoner MD Rheumatol ogy, [address] [place] [address] 1 04/22/2012 08:54:06 04/22/2012 15:13:23 [id number] Tee Stoner MD Rheumatol [facility]ames, [address] [place] [address] 1 07/17/2012 11:36:27 07/17/2012 12:08:38 [id number] Tee Stoner MD Rheumatol [facility]ames, [address] [place] [address] 1 08/13/2012 08:56:23 08/17/2012 09:01:15 [id number] Tee Stoner MD Rheumatol [facility]ames, [address] [place] [address] 1 09/24/2012 08:37:11 09/28/2012 09:29:02 [id number] Tee Stoner MD Rheumatol og, [address] [place] [address] 1 12/24/2012 08:37:39 12/28/2012 09:19:37 [id number] Tee Stoner MD Rheumatol og, [address] [place] [address] 1 02/11/2013 08:54:07 02/12/2013 09:23:05 Rheumatoid arthritis 20695472 Hx of RA with secondary Sjogren's. 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 Has periph neuropathy perhaps related. Psoriasis with arthropathy 63409218 Probable psoriatic arthritis in a patient with [...] labs q 2 mo. Long-term drug therapy 591112990 AZA. Mild LFT abnormalit y. Follow counts. [id number] Tee Stoner MD Rheumatol [facility] [address] [facility] [place] [address] 05/14/2013 08:15:49 05/17/2013 10:47:22 Rheumatoid arthritis 32661500 Hx of RA with secondary Sjogren's. Inflammato [...] for prior authorizat ion. Influenza vaccine needed [id number] Tee Stoner MD Rheumatol [facility] [address] [facility] [place] [address] 06/07/2013 11:25:45 06/08/2013 09:35:50 Rheumatoid arthritis 01424437 Hx of RA with secondary Sjogren's. Inflammato [...] hold off until next week. Weathers's palsy 134208426 O nset 5 days ago. On prednisone . Improving. Discussed Tx: usual course is 10 d prednisone . Taper off over next 5 days. Lyme test negative, but will repeat in approx 2-3 mo. [id number] Tee Stoner MD Rheumatol [facility] [place] [address] 06/14/2013 15:24:46 06/15/2013 09:28:06 Rheumatoid arthritis 77688890 Hx of RA with secondary Sjogren's. Inflammato [...] suggested she hold off until next week. [id number] Tee Stoner MD Rheumatol [address] [place] [address] 07/06/2013 09:33:14 2013 09:48:01 Rheumatoid arthritis 85102465 Hx of RA with secondary Sjogren's. Inflammato [...] for now. Return 2 mo. Weathers's palsy 048063044 R esolved after about 2 weeks. Treated with high dose prednisone . Long-term drug therapy 214465706 AZA. Mild LFT abnormalit y. Follow counts. Reducing dose. [id number] Tee Stoner MD Rheumatol [address] [place] [address] 08/31/2013 07:56:54 08/31/2013 08:15:57 Rheumatoid arthritis 54330319 Hx of RA with secondary Sjogren's. Inflammato ry arthritis flared recently. . Now after 2.5 mo Orencia, feeling very well with only minimal joint sx's. Continue Orencia. Reduce AZA to 50mg daily for 1 mo, then d/c. Continue prednisone 5/d for now. Return 4 mo. Expect to wean off prednisone starting next visit. [id number] Tee Stoner MD Rheumatol [address] [address] 01/06/2014 08:39:52 01/06/2014 09:09:00 Rheumatoid arthritis 13036212 Psoriasis 7445637 TNF induced psoriasis. Onset ~ 2010. Still persisting . Psoriasis with arthropathy 76729779 Probable psoriatic arthritis in a patient with ahx of definite hx RA, whose psoriasis was induced by Enbrel. I have not seen reports of this previously . Both her RA and what I am assuming is Ps Arth is improved on Orencia. Continue for now. [id number] Tee Stoner MD Rheumatol [address] [address] 03/17/2014 10:53:42 03/17/2014 11:22:48 Rheumatoid arthritis 67686172 Psoriasis with arthropathy 63330223 Probable psoriatic arthritis in a patient with [...] mg daily. Return 2 mo . Psoriasis 5409734 TNF induced psoriasis. Onset ~ 2010. Still persisting , but better than it was.. [id number] Tee Stoner MD Rheumatol [address] [address] 05/17/2014 08:22:43 05/18/2014 09:26:10 Psoriasis with arthropathy 54248303 Probable psoriatic arthritis in a patient with [...] Return 3 mo. . Long-term drug therapy 893402584 AZA. . Follow counts. Reducing dose. Rheumatoid arthritis 44418620 Sj gren's syndrome 89977529 Mild sicca sx's. Has periph neuropathy perhaps related. [id number] Tee Stoner MD Rheumatol [address] [place] [address] 08/22/2014 08:45:21 08/29/2014 10:22:42 Psoriasis with arthropathy 52037948 Probable psoriatic arthritis in a patient with [...] today. Return 3 mo. . Rheumatoid arthritis 71307492 Sero+, CCP+ RA sx's and synovitis well controlled with meds as above. Psoriasis 8042936 TNF induced psoriasis. Onset ~ 2010. Still persisting . Apparently same drug induced psoriasis type rash has been reported with Orencia. Since starting Orencia, psoriasis is no worse, but also no better despite the AZA. Apremilast (Otezla) might be an option, but it does not have efficacy for RA. Long-term drug therapy 340433453 AZA. . Follow counts. Sj gren's syndrome 12017160 Mild sicca sx's. Has periph neuropathy perhaps related. Unchanged, follow sx's. [id number] Tee Stoner MD Rheumatol [address] [place] [address] 11/14/2014 08:34:26 11/15/2014 09:49:34 Psoriasis with arthropathy 87288556 Probable psoriatic arthritis in a patient with [...] Labs today. Return 3 mo. . Sciatica 08985292 She clark s a prior history of lumbar fusion, but I do not have access to details. She now has had a month of right sciatic pain, worse at night. She does not have any sensory, reflex, or muscular strength changes on exam. We should update a plain x-ray. I have suggested she go back and see [facility]. Therapeuti carson, I will give her a short course of prednisone . Long-term drug therapy 377057748 AZA. . Follow counts. [id number] Tee Stoner MD Rheumatol [address] [address] 12/26/2014 08:13:24 12/29/2014 10:20:47 Psoriasis with arthropathy 11417003 Both her RA and what I am assuming is Ps Arth initially improved on Orencia plus AZA. However, psoriasis persists, is worse. Stop Orencia, continue azathiopri ne, start Stelara under supervisio n of Dr. Simpson. 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 Still persisting . We now think this is likely [place] psoriasis with associated psoriatic arthritis. Plan is to start treatment with Stelara. [id number] Tee Stoner MD Rheumatol [address] [address] 02/07/2015 08:40:17 02/08/2015 16:17:35 Psoriasis with arthropathy 89551247 Both her RA and what appears to be Ps Arth initially improved on Orencia plus AZA. However, psoriasis persists, is worse. Stopped Orencia, continues azathiopri ne, started Stelara under supervisio n of Dr. Simpson. Peripheral joint symptoms seem adequately controlled so far. Psoriasis has not yet responded. Continue azathiopri ne 150 mg daily. Check labs. Return 3 months. Long-term drug therapy 298263998 AZA. . Follow counts. Neuralgia 82127873 She h as a long history of [...] helpful. She has no perceived side effects. [id number] Tee Stoner MD Rheumatol [address] [address] 03/31/2015 08:37:34 04/03/2015 11:56:37 Psoriasis with arthropathy 54070764 L40.50 Now felt to have [place] psoriasis with psoriatic arthritis. On Stellar about 2 mo. Psoriasis improving, but the arthritis component has not yet responded. I have read reports of a discordant response to Stelara regarding psoriasis vs the arthritis. Continue azathiopri ne 150 mg daily. Check labs. Return 3 months. Took recent short course of prednisone and this was helpful. Long-term drug therapy 330440959 Z79.899 AZA. . Follow counts. Rheumatoid arthritis 698 77097 M05.79 Sero+, CCP+ RA sx's and synovitis well controlled with meds as above. 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 Has periph neuropathy perhaps related. Unchanged, follow sx's. [id number] Tee Stoner MD Rheumatol [address] [address] 06/02/2015 08:36:01 06/02/2015 09:27:28 Psoriasis with arthropathy 33088453 L40.50 Now felt to have [place] psoriasis with psoriatic arthritis. Current flare in [...] worthwhile continuing it. Active or passive immunization 900919495 Z23 Rheumatoid arthritis 698 92285 M05.79 Sero+, CCP+ RA sx's and synovitis seems well controlled .Current joint flare suggests PsArth. Long-term drug therapy 908476144 Z79.899 AZA. . Follow counts. [id number] Tee Stoner MD Rheumatol [facility], [facility] [address] [place] [address] 07/10/2015 08:14:25 07/10/2015 08:50:44 Psoriasis with arthropathy 66528316 L40.50 Now felt to have [place] psoriasis with psoriatic arthritis. Current flare in [...] in about 5 weeks. Rheumatoid arthritis 698 85888 M05.79 Sero+, CCP+ RA sx's and synovitis seems well controlle. Most of current joint sxs incolve DIP joints and is more suggestive of psoriatic arthritis. . Quite unusual to have both conditions , but I think that is what we are seeing. Long-term drug therapy 283777156 Z79.899 AZA. . Follow counts. Now MTX. Psoriasis 2739863 L40.9 TNF induced psoriasis? ? Onset ~ 2010. Still persisting . We now think this is likely [place] psoriasis with associated psoriatic arthritis. Improvemen t with current drugs. [id number] Tee Stoner MD Rheumatol [address] [address] 08/07/2015 08:11:32 08/07/2015 08:43:26 Psoriasis with arthropathy 75170517 L40.50 Now felt to have [place] psoriasis with psoriatic arthritis. Current flare in [...] with Stelara early May Long-term drug therapy 784269441 Z79.899 AZA. . Follow counts. Now MTX. Psoriasis 6444510 L40.9 TNF induced psoriasis? ? Onset ~ 2010. Still persisting . We now think this is likely [place] psoriasis with associated psoriatic arthritis. Improvemen t with current drugs. Rheumatoid arthritis 698 00656 M05.79 Sero+, CCP+ Most of current joint sxs incolve DIP joints and is more suggestive of psoriatic arthritis. . Quite unusual to have both conditions , but I think that is what we are seeing. [id number] Tee Stoner MD Rheumatol [address] [address] 09/22/2015 08:16:58 09/22/2015 08:45:04 Psoriasis with arthropathy 82038966 L40.50 Now felt to have [place] psoriasis with psoriatic arthritis. Current flare in [...] BE NEEDING re-treatme nt with Stelara early October Rheumatoid arthritis 698 06112 M05.79 Sero+, CCP+ Most of current joint sxs incolve DIP joints and is more suggestive of psoriatic arthritis. . Quite unusual to have both conditions , but I think that is what we are seeing. Long-term drug therapy 652365526 Z79.899 AZA. . Follow counts. Now MTX. Neuralgia 71485117 M79.2 She has a long history of [...] helpful. She has no perceived side effects. [id number] Tee Stoner MD Rheumatol james, [address] [place] [address] 10/31/2015 08:18:04 10/31/2015 10:53:50 Psoriasis with arthropathy 85968988 L40.50 Now felt to have [place] psoriasis with psoriatic arthritis. Current flare in [...] Re check labs Return 3 mo Psoriasis 0468096 L40.9 TNF induced psoriasis? ? Onset ~ 2010. We now think this is likely [place] psoriasis with associated psoriatic arthritis. Improvemen t with current drugs. Long-term drug therapy 206689155 Z79.899 AZA. . Follow counts. Now MTX. Update labs today and return 3 mo Hereditary and idiopathic peripheral neuropathy 835717355 G60.9 Lower extrem sx's stable. Gabapentin helps. ?? related to Sjogren's (though this is not a definite dx in pt). [id number] Tee Stoner MD Rheumatol [address] [place] [address] 01/30/2016 08:13:30 01/30/2016 08:36:31 Psoriasis with arthropathy 29284414 L40.50 Psoriasis and Psoriatic arthritis. Finally under good control. Psoriasis virtually clear.Cont inue Stelara and injectable MTX. Will try to taper her off AZA. Continue pred 5/d for now. Rheumatoid arthritis 698 84296 M06.9 Sero +, CCP+ RA. This pre-dated her psoriatic arthritis. Current meds are controllin g this well. No chronic deformity. Sj gren's syndrome 83827769 M35.01 Mild sicca sx's. Has periph neuropathy perhaps related. Unchanged, follow sx's. Hereditary and idiopathic peripheral neuropathy 723655221 G60.9 Lower extrem sx's stable. Gabapentin helps. ?? related to Sjogren's (though this is not a definite dx in pt). Long-term drug therapy 672937835 Z79.899 AZA. . Follow counts. Now MTX. Update labs today and return 3 mo [id number] Tee Stoner MD Rheumatol [address] [place] [address] 04/30/2016 08:15:21 05/02/2016 09:07:29 Psoriasis with arthropathy 68319202 L40.50 Psoriasis and Psoriatic arthritis. Finally under good control. Psoriasis virtually clear.Cont inue Stelara and injectable MTX. Has tapered off AZA. Will have her reduce MTX to 20mg sc weekly. Continue pred 5/d for now, but if doing well in 2 mo, try reduceing to 4 mg. Stellara 40 mg today. [id number] Tee Stoner MD Rheumatol [address] [place] [address] 08/01/2016 08:25:50 08/02/2016 07:39:03 Fatigue 93823016 R53.83 Increasee fatigue lately. Requests TSH check. Ordered. Psoriasis with arthropathy 22325194 L40.50 Psoriasis and Psoriatic arthritis. Finally under good control. Psoriasis virtually clear.Cont inue Stelara and injectable MTX. Has tapered off AZA. Will have her continue MTX 20mg sc weekly.Red uce prednisone to 3 mg. Will try to taper off very slowly, then we will work on the MTX.Haylee ra 40 mg today. Long-term drug therapy 943337425 Z79.899 AZA. . Follow counts. Now MTX. Update labs today and return 3 mo [id number] Tee Stoner MD Rheumatol [address] [place] [address] 10/29/2016 08:42:57 10/29/2016 09:12:13 Psoriasis with arthropathy 13289446 L40.50 Psoriasis and Psoriatic arthritis. Finally under good control. Psoriasis virtually clear.Arth ritis seems a little more active than last time.Elisabeth nue Stelara and injectable MTX. . Will have her continue MTX 20mg sc weekly.Gay nasirin prednisone at 3 mg.Stellar a 40 mg [...] for more prednisone etc. Long-term drug therapy 249241517 Z79.899 Follow counts. Now MTX. Update labs today and return 3 mo Hereditary and idiopathic peripheral neuropathy 357215503 G60.9 Lower extrem sx's stable. Gabapentin helps. ?? related to Sjogren's (though this is not a definite dx in pt). Sxs stable, but gabapepnti n is necessary. Psoriasis 0669128 L40.9 TNF induced psoriasis? ? Onset ~ 2010. We now think this is likely [place] psoriasis with associated psoriatic arthritis. Finally improvemen t with current drugs. [id number] Tee Stoner MD Rheumatol james, [address] [place] [address] 01/30/2017 08:48:33 01/30/2017 09:25:32 Psoriasis with arthropathy 80698738 L40.50 Psoriasis and Psoriatic arthritis. Finally under good control. Psoriasis virtually clear.Arth ritis seems very well controlled .Continue Stelara and injectable MTX. . Will have her continue MTX 20mg sc weekly. Will have her try to taper off prednisone entirely: should be off by April. Stellara 40 mg today. Return 3 mo Long-term drug therapy 889911886 Z79.899 Follow counts. Now MTX. Update labs today and return 3 mo [id number] Tee Stoner MD Rheumatol [facility], [address], [place] [address] 05/05/2017 08:35:51 05/05/2017 09:11:53 Psoriasis with arthropathy 87292302 L40.50 Psoriasis and Psoriatic arthritis. Finally under good control. Psoriasis virtually clear.Arth ritis seems very well controlled .Continue Stelara and injectable MTX. . Will have her continue MTX 20mg sc weekly. She will taper off prednisone entirely: should be off by May. Stellara 40 mg today. Return 3 mo Active or passive immunization 085641751 Z23 Dyspnea on exertion 6084 5006 R06.09 [...] note sent to me. Long-term drug therapy 355159496 Z79.899 Follow counts. Now MTX. Update labs today and return 3 mo [id number] Tee Stoner MD Rheumatol [facility], [address] [place] [address] 08/11/2017 08:37:04 08/11/2017 09:00:01 Psoriasis with arthropathy 34176739 L40.50 Psoriasis and Psoriatic arthritis. Finally under [...] today. Return 3 mo Long-term drug therapy 080971547 Z79.899 Follow counts. Now MTX. Update labs today and return 3 mo [id number] Tee Stoner MD Rheumatol nam, [address] [place] [address] 11/07/2017 13:30:37 11/07/2017 13:58:00 Psoriasis with arthropathy 05443746 L40.50 Psoriasis and Psoriatic arthritis. She had [...] earlier. Return 3 mo Long-term drug therapy 063135875 Z79.899 Follow counts. Now MTX. Update labs today and return 3 mo Rheumatoid arthritis 698 46466 M06.9 Documented CCP+ RA, but current joint sxs appear much more like PsArth. [id number] Tee Stoner MD Rheumatol nam, [address] [place] [address] 01/12/2018 08:36:17 01/12/2018 08:51:13 Psoriasis with arthropathy 35602403 L40.50 Psoriasis and Psoriatic arthritis. She had been under good control. Psoriasis virtually clear. Stelara, MTX now at 25 mg sc weekly. Considerab ly improved from last visit 2 mo ago. Continue current meds.check labs today. Return 1 mo for her Stelara injection. Long-term drug therapy 070295284 Z79.899 Follow counts. Now MTX. Update labs today [id number] Tee Stoner MD Rheumatol nam, [address] [place] [address] 02/16/2018 08:11:10 02/16/2018 08:36:50 Psoriasis with arthropathy 06983430 L40.50 Psoriasis and Psoriatic arthritis. She had been under good control. Psoriasis clear. Stelara, MTX now at 25 mg sc weekly. Doing very well.Some residual swelling at PIP joints, but no sxs. Inadverten tly given 90 mg dose of Stelara today. Disclosed this to patient. I can see no possible harm from this. Incident report followed. Return 3 mo. Long-term drug therapy 649784141 Z79.899 Follow counts. Now MTX. Update labs today [id number] Tee Stoner MD Rheumatol nam, [address] [place] [address] 05/25/2018 08:16:07 05/25/2018 08:47:25 Psoriasis with arthropathy 70855838 L40.50 Psoriasis and Psoriatic arthritis. She had been under good control. Psoriasis clear. Stelara, MTX now at 25 mg sc weekly. Doing very well. Some residual swelling at PIP joints, but no sxs. Stelara today. Long-term drug therapy 758970145 Z79.899 MTX. On care home MTX; Needs lab monitoring ; Check CBC, LFT's, creat Update labs today Also discussed Shingrix vaccine. Should obtain. Leukocytosis 318827076 D 72.829 Mild leukocytos is at last labs. re-check today. [id number] Josey Lema MD , [facility], OFFICE [address] [place] [address] 08/14/2018 09:34:49 08/14/2018 10:29:52 Hyperlipidemia 20758937 E78.5 Gastroesop hageal reflux disease 487816962 K21.0 Family his tory of diabetes mellitus 979173382 Z83.3 Body mass index 30+ - obesity 816594430 Z68.30 Psoriasis with arthropathy 62048376 L40.50 Hypothyroidism 47459513 E03.9 [id number] Tee Stoner MD Rheumatol ogy, [facility] [address] [place] [address] 08/24/2018 08:15:51 08/24/2018 08:48:49 Psoriasis with arthropathy 08670309 L40.50 Psoriasis and Psoriatic arthritis. She had been under good control. Psoriasis clear. Stelara, MTX now at 25 mg sc weekly. Doing very well. Some residual swelling at PIP joints, but no sxs. Stelara today. Carpal kvng ilana syndrome of left wrist 2887555337 13269 G56.02 Mild, but convincing sxs of L CTS. No obvious precipitia nt. Suggested splinting, espec at night (loosely). If not improving, discussed options. Long-term drug therapy 137183139 Z79.899 MTX. On technician terminal and repeater MTX; Needs lab monitoring ; Check CBC, LFT's, creat Update labs today Also discussed Shingrix vaccine. Should obtain. Rheumatoid arthritis 698 27388 M06.9 Documented CCP+ RA, but current joint sxs appear much more like PsArth. [id number] Tee Stoner MD Rheumatol nam, [facility] [address] [facility] [place] [address] 11/24/2018 08:19:17 11/26/2018 06:06:07 Psoriasis with arthropathy 14353106 L40.50 Psoriasis and Psoriatic arthritis. She had been under good control. Psoriasis clear. Stelara, MTX now at 25 mg sc weekly. Doing very well. Some residual swelling at PIP joints, but no sxs. Stelara today. Hypothyroidism 75621765 E03.9 On replacemen t. Most recent TSH 0.48. Will re-check TFTs. Send results to Primary Care. Nocturnal muscle cramp 1366534343 29887 G47.62 Bothersome . Taking supplement al calcium and quite a lot of magnesium (she thinks). Check Mg level to be sure not too much.discu ssed treatment strategies . Could try small amount tonic water at bedtime. Psoriasis 4160306 L40.9 TNF induced psoriasis? ? Onset ~ 2010. We now think this is likely [place] psoriasis with associated psoriatic arthritis. Finally improvemen t with current drugs. Continue Stelara and MTX. [id number] Josey Lema MD , [facility], OFFICE [address] [facility] [place] [address] 12/15/2018 14:03:20 12/17/2018 08:30:44 Adult health examination 470163650 Z00.00 UTD on colonoscop y. will obtain from GI. Depression screening 171 196642 Z13.89 0/6 normal screen. Body mass index 30+ - obesity 893591557 Z68.30 Obesity increases risks for several chronic diseases (ex: diabetes, hypertensi on, chronic reflux) and also increases risk for cancer (ex: breast, prostate, colon, and uterine). We discussed the importance of getting to a healthy body weight. reviewed the BMI chart. Gastroesop hageal reflux disease 254485823 K21.0 controlled on current regimen. Hypothyroidism 91571419 E03.9 TSH now in normal range with the dose reduction we did last time. Hyperlipidemia 60518716 E78.5 LDL at goal (under 130) with simvastati sara Villegas p ersistent asthma 554875891 J45.[address] Yarbrough's regimen. Neuralgia 62183500 M79.2 continue current medication s to manage this. Screening for malignant neoplasm of cervix 120301672 Z12.4 discussed HPV screening as well. Active or passive immunization 705984411 Z23 recommende d these vaccines. will obtain dates of Shingrix from pharmacy. Screening for disorder 658464646 Z11.59 will add for next year [id number] Catherine Hitchcock MD , [facility], OFFICE [address] [place] [address] 02/10/2019 10:17:17 02/10/2019 15:06:27 Epigastric pain 20103208 R10.13 Lightheadedness 34179655 8 R42 [id number] Tee Stoner MD Rheumatol [facility], [address] [address] 02/15/2019 08:16:44 02/15/2019 08:56:01 Psoriasis with arthropathy 38618937 L40.50 Psoriasis and Psoriatic arthritis. She had been under good control. Psoriasis clear. Stelara, MTX now at 25 mg sc weekly. Doing very well. Some residual swelling at PIP joints, but no sxs. Advised reducing MTX to 20 mg sc/wk. Pjla today. Asthma 155264279 J45.90 9 Some asthma for about a year, she says.Recen t ER visit for SOB. Improveing with bronchdila tors, but still 1 flight [place]. Will give 5 d moderate dose prednisone for asthma and for chest wall pain. (Should avoid NSAID with GERD and possible ulcer disease). Chest wall pain 58695016 6 R07.89 Tender chest wall directly over the sterno-man ubrial articulati on. No swelling.T his is not a joint involved by RA. I suppose it could possibly be related to psoriatic arthritis. Sxs improving. No specific treatment. [id number] Catherine Hitchcock MD , [facility], OFFICE [address] [place] [address] 03/03/2019 10:38:13 03/03/2019 15:50:00 Candidiasis of the esophagus 76075977 B37.81 [id number] Wally Villasenor MD [facility], [facility] [facility] [address] [place] [address] 03/22/2019 13:29:39 03/24/2019 06:58:05 [id number] MD ARIAN Steen, [facility], OFFICE [address] [facility] [place] [address] 03/26/2019 10:40:54 03/26/2019 17:56:27 Multiple skin tags 765783364 L91.8 removed. see procedure note. reviewed warning signs to report. Epidermoid cyst of skin 849033675 L72.3 L axilla, benign, asymptomat ic. recommende d against excision since it doesn't have symptoms. Atypical chest pain 1025 32569 R07.89 disability form filled out with her. [id number] Catherine Hitchcock MD , [facility], OFFICE [address] [facility] [place] [address] 05/03/2019 07:34:04 05/03/2019 15:26:31 Active or passive immunization 800870646 Z23 [id number] Tee Stoner MD [facility] [place] [address] 06/10/2019 08:00:03 06/10/2019 08:38:31 Psoriasis with arthropathy 25228411 L40.50 Psoriasis and Psoriatic arthritis. She had been under good control on Stelata + MTX. . Psoriasis clear.Lawson joe, stopped MTX 2 weeks ago because of fatigue and GI distress. I am worried arthritis will flare again.Shou lynne see if she can tolerate 10 mg sc/wk. 4 wks late for Stelara. Give today. Rheumatoid arthritis 698 00773 M06.9 Documented CCP+ RF + rheumatoid arthritis with mild secondary Sjogren's. She had this starting over 12 yrs ago. More recent joint findings appear much more like PsArth. She is felt to have both Sero+ RA and Psoriatic arthritis. Long-term drug therapy 274707316 Z79.899 MTX. On technician terminal and repeater MTX; Needs lab monitoring ; Check CBC, LFT's, creat Update labs today Had Shingix and pneumococc al vaccines. [id number] Tee Stoner MD Rheumatol nam, [address] [place] [address] 1 08/30/2019 11:12:54 09/06/2019 07:16:53 Psoriasis with arthropathy 79163097 L40.50 Psoriasis and Psoriatic arthritis. She had been under good control on Stelata + MTX. . Psoriasis clear.Renny diaz, stopped MTX 2 months ago because of [...] follow labs on LEF. Rheumatoid arthritis 698 05895 M06.9 Documented CCP+ RF + rheumatoid arthritis with mild secondary Sjogren's. She had this starting well over 12 yrs ago. More recent joint findings appear much more like PsArth. She is felt to have both Sero+ RA and Psoriatic arthritis. Candidiasi s of the esophagus 96176606 B37.81 Thought related to steroid inhalers.S xs improved. [id number] Tee Stoner MD Rheumatol [facility], [address] [place] [address] 09/13/2019 08:16:21 09/13/2019 15:34:17 Psoriasis with arthropathy 06539851 L40.50 Psoriasis and Psoriatic arthritis. She had been under good control on Stelata + MTX. . Psoriasis clear.Renny diaz, stopped MTX 2 months ago because of [...] and saavedra virus. Stelara injection today Fibromyalgia 070833764 M 79.7 Stable dose Soma at hs for years. Just low dose: 350 mg/hs. Works particular ly well for sleep and fibromyalg ia sxs. I see no reason to alter this, though I explained that she will need to have this prescribed through Primary Care in the future. [id number] Tee Stoner MD Rheumatol ogy, [facility] [address] [facility] [place] [address] 12/21/2019 07:57:16 12/21/2019 12:15:16 Psoriasis with arthropathy 10147625 L40.50 Psoriasis and Psoriatic arthritis. ALSO sero [...] 2014 - present: Lost effectiven ess. Hypothyroidism 89831367 E03.9 On replacemen t. Last check 1 yr ago. Will re-check TSH Send results to Primary Care. Rheumatoid arthritis 698 63530 M06.9 Documented CCP+ RF + rheumatoid arthritis with mild secondary Sjogren's. She had this starting well over 12 yrs ago. More recent joint findings appear much more like PsArth. She is felt to have both Sero+ RA and Psoriatic arthritis. Sj gren's syndrome 18529382 M35.01 Mild sicca sx's. Has periph neuropathy perhaps related. Unchanged, follow sx's. [id number] Tee Stoner MD Rheumatol nam, [address] [place] [address] 02/08/2020 08:32:32 02/09/2020 12:39:04 Psoriasis with arthropathy 59710047 L40.50 Psoriasis and Psoriatic arthritis. ALSO sero [...] 2014 - present: Lost effectiven ess. Long-term drug therapy 066271041 Z79.899 On prednisone 6 mg and anticipate taper off. Takes calcium.Clark d Shingix and pneumococc al vaccines. [id number] Catherine Hitchcock MD , [facility], OFFICE [address] [place] [address] [place] [address] 02/29/2020 08:01:41 02/29/2020 08:59:18 Hypothyroidism 98861325 E03.9 Elevated blood-pressure reading without diagnosis of hypertension 225503738 R03.0 [id number] MD ARIAN Stubbs, [facility], OFFICE [address] [place] [address] [place] [address] 03/10/2020 08:02:47 03/10/2020 08:23:18 Essential hypertension 62890281 I10 Hypothyroidism 06544177 E03.9 [id number] Suzanna Padilla MD , [facility], OFFICE [address] [place] [address] [place] [address] 03/28/2020 06:44:31 03/28/2020 10:58:32 Active or passive immunization 702205653 Z23 [id number] Catherine Hitchcock MD , [facility], OFFICE [address] [place] [address] 1 03/30/2020 08:57:43 03/30/2020 11:04:00 Essential hypertension 94612838 I10 Blood gluc ose outside reference range 003918583 R73.09 RBC's - megaloblasts 165 141227 R71.8 [id number] Catherine Hitchcock MD , [facility], OFFICE [address] [place] [address] 05/04/2020 09:01:05 05/04/2020 10:00:11 Essential hypertension 35919855 I10 Hypothyroidism 83793741 E03.9 Prediabetes 701926362 R7 3.03 Psoriasis with arthropathy 54632024 L40.50 F/b rheumatolo gy. Flare improving. Rheumatoid arthritis 698 34745 M06.9 F/b rheumatolo gy. Flare improving. [id number] Tee Stoner MD Rheumatol ogy, [address] [address] 05/16/2020 08:05:40 05/18/2020 07:06:43 Psoriasis with arthropathy 50848443 L40.50 Psoriasis and Psoriatic arthritis. ALSO sero [...] (Other TNF drugs therefore contraindi cated)Edmund fco 2012: ineffectiv e.Stelara 2014 - present: Lost effectiven ess. Long-term current use of systemic steroid 1344414528 54551 Z79.52 Last BMD 2009. Repeat. [id number] Tee Stoner MD Rheumatol ogy, [facility] [address] [facility] [place] [address] 08/08/2020 08:07:21 08/09/2020 19:05:44 Psoriasis with arthropathy 32135872 L40.50 Psoriasis and Psoriatic arthritis. ALSO sero [...] on prednisone , currently 10 mg. Discussed care home prednisone . Start alendronat e (see below) [...] present: Lost effectiven ess. Rheumatoid arthritis 698 27009 M06.9 Documented CCP+ RF + rheumatoid arthritis with mild secondary Sjogren's. She had this starting well over 12 yrs ago. More recent joint findings appear much more like PsArth, though last flare up involved mostly hand PIP joints. She is felt to have both Sero+ RA and Psoriatic arthritis. Osteopenia 856661068 M85 .80 Osteopenia on recent scan, but bone density hip declined by 21% and patient still on prednisone . Discussed risks alendronat e. Start med and continue while on prednisone . [id number] Tee Stoner MD Rheumatol nam, [facility] [address] [facility] [place] [address] 10/24/2020 07:56:07 10/24/2020 19:52:28 Psoriasis with arthropathy 79157621 L40.50 Psoriasis and Psoriatic arthritis. ALSO sero [...] ess. Long-term current use of systemic steroid 0178787145 59914 Z79.52 Osteopenia on bone scan (Done at [facility] 05/2020). On alendronat e since 07/2020. [id number] LISANDRA Benjamin, [facility], OFFICE [address] [facility] [place] [address] 11/02/2020 10:52:21 11/02/2020 12:24:41 Essential hypertension 33580233 I10 Abscess of left axilla 7687059592 6237213 L02.672 [id number] MD ARIAN Stubbs, [facility], OFFICE [address] [facility] [place] [address] 01/17/2021 13:22:37 01/17/2021 14:30:28 Adult health examination 082342780 Z00.00 Your personal health plan:Healt hy diet -- recommende d focusing on vegetables , fruits, whole grains, and legumes as much as possibleEx ercise -- aim for at least 30 minutes dailyVacci rashmi -- up to datePreven tative screenings -- colonoscop y next due 02/2029, due for mammogram, will need BMD next year at [facility], next Pap 2021 Depression screening 171 235831 Z13.31 depression screening tool administer ed, entered into emr, scored and discussed, time greater than 7.5 minutes Screening for alcohol abuse 370700289 Z13.39 Counseling 844006524 Z71 .89 Lipoma of back 544836133 D17.1 Screening mammography 24 274744 Z12.31 Long-term drug therapy 176669037 Z79.899 Essential hypertension 72060507 I10 Prediabetes 505403053 R7 3.03 Psoriasis with arthropathy 85460777 L40.50 F/b rheumatolo gy. Stable. Rheumatoid arthritis 698 16895 M06.9 F/b rheumatolo gy. Stable. 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 Gastroesop hageal reflux disease 936904262 K21.9 Doing well w/ PPI. Osteopenia 009289353 M85 .80 [id number] Tee Stoner MD Rheumatol ogy, [facility] [address] [place] [address] 02/06/2021 08:39:58 02/06/2021 19:23:51 Psoriasis with arthropathy 42443740 L40.50 Psoriasis and Psoriatic arthritis. ALSO sero [...] ess. Long-term current use of systemic steroid 4128508158 69061 Z79.52 Osteopenia on bone scan (Done at [facility] 05/2020). On alendronat e since 07/2020. Finger joint effusion 29 3889215 M25.441 M25.442 Injections R 2,3,5 PIP, L 3 PIP. See procedure note. [id number] Amelie Hernandez MD Rheumatol og, [address] [place] [address] 07/31/2021 11:31:28 07/31/2021 15:26:30 Psoriasis with arthropathy 81036029 L40.50 Psoriasis and Psoriatic arthritis. ALSO sero [...] ess. Long-term current use of systemic steroid 8076912099 32268 Z79.52 Osteopenia on bone scan (Done at [facility] 05/2020). On alendronat e since 07/2020. Unintentio nal weight loss 582136333 R63.4 Patient to follow with pcp on this, soon.Check above labs.Shelli moreno is not a smoker.She is UTD with mammogram and colonoscop y per patient. [id number] Amelie Hernandez MD Rheumatol nam, [address] [place] [address] 10/03/2021 11:01:38 10/07/2021 09:09:22 Psoriasis with arthropathy 14042555 L40.50 Psoriasis and Psoriatic arthritis. ALSO sero [...] once daily.Brittny ent to follow with ophthalmol ogjames.Pkan also to wean celebrex in the future. Will check labs before next visit.RTC in 4 months. Patient got the COVID series. Counselled about 4th dose.Patie nt got flu shot, shingrix and PPV23. Note to reviewers: MTX various dates: intolerant , ineffectiv e. LEF August 2019: intolerant (GI) SSZ: Allergy Enbrel: Ineffectiv e Humira: 2007 - 2009: effective but induced severe psoriasis (Other TNF drugs therefore relatively contraindi cated) Orencia 2012 - 2014: ineffectiv e. Stelara 2015 - present: Lost effectiven ess. Long-term current use of systemic steroid 9093283251 62938 Z79.52 Osteopenia on bone scan (Done at [facility] 05/2020). On alendronat e since 07/2020. Unintentio nal weight loss 133309064 R63.4 Patient lost about 20 pounds over 6 months (October 18-April 19). Weight stabilized since the beginning of the year. Patient to follow with pcp on this Patient is not a smoker.She is UTD with mammogram and colonoscop y per patient. Macrocytosis 881622871 D 75.89 Patient is off methotrexa te.If labs normal, patient needs a hematology evaluation . [id number] Jean Claude Tristan MD , [facility], OFFICE [address] [facility] [place] [address] 01/18/2022 08:10:23 01/18/2022 09:21:26 Adult health examination 523240821 Z00.00 Your personal health plan:Healt hy diet -- recommende d focusing on vegetables , fruits, whole grains, and legumes as much as possibleEx ercise -- aim for at least 30 minutes dailyVacci rashmi -- up to datePreven tative screenings -- colonoscop y next due 2023, due for mammogram, needs BMD this year at [facility], Pap updated today Counseling 533056614 Z71 .9 including cardiovasc ular risk reduction counseling Depression screening 171 259709 Z13.31 depression screening tool administer ed, entered into emr, scored and discussed, time greater than 7.5 minutes Screening for alcohol abuse 692158056 Z13.39 Screening for malignant neoplasm of cervix 937645489 Z12.4 Atrophic vaginitis 07812 000 N95.2 Restless legs 61108436 G 25.81 Able to get to sleep w/ Tylenol Arthritis. Essential hypertension 84255686 I10 At goal <130/80. Gastroesop hageal reflux disease 290248281 K21.9 Stable on pantoprazo wilmer, f/b Dr. Villasenor. Hyperlipidemia 78508050 E78.5 Stable on statin. Hypothyroidism 29053175 E03.9 Moderate p ersistent asthma 131497361 J45.40 Stable. Psoriasis with arthropathy 87473215 L40.50 F/b rheumatolo gy. Stable. Rheumatoid arthritis 698 08659 M06.9 F/b rheumatolo gy. Stable. Sj gren's syndrome 49669772 M35.00 F/b rheumatolo gy. Stable. Prediabetes 998583884 R7 3.03 A1c 5.8 as of 01/2021. Osteopenia 990803208 M85 .80 On alendronat e. Last DXA 05/2020 at [facility]. Screening mammography 24 817297 Z12.31 Conjunctivitis 2451134 H 10.9 [id number] Amelie Hernandez MD Rheumatol nam, [facility] [address] [facility] [place] [address] 02/06/2022 09:17:50 02/12/2022 08:38:48 Rheumatoid arthritis 48244983 M06.9 Psoriasis with arthropathy 85956999 L40.50 Psoriasis and Psoriatic arthritis. ALSO sero [...] course of prednisone .Patient to follow with ophthalmevan browning.Plan also to wean celebrex in the future. Patient got the COVID series.Irma carroll got Shingrix and PPV23. Patient to get [...] ess. Long-term current use of systemic steroid 9594976087 70093 Z79.52 Osteopenia on bone scan (Done at [facility] 05/2020). On alendronat e since 07/2020.Bon e density next visit. Unintentio nal weight loss 909566086 R63.4 Patient lost about 20 pounds over 6 months (October 18-April 19). Weight stabilized since the beginning of the year. States that her weight has stabilized . Patient is not a smoker.She is UTD with mammogram and colonoscop y per patient. Active or passive immunization 630723761 Z23 [id number] Jean Claude Tristan MD , [facility], OFFICE [address] [place] [address] 11/26/2022 11:06:42 11/26/2022 12:44:24 Pain of hip region 82204792 M25.559 Etiology unclear -- psoriatic arthritis vs osteoarthr itis. Will check X-rays, refer as indicated. Hyperparathyroidism 6699 9008 E21.3 Needs labs rechecked. Has osteopenia per DXA 06/11/22. Restless legs 01432636 G 25.81 Able to get to sleep w/ Tylenol Arthritis but states RLE symptoms are bothersome . Essential hypertension 48536685 I10 Not at goal <130/80. Will increase lisinopril to 40mg/d and recheck in three weeks. [id number] Jean Claude Tristan MD , [facility], OFFICE [address] [facility] [place] [address] 12/18/2022 09:34:40 12/18/2022 09:56:46 Essential hypertension 43192983 I10 Patient currently taking lisinopril 40mg QD in the PM. Patient denies concerns/s valente effect, sob, cp, clark, n/v, swelling in feet/ankle s. Patient has not consistent ly been monitoring BPs home and has a home BP cuff. Average BP during visit: 126/73 (126/74, 126/71, 125/73). Patient BP at goal of <130/80. Patient will f/u with [facility] at [facility] on 01/21/23. New prescripti on for lisinopril 40mg sent to pharmacy. [id number] Jean Claude Tristan MD , [facility], OFFICE [address] [place] [address] 01/21/2023 09:21:18 01/21/2023 11:12:37 Adult health examination 923248874 Z00.00 Your personal health plan:Healt hy diet -- recommende d focusing on vegetables , fruits, whole grains, and legumes as much as possibleEx ercise -- aim for at least 30 minutes dailyVacci rashmi -- up to datePreven tative screenings -- colonoscop y next due 2023, due for mammogram, final Pap in 2023, DXA due late 2022 into 2023 Depression screening 171 779536 Z13.31 depression screening tool administer ed Screening for alcohol abuse 680601529 Z13.39 Alcohol use screening tool administer ed Pain of bi lateral hip joints 5126154505 6843883 M25.551 M25.552 Essential hypertension 26593886 I10 At goal <130/80 w/ lisinopril 40mg/d, will continue. Hypothyroidism 20525644 E03.9 Hyperthyro id -- will decrease dose and recheck in 7-8 weeks. Moderate p ersistent asthma 241006113 J45.40 Stable. Prediabetes 931033990 R7 3.03 A1c 5.6, stable. Rheumatoid arthritis 698 27253 M06.9 F/b rheumatolo gy -- now through [facility] in [facility]. Sj gren's syndrome 39181329 M35.00 F/b Dr. Jorgensen at [facility] in [facility]. Psoriatic arthritis 1563 98190 L40.50 F/b Dr. Jorgensen at [facility] in [facility]. Psoriasis 6915239 L40.9 Requests treatment. Osteopenia with high fracture risk 8897736798 35682 M85.80 Taking alendronat e. Due for DXA 05/2023- 24. Mammography abnormal 168 951006 R92.8 Will have additional imaging soon at [facility]. [id number] Navjot Colon MD Sports Medicine, [address] [place] [address] 03/13/2023 08:40:36 03/13/2023 15:52:28 Pain of hip region 63556016 M25.551 M25.552 Nikki is a 62-year-ol d [...] weeks if her symptoms have not improved. [id number] VAUGHN WILEY, PT Physical Therapy, [address] [place] [address] 04/18/2023 09:24:41 04/18/2023 14:51:28 Pain of left hip joint 6165744373 70900 M25.552 Pain of ri ght hip joint 9608002997 64373 M25.551 Muscle weakness 23607578 M62.81 [id number] ELBA Langley MD , [facility], OFFICE [address] [facility] [place] [address] 04/22/2023 16:20:40 04/22/2023 17:17:53 Pruritic rash 78763726 L28.2 complex current medical hx. will r/o [...] Avoid triggers. Use gentle soaps (Dr. Slater's [place]; avoid Ivory, Dial or [place]). Moisturize each day to improve skin barrier function. (oTc Cerave, Sarna, Vanicream) . ALL Free & Clear preferred laundry products, no dryer sheets, etc. Avoid prolonged bathing with hot water. Recommend cetirizine each AM, +/- benadryl as tolerated at PM. Neoplasm o f uncertain behavior of skin of lower limb 65445638 D48.5 R upper merida, PS vs Majocchi's granuloma vs lichenifie d eczemasent for pathology, pt advised may receive results over the portal before I have reviewed them. Long-term current use of immunosuppressive drug 529935147 Z79.60 Lichenified eczema 68779 4008 L28.0 unclear fully from biopsy results except not PS or fungal componentR upper merida, chronic eczematous process however the mention of pityriasis rubra may indicate either an infection or medication reaction. [id number] VAUGHN WILEY, PT Physical Therapy, [address] [place] [address] 04/23/2023 09:16:19 04/23/2023 10:07:38 Pain of left hip joint 2651490278 03815 M25.552 Pain of ri ght hip joint 6863839057 62205 M25.551 Muscle weakness 65682603 M62.81 [id number] VAUGHN WILEY, PT Physical Therapy, [address] [place] [address] 04/30/2023 11:21:08 04/30/2023 12:25:35 Pain of left hip joint 2239577453 53129 M25.552 Pain of ri ght hip joint 7080979044 97828 M25.551 Muscle weakness 20311946 M62.81 [id number] ELBA Langley MD FP, [facility], OFFICE [address] [place] [address] 05/02/2023 13:39:26 05/02/2023 14:11:07 Neoplasm of uncertain behavior of skin of lower limb 03990907 D48.5 R upper merida, PS vs Majocchi's granuloma vs lichenifie d eczemasent for pathology, pt advised may receive results over the portal before I have reviewed them. [id number] VAUGHN WILEY, PT Physical Therapy, [address] [address] 05/05/2023 14:23:08 05/05/2023 15:23:32 Pain of left hip joint 6691941232 13584 M25.552 Pain of ri ght hip joint 6340013061 01908 M25.551 Muscle weakness 59247803 M62.81 [id number] VAUGHN WILEY, PT Physical Therapy, [address] [address] 05/14/2023 09:28:22 05/14/2023 10:02:19 Pain of left hip joint 3491355051 02439 M25.552 Pain of ri ght hip joint 3566784717 11175 M25.551 Muscle weakness 14319046 M62.81 [id number] VAUGHN WILEY, PT Physical Therapy, [address] [address] 05/20/2023 09:26:31 05/20/2023 10:34:58 Pain of left hip joint 0345969301 43549 M25.552 Pain of ri ght hip joint 4926612505 94636 M25.551 Muscle weakness 06385669 M62.81 [id number] Jean Claude Tristan MD , [facility], OFFICE [address] [place] [address] 07/24/2023 09:25:11 07/24/2023 10:25:52 Essential hypertension 91808987 I10 Not at goal <130/80; will add amlodipine 5mg/d and recheck in three weeks. If not at goal then would increase to 7.5mg/d and recheck again three weeks later. Immunization due 8678364 08 Z28.39 [id number] Jean Claude Tristan MD , [facility], OFFICE [address] [facility] [place] [address] 08/15/2023 09:24:07 08/15/2023 09:37:30 Essential hypertension 33248299 I10 Your blood pressure is at goal.Pleas e call with any concerning side effects or symptoms.D iscuss lifestyle changes: DASH dietLow sodium 2300 mg per dayExercis eWeight lossSmokin g counseling /Osman Dent/ dsNutritio n consult/co unselingRe commended alcohol intake [id number] James Huntley MD , [facility], OFFICE [address] [place] [address] 12/08/2023 10:58:03 12/08/2023 11:46:47 Dysuria 76382648 R30.0 consitent with prior UTIs, Will get culture, rx macrobid. Follow up if not improving or new symptoms develop. [id number] Suzanna Padilla MD , [facility], OFFICE [address] [place] [address] 01/20/2024 11:25:02 01/20/2024 12:44:57 Adult health examination 997639058 Z00.00 Your personal health plan:Healt hy diet -- recommende d focusing on vegetables , fruits, whole grains, and legumes as much as possibleEx ercise -- aim for at least 30 minutes dailyVacci rashmi -- up to datePreven tative screenings -- colonoscop y next due 2024, due for mammogram, DXA due late 2022 into 2023 Depression screening 171 336569 Z13.31 depression screening tool administer ed Screening for alcohol abuse 845711126 Z13.39 Alcohol use screening tool administer ed Essential hypertension 35865218 I10 At goal <130/80 on current regimen but has been dizzy w/ even lower readings recently; will hold amlodipine and monitor -- will send readings from home next week. Cramp in l ower leg associated with rest 211292236 G47.62 Etiology unclear; will check labs. Hypothyroidism 30862878 E03.9 Due for recheck. Hyperlipidemia 61349616 E78.5 Stable on statin, will continue. Postmenopausal state 764 54507 Z78.0 Taking alendronat e, due for recheck. Screening for malignant neoplasm of breast 637566976 Z12.39 [id number] Jean Claude Tristan MD , [facility], OFFICE [address] [place] [address] 04/14/2024 10:16:53 04/14/2024 11:56:22 Eruption 907810716 R21 unclear cause, though review of info [...] come for an in-person visit for re-eval. [id number] SHAYY BLACKMAN MD , [facility], OFFICE [address] [place] [address] 04/27/2024 14:54:14 04/27/2024 15:36:46 Tinea pedis 8133502 B35.3 Eruption 292122203 R21 Unclear cause of allergic type rash. Only possible trigger eggs which she will avoid now. Prednisone taper, continue cetirizine , return precaution s given. [id number] Suzanna Padilla MD , [facility], OFFICE [address] [place] [address] 08/18/2024 09:19:08 08/18/2024 10:32:59 Essential hypertension 07851586 I10 Z79.899 Essentiall y at goal <130/80 on current regimen, will continue. Hyperparathyroidism 6699 9008 E21.3 Not taking vitamin D per rheumatolo gist -- states she d/c'd it summer 2023. PTH is still elevated. Will see Dr. Jorgensen tomorrow and will ask about this. Osteopenia with high fracture risk 8687726934 20389 M85.80 Taking alendronat e. Scheduled for repeat DXA 08/2024. Family his tory of cancer of colon 326169686 Z80.0 Brother had colectomy; pt thinks before age 65. Pt will have colonoscop y next month. Psoriatic arthritis 1563 88715 L40.50 F/b Dr. Jorgensen. Prediabetes 655002223 R7 3.03 A1c 5.6 as of 12/2023, stable. Overdue for recheck. Rheumatoid arthritis 698 38785 M06.9 F/b rheumatolo gist Michele Jorgensen MD, now based in [place]. Hypothyroidism 74726249 E03.9 Stable on current regimen; due for recheck 02/2025. Acid reflux [id number] K2 1.9 Taking pantoprazo le per [facility] w/ good effect, will continue. Health Concerns Section Related Observation LastModified by Organization Detai ls LastModified Time None Recorded Concern Status LastModified by Organization Details LastModified Time None Recorded Advance Directives Directive None Recorded Payers Insurance Date Sequence Insurance Name Policy Number Policy Higuera Covered Member ID Higuera Member ID Guarantor Name 07/01/2023 1 [employer] [id number] Ariel Kumar [id number] Nikki Kumar 04/14/2024 2 MEDIC[place]: NATIONAL [employer]OVERNMENT SERVICES Nikki Kumar [id number] Nikki Kumar 04/14/2024 2 [facility] [id number] Nikki Kumar [id number] Nikki Kumar 01/05/2025 1 [facility] (MEDICARE REPLACEMENT /ADVANTAGE - PPO) [id number] Nikki Kumar [id number] Nikki Kumar 04/30/2017 1 [facility] [id number] Ariel Kumar [id number] Nikki Kumar 04/14/2024 1 [employer] (O) [id number] Nikki Kumar [id number] Nikki Kumar 04/14/2024 1 [employer] (O) [id number] Nikki Kumar [id number] Nikki Kumar 08/02/2005 1 [facility] (PPO) [id number] Ariel Kumar [id number] Nikki Kumar 10/28/2016 1 [facility]: [facility] ELECT [facility] (PPO) [id number] Ariel Kumar [id number] Nikki Kumar Notes Date Note Type Note Provider Name and Address Organization Details Recorded Time 12/08/2023 text/html a [facility] Dysuria ur inary symptomsReported bypatient.Duration:Symp toms began 5 days ago Severity:Symptoms persisting Associated Symptoms:Burning on urination(and itching);Urinary frequency James Huntley MD [address] [place] [address], [phone], [facility] 12/08/2023 11:37:59 01/20/2024 text/html Risk Assessment and [...] -- will check labs Faith Carson NP [address] [place] [address], [phone], [facility] 01/21/2024 23:24:33 04/14/2024 text/html Patient agreed t o this visit via phone or secure telehealth platform. Patient understands this is a scheduled visit and the usual procedures with regard to billing and confidentiality apply.Patient was notified that [facility] location: homeDuring the visit the patient s medical history and medical record were [...] on hands or face. Michael Michele PA-C [address] [place], [phone], [facility] 04/14/2024 11:54:09 04/27/2024 text/html 04/27/24Rash andrez edouard, itchyPrednisone helped but when stopped it came [...] on hands or face. SHAYY GARCIA MD [address] [place] [address], [phone], [facility] 04/27/2024 15:33:12 08/18/2024 text/html Patient informed and [...] vitamin D. This was discontinued by her investment specialist last summer due to high levels. The [...] with tolerating this medication. Faith Carson NP [address] [place] [address], [phone], [facility] 08/20/2024 23:23:52 OBGyn Episode No OBEpisode recorded.
== END 2025-01-10 11:31 | disposition home or self-care (01) ==
LOC: HO.ENCR 10:46
PROVIDERS: PCP Nurse Practitioner; Visit Provider Student in an Organized Health Care Education/Training Program
DX: E21.3 Hyperparathyroidism, unspecified (principal)
CPT/HCPCS: 99204

== ENCOUNTER → 2025-01-10 10:45 | Outpatient (BNVA) | payer MEDICARE, SELFPAY | PROVIDERS: PCP Nurse Practitioner; Visit Provider Student in an Organized Health Care Education/Training Program | DX: M81.0 Age-related osteoporosis without current pathological fracture (principal); E21.3 Hyperparathyroidism, unspecified | CPT/HCPCS: 99202 ==

== ENCOUNTER 2025-03-01 10:22 | Outpatient (AMB) | payer MEDICARE, SELFPAY ==
[2025-03-01 10:25] VITALS: BP 130/72; PULSE 73; O2SAT 96; BMI 32.8
--- NOTE | 2025-03-01 10:25 | A.OFFVIS_ITS ---
Vital Signs 3 03/01/25 10:25 Height 5 ft 2 in Weight 179 lb 3.773 oz BMI 32.8 BP 130/72 Blood Pressure Location Lt brachial Position Sitting Pulse 73 Pulse Source Pulse Oximeter Pulse Oximetry (%) 96 Oxygen Delivery Method Room Air Intake Visit Reasons: Hyperparathyroidism, unspecified Intake Note: Patient present today for Hyperparathyroidism, unspecified. Car Construction Superintendent Required: No Accompanied by: Self / Same As Patient Allergies adalimumab (From Humira) Allergy (Mild, Verified 03/01/25 10:28) rashes amoxicillin Allergy (Mild, Verified 03/01/25 10:28) Rash Sulfa (Sulfonamide Antibiotics) Allergy (Mild, Verified 03/01/25 10:28) rashes Medication List - Last Reconciled 03/01/25 by Kyra Whitaker MD albuterol-budesonide 90-80 mcg/actuation 2 inhalations inhalation DAILY PRN alendronate 70 mg PO QWEEK celecoxib (Celebrex) 200 mg PO BID cetirizine (Zyrtec) 10 mg PO DAILY PRN cyclosporine 0.05% 1 drp ophthalmic (eye) Q12H estradiol 0.01%(0.1mg/gram) 1 appful vaginal DAILY anvccecbkio-xxsaxnjuw-nlwizpzy 100-62.5-25 mcg (Trelegy Ellipta) 1 inh inhalation DAILY hydroxychloroquine 200 mg PO BID ixekizumab (Taltz Autoinjector) 80 mg subcut Q4W levothyroxine (Synthroid) 100 mcg PO DAILY lisinopril 40 mg PO DAILY mirabegron ER (Myrbetriq) 25 mg PO DAILY multivitamin 1 tab PO DAILY pantoprazole 40 mg PO DAILY simvastatin 40 mg PO DAILY trospium 20 mg PO BID HPI Comments Details: 64-year-old female coming in today for follow up of elevated PTH level. Labs from 11/16/2024 show calcium of 9.4, vitamin-D 99.2, PTH intact 152.2, EGFR greater than 60. Labs from July 2024 show a calcium of 9.6 with albumin of 4.4, corrected calcium would be 9.2. Normal magnesium. PTH was checked by rheum, she follows with them for RA and psoriatic arthritis both. Bone density : at [facility] , 2021 or 2022, has one scheduled for March or April 2025, per patient last was normal Fosamax 70 mg weekly for 10 years ?? Prescribed by PCP Faith Carson NP. so either diagnosed with osteoporosis many years ago or osteopenia with high FRAX? patient doesnt know. 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 no fractures Reports bone density scheduled for May 032024 at [facility] Records from [facility] showed last bone density from 2008 which was normal Labs done at [facility] 01/14/2025 showed creatinine of 0.9, EGFR 71, ionized calcium normal at 5.3, PTH elevated at 112 pg/mL, calcium 9.6, albumin 4.5, corrected calcium would be 9.1, magnesium 2.3, phosphorus 3.2, bone specific alkaline phosphatase 11.3, CTX 160, vitamin-D 50 Physical exam General: sitting comfortably in no acute distress HEENT: normocephalic/atraumatic, Neck: supple Cardiac: normal heart sounds Pulm: normal breath sounds B/L, no added breath sounds Abd: not distended, no tenderness Extremities: no edema, no signs of myxedema Laboratory Tests 08/19/24 11/16/24 13:10 13:30 Creatinine 0.80 Estimated GFR > 60 Calcium 9.6 9.4 Magnesium 2.1 Albumin 4.4 25-OH Vitamin D Total 99.2 [facility] (Updated 03/01/25 @ 10:30 by FRANCI Garcia) Mother Bladder cancer Asthma Arthritis Father Stroke Heart problem Social History Alcohol intake: current Alcohol intake frequency: does not drink Patient Tobacco Use Status: Never used Tobacco Physical Exam Vital Signs: Last Vital Signs Pulse 73 03/01/25 10:25 BP 130/72 03/01/25 10:25 Pulse Ox 96 03/01/25 10:25 Oxygen Delivery Method Room Air 03/01/25 10:25 BMI result Body Mass Index 32.8 Assessment & Plan Assessment & Plan (1) Hyperparathyroidism: Comment: Mild elevation 69.4 06/2024 labs. Code(s): E21.3 - Hyperparathyroidism, unspecified Category: Medical Plan: 64-year-old female coming in today for follow up of elevated PTH level. PTH was checked by Rheumatology. She had labs done in October 2024 which showed calcium of 9.4, vitamin-D 99.2, intact PTH 152.2, EGFR greater than 60. Labs prior to that in July 2024 showed calcium of 9.6 with albumin of 4.4, corrected calcium would be 9.2. Normal magnesium. She apparently has a history of osteoporosis or osteopenia with high FRAX as she has been on Fosamax 70 mg weekly since 2020. This is prescribed by PCP. Per her records last bone density was done in 2008? This was normal. Unclear whether she had any bone density in the middle. She is scheduled to get another bone density scan in follow up this year in April 2025. She has a history of lumbar surgery for DJD in her 40s, so they do include her forearm. I told her this is important especially when evaluating hyperparathyroidism. She has no history of kidney stones. Age is greater than 50. Her calcium levels are not elevated. Labs done at [facility] 01/14/2025 showed creatinine of 0.9, EGFR 71, ionized calcium normal at 5.3, PTH elevated at 112 pg/mL, calcium 9.6, albumin 4.5, corrected calcium would be 9.1, magnesium 2.3, phosphorus 3.2, bone specific alkaline phosphatase 11.3, CTX 160, vitamin-D 50 she could have some elevation in PTH attributed to being on Fosamax. Antiresorptives cause PTH elevation. Otherwise she has normal kidney function, vitamin-D is good so not related to those. At this time we will obtain a kidney ultrasound, 24 hour urine calcium evaluation as well as getting her bone density repeated. In the meantime she continues on Fosamax, She has never had any fractures. She is on good amounts of vitamin-D and has good calcium intake. Plan: -continue Fosamax 70 mg weekly -continue current vitamin-D and calcium supplements/intake -bone density ordered for [facility] for April 2025 -ordered kidney ultrasound -ordered 24 hour urine calcium creatinine levels -ordered repeat blood work with calcium, albumin, PTH, creatinine levels to calculate fractional excretion of calcium with 24 hour urine levels -follow up in 8 weeks to discuss results Plan I spent 30 minutes in reviewing the record, seeing the patient and documenting in the medical record. Orders: Orders 2 Albumin Level Today E21.3 - Hyperparathyroidism, unspecified Calcium Today E21.3 - Hyperparathyroidism, unspecified Creatinine Today E21.3 - Hyperparathyroidism, unspecified US renal BI Today E21.3 - Hyperparathyroidism, unspecified Parathyroid Hormone Intact Today E21.3 - Hyperparathyroidism, unspecified Creatinine, 24 Hr Group Today E21.3 - Hyperparathyroidism, unspecified Calcium, 24 Hr Ur Today E21.3 - Hyperparathyroidism, unspecified Patient Instructions: Do blood work the same morning as you hand in the 24 hr urine collection You can leaf size picker the equipement for 24 hr urine collection today 24 hr urine collection instructions You have been asked to collect your urine for 24 hours to assess for calcium excretion. You must choose a 24 hour period of time when you will be home. The morning of the first day, DISCARD the FIRST morning void and then note the time. You will collect every single void from then on for 24 hours. For example, if you wake up at 6am and urinate, flush down that void. You will then collect every drop of urine all day and all night through 6am the following day. You will urinate one last time at 6am for the collection. The jug of urine must be kept in the refrigerator until you bring it to the lab. Continue vitamin D and calcium intake as it is Do kidney ultrasound , someone will call you to schedule this Do bone density scan, please have them fax results to me Coding Level of Care Code Est Pt Level 4 (09588) Diagnoses Hyperparathyroidism E21.3 Time Spent (min) 30
--- OUTSIDE RECORDS SUMMARY | 2025-03-01 11:55 | XMS_ITS | Encounter Summary ---
Author Organization [facility] Address [address] [place] [address] [place] [address] Phone Care Team Providers Care Interactive Media Specialist Name Role Phone Juanjose Bueno MD Unavailable Eduar May DO Unavailable Shanthi Pete PA-C Unavailable Ariel Fulton MD Unavailable [phone] Josey Lema MD Primary Care Provider [phone] Faith Carson NP Primary Care Provider [phone] Encounter Details Date Type Department Care Team (Latest Contact Info) Description 03/26/2019 Transcribe Orders Virtual Department [address] [place] [address] Wally Villasenor MD [address] [place] [address] [phone] [email or web address] Chest pain, unspecified type (Primary Dx) Social History Tobacco Use Types Packs/Day Years Used Date Smoking Tobacco: Former Cigarettes 0.3 1 1 980 - 1980 Smokeless Tobacco: Never Comments:very light for a ye ar; significant second hand smoke exposure from both parents growing up Alcohol Use Standard Drinks/Week Comments Yes 0 (1 standard drink = 0.6 oz pur e alcohol) occasional wine Comments Unknown Sex and Gender Information Value Date Recorded Sex Assigned at Female 07/19/2018 12:43 PM EST Legal Sex Female 9:51 PM EDT Gender Identity Female 07/19/2018 12:43 PM EST Sexual Orientation Straight 07/19/2018 12 :43 PM EST documented as of this encounter Plan of Treatment Upcoming Encounters Date Type Department Care Team (Late st Contact Info) Description 02/21/2026 9:45 AM EDT Office [place] [facility], Allergy and Critical Care Medicine [address] [place] [address] [place] [address] Emilio Mendoza MD, MS 10 [facility] 2nd [place] [address] documented as of this encounter Results * XR CHEST PA AND LATERAL 2 VIEWS (03/26/2019 1:54 PM EDT) Anatomical Region Laterality Modality Chest Radiographic Ana ging 03/26/2019 2:06 PM EDT Impressions 03/26/2019 2:07 PM EDT No acute pulmonary process or explanation for chest pain is seen. S/S: <N/A> no indication applies (use free text below) ONGOING CHEST PAIN chest pain x2 months POS - [id number] Narrative 03/26/2019 2:07 PM EDT COMPARISON: Chest x-ray 02/08/2019 FINDINGS: PA and lateral imaging of the chest is obtained. The heart size is normal. The lung hurtado are clear. No pneumothorax or pleural fluid is evident. The aortic contour is unchanged. There are minimal degenerative changes in the thoracic spine. Procedure Note Wilner Chahal MD - 03/26/2019 COMPARISON: Chest x-ray 02/08/2019 FINDINGS: PA and lateral imaging of the chest is obtained. The heart size is normal. The lung hurtado are clear. No pneumothorax or pleural fluid is evident. The aortic contour is unchanged. There are minimal degenerative changes in the thoracic spine. IMPRESSION: No acute pulmonary process or explanation for chest pain is seen. S/S: <N/A> no indication applies (use free text below) ONGOING CHEST PAIN chest pain x2 months POS - [id number] Wally Villasenor MD IMG XR CHEST Final Resu lt documented in this encounter Visit Diagnoses Diagnosis Chest pain, unspecified type- Primary Chest pain, unspecified type documented in this encounter Additional Health Concerns Infection Onset Date Last Indicated Resolved Time CoV-Exposed Comment:Recent close contact documented in the Travel/Symptom Screening Form 09/15/2024 09/15/2024 09/26/2024 1:21 AM E DT documented as of this encounter Care Teams Interactive Media Specialist Relationship Specialty Start Date End Date Josey Lema MD [address] [place] [id number] [email or web address] PCP - General Family Medicine 09/11/18 02/22/20 Faith Carson NP [address] [place] [phone] PCP - General Unknown Provider Specialty 02/23/20 Juanjose Bueno MD [address] [place] [phone] Historical LMR Provider 04/17/17 07/07/21 Eduar May DO [address] [place] [address] Orthopedics & Sports [facility] [place] [address] Historical LMR Provider 04/17/17 07/07/21 Shanthi Pete PA-C [address] [place] [address] Orthopedics Sports [facility], [place] [address] Historical LMR Provider 04/17/17 07/07/21 Ariel Fulton MD [address] [place] [address] Historical LMR Provider 04/17/17 2 documented as of this encounter Additional Source Comments The information contained in this document represents components of the legal health record. It is not the complete legal health record.[facility]
--- OUTSIDE RECORDS SUMMARY | 2025-03-01 11:55 | XMS_ITS | Encounter Summary ---
Author Organization [facility] Address [address] [place] [address] [place] [address] Phone Care Team Providers Care Medicine Worker Name Role Phone Ariel Fulton MD Primary Care Provider [phone] Juanjose Bueno MD Unavailable Eduar May DO Unavailable Shanthi Pete-C Unavailable Ariel Fulton MD Unavailable Josey Lema MD Primary Care Provider [phone] Faith Carson NP Primary Care Provider [phone] Encounter Details Date Type Department Care Team (Latest Contact Info) Description 04/21/2017 Transcribe Orders [facility] [address] [place] [address] [phone] Juanjose Bueno MD [address] [place], [place] [phone] [email or web address] Obstructive pattern present on pulmonary function testing (Primary Dx) Social History Tobacco Use Types Packs/Day Years Used Date Smoking Tobacco: Never Assessed Comments Unknown Sex and Gender Information Value [...] Description 02/21/2026 9:45 AM EDT Office Visit [facility] Pulmonary, Allergy and Critical Care Medicine [address] [place] [address] Emilio Mendoza MD, MS 10 [facility] 2nd [place] [address] [email or web address] documented as of this encounter Results * Pulmonary Function Test (05/06/2017 2:28 PM EST) FEV1 1.63 liters FVC 2.51 liters FEV1/FVC 65 % TLC 3.94 liters DLCO 17.3 ml/mmHg sec Anatomical Region Laterality Modality Other Impressions 05/06/2017 2:28 PM EST PULMONARY FUNCTION STUDIES Full pulmonary function studies were performed on this 56 y.o. year-old female with a history of RA-associated lung disease. Reviewed of the medical record reveals that the patient is a never smoker. Prior pulmonary function studies are available for comparison. SPIROMETRY: The FEV1 is mildly impaired at 1.63 L or 77% predicted. The FVC is normal at 2.51 L or 88% predicted. The FEV1/FVC ratio is mildly impaired at 65%. After the administration of a bronchodilator agent, there is no significant change. FLOW-VOLUME LOOPS: Evaluation of the flow-volume loops reveals mild obstructive pattern. LUNG VOLUME MEASUREMENTS BY PLETHYSMOGRAPHY: The total lung capacity is normal at 3.94 L or 87% predicted. The functional residual capacity is low-normal at 1.78 L or 78% predicted. Of note, the ERV is markedly impaired, likely representing the imprint of body habitus DIFFUSION CAPACITY: The diffusion capacity is normal at 17.3 mL/mmHg sec or 80% predicted. COMPARISON TO PRIOR STUDIES: When comparing to prior studies from 6 months earlier, very mild improvement seen. Resting oxygen saturation is 93% on room air. IMPRESSION: Mildly abnormal pulmonary function studies with very mild fixed airflow obstruction, preserved total lung capacity but low normal diffusion capacity. In this nonsmoker, differential could include nontobacco related mild COPD, likely related to know RA-associated lung disease, stable over the last 6 months. Juanjose Bueno MD PFT ORDERABLES Final Result documented in this encounter Visit Diagnoses Diagnosis Obstructive pattern present on pulmonary function testing- Primary Obstructive pattern present on pulmonary function testing documented in this encounter Additional Health Concerns Infection Onset Date Last Indicated Resolved Time CoV-Exposed Comment:Recent close contact documented in the Travel/Symptom Screening Form 09/15/2024 09/15/2024 09/26/2024 1:21 AM E DT documented as of this encounter Care Teams Medicine Worker Relationship Specialty Start Date End Date Ariel Fulton MD [address] [place] [phone] PCP - General 04/17/17 09/10/18 Josey Lema MD [address] [place] [phone] [email or web address] PCP - General Family Medicine 09/11/18 02/22/20 Faith Carson NP [address] [place] [phone] PCP - General Unknown Provider Specialty 02/23/20 Juanjose Bueno MD [address] [place] [address] Historical LMR Provider 04/17/17 07/07/21 Eduar May DO [address] [place] [address] Orthopedics & Sports Medicine, [place] [address] Historical LMR Provider 04/17/17 07/07/21 Shanthi Pete PA-C [address] [place] [address] [facility] [place] [address] [email or web address] Historical LMR Provider 04/17/17 07/07/21 Ariel Fulton MD [address] [place] [address] Historical LMR Provider 04/17/17 2 documented as of this encounter Additional Source Comments The information contained in this document represents components of the legal health record. It is not the complete legal health record.[facility]
--- OUTSIDE RECORDS SUMMARY | 2025-03-01 11:55 | XMS_ITS | Encounter Summary ---
Author Organization [facility] Address [address] [place] [address] [address] [place] [address] Phone Care Team Providers Care Television Repairman Name Role Phone Angella Carsona Tonya FRY Primary Care Provider [phone] Encounter Details Date Type Department Care Team (Late st Contact Info) Description 09/23/2024 Procedure Pass [facility] Endoscopy Admitting Dept Virtual Department [address] [place] [address] Social History Tobacco Use Types Packs/Day Years Used Date Smoking Tobacco: Former Cigarettes 0.3 1 1 980 - 1980 Smokeless Tobacco: Never Comments:very light for a ye ar; significant second hand smoke exposure from both parents growing up Alcohol Use Standard Drinks/Week Comments Not Currently 0 (1 standard drink = 0.6 oz pur e alcohol) Education Answer Date Recorded Are you interested in more education? Not on zhou e 10/25/2022 Are you concerned about learning? Not on file 10/25/2022 No 10/25/2022 No 10/25/2022 Digital Access Answer Date Recorded No 11/20/2022 No 11/20/2022 Reliable internet access at home? Not on file 11/20/2022 Device with a working camera? Not on file Intimate Partner Violence Answer Date R ecorded Are you denied basic needs s uch as food, clothing, or medical care? No 09/15/2024 In the past 12 months have y ou been in a relationship with a person who hurts, threatens, or tries to control you? No 09/15/2024 Are you denied basic needs s uch as food, clothing, or medical care? No 09/15/2024 In the past 12 months have y ou been in a relationship with a person who hurts, threatens, or tries to control you? No 09/15/2024 Comments Unknown Sex and Gender Information Value [...] Description 02/21/2026 9:45 AM EDT Office Visit [facility] Pulmonary, Allergy and Critical Care Medicine [address] [place] [address] Emilio Mendoza MD, MS [address] [address] documented as of this encounter Visit Diagnoses Not on filedocumented in this encounter Additional Health Concerns Infection Onset Date Last Indicated Resolved Time CoV-Exposed Comment:Recent close contact documented in the Travel/Symptom Screening Form 09/15/2024 09/15/2024 09/26/2024 1:21 AM E DT documented as of this encounter Care Teams Television Repairman Relationship Specialty Start Date End Date Faith Carson NP [address] [place] [phone] PCP - General Unknown Provider Specialty 02/23/20 documented as of this encounter Additional Source Comments The information contained in this document represents components of the legal health record. It is not the complete legal health record.[facility]
--- OUTSIDE RECORDS SUMMARY | 2025-03-01 11:55 | XMS_ITS | Encounter Summary ---
Author Organization [facility] Address [address] [place] [address] [place] [address] Phone Care Team Providers Care Assistant Unit Forester Name Role Phone Juanjose Bueno MD Unavailable [phone] Eduar May DO Unavailable Shanthi Pete PA-C Unavailable [phone] Ariel Fulton MD Unavailable [phone] Josey Lema MD Primary Care Provider [phone] Faith Carson NP Primary Care Provider [phone] Encounter Details Date Type Department Care Team (Late st Contact Info) Description 08/12/2019 Procedure Pass [facility] Endoscopy Admitting Dept [facility] Department [address] [place] [address] Social History Tobacco Use Types Packs/Day Years [...] Description 02/21/2026 9:45 AM EDT Office Visit [facility] Pulmonary, Allergy and Critical Care Medicine 10 [facility] [place] [address] [place] [address] Emilio Mendoza MD, MS 10 [facility] 2nd [place] [address] [email or web address] documented as of this encounter Visit Diagnoses Not on filedocumented in this encounter Additional Health Concerns Infection Onset Date Last Indicated Resolved Time CoV-Exposed Comment:Recent close contact documented in the Travel/Symptom Screening Form 09/15/2024 09/15/2024 09/26/2024 1:21 AM E DT documented as of this encounter Care Teams Assistant Unit Forester Relationship Specialty Start Date End Date Josey Lema MD [address] [place] [address] [email or web address] PCP - General Family Medicine 09/11/18 02/22/20 Faith Carson NP [address] [place] [phone] PCP - General Unknown Provider Specialty 02/23/20 Juanjose Bueno MD [address] [place] [address] [email or web address] Historical LMR Provider 04/17/17 07/07/21 Eduar May DO [address] [place] [address] Orthopedics & Sports Medicine, [facility] [place] [address] Historical LMR Provider 04/17/17 07/07/21 Shanthi Pete PA-C [address] [place] [address] [facility] [place] [address] [email or web address] Historical LMR Provider 04/17/17 07/07/21 Ariel Fulton MD [address] [place] [address] Historical LMR Provider 04/17/17 2 documented as of this encounter Additional Source Comments The information contained in this document represents components of the legal health record. It is not the complete legal health record.[facility]
--- OUTSIDE RECORDS SUMMARY | 2025-03-01 11:55 | XMS_ITS | Encounter Summary ---
Author Organization [facility] Address [address] [place] [address] [place] [address] Phone Care Team Providers Care Basic Acoustic Analyst Name Role Phone Ariel Fulton MD Primary Care Provider [phone] Juanjose Bueno MD Unavailable [phone] Eduar May DO Unavailable Shanthi Pete PA-C Unavailable [phone] Ariel Fulton MD Unavailable Josey Lema MD Primary Care Provider [phone] Faith Carson NP Primary Care Provider [phone] Encounter Details Date Type Department Care Team (Late st Contact Info) Description 07/30/2017 Transcribe Orders [facility] PFT Lab 30 [place] [address] Emilio Mendoza MD, MS [address] [address] [email or web address] Social History Tobacco Use Types Packs/Day Years Used Date Smoking Tobacco: Former Cigarettes 0.3 1 1 980 - 1981 Smokeless Tobacco: Never Comments:very light for a ye ar; significant second hand smoke exposure from both parents growing up Alcohol Use Standard Drinks/Week Comments No 0 (1 standard drink = 0.6 oz pur e alcohol) Comments Unknown Sex and Gender Information Value [...] Description 02/21/2026 9:45 AM EDT Office Visit CD Pulmonary, Allergy and Critical Care Medicine [address] [place] [address] Emilio Mendoza MD, MS 10 [facility] 2nd [place] [address] [email or web address] documented as of this encounter Visit Diagnoses Not on filedocumented in this encounter Additional Health Concerns Infection Onset Date Last Indicated Resolved Time CoV-Exposed Comment:Recent close contact documented in the Travel/Symptom Screening Form 09/15/2024 09/15/2024 09/26/2024 1:21 AM E DT documented as of this encounter Care Teams Basic Acoustic Analyst Relationship Specialty Start Date End Date Ariel Fulton MD [address] [place] [address] PCP - General 04/17/17 09/10/18 Josey Lema MD [address] [place] [address] [email or web address] PCP - General Family Medicine 09/11/18 02/22/20 Faith Carson NP [address] [place] [phone] PCP - General Unknown Provider Specialty 02/23/20 Juanjose Bueno MD [address] [place] [address] Historical LMR Provider 04/17/17 07/07/21 Eduar May DO 4 [facility] Orthopedics & Sports [facility], [place] [address] [email or web address] Historical LMR Provider 04/17/17 07/07/21 Shanthi Pete PA-C 4 [facility] Orthopedics & Sports [facility], [place] [address] [email or web address] Historical LMR Provider 04/17/17 07/07/21 Ariel Fulton MD [address] [place] [address] Historical LMR Provider 04/17/17 2 documented as of this encounter Additional Source Comments The information contained in this document represents components of the legal health record. It is not the complete legal health record.[facility]
--- OUTSIDE RECORDS SUMMARY | 2025-03-01 11:55 | XMS_ITS | Encounter Summary ---
Author Organization [facility] Address [address] [place] [address] [place] [address] Phone Care Team Providers Care Train Electronic Technician Name Role Phone Juanjose Bueno MD Unavailable Eduar May DO Unavailable [phone] Shanthi Pete PA-C Unavailable [phone] Ariel Fulton MD Unavailable Josey Lema MD Primary Care Provider [phone] Faith Carson NP Primary Care Provider [phone] Encounter Details Date Type Department Care Team (Late st Contact Info) Description 02/17/2019 Procedure Pass [facility] Endoscopy Admitting Dept [facility] Department [address] [place] [address] Social History Tobacco Use Types Packs/Day Years [...] Pulmonary, Allergy and Critical Care Medicine 10 [facility] [place] [address] Emilio Mendoza MD, MS 10 [facility] 2nd [place] [address] [email or web address] documented as of this encounter Visit Diagnoses Not on filedocumented in this encounter Additional Health Concerns Infection Onset Date Last Indicated Resolved Time CoV-Exposed Comment:Recent close contact documented in the Travel/Symptom Screening Form 09/15/2024 09/15/2024 09/26/2024 1:21 AM E DT documented as of this encounter Care Teams Train Electronic Technician Relationship Specialty Start Date End Date Josey Lema MD [address] [place] [address] [email or web address] PCP - General Family Medicine 09/11/18 02/22/20 Faith Carson NP [address] [place] [phone] PCP - General Unknown Provider Specialty 02/23/20 Juanjose Bueno MD [address] [place] [address] [email or web address] Historical LMR Provider 04/17/17 07/07/21 Eduar May DO [address] [place] [address] Orthopedics & Sports Medicine, [facility] [place] [address] Historical LMR Provider 04/17/17 07/07/21 Shanthi Pete PA-C [address] [place] [address] [facility] [place] [address] [email or web address] Historical LMR Provider 04/17/17 07/07/21 Ariel Fulton MD [address] [place] [address] Historical LMR Provider 04/17/17 2 documented as of this encounter Additional Source Comments The information contained in this document represents components of the legal health record. It is not the complete legal health record.[facility]
--- OUTSIDE RECORDS SUMMARY | 2025-03-01 11:55 | XMS_ITS | Encounter Summary ---
Author Organization [facility] Address [address] [place] [address] [place] [address] Phone Care Team Providers Care Command Post Craftsman Name Role Phone Juanjose Bueno MD Unavailable [phone] Eduar May DO Unavailable [phone] Shanthi Pete PA-C Unavailable [phone] Ariel Fulton MD Unavailable [phone] Josey Lema MD Primary Care Provider [phone] Faith Carson NP Primary Care Provider [phone] Reason for Referral * Outpatient Procedure - Closed Specialty Diagnoses / Procedures Referred By Contharshal t Referred To Contact Radiology Diagnoses GERD without esophagitis Procedures NM Gastric Emptying Wally Villasenor MD Phone: tel: fax: [email or web address] Referral ID Status Reason Start Date Expiration Date Visits Re quested Visits Authorized [id number] Closed 10/30/2018 10/30/2019 1 1 Encounter Details Date Type Department Care Team (Latest Contact Info) Description 10/30/2018 Transcribe Orders [facility] Department [address] [place] [address] Wally Villasenor MD [address] [place] [phone] [email or web address] GERD without esophagitis (Primary Dx) Social History Tobacco Use Types [...] Description 02/21/2026 9:45 AM EDT Office Visit [facility]monary, Allergy and Critical Care Medicine [address] [place] [address] Emilio Mendoza MD, MS [address] [place] [address] [email or web address] documented as of this encounter Results * NM GASTRIC EMPTYING SOLID PHASE (11/19/2018 12:17 PM EDT) Anatomical Region Laterality Modality Abdomen, Pelvis Nuclear Medicine 11/19/2018 12:1 9 PM EDT Impressions 11/19/2018 12:22 PM EDT Prolonged gastric emptying at the 4 hour time point similar to that evident on prior imaging from 2016. Delayed gastroparesis therefore again remains a possibility as was indicated on the prior report. S/S: Gastroparesis, gastroesophageal reflux disease, abdominal discomfort POS - [id number] Narrative 11/19/2018 12:22 PM EDT The patient is given an oral meal of 0.977 mCi of Tc99m labeled sulfur colloid with egg whites, toast, jam and water. Evaluation of gastric emptying over four hours is obtained. At one hour there is 71.3% residual activity in the stomach which is within the normal range. At two hours there is 52.7% residual activity in the stomach which is within the normal range. At four hours there is 34.1% residual activity in the stomach which is above the normal range. No obvious gastroesophageal reflux is seen. NORMAL RANGE One hour 37-90% Two hours 30-60% Four hours 0-10% Procedure Note Wilner Chahal MD - 11/19/2018 The patient is given an oral meal of 0.977 mCi of Tc99m labeled sulfurcolloid with egg whites, toast, jam and water. Evaluation of gastricemptying over four hours is obtained. At one hour there is 71.3% residual activity in the stomach which iswithin the normal range. At two hours there is 52.7% residual activity in the stomach which iswithin the normal range. At four hours there is 34.1% residual activity in the stomach which isabove the normal range. No obvious gastroesophageal reflux is seen. NORMAL RANGE One hour 37-90% Two hours 30-60% Four hours 0-10% IMPRESSION: Prolonged gastric emptying at the 4 hour time point similar to thatevident on prior imaging from 2016. Delayed gastroparesis therefore againremains a possibility as was indicated on the prior report. S/S: Gastroparesis, gastroesophageal reflux disease, abdominal discomfort POS - [id number] Wally Villasenor MD IMG NM ABDOMEN Final Resu lt documented in this encounter Visit Diagnoses Diagnosis GERD without esophagitis- Primary Esophageal reflux GERD without esophagitis Esophageal reflux documented in this encounter Additional Health Concerns Infection Onset Date Last Indicated Resolved Time CoV-Exposed Comment:Recent close contact documented in the Travel/Symptom Screening Form 09/15/2024 09/15/2024 09/26/2024 1:21 AM E DT documented as of this encounter Care Teams Command Post Craftsman Relationship Specialty Start Date End Date Josey Lema MD [address] [place] [address] [email or web address] PCP - General Family Medicine 09/11/18 02/22/20 Faith Carson NP [address] [place] [phone] PCP - General Unknown Provider Specialty 02/23/20 Juanjose Bueno MD 30 [place] [address] Historical LMR Provider 04/17/17 07/07/21 Eduar May DO [address] [place] [address] Orthopedics Sports [facility] [place] [address] Historical LMR Provider 04/17/17 07/07/21 Shanthi Pete PA-C [address] [place] [address] Orthopedics Sports [facility] [place] [address] [email or web address] Historical LMR Provider 04/17/17 07/07/21 Ariel Fulton MD [address] [place] [address] Historical LMR Provider 04/17/17 2 documented as of this encounter Additional Source Comments The information contained in this document represents components of the legal health record. It is not the complete legal health record.[facility]
--- OUTSIDE RECORDS SUMMARY | 2025-03-01 11:55 | XMS_ITS | Encounter Summary ---
Author Organization [facility] Address [address] [place] [address] [place] [address] Phone Care Team Providers Care College Coach Name Role Phone [place] Tonya FRY Primary Care Provider [phone] Encounter Details Date Type Department Care Team (Late Contact Info) Description 08/06/2021 Transcribe Orders [facility] PFT Lab 30 [place] [address] Emilio Mendoza MD, MS [address] [address] [email or web address] Social History Tobacco Use Types Packs/Day Years [...] Pulmonary, Allergy and Critical Care Medicine 10 [facility] [place], [place] [id number] Emilio Mendoza MD, MS [address] [address] [email or web address] documented as of this encounter Visit Diagnoses Not on filedocumented in this encounter Additional Health Concerns Infection Onset Date Last Indicated Resolved Time CoV-Exposed Comment:Recent close contact documented in the Travel/Symptom Screening Form 09/15/2024 09/15/2024 09/26/2024 1:21 AM E DT documented as of this encounter Care Teams College Coach Relationship Specialty Start Date End Date Faith Carson NP [address] [place] [phone] PCP - General Unknown Provider Specialty 02/23/20 documented as of this encounter Additional Source Comments The information contained in this document represents components of the legal health record. It is not the complete legal health record.[facility]
--- OUTSIDE RECORDS SUMMARY | 2025-03-01 11:55 | XMS_ITS | Encounter Summary ---
Author Organization [facility] Address [address] [place] [address] [place] [address] Phone Care Team Providers Care Iso Coordinator Name Role Phone LawtonFaith shaw Tonya FRY Primary Care Provider [phone] Encounter Details Date Type Department Care Team (Late st Contact Info) Description 08/30/2022 Transcribe Orders [facility] PFT Lab 30 [place] [address] Emilio Mendoza MD, MS [address] [address] [email or web address] Social History Tobacco Use Types Packs/Day Years [...] Pulmonary, Allergy and Critical Care Medicine 10 [facility] [place], [place] [phone] Emilio Mendoza MD, MS [address] [address] [email or web address] documented as of this encounter Visit Diagnoses Not on filedocumented in this encounter Additional Health Concerns Infection Onset Date Last Indicated Resolved Time CoV-Exposed Comment:Recent close contact documented in the Travel/Symptom Screening Form 09/15/2024 09/15/2024 09/26/2024 1:21 AM E DT documented as of this encounter Care Teams Iso Coordinator Relationship Specialty Start Date End Date Faith Carson NP [address] [place] [phone] PCP - General Unknown Provider Specialty 02/23/20 documented as of this encounter Additional Source Comments The information contained in this document represents components of the legal health record. It is not the complete legal health record.[facility]
== END 2025-03-01 10:46 | disposition home or self-care (01) ==
LOC: HO.ENCR 10:24
PROVIDERS: PCP Nurse Practitioner; Visit Provider Student in an Organized Health Care Education/Training Program
DX: E21.3 Hyperparathyroidism, unspecified (principal)
CPT/HCPCS: 99214

== ENCOUNTER → 2025-03-01 10:22 | Outpatient (BNVA) | payer MEDICARE, SELFPAY | PROVIDERS: PCP Nurse Practitioner; Visit Provider Student in an Organized Health Care Education/Training Program | DX: E21.3 Hyperparathyroidism, unspecified (principal) | CPT/HCPCS: 99212 ==

== ENCOUNTER 2025-03-08 11:23 | Outpatient (REF) | payer MEDICARE, SELFPAY ==
[2025-03-08 12:18] LABS: Albumin Level 4.5 g/dL (3.5-5.0); Calcium 9.9 mg/dL (8.4-10.2); Estimated Glomerular Filt Rate > 60
[2025-03-08 12:27] LABS: Parathyroid Hormone Intact 128.9 pg/mL (8.7-77.1)
[2025-03-08 12:37] LABS: Total Volume 24 Hour Urine 2075 mL
[2025-03-08 13:16] LABS: Creatinine, mg/dL 44.26
[2025-03-10 20:34] LABS: Calcium/Creatinine Ratio 61 mg/g creat (30-275); Creatinine 24Hr Urine 0.95 g/24 h (0.50-2.15)
== END 2025-03-08 11:24 | disposition home or self-care (01) ==
LOC: HO.LAB 11:23
PROVIDERS: Visit Provider Student in an Organized Health Care Education/Training Program
DX: E21.3 Hyperparathyroidism, unspecified (principal); Z79.01 Long term (current) use of anticoagulants
CPT/HCPCS: 36415; 82040; 82310; 82340; 82565; 82570; 83970

== ENCOUNTER 2025-03-15 08:38 | Outpatient (REF) | payer MEDICARE, SELFPAY ==
[2025-03-15 13:54] LABS: MANUAL DIFF FLAG NO
[2025-03-15 14:01] LABS: Hematocrit 39.8 % (37.0-47.0); Hemoglobin 13.3 g/dl (12.0-16.0); Imm Gran Abs Auto 0.01 X10*3/uL (0.00-0.03); Imm Gran Pct Auto 0.1 % (0.0-0.4); Lymphocytes Absolute Auto 2.1 X10*3/uL (1.2-4.9); Mean Corpuscular HGB Conc 33.4 g/dl (31.0-35.0); Mean Corpuscular Hemoglobin 31.4 pg (27.0-33.0); Mean Corpuscular Volume 94.1 fL (80.0-98.0); NRBC Abs Auto 0.000 X10*3/uL (0.0-0.012); NRBC Pct Auto 0.0 /100WBC (0.0-0.2); Platelet Count 267 X10*3/uL (160-400); Red Blood Count 4.23 X10*6/uL (4.20-5.50); White Blood Count 7.5 X10*3/uL (4.8-10.8)
[2025-03-15 14:21] LABS: Alanine Aminotransferase 21 U/L (0-31); Aspartate Amino Transferase 36 U/L (5-31)
== END 2025-03-15 08:39 | disposition home or self-care (01) ==
LOC: HO.HKASLDS 08:38
PROVIDERS: PCP Nurse Practitioner; Visit Provider Internal Medicine Rheumatology
DX: Z51.81 Encounter for therapeutic drug level monitoring (principal); L40.50 Arthropathic psoriasis, unspecified; M70.22 Olecranon bursitis, left elbow; E21.3 Hyperparathyroidism, unspecified; R74.01 Elevation of levels of liver transaminase levels; Z79.899 Other long term (current) drug therapy
CPT/HCPCS: 36415; 84450; 84460; 85025; 85652; 86140; 99212

== ENCOUNTER 2025-03-15 08:38 | Outpatient (AMB) | payer MEDICARE, SELFPAY ==
--- NOTE | 2025-03-15 08:47 | MHC.OFFVIS ---
Vital Signs 03/15/25 08:49 Height 5 ft 2 in Weight 181 lb 7.047 oz BMI 33.2 BP 130/100 H Blood Pressure Location Rt brachial Position Sitting Pulse 73 Pulse Source Pulse Oximeter Pulse Oximetry (%) 94 Oxygen Delivery Method Room Air Intake Visit Reasons: follow up Intake Note: Patient presents today for RA/PSA follow up. Accompanied by: Self / Same As Patient Allergies adalimumab (From Humira) Allergy (Mild, Verified 03/15/25 08:50) rashes amoxicillin Allergy (Mild, Verified 03/15/25 08:50) Rash Sulfa (Sulfonamide Antibiotics) Allergy (Mild, Verified 03/15/25 08:50) rashes HPI HPI follow up: Details: She had flare of pain and limited ROM right shoulder. She had wrist pain for a few day. She remained on celebrex 200mg daily. Denies heartburn. She takes a PPI. Elbow swelling resolved. No recent infections. PFSH Family History Mother Bladder cancer Asthma Arthritis Father Stroke Heart problem Social History Alcohol intake: current Alcohol intake frequency: does not drink Patient Tobacco Use Status: Never used Tobacco Physical Exam Vital Signs: Last Vital Signs Pulse 73 03/15/25 08:49 BP 130/100 H 03/15/25 08:49 Pulse Ox 94 03/15/25 08:49 Oxygen Delivery Method Room Air 03/15/25 08:49 BMI result Body Mass Index 33.2 Const Other: General: Comfortable CVS: RRR Respiratory: clear to auscultation bilaterally. Good respiratory effort Skin: No lesions seen MSK: No tenderness on palpation of all joints of upper extremity lower extremity. No synovitis present. Normal range of motion of all joints. Assessment & Plan Assessment & Plan (1) Psoriatic arthritis: Comment: In remission on current regimen. She had mild elevation in AST 10/2024 downtrending on labs from 04/2024, which maybe due to drug side effect (leflunomide vs celebrex). Repeating labs this visit. She has been able to reduce celebrex to 200mg daily Initially diagnosed with rheumatoid arthritis by Dr. Stoner. Anti CCP positive greater than 250 and rheumatoid factor positivity 198. Diagnosis was changed to psoriatic arthritis by Dr. Potts. She has been on leflunomide since 01/17/2024, Taltz, hydroxychloroquine and Celebrex. Failed treatment with methotrexate, Humira, Enbrel, Orencia, Stelara, Cosentyx from 2020 to 10/17/2022. Remicade was started 11/16/2022 and discontinued due to development of exacerbation of psoriasis. In remission on leflunomide 20 mg daily, Taltz, hydroxychloroquine 400 mg daily and Celebrex 200 mg twice a day. Leflunomide d/c 08/19/2024 due to hair loss and mild transaminitis (AST). History of peptic ulcer disease on PPI. Celebrex 200 mg b.i.d. was reduced to daily Code(s): L40.50 - Arthropathic psoriasis, unspecified Category: Medical Plan: Labs for diseaseand drug monitoring ordered. Continue Taltz 80 mg subcutaneous injection every 4 weeks Continue hydroxychloroquine 400 mg daily. Scheduled for eye exam 03/2025 Reduce Celebrex 200 mg daily. Ok to take it BID with increase pain then resume back to daily Return to clinic in 3 months (2) Other intermodal customer service (current) drug therapy: Code(s): Z79.899 - Other intermodal customer service (current) drug therapy Category: Medical Plan: See above (3) Hyperparathyroidism: Comment: Seeing Endo. Possibly related to alendronate. US renal ordered. Code(s): E21.3 - Hyperparathyroidism, unspecified Category: Medical Plan: Follow-up with endocrinology (4) Transaminitis: Code(s): R74.01 - Elevation of levels of liver transaminase levels Category: Medical Plan: See above (5) Olecranon bursitis, left elbow: Comment: Likely traumatic. Resolved after aspiration. Code(s): M70.22 - Olecranon bursitis, left elbow Category: Medical Plan: Monitor clinically Plan . Orders: Orders Alanine Aminotransferase Today Z79.899 - Other care home (current) drug therapy Aspartate Amino Transferase Today Z79.899 - Other [employer] customer service (current) drug therapy C Reactive Protein Today Z79.899 - Other intermodal customer service (current) drug therapy Complete Blood Count Auto Diff Today Z79.899 - Other care home (current) drug therapy Erythrocyte Sedimentation Rate Today Z79.899 - Other care home (current) drug therapy Medications: Changed From celecoxib (Celebrex) Take 1 tablet BID with food 200 mg PO BID 60 caps 0RF To celecoxib (Celebrex) 200 mg PO DAILY 90 caps 1RF 90 days Refilled ixekizumab (Taltz Autoinjector) 80 mg subcut Q4W 1 mL 2RF Coding Level of Care Code Est Pt Level 4 (75340) Complex EM visit Add On G2211 Diagnoses Psoriatic arthritis L40.50 Other intermodal customer service (current) drug therapy Z79.899 Hyperparathyroidism E21.3 Transaminitis R74.01 Olecranon bursitis, left elbow M70.22
[2025-03-15 08:49] VITALS: BP 130/100; PULSE 73; O2SAT 94; BMI 33.2
--- OUTSIDE RECORDS SUMMARY | 2025-03-15 10:26 | XMS_ITS | Encounter Summary ---
Author Organization [facility] Address [address] [place] [address] [place] [address] Phone Care Team Providers Care Rewriter Name Role Phone Ariel Fulton MD Primary Care Provider [phone] Juanjose Bueno MD Unavailable Eduar May DO Unavailable Shanthi Pete PA-C Unavailable [phone] Ariel Fulton MD Unavailable Josey Lema MD Primary Care Provider [phone] Faith Carson NP Primary Care Provider [phone] Encounter Details Date Type Department Care Team (Late st Contact Info) Description 07/30/2017 Transcribe Orders [facility] PFT Lab 30 [place] [address] Emilio Mendoza MD, [place] [address] [address] [email or web address] Social History Tobacco Use Types Packs/Day Years [...] Critical Care Medicine [address] [place] [address] Emilio Mendoza MD, MS 10 [facility] 2nd [place] [address] [email or web address] documented as of this encounter Visit Diagnoses Not on filedocumented in this encounter Additional Health Concerns Infection Onset Date Last Indicated Resolved Time CoV-Exposed Comment:Recent close contact documented in the Travel/Symptom Screening Form 09/15/2024 09/15/2024 09/26/2024 1:21 AM E DT documented as of this encounter Care Teams Rewriter Relationship Specialty Start Date End Date Ariel Fulton MD [address] [place] [address] PCP - General 04/17/17 09/10/18 Josey Lema MD [address] [place] [address] [email or web address] PCP - General Family Medicine 09/11/18 02/22/20 Faith Carson NP [address] [place] [phone] PCP - General Unknown Provider Specialty 02/23/20 Juanjose Bueno MD [address] [place] [address] Historical LMR Provider 04/17/17 07/07/21 Eduar May DO 4 [facility] Orth[facility], [place] [address] [email or web address] Historical LMR Provider 04/17/17 07/07/21 Shanthi Pete PA-C 4 [facility], [place] [address] [email or web address] Historical LMR Provider 04/17/17 07/07/21 Ariel Fulton MD [address] [place] [address] Historical LMR Provider 04/17/17 2 documented as of this encounter Additional Source Comments The information contained in this document represents components of the legal health record. It is not the complete legal health record.[facility]
--- OUTSIDE RECORDS SUMMARY | 2025-03-15 10:26 | XMS_ITS | Encounter Summary ---
Author Organization [facility] Address [address] [place] [address] [place] [address] Phone Care Team Providers Care Presales Senior Specialist Name Role Phone Ariel Fulton MD Primary Care Provider [phone] Juanjose Bueno MD Unavailable Eduar May DO Unavailable Shanthi Pete-C Unavailable [phone] Ariel Fulton MD Unavailable Josey Lema MD Primary Care Provider [phone] Faith Carson NP Primary Care Provider [phone] Encounter Details Date Type Department Care Team (Latest Contact Info) Description 04/21/2017 Transcribe Orders [facility] PFT Lab [address] [place] [phone] Juanjose Bueno MD 30 [place], [place] [phone] [email or web address] Obstructive pattern present on pulmonary [...] Description 02/21/2026 9:45 AM EDT Office Visit [facility] Pulmonary, Allergy and Critical Care Medicine [address] [place] [address] Emilio Mendoza MD, MS 10 [facility] 2nd [place] [address] [email or web address] documented as of this encounter Results * [...] documented as of this encounter Care Teams Presales Senior Specialist Relationship Specialty Start Date End Date Ariel Fulton MD [address] [place] [address] PCP - General 04/17/17 09/10/18 Josey Lema MD [address] [place] [address] [email or web address] PCP - General Family Medicine 09/11/18 02/22/20 Faith Carson NP [address] [place] [phone] PCP - General Unknown Provider Specialty 02/23/20 Juanjose Bueno MD [address] [place] [address] Historical LMR Provider 04/17/17 07/07/21 Eduar May DO [address] [place] [address] Orth[facility]ics [facility] Sports Medicine, [place] [address] Historical LMR Provider 04/17/17 07/07/21 Shanthi Pete PA-C [address] [place] [address] [facility] [place] [address] [email or web address] Historical LMR Provider 04/17/17 07/07/21 Ariel Fulton MD [address] [place] [address] Historical LMR Provider 04/17/17 2 documented as of this encounter Additional Source Comments The information contained in this document represents components of the legal health record. It is not the complete legal health record.[facility]
--- OUTSIDE RECORDS SUMMARY | 2025-03-15 10:26 | XMS_ITS | Encounter Summary ---
Author Organization [facility] Address [address] [place] [address] [address] [place] [address] Phone Care Team Providers Care Railway Engineer Name Role Phone Angella Carsona Tonya FRY Primary Care Provider [phone] Encounter Details Date Type Department Care Team (Late st Contact Info) Description 09/23/2024 Procedure Pass [facility] Endoscopy Admitting Dept Virtual Department 30 [place] [address] Social History Tobacco Use Types Packs/Day Years [...] Description 02/21/2026 9:45 AM EDT Office Visit [facility] Pulmonary, Allergy and Critical Care Medicine 10 [place] [address] Emilio Mendoza MD, MS [address] [address] documented as of this encounter Visit Diagnoses Not on filedocumented in this encounter Additional Health Concerns Infection Onset Date Last Indicated Resolved Time CoV-Exposed Comment:Recent close contact documented in the Travel/Symptom Screening Form 09/15/2024 09/15/2024 09/26/2024 1:21 AM E DT documented as of this encounter Care Teams Railway Engineer Relationship Specialty Start Date End Date Faith Carson NP [address] [place] [phone] PCP - General Unknown Provider Specialty 02/23/20 documented as of this encounter Additional Source Comments The information contained in this document represents components of the legal health record. It is not the complete legal health record.[facility]
--- OUTSIDE RECORDS SUMMARY | 2025-03-15 10:26 | XMS_ITS | Encounter Summary ---
Author Organization [facility] Address [address] [place] [address] [place] [address] Phone Care Team Providers Care Distribution Center Supervisor Name Role Phone Juanjose Bueno MD Unavailable Eduar Mya DO Unavailable [phone] Shanthi Pete PA-C Unavailable Ariel Fulton MD Unavailable Josey Lema MD Primary Care Provider [phone] Faith Carson NP Primary Care Provider Encounter Details Date Type Department Care Team (Late st Contact Info) Description 02/17/2019 Procedure Pass [facility] Endoscopy Admitting Dept [facility] Department [address] [place] [address] Social History Tobacco Use Types Packs/Day Years [...] Pulmonary, Allergy and Critical Care Medicine 10 [facility] [place] [address] Emilio Mendoza MD, MS 10 [facility] 2nd [place] [address] [email or web address] documented as of this encounter Visit Diagnoses Not on filedocumented in this encounter Additional Health Concerns Infection Onset Date Last Indicated Resolved Time CoV-Exposed Comment:Recent close contact documented in the Travel/Symptom Screening Form 09/15/2024 09/15/2024 09/26/2024 1:21 AM E DT documented as of this encounter Care Teams Distribution Center Supervisor Relationship Specialty Start Date End Date Josey Lema MD [address] [place] [address] [email or web address] PCP - General Family Medicine 09/11/18 02/22/20 Faith Carson NP [address] [place] [phone] PCP - General Unknown Provider Specialty 02/23/20 Juanjose Bueno MD [address] [place] [address] [email or web address] Historical LMR Provider 04/17/17 07/07/21 Eduar May DO [address] [place] [address] Orthopedics & Sports Medicine, [facility] [place] [address] Historical LMR Provider 04/17/17 07/07/21 Shanthi Pete PA-C [address] [place] [address] [facility] [place] [address] [email or web address] Historical LMR Provider 04/17/17 07/07/21 Ariel Fulton MD [address] [place] [address] Historical LMR Provider 04/17/17 2 documented as of this encounter Additional Source Comments The information contained in this document represents components of the legal health record. It is not the complete legal health record.[facility]
--- OUTSIDE RECORDS SUMMARY | 2025-03-15 10:26 | XMS_ITS | Encounter Summary ---
Author Organization [facility] Address [address] [place] [address] [place] [address] Phone Care Team Providers Care Bacteriology Research Assistant Name Role Phone Juanjose Bueno MD Unavailable Eduar May DO Unavailable [phone] Shanthi Pete PA-C Unavailable [phone] Ariel Fulton MD Unavailable Josey Lema MD Primary Care Provider [phone] Faith Carson NP Primary Care Provider [phone] Reason for Referral * Outpatient Procedure - Closed Specialty Diagnoses / Procedures Referred By Contharshal t Referred To Contact Radiology Diagnoses GERD without esophagitis Procedures NM Gastric Emptying Wally Villasenor MD Phone: tel: fax: [email or web address] Referral ID Status Reason Start Date Expiration Date Visits Re quested Visits Authorized [id number] Closed 10/30/2018 10/30/2019 1 1 Encounter Details Date Type Department Care Team (Latest Contact Info) Description 10/30/2018 Transcribe Orders [facility] Department 30 [place] [address] Wally Villasenor MD [address] [place] [address] [phone] [email or web address] GERD without esophagitis (Primary Dx) Social History [...] Description 02/21/2026 9:45 AM EDT Office Visit [facility] Pulmonary, Allergy and Critical Care Medicine [address] [place] [address] Emilio Mendoza MD, MS [address] [place] [address] [email or web address] documented as of this encounter Results * [...] documented as of this encounter Care Teams Bacteriology Research Assistant Relationship Specialty Start Date End Date Josey Lema MD [address] [place] [address] [email or web address] PCP - General Family Medicine 09/11/18 02/22/20 Faith Carson NP [address] [place] [phone] PCP - General Unknown Provider Specialty 02/23/20 Juanjose Bueno MD 30 [place] [address] Historical LMR Provider 04/17/17 07/07/21 Eduar May DO [address] [place] [address] Orthopedics Sports [facility], [place] [address] Historical LMR Provider 04/17/17 07/07/21 Shanthi Pete PA-C [address] [place] [address] Orthopedics Sports [facility], [place] [address] [email or web address] Historical LMR Provider 04/17/17 07/07/21 Ariel Fulton MD [address] [place] [address] Historical LMR Provider 04/17/17 2 documented as of this encounter Additional Source Comments The information contained in this document represents components of the legal health record. It is not the complete legal health record.[facility]
--- OUTSIDE RECORDS SUMMARY | 2025-03-15 10:26 | XMS_ITS | Encounter Summary ---
Author Organization [facility] Address [address] [place] [address] [place] [address] Phone Care Team Providers Care Cosmetology Professor Name Role Phone YamilethFaith shaw Toyna FRY Primary Care Provider [phone] Encounter Details Date Type Department Care Team (Late st Contact Info) Description 08/30/2022 Transcribe Orders [facility] PFT Lab 30 [place] [address] Emilio Mendoza MD, MS [address] [address] [email or web address] Social History Tobacco Use Types Packs/Day Years [...] Allergy and Critical Care Medicine 10 [facility] [place], [place] [phone] Emilio Mendoza MD, MS [address] [address] [email or web address] documented as of this encounter Visit Diagnoses Not on filedocumented in this encounter Additional Health Concerns Infection Onset Date Last Indicated Resolved Time CoV-Exposed Comment:Recent close contact documented in the Travel/Symptom Screening Form 09/15/2024 09/15/2024 09/26/2024 1:21 AM E DT documented as of this encounter Care Teams Cosmetology Professor Relationship Specialty Start Date End Date Faith Carson NP [address] [place] [phone] PCP - General Unknown Provider Specialty 02/23/20 documented as of this encounter Additional Source Comments The information contained in this document represents components of the legal health record. It is not the complete legal health record.[facility]
--- OUTSIDE RECORDS SUMMARY | 2025-03-15 10:26 | XMS_ITS | Encounter Summary ---
Author Organization [facility] Address [address] [place] [address] [place] [address] Phone Care Team Providers Care Temperature Inspector Name Role Phone Juanjose Bueno MD Unavailable [phone] Eduar May DO Unavailable Shanthi Pete PA-C Unavailable [phone] Ariel Fulton MD Unavailable Josey Lema MD Primary Care Provider [phone] Faith Carson NP Primary Care Provider [phone] Encounter Details Date Type Department Care Team (Late st Contact Info) Description 08/12/2019 Procedure Pass [facility] Endoscopy Admitting Dept [facility] Department [address] [place] [address] Social History Tobacco Use Types Packs/Day Years [...] Pulmonary, Allergy and Critical Care Medicine 10 [facility] [place] [address] Emilio Mendoza MD, MS 10 [facility] 2nd [place] [address] [email or web address] documented as of this encounter Visit Diagnoses Not on filedocumented in this encounter Additional Health Concerns Infection Onset Date Last Indicated Resolved Time CoV-Exposed Comment:Recent close contact documented in the Travel/Symptom Screening Form 09/15/2024 09/15/2024 09/26/2024 1:21 AM E DT documented as of this encounter Care Teams Temperature Inspector Relationship Specialty Start Date End Date Josey Lema MD [address] [place] [address] [email or web address] PCP - General Family Medicine 09/11/18 02/22/20 Faith Carson NP [address] [place] [phone] PCP - General Unknown Provider Specialty 02/23/20 Juanjose Bueno MD [address] [place] [address] [email or web address] Historical LMR Provider 04/17/17 07/07/21 Eduar May DO [address] [place] [address] Orthopedics & Sports Medicine, [facility] [place] [address] Historical LMR Provider 04/17/17 07/07/21 Shanthi Pete PA-C [address] [place] [address] [facility] [place] [address] [email or web address] Historical LMR Provider 04/17/17 07/07/21 Ariel Fulton MD [address] [place] [address] Historical LMR Provider 04/17/17 2 documented as of this encounter Additional Source Comments The information contained in this document represents components of the legal health record. It is not the complete legal health record.[facility]
--- OUTSIDE RECORDS SUMMARY | 2025-03-15 10:26 | XMS_ITS | Clinical Summary ---
Author Organization [facility] Address [address] [place] [address] [place] [phone] Phone Care Team Providers Care Battalion Chief Name Role Phone Faith Carson NP Primary Care Provider [phone] Allergies Active Allergy Reactions Criticality Noted Date Comments Amoxicillin Rash Low 07/09/2016 Sulfa (Sulfonamide Antibiotics) Rash,Fever Low 05/01 Adhesive Rash Low 11/21/2017 blistering rash Medications cyclosporine (RESTASIS) 0.05 % suspension Place 2 drops into each eye every 12 (twelve) hours. Active simvastatin (ZOCOR) 40 MG tablet Take 40 mg by mouth nightly at bedtime. Active albuterol 90 mcg/actuation inhaler Inhale 2 puffs into the lungs every 6 (six) hours as needed for wheezing. Active albuterol 2.5 mg /3 mL (0.083 %) nebulizer solutionIndicati ons:Moderate persistent asthma without complication Take 3 mL (2.5 mg total) by nebulization every 6 (six) hours as needed. 360 mL 5 9 Active levothyroxine (SYNTHROID, LEVOTHROID) 112 MCG tablet Take 112 mcg by mouth every morning. Active multivitamins capsule Take 1 capsule by mouth daily. Active pantoprazole (PROTONIX) 40 MG tablet Take 40 mg by mouth daily. Active alendronate (FOSAMAX) 70 MG tablet Take 70 mg by mouth every 7 days. 1 Active celecoxib (CELEBREX) 200 MG capsule Take 200 mg by mouth 2 (two) times a day. 1 Active hydrOXYchloroQUI NE (PLAQUENIL) 200 mg tablet Take 200 mg by mouth 2 (two) times a day. 1 Active trospium (SANCTURA) 20 mg tablet Take 20 mg by mouth 2 (two) times a day. 2 Active estradioL (ESTRACE) 0.01 % (0.1 mg/gram) vaginal cream Place vaginally 2 (two) times a week. 3 Active TALTZ AUTOINJECTOR 80 mg/mL subcutaneous auto-injector Inject 80 mg under the skin once. 4 Active amLODIPine (NORVASC) 5 MG tablet Take 5 mg by mouth daily. 4 Active lisinopril (PRINIVIL,ZESTRI L) 40 MG tablet Take 40 mg by mouth daily. 4 Active triamcinolone acetonide 0.1 % cream Apply topically. 4 Active prednisoLONE acetate (PRED FORTE) 1 % ophthalmic suspension 4 Active TRELEGY ELLIPTA 100-62.5-25 mcg inhalation powderIndication s:Moderate persistent asthma without complication USE 1 INHALATION BY MOUTH ONCE DAILY AT THE SAME TIME EACH DAY 180 each 3 5 Active levothyroxine (SYNTHROID, LEVOTHROID) 100 MCG tablet Take 100 mcg by mouth every morning. 5 Active MYRBETRIQ 25 mg Tb24 Take 25 mg by mouth daily. 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 I have asked our covering SENIOR ABAP DEVELOPER to look at it who felt that look more like scar tissue. In discussing with the patient, she had a second bladder sling surgery done at [facility] about 6 months ago. She has follow-up with that surgeon next week. This is very likely postsurgical findings we will brought her results to [facility] and have her take it with her. Epigastric pain 02/16/2019 Assessment & Plan (02/17/2019 3:21 PM EDT): Discussed with Dr. Gibson, found monilial esophagitis. Very likely is a cause for her symptoms and will be treated with fluconazole. HIDA scan was ordered to rule out any associated gallbladder disease which seems less likely. Results pending. Patient is worried about going home with persistent pain. Told her that she will likely have some for several days despite treatment. Offered Carafate which might be helpful she was discussed with her daughter if she should take or not. Moderate persistent asthma 05/26/2017 Overview (01/28/2025): Dr. Mendoza (pulmonary) Assessment & Plan (01/28/2025 9:50 AM EDT): Asthma remains very well-controlled on low-dose Trelegy. Spirometry and exhaled nitric oxide measurements are normal. We discussed the consideration of switching from Trelegy to Breo given stability, but she prefers to stay on Trelegy given how well she is doing. (It also appears that Breo may not be covered by insurance.) Will plan repeat spirometry and FeNO testing in 1 year and reconvene thereafter. Orders: Pulmonary Function Test Reason for Exam: Asthma; Type of PFT Test: Spirometry with bronchodilator; Additional Testing: Exhaled Nitric Oxide Test ([facility], [place], [facility], [place] and [facility] only); Performing Location: [facility]; Future albuterol 90 mcg/actuation inhaler 2-4 puff albuterol 2.5 mg /3 mL (0.083 %) nebulizer solution 2.5 mg Assessment & Plan (12/05/2023 10:17 AM EDT): Clinically remains very well-controlled on low-dose Trelegy. Spirometry and exhaled nitric oxide measurements are normal. She was switched from Qvar a number of years ago and has since enjoyed excellent asthma control. We discussed trying to stepdown to Breo from Trelegy as a trial, but she prefers to stay on triple inhaler therapy given how well she is doing. We will plan to repeat spirometry and exhaled nitric oxide measurements in 1 year and reconvene thereafter. Assessment & Plan (11/20/2022 10:24 AM EDT): Clinically and physiologically stable on low-dose Trelegy, which we will continue. We will repeat spirometry and exhaled nitric oxide measurements in 1 year and reconvene thereafter. Assessment & Plan (08/27/2021 3:54 PM EST): Very well controlled on low-dose Trelegy, which we will continue. 3-month supply with 3 refills was sent to [facility] today. We will repeat spirometry (baseline and postbronchodilator measurements) as well as exhaled nitric oxide measurement at an annual interval next July, and reconvene thereafter. She is fully vaccinated against COVID-19 and influenza this season. Assessment & Plan (01/30/2021 9:20 AM EDT): Remains clinically very well controlled on low-dose Trelegy, which we will continue. Given underlying rheumatoid arthritis, despite the absence of previously identified RA-associated lung disease, will obtain full PFT in 6 months prior to her next visit with me since last complete PFT were performed about 4 years ago. We will continue low-dose Trelegy for now. She is fully vaccinated against influenza and COVID-19. Assessment & Plan (02/23/2020 9:37 AM EDT): Doing very well on Trelegy, which we will continue. Given the ongoing pandemic, will plan to reconvene in a year and perform spirometry and exhaled nitric oxide measurements in the office at that time if permissible. She is planning to receive influenza vaccine this fall. Assessment & Plan (08/24/2019 9:30 AM EST): Clinically, and based on her low exhaled nitric oxide measurement, her asthma seemingly is well controlled, though her spirometry still reveals some degree of fixed airflow limitation. I wonder if there is a component of COPD at play given her prior smoking history, though this is remote and minimal. She historically has derived no significant improvement in symptoms when switching to Breo. She agrees to try Trelegy for 2 weeks (sample and instructions given). If this helps with symptoms, we will send a prescription to her pharmacy; may require prior authorization. If there is no improvement in her symptoms, then I have advised that she should return on Qvar 80, 2 p bid. I will see her back in 6 months with a repeat exhaled nitric oxide measurement. She is up to date with the influenza vaccine this season. Assessment & Plan (05/25/2019 1:09 PM EST): Clinically and physiologically not perfectly controlled, but given significant reflux as likely trigger, we agreed to try to address this as a first step before enhancing her maintenance asthma therapies. We will continue high-dose Qvar for now and repeat office testing with spirometry and exhaled nitric oxide measurement in 3 months. If her asthma clinically and physiologically appears to remain suboptimally at that time, I would then consider another trial of Breo, Advair or Symbicort. She is up to date with the influenza vaccine this season. Assessment & Plan (04/06/2019 11:09 AM EDT): Spirometry performed in the office today reveals a normal FEV1/FVC ratio. We will continue current Qvar 80, 2 puffs twice daily dosage and rescue albuterol use as needed. Exhaled nitric oxide measurement is also low. Assessment & Plan (02/16/2019 8:21 PM EDT): Hx of asthma whom states she recently has had increased sob requiring the use of her inhalers and nebulizer. She also was started on a 5 day course of prednisone but has not shown improvement. -continue proair -continue albuterol neb prn Assessment & Plan (12/16/2018 1:44 PM EDT): Clinically stable on current Qvar 80 mcg regimen, which we will continue. If her asthma becomes less well controlled over the summer given heat and humidity and she is using her rescue inhaler more than 2-3 times per week, she will call us and we will consider placing her back on low-dose Breo for the summer. I will see her back in 3 months with repeat office spirometry. Assessment & Plan (09/11/2018 11:48 AM EDT): Will discontinue Breo and return to Qvar 80 mcg, 2 puffs twice daily. I will see her back in 3 months with a repeat exhaled nitric oxide measurement in the office. If stable, will consider decreasing Qvar to 1 puff twice daily. Given history of RA and somewhat marginally low oxygen saturations, will consider repeating pulmonary function studies this fall, last were performed in April 2017. Spirometry and XL nitric oxide measurements reviewed in detail today, along with her chest imaging from June. Assessment & Plan (02/17/2018 3:21 PM EDT): Her symptoms of worsening dyspnea in the hot humid weather may be related to worse asthma control. We will try to switch from ICS to ICS/LABA, i.e. STOP Qvar, START Breo 100-25 (one puff once a day, rinse mouth after use). Sample given, Rx sent to local pharmacy (if helps and tolerated, could send to mail-order after that). Spirometry performed in the office today as above, without evidence of airflow obstruction. Unable to perform FeNO. Advised flu shot this fall. Return in 6 months with spirometry and FeNO. Assessment & Plan (08/05/2017 9:23 AM EST): She has asthma, confirmed by methacholine challenge testing earlier this month, and on pulmonary function testing performed last April she was found to have normal lung volumes and a normal diffusion capacity. Her chest CT from November 2016 reveals no evidence of interstitial disease, pleural effusions, pulmonary nodules or other rheumatoid arthritis-related pulmonary involvement. Her symptoms are currently well controlled on Qvar 80 g, 2 puffs twice daily. She rinses her mouth after use. We reviewed the role of maintenance and rescue inhalers. I advised her to call our office if she finds herself using her rescue inhaler more than twice a week, as she may require a step up and therapy. The next step would probably involve a transition to an ICS/LABA combined inhaler. She is up to date with the influenza vaccine this season. Assessment & Plan (05/26/2017 1:51 PM EST): There is mild fixed airflow limitation on spirometry with no bronchodilator response, unclear if COPD from minimal prior smoking and extensive second-hand smoke exposure, chronic obstructive asthma or a combination of the 2. There is no bronchiectasis on her chest CT. We will proceed with a methacholine challenge test to try to differentiate between these and identify airway hyperreactivity (would treat with inhaled steroids), vs fixed airflow obstruction like COPD (would treat with long-acting bronchodilators). Wheezing today is heard most prominently over the anterior neck, suggesting possibly a component of laryngeal tension at play here as well. Will consider referral to ENT down the road. Will also repeat full PFT next October. For now, continue QVAR 80 (2 puffs bid), rinse mouth after use. If able, stop ~ 5-7 days prior to the methacholine testing. Also stop Loratadine. Up to date w flu shot this fall. Rheumatoid arthritis 05/26/2017 Overview (11/20/2022): Previous early childhood specialist Dr. Stoner, now Dr Jorgensen at the [facility] in [place]. On immunosuppressives, with no evidence of pulmonary manifestations. Assessment & Plan (11/20/2022 10:24 AM EDT): I advised that she discuss with her early childhood specialist whether her immunosuppressives warrant another COVID-19 booster, as it has been more than 4 months since her most recent vaccination. Assessment & Plan (01/30/2021 9:20 AM EDT): Continue current immunosuppressive regimen, defer to rheumatology regarding management. This includes prednisone 3 mg daily which she is trying to taper under their guidance. No evidence of RA-associated lung disease at this time. We will repeat full PFT in 6 months. Assessment & Plan (04/06/2019 11:09 AM EDT): Continue current immunosuppressive regimen per rheumatology. Assessment & Plan (02/16/2019 8:20 PM EDT): Pt is on shots which she has taken recently. Assessment & Plan (02/08/2019 6:51 PM EDT): Normally maintained on methotrexate leucovorin and folate. She is not due for dose until Friday. Next dose of Stelara is due at the end of January Assessment & Plan (02/17/2018 3:18 PM EDT): Continue with immunosuppressive regimen per your early childhood specialist. Chest CT and PFT evaluation performed over the past 14 months revealed no evidence of pulmonary involvement. Assessment & Plan (08/05/2017 9:23 AM EST): This appears clinically stable. I will defer further management to her early childhood specialist, Dr. Stoner. Assessment & Plan (05/26/2017 1:45 PM EST): Over the past 6 months, her TLC and DLCO have normalized, and her chest CT from November revealed no evidence of ILD. We will repeat PFT at a 6-month interval (November). Gastroesophageal reflux disease 02/22/2008 Overview (01/28/2025): PER PULMONARY CONSULT NOTE 09/11/18 Assessment & Plan (01/28/2025 9:50 AM EDT): Continue PPI. Adequate control of reflux symptoms is important in the setting of underlying obstructive lung disease. Assessment & Plan (12/05/2023 10:17 AM EDT): Continue PPI. Adequate control of reflux symptoms is important in the setting of underlying obstructive lung disease. Assessment & Plan (11/20/2022 10:23 AM EDT): Continue PPI. Adequate control of reflux symptoms is important in the setting of underlying obstructive lung disease. Assessment & Plan (08/27/2021 3:41 PM EST): Continue PPI. Adequate control of reflux symptoms is important in the setting of underlying obstructive lung disease. Assessment & Plan (01/30/2021 9:21 AM EDT): Continue PPI. Reflux symptoms currently well controlled. Adequate control of reflux symptoms is important in the setting of underlying obstructive lung disease. Assessment & Plan (02/23/2020 9:37 AM EDT): Continue PPI, defer further evaluation and management to GI. Adequate control of reflux symptoms is important in the setting of underlying obstructive lung disease. Assessment & Plan (08/24/2019 9:30 AM EST): Defer to GI. Discontinuation of methotrexate seems to have helped with reflux control. She is on a high dose H2 denton currently, off PPI. Adequate control of reflux symptoms is important in the setting of underlying obstructive lung disease. Assessment & Plan (05/25/2019 1:08 PM EST): Saw Dr Leyva this morning, uncontrolled GERD appears to be at least partly responsible for her wheezing and suboptimal asthma control. She will discuss discontinuation of methotrexate with her early childhood specialist and continue to work with Dr. Villasenor to optimally manage her reflux. Assessment & Plan (02/16/2019 8:21 PM EDT): Continue PPI Assessment & Plan (02/08/2019 6:50 PM EDT): Treated for peptic ulcer disease 5 years ago. Maintained on PPI and H2 denton. She denies active symptoms of heartburn or indigestion. While she should as a rule, avoid NSAIDs, brief trial treatment of possible costochondritis versus less likely pericarditis is warranted overnight. We will continue both Protonix and H2 denton Enthesopathy of hip region 05/15/2007 Neuralgia 10/31/2006 Resolved Problems Problem Noted Date Diagnosed Date Resolved Date Costochondritis 04/06/2019 05/25/2019 Assessment & Plan (04/06/2019 11:10 AM EDT): Her symptoms and exam today are most consistent with costochondritis. Given her history of gastroesophageal reflux and peptic ulcer disease, she is nervous about initiating NSAID. We will try a 10-day course of prednisone in a tapering dose. If her symptoms do not improve, we coulld contact her lasting machine operator bed Dr. Villasenor to discuss a course of nonsteroidal anti-inflammatory medications. She has had an otherwise extensive work-up which is reassuring. No PE was found. Her chest CT does not suggest pulmonary involvement of her rheumatoid arthritis. Spirometry performed in the office today reveals no evidence of active asthma. Sjogren's syndrome 09/06/2005 5 Encounters Date Type Department Care Team Description 01/28/2025 9:45 AM EDT Office Visit [facility] [address] [place] [address] Emilio Mendoza MD, MS Moderate persistent asthma without complication (Primary Dx); Gastroesophageal reflux disease without esophagitis 12/29/2024 Telephone [facility] [address] [place] [address] Emilio Mendoza MD, MS Follow-up 12/17/2024 7:49 AM EDT - 12/17/2024 11:59 PM EDT Hospital Encounter [facility] [address] [place] [address] Emilio Mendoza MD, MS Discharge Disposition: Home or Self Care from Last 3 Months Immunizations Immunization Administration Dates Next Due COVID-19 (Pre-04/21) Pfizer Vaccine, mRNA, PF 10/09/2020,09/15/2020 [id number] FORMULATION 05/30/2009 INFLUENZA, SPLIT VIRUS, TRIVALENT PF 05/14/2013 INFLUENZA, SPLIT VIRUS, TRIV ALENT W/ PRESERVATIVE IM 05/17/2014,04/22/2012,04/12/2010 Influenza Quadrivalent Prese rvative Free IM 03/28/2020,05/03/2019,05/05/2017,06/02 Influenza, Unspecified Formulation 04/15/2018,,04/30/2005 Pneumococcal polysaccharide PPSV23 12/15/2018 Tdap 12/15/2018 Zoster recombinant 09/24/2018,07/04/2018 Family History Medical History Relation Comments Heart disease Father Asthma Mother COPD Mother Relation Status Comments Father Mother Sister Social History Tobacco Use Types Packs/Day Years Used Date Smoking Tobacco: Former Cigarettes 0.3 1 1 980 - 1980 Smokeless Tobacco: Never Tobacco Cessation:Counseling Given: Not Answered Comments:very light for a year; significant second hand smoke exposure from both [...] Orientation Straight 07/19/2018 12 :43 PM EST Last Filed Vital Signs Vital Sign Reading Time Taken Comments Blood Pressure 124/86 01/28/2025 9:33 AM EDT Pulse 76 01/28/2025 9:33 AM EDT Temperature 36.1 C (97 F) 01/28/2025 9:33 AM EDT Respiratory Rate 17 09/23/2024 3:00 PM EDT Oxygen Saturation 96% 01/28/2025 9:33 AM EDT Inhaled Oxygen Concentration - - Weight 81.7 kg (180 lb 3.2 oz) 01/28/2025 9:33 A M EDT Height 157.5 cm (5' 2 ) 09/15/2024 11:51 AM EDT Body Mass Index 32.96 09/15/2024 11:51 AM EDT Plan of Treatment Upcoming Encounters Date Type Department Care Team (Late st Contact Info) Description 02/21/2026 9:45 AM EDT Office Visit [facility] [address] [place] [address] [place] [address] Emilio Mendoza MD, MS [address] [address] Health Maintenance Due Date Last Done Comments LIPID PANEL 1958 TSH LEVEL 1958 DEPRESSION SCREENING 1970 HEPATITIS C SCREENING 1976 MAMMOGRAM 1998 COLOGUARD 2003 FIT TEST 2003 FOBT 2003 SIGMOIDOSCOPY 2003 VIRTUAL COLONOSCOPY 2003 POTASSIUM LEVEL 02/18/2020 02/17/2019, 01/29, 02/09/2019, Additional history exists CREATININE LEVEL 03/23/2020 03/23/2019, , 02/16/2019, Additional history exists SCREENING FOR DIABETES 02/17/2022 02/17/2019 OSTEOPOROSIS SCREENING INITIAL (ONE-TIME) 2023 INFLUENZA VACCINE (#1) 2025 , 05/14/2023, 04/06/2022, Additional history exists COVID-19 VACCINE ( season) 2025 03/30/2024, 01/20/2024, 01/20/2024, Additional history exists BLOOD PRESSURE 07/31/2025 01/28/2025 Adult Td,Tdap Booster 12/15/2028 12/15/2018 COLONOSCOPY 09/23/2034 09/23/2024, 08/12/2019 COLORECTAL CANCER SCREENING 09/23/2034 ZOSTER VACCINES Completed 09/24/2018, 07/04/2018 PNEUMOCOCCAL VACCINES (50+ years) Completed 07/24/2023, 02/06/2022, 12/15/2018 RSV VACCINE Completed 07/24/2023 SMOKING STATUS SCREENING (Once After 26 Yrs) Completed 01/28/2025 HEPATITIS A VACCINES Aged Out No long er eligible based on patient's age to complete this topic HIB VACCINES Aged Out No longer eligi ble based on patient's age to complete this topic MENINGOCOCCAL VACCINES (ACWY) Aged Out No longer eligible based on patient's age to complete this topic MENINGOCOCCAL VACCINES (B) Aged Out N o longer eligible based on patient's age to complete this topic Medical Devices Implanted Type Area Housekeeper Cleaning Cooking Device Identifier Shelf Expiration Date Model / Serial / Lot Cage,Rods In Spine Procedures Procedure Name Priority Date/Time Associated Diagnosis Comments PULMONARY FUNCTION TEST Routine 12/17/2024 8:44 AM EDT Moderate persistent asthma without complication ENDOSCOPY, COLON 09/23/2024 2:00 PM EDT CREATININE/EGFR Routine 03/23/2019 8:29 AM EDT Moderate persistent asthma without complication BASIC METABOLIC PANEL Routine 02/17/2019 5:23 AM EDT from Last 3 Months or Most Recently Relevant to Health Maintenance Results * Pulmonary Function Test Reason for Exam: Asthma; Type of PFT Test: Spirometry with bronchodilator; Additional Testing: Exhaled Nitric Oxide Test ([facility], [facility], [facility], [facility] and [facility] only); Performing Location: [facility] (12/17/2024 8:44 AM EDT) FEV1 1.72 liters FVC 2.45 liters FEV1/FVC 70 % TLC DLCO Anatomical Region Laterality Modality Other Impressions 12/17/2024 8:44 AM EDT PULMONARY FUNCTION STUDIES Spirometry measurements were performed on this 64 y.o. year-old female for evaluation of asthma. Review of the medical record reveals that the patient is a past smoker. Prior pulmonary function studies from 12/02/2023 are available for comparison. SPIROMETRY: The FEV1 is normal at 1.72 L or 80% predicted. The FVC is normal at 2.45 L or 90% predicted. The FEV1/FVC ratio is normal at 70%. After the administration of a bronchodilator agent, there is no technically significant change. FLOW-VOLUME LOOPS: Evaluation of the flow-volume loops reveals normal morphology of both the inspiratory and expiratory limbs with no significant difference when comparing the tracings performed pre- and post-bronchodilator. EXHALED NITRIC OXIDE MEASUREMENT: FeNO is 9 ppb. COMPARISON TO PRIOR STUDIES: When comparing to prior studies, there has been no significant change. Resting oxygen saturation is 97% on room air. IMPRESSION: Normal spirometry and exhaled nitric oxide measurements. Technical Note: As of 05/11/2024, the [facility] Pulmonary Function Testing (PFT) Laboratory transitioned from using race-specific to using race-neutral equations for determining lung function predicted values for all persons. Due to this change some individuals previously classified as either normal or abnormal may now change from one to the other category without a true change in lung function. Such changes, as well as changes in severity classification, should be considered broadly and in their clinical context. Absolute values of lung function are unaffected. For further questions please contact the interpreting physician or PFT laboratory apparatus glass blower. For further discussion of this issue please see Carlos et al [facility] 2022;[phone]. Please Note: Not all PFT labs within, or outside of, our system will be transitioning to new reference equations at the same time. For this reason, please pay close attention to absolute values when comparing results done at different testing locations within or outside of our system. us Emilio Mendoza MD, MS PFT ORDERABLES Final Re sult * ENDOSCOPY, COLON (09/23/2024 2:00 PM EDT) Narrative Transcriptions Stephanie Villasenor MD - 09/23/2024 2:00 PM EDT [facility] Patient Name: Nikki Kumar Attending MD:: STEPHANIE VILLASENOR MD, Procedure Date: 09/23/2024 2:00 PM Date of : 1960 Age: 64 Admit Type: Outpatient Gender: Female Room: [place] [address] Referring MD: SOHAM TERRELL Exam Type: Colonoscopy Indications: Screening in patient at increased risk: Colorectal cancer in brother 60 or older, Last colonoscopy: July 2019 Medications: Propofol per Anesthesia Procedure: Informed consent was obtained from the patientafter discussion of the indications, limitations, alternatives, benefits, and risks of the procedure. Risks specifically discussed include but are not limited to medication reactions, missed lesions, bleeding, perforation, or the need for emergent surgery. Throughout the procedure, the patient's blood pressure, pulse, end-tidal CO2, and oxygensaturations were monitored continuously. The Olympus adult variable colonoscope CF-XI875T #2 was introduced through the anus and advanced to the terminal ileum, with identification of theappendiceal orifice and IC valve. The terminal ileum, the appendiceal orifice and the rectum werephotographed. The colonoscopy was performed without difficulty.The patient tolerated the procedure well. The qualityof the bowel preparation was good. The bowelpreparation used was GoLYTELY via split dose instruction. Complications: No immediate complications. Estimated blood loss:None. Findings: The perianal and digital rectal examinations were normal. Pertinent negatives include no palpablerectal lesions. Internal hemorrhoids were found duringretroflexion. The hemorrhoids were small. Many small-mouthed diverticula were found in the sigmoid colon and ascending colon. A small polyp was found in the proximal ascending colon. The polyp was sessile. The polyp was removed with a cold snare. Resection and retrieval were complete. The terminal ileum appeared normal. Retroflexion in the right colon was performed. Impression: - Internal hemorrhoids. - Diverticulosis in the sigmoid colon and in the ascending colon. - One small polyp in the proximal ascending colon, removed with a cold snare. Resected andretrieved. - The examined portion of the ileum was normal. Recommendation: - High fiber diet. - Repeat colonoscopy in 5 years for screeningpurposes and for surveillance. STEPHANIE VILLASENOR MD 09/23/2024 2:36:33 PM This report has been signed electronically. Number of Addenda: 0 Note Initiated On: 09/23/2024 2:00 PM Procedure Code(s): --- Professional --- 87675, Colonoscopy, flexible; with removal of tumor(s), polyp(s), or other lesion(s) by snare technique --- Technical --- 88702, Colonoscopy, flexible; with removal of tumor(s), polyp(s), or other lesion(s) by snare technique Diagnosis Code(s): --- Professional --- Z80.0, Family history of malignant neoplasm of digestive organs K64.8, Other hemorrhoids D12.2, Benign neoplasm of ascending colon K57.30, Diverticulosis of large intestine without perforation or abscess without bleeding --- Technical --- Z80.0, Family history of malignant neoplasm of digestive organs K64.8, Other hemorrhoids D12.2, Benign neoplasm of ascending colon K57.30, Diverticulosis of large intestine without perforation or abscess without bleeding CPT copyright 2021 [employer]. All rights reserved. The codes documented in this report are preliminary and upon oil heater installer reviewmay be revised to meet current compliance requirements. Procedure Date: 09/23/2024 2:00:[address] [place] [address] us Faith Carson NP GI PROCEDURE ORDERABLES Final Result * Creatinine/eGFR (03/23/2019 8:29 AM EDT) CREATININE 0.70 0.5 - 1.5 mg/dL [facility] EGFR 94 >59 mL/min/1.7 2 [facility] Comment:If patient is black, multiply result by 1.159. Estimated glomerular filtration rate calculated using the CKD-EPI equation. Blood 03/23/2019 8:29 AM EDT 03/23/2019 8:33 AM EDT us Stephanie Villasenor MD LAB BLOOD ORDERABLES Final Result Performing Organization Address [facility]/ZIP Co de Phone Number [address] [address] * Basic metabolic panel (02/17/2019 5:23 AM EDT) SODIUM 142 133 - 146 mmol/L [facility] CHLORIDE 107 96 - 108 mmol/L [facility] POTASSIUM 4.8 3.3 - 5.1 mmol/L [facility] CO2 26 21 - 35 mmol/L [facility] BUN 14 6 - 19 mg/dL [facility] CREATININE 0.70 0.5 - 1.5 mg/dL [facility] GLUCOSE 93 70 - 99 mg/dL [facility] CALCIUM 9.4 8.4 - 10.3 mg/dL [facility] EGFR 94 >59 mL/min/1.7 3m2 [facility] Comment:If patient is black, multiply result by 1.159. Estimated glomerular filtration rate calculated using the CKD-EPI equation. ANION GAP 14 10 - 20 mmol/L [facility] Blood 02/17/2019 5:23 AM EDT 02/17/2019 5:51 AM EDT us Brandon Strauss PA-C LAB BLOOD ORDERABLES Final Re sult Performing Organization Address City/[facility]/ZIP Co de Phone Number [address] [address] from Last 3 Months or Most Recently Relevant to Health Maintenance Insurance MEDICARE PART A & B [employer] [place] [employer] POS PPO REPLACEMENT MEDICARE PART A & [employer] [place] MED[place] POS PPO REPLACEMENT MEDICARE PART A & [place] [employer] [place] MED[place] POS PPO REPLACEMENT MEDICARE PART A & [place] [employer] [place] MED[place] POS PPO REPLACEMENT MEDICARE PART A & [place] [employer] [place] MED[place] POS PPO REPLACEMENT MEDICARE PART A & B Advance Directives For more information, please contact: [phone] (9AM - 5PM [facility], Friday-Friday) * Full Code (Confirmed) (Latest Code Status on File) Date Activated Date Inactivated Comments 02/16/2019 8:00 PM 02/18/2019 2:57 PM Question Answer Comments Code Status Confirmed With: Patient * Full Code (Confirmed) Date Activated Date Inactivated Comments 02/08/2019 6:52 PM 02/09/2019 12:51 PM Question Answer Comments Code Status Confirmed With: Patient Care Teams Battalion Chief Relationship Specialty Start Date End Date Faith Carson NP [address] [place] [phone] PCP - General Unknown Provider Specialty 02/23/20 Additional Source Comments The information contained in this document represents components of the legal health record. It is not the complete legal health record.[facility]
--- OUTSIDE RECORDS SUMMARY | 2025-03-15 10:26 | XMS_ITS | Encounter Summary ---
Author Organization [facility] Address [address] [place] [address] [place] [address] Phone Care Team Providers Care Shank Maker Name Role Phone YamilethFaith shaw Tonya FRY Primary Care Provider [phone] Encounter Details Date Type Department Care Team (Late Contact Info) Description 08/06/2021 Transcribe Orders [facility] PFT Lab 30 [place] [address] Emilio Mendoza MD, MS [address] [address] [email or web address] Social History Tobacco Use Types Packs/Day Years [...] and Critical Care Medicine 10 [facility] [place], [place] [phone] Emilio Mendoza MD, MS [address] [address] [email or web address] documented as of this encounter Visit Diagnoses Not on filedocumented in this encounter Additional Health Concerns Infection Onset Date Last Indicated Resolved Time CoV-Exposed Comment:Recent close contact documented in the Travel/Symptom Screening Form 09/15/2024 09/15/2024 09/26/2024 1:21 AM E DT documented as of this encounter Care Teams Shank Maker Relationship Specialty Start Date End Date Faith Carson NP [address] [place] [phone] PCP - General Unknown Provider Specialty 02/23/20 documented as of this encounter Additional Source Comments The information contained in this document represents components of the legal health record. It is not the complete legal health record.[facility]
--- OUTSIDE RECORDS SUMMARY | 2025-03-15 10:26 | XMS_ITS | Encounter Summary ---
Author Organization [facility] Address [address] [place] [address] [place] [address] Phone Care Team Providers Care Workers' Compensation Claims Supervisor Name Role Phone Juanjose Bueno MD Unavailable Eduar May DO Unavailable Shanthi Pete PA-C Unavailable [phone] Ariel Fulton MD Unavailable [phone] Josey Lema MD Primary Care Provider [phone] Faith Carson NP Primary Care Provider Encounter Details Date Type Department Care Team (Latest Contact Info) Description 03/26/2019 Transcribe Orders Virtual Department 30 [place] [address] Wally Villasenor MD [address] [place] [address] [phone] [email or web address] Chest pain, unspecified type (Primary Dx) Social [...] [place] Pulmonary, Allergy and Critical Care Medicine [address] [place] [address] Emilio Mendoza MD, MS 10 [facility] 2nd [place] [address] documented as of this encounter Results * [...] documented as of this encounter Care Teams Workers' Compensation Claims Supervisor Relationship Specialty Start Date End Date Josey Lema MD [address] [place] [address] [email or web address] PCP - General Family Medicine 09/11/18 02/22/20 Faith Carson NP [address] [place] [phone] PCP - General Unknown Provider Specialty 02/23/20 Juanjose Bueno MD [address] [place] [address] Historical LMR Provider 04/17/17 07/07/21 Eduar May DO [address] [place] [address] Orthopedics & Sports [facility], [facility] [place] [address] Historical LMR Provider 04/17/17 07/07/21 Shanthi Pete PA-C [address] [place] [address] Orthopedics Sports [facility], [place] [address] Historical LMR Provider 04/17/17 07/07/21 Ariel Fulton MD [address] [place] [address] Historical LMR Provider 04/17/17 2 documented as of this encounter Additional Source Comments The information contained in this document represents components of the legal health record. It is not the complete legal health record.[facility]
== END 2025-03-15 09:06 | disposition home or self-care (01) ==
LOC: HO.RHES 08:39
PROVIDERS: PCP Nurse Practitioner; Visit Provider Internal Medicine Rheumatology
DX: L40.50 Arthropathic psoriasis, unspecified (principal); Z79.899 Other long term (current) drug therapy; E21.3 Hyperparathyroidism, unspecified; R74.01 Elevation of levels of liver transaminase levels; M70.22 Olecranon bursitis, left elbow
CPT/HCPCS: 99214; G2211

== ENCOUNTER 2025-04-28 14:15 | Outpatient (REF) | payer MEDICARE, SELFPAY ==
--- NOTE | ~2025-04-28 | US_ITS ---
EXAMINATION: US KIDNEY BILATERAL HISTORY: E21.3 - Hyperparathyroidism, unspecified TECHNIQUE: Real-time grayscale ultrasound imaging of the kidneys was performed and images were reviewed. COMPARISON: There are no prior studies available for comparison. FINDINGS: Right kidney: The right kidney measures 11.1 x 4.2 x 5.0 cm. Renal parenchymal echotexture and thickness are normal. There are no masses. A linear cortical calcification may be vascular in nature. No definite calculi are identified. There is fullness of the renal pelvis. There is no hydronephrosis. Left Kidney: The left kidney measures 10.3 x 5.4 x 4.3 cm. Renal parenchymal echotexture and thickness are normal. There are no masses. A linear cortical calcification may be vascular in nature. No definite calculi are identified. There is fullness of the renal pelvis. There is no hydronephrosis. US/US renal BI IMPRESSION: No definite renal calculi are identified. There is fullness of the bilateral renal pelves without hydronephrosis. Electronically signed by: Ariel Reis MD 04/28/2025 02:52 PM EDT
--- OUTSIDE RECORDS SUMMARY | 2025-04-28 17:17 | XMS_ITS | Encounter Summary ---
Author Organization [facility] Address [address] [place] [address] [place] [address] Phone Care Team Providers Care Spinning Frame Changer Name Role Phone YamilethFaith shaw Tonya FRY Primary Care Provider [phone] Encounter Details Date Type Department Care Team (Late st Contact Info) Description 08/30/2022 Transcribe Orders [facility] PFT Lab 30 [place] [address] Emilio Mendoza MD, MS [address] [address] Social History Tobacco Use Types Packs/Day Years [...] Pulmonary, Allergy and Critical Care Medicine 10 [facility] [place], [place] [phone] Emilio Mendoza MD, MS [address] [address] [email or web address] documented as of this encounter Visit Diagnoses Not on filedocumented in this encounter Additional Health Concerns Infection Onset Date Last Indicated Resolved Time CoV-Exposed Comment:Recent close contact documented in the Travel/Symptom Screening Form 09/15/2024 09/15/2024 09/26/2024 1:21 AM E DT documented as of this encounter Care Teams Spinning Frame Changer Relationship Specialty Start Date End Date Faith Carson NP [address] [place] [phone] PCP - General Unknown Provider Specialty 02/23/20 documented as of this encounter Additional Source Comments The information contained in this document represents components of the legal health record. It is not the complete legal health record.[facility]
--- OUTSIDE RECORDS SUMMARY | 2025-04-28 17:17 | XMS_ITS | Encounter Summary ---
Author Organization [facility] Address [address] [place] [address] [place] [address] Phone Care Team Providers Care Pet Sitter Name Role Phone Ariel Fulton MD Primary Care Provider [phone] Juanjose Bueno MD Unavailable Eduar May DO Unavailable Shanthi Pete-C Unavailable Ariel Fulton MD Unavailable Josey Lema MD Primary Care Provider [phone] Faith Carson NP Primary Care Provider [phone] Encounter Details Date Type Department Care Team (Latest Contact Info) Description 04/21/2017 Transcribe Orders [facility] PFT Lab [address] [place] [address] [phone] Juanjose Bueno MD 30 [place], [place] [phone] [email or web address] Obstructive pattern present on pulmonary [...] Description 02/21/2026 9:45 AM EDT Office Visit [facility] Pulmonary, Allergy and Critical Care Medicine [address] [place] [address] Emilio Mendoza MD, MS 10 [facility] 2nd [place] [address] [email or web address] documented as of this encounter Results * [...] documented as of this encounter Care Teams Pet Sitter Relationship Specialty Start Date End Date Ariel Fulton MD [address] [place] [address] PCP - General 04/17/17 09/10/18 Josey Lema MD [address] [place] [address] [email or web address] PCP - General Family Medicine 09/11/18 02/22/20 Faith Carson NP [address] [place] [phone] PCP - General Unknown Provider Specialty 02/23/20 Juanjose Bueno MD [address] [place] [address] Historical LMR Provider 04/17/17 07/07/21 Eduar May DO [address] [place] [address] Orthopedics & Sports Medicine, [place] [address] Historical LMR Provider 04/17/17 07/07/21 Shanthi Pete PA-C [address] [place] [address] [facility] [place] [address] [email or web address] Historical LMR Provider 04/17/17 07/07/21 Ariel Fulton MD [address] [place] [address] Historical LMR Provider 04/17/17 2 documented as of this encounter Additional Source Comments The information contained in this document represents components of the legal health record. It is not the complete legal health record.[facility]
--- OUTSIDE RECORDS SUMMARY | 2025-04-28 17:17 | XMS_ITS | Encounter Summary ---
Author Organization [facility] Address [address] [place] [address] [place] [address] Phone Care Team Providers Care Services Rep Name Role Phone Juanjose Bueno MD Unavailable Eduar May DO Unavailable Shanthi Pete PA-C Unavailable [phone] Ariel Fulton MD Unavailable Josey Lema MD Primary Care Provider [phone] Faith Carson NP Primary Care Provider [phone] Encounter Details Date Type Department Care Team (Latest Contact Info) Description 03/26/2019 Transcribe Orders Virtual Department 30 [place] [address] Wally Villasenor MD [address] [place] [address] [phone] [email or web address] Chest pain, unspecified type (Primary Dx) Social [...] Description 02/21/2026 9:45 AM EDT Office Visit [facility] Pulmonary, Allergy and Critical Care Medicine [address] [place] [address] Emilio Mendoza MD, MS 10 [facility] 2nd [place] [address] documented as of this encounter Results * [...] documented as of this encounter Care Teams Services Rep Relationship Specialty Start Date End Date Josey Lema MD [address] [place] [address] [email or web address] PCP - General Family Medicine 09/11/18 02/22/20 Faith Carson NP [address] [place] [phone] PCP - General Unknown Provider Specialty 02/23/20 Juanjose Bueno MD [address] [place] [address] Historical LMR Provider 04/17/17 07/07/21 Eduar May DO [address] [place] [address] Orthopedics & Sports [facility], [facility] [place] [address] Historical LMR Provider 04/17/17 07/07/21 Shanthi Pete PA-C [address] [place] [address] Orthopedics Sports [facility], [place] [address] Historical LMR Provider 04/17/17 07/07/21 Ariel Fulton MD [address] [place] [address] Historical LMR Provider 04/17/17 2 documented as of this encounter Additional Source Comments The information contained in this document represents components of the legal health record. It is not the complete legal health record.[facility]
--- OUTSIDE RECORDS SUMMARY | 2025-04-28 17:17 | XMS_ITS | Encounter Summary ---
Author Organization [facility] Address [address] [place] [address] [place] [address] Phone Care Team Providers Care Home Worker Name Role Phone Juanjose Bueno MD Unavailable Eduar May DO Unavailable Shanthi Pete PA-C Unavailable [phone] Ariel Fulton MD Unavailable Josey Lema MD Primary Care Provider [phone] Faith Carson NP Primary Care Provider [phone] Encounter Details Date Type Department Care Team (Late st Contact Info) Description 02/17/2019 Procedure Pass [facility] Endoscopy Admitting Dept [facility] Department [address] [place] [address] Social History Tobacco Use Types Packs/Day Years [...] Pulmonary, Allergy and Critical Care Medicine 10 [facility] [place] [address] Emilio Mendoza MD, MS 10 [facility] 2nd [place] [address] [email or web address] documented as of this encounter Visit Diagnoses Not on filedocumented in this encounter Additional Health Concerns Infection Onset Date Last Indicated Resolved Time CoV-Exposed Comment:Recent close contact documented in the Travel/Symptom Screening Form 09/15/2024 09/15/2024 09/26/2024 1:21 AM E DT documented as of this encounter Care Teams Home Worker Relationship Specialty Start Date End Date Josey Lema MD [address] [place] [address] [email or web address] PCP - General Family Medicine 09/11/18 02/22/20 Faith Carson NP [address] [place] [phone] PCP - General Unknown Provider Specialty 02/23/20 Juanjose Bueno MD [address] [place] [address] [email or web address] Historical LMR Provider 04/17/17 07/07/21 Eduar May DO [address] [place] [address] Orthopedics & Sports Medicine, [facility] [place] [address] Historical LMR Provider 04/17/17 07/07/21 Shanthi Pete PA-C [address] [place] [address] [facility] [place] [address] [email or web address] Historical LMR Provider 04/17/17 07/07/21 Ariel Fulton MD [address] [place] [address] Historical LMR Provider 04/17/17 2 documented as of this encounter Additional Source Comments The information contained in this document represents components of the legal health record. It is not the complete legal health record.[facility]
--- OUTSIDE RECORDS SUMMARY | 2025-04-28 17:17 | XMS_ITS | Encounter Summary ---
Author Organization [facility] Address [address] [place] [address] [place] [address] Phone Care Team Providers Care Abalone Sheller Name Role Phone Juanjose Bueno MD Unavailable Eduar May DO Unavailable [phone] Shanthi Pete PA-C Unavailable [phone] Ariel Fulton MD Unavailable [phone] Josey Lema MD Primary Care Provider [phone] Faith Carson NP Primary Care Provider [phone] Reason for Referral * Outpatient Procedure - Closed Specialty Diagnoses / Procedures Referred By Contharshal t Referred To Contact Radiology Diagnoses GERD without esophagitis Procedures NM Gastric Emptying Wally Villasneor MD Phone: tel: fax: [email or web address] Referral ID Status Reason Start Date Expiration Date Visits Re quested Visits Authorized [id number] Closed 10/30/2018 10/30/2019 1 1 Encounter Details Date Type Department Care Team (Latest Contact Info) Description 10/30/2018 Transcribe Orders Virtual Department 30 [place] [address] Wally Villasenor MD [address] [place] [address] [phone] [email or web address] GERD without esophagitis (Primary Dx) Social History [...] Description 02/21/2026 9:45 AM EDT Office Visit [facility] Pulmonary, Allergy and Critical Care Medicine [address] [place] [address] Emilio Mendoza MD, MS [address] [place] [address] [email or web address] documented as of this encounter Results * [...] documented as of this encounter Care Teams Abalone Sheller Relationship Specialty Start Date End Date Jsoey Lema MD [address] [place] [address] [email or web address] PCP - General Family Medicine 09/11/18 02/22/20 Faith Carson NP [address] [place] [phone] PCP - General Unknown Provider Specialty 02/23/20 Juanjose Bueno MD 30 [place] [address] Historical LMR Provider 04/17/17 07/07/21 Eduar May DO [address] [place] [address] Orthopedics Sports [facility], [place] [address] Historical LMR Provider 04/17/17 07/07/21 Shanthi Pete PA-C [address] [place] [address] Orthopedics Sports [facility], [place] [address] [email or web address] Historical LMR Provider 04/17/17 07/07/21 Ariel Fulton MD [address] [place] [address] Historical LMR Provider 04/17/17 2 documented as of this encounter Additional Source Comments The information contained in this document represents components of the legal health record. It is not the complete legal health record.[facility]
--- OUTSIDE RECORDS SUMMARY | 2025-04-28 17:17 | XMS_ITS | Encounter Summary ---
Author Organization [facility] Address [address] [place] [address] [place] [address] Phone Care Team Providers Care Veneer Supervisor Name Role Phone Juanjose Bueno MD Unavailable Eduar May DO Unavailable Shanthi Pete PA-C Unavailable Ariel Fulton MD Unavailable [phone] Josey Lema MD Primary Care Provider [phone] Faith Carson NP Primary Care Provider [phone] Encounter Details Date Type Department Care Team (Late st Contact Info) Description 08/12/2019 Procedure Pass [facility] Endoscopy Admitting Dept [facility] Department [address] [place] [address] Social History Tobacco Use Types Packs/Day Years [...] Pulmonary, Allergy and Critical Care Medicine 10 [facility] [place] [address] Emilio Mendoza MD, MS 10 [facility] 2nd [place] [address] [email or web address] documented as of this encounter Visit Diagnoses Not on filedocumented in this encounter Additional Health Concerns Infection Onset Date Last Indicated Resolved Time CoV-Exposed Comment:Recent close contact documented in the Travel/Symptom Screening Form 09/15/2024 09/15/2024 09/26/2024 1:21 AM E DT documented as of this encounter Care Teams Veneer Supervisor Relationship Specialty Start Date End Date Josey Lema MD [address] [place] [address] [email or web address] PCP - General Family Medicine 09/11/18 02/22/20 Faith Carson NP [address] [place] [phone] PCP - General Unknown Provider Specialty 02/23/20 Juanjose Bueno MD [address] [place] [address] [email or web address] Historical LMR Provider 04/17/17 07/07/21 Eduar May DO [address] [place] [address] Orthopedics & Sports Medicine, [facility] [place] [address] Historical LMR Provider 04/17/17 07/07/21 Shanthi Pete PA-C [address] [place] [address] [facility] [place] [address] [email or web address] Historical LMR Provider 04/17/17 07/07/21 Ariel Fulton MD [address] [place] [address] Historical LMR Provider 04/17/17 2 documented as of this encounter Additional Source Comments The information contained in this document represents components of the legal health record. It is not the complete legal health record.[facility]
--- OUTSIDE RECORDS SUMMARY | 2025-04-28 17:17 | XMS_ITS | Encounter Summary ---
Author Organization [facility] Address [address] [place] [address] [place] [address] Phone Care Team Providers Care Healthcare Receptionist Name Role Phone Ariel Fulton MD Primary Care Provider [phone] Juanjose Bueno MD Unavailable [phone] Eduar May DO Unavailable Shanthi Peet PA-C Unavailable [phone] Ariel Fulton MD Unavailable [phone] Josey Lema MD Primary Care Provider [phone] Faith Carson NP Primary Care Provider [phone] Encounter Details Date Type Department Care Team (Late st Contact Info) Description 07/30/2017 Transcribe Orders [facility] PFT Lab [address] [place] [address] Emilio Mendoza MD, MS [address] [address] [email or web address] Social History Tobacco Use Types Packs/Day Years [...] Critical Care Medicine [address] [place] [address] Emilio Mendoza MD, MS 10 [facility] 2nd [place] [address] [email or web address] documented as of this encounter Visit Diagnoses Not on filedocumented in this encounter Additional Health Concerns Infection Onset Date Last Indicated Resolved Time CoV-Exposed Comment:Recent close contact documented in the Travel/Symptom Screening Form 09/15/2024 09/15/2024 09/26/2024 1:21 AM E DT documented as of this encounter Care Teams Healthcare Receptionist Relationship Specialty Start Date End Date Ariel Fulton MD [address] [place] [address] PCP - General 04/17/17 09/10/18 Josey Lema MD [address] [place] [address] [email or web address] PCP - General Family Medicine 09/11/18 02/22/20 Faith Carson NP [address] [place] [phone] PCP - General Unknown Provider Specialty 02/23/20 Juanjose Bueno MD [address] [place] [address] Historical LMR Provider 04/17/17 07/07/21 Eduar May DO 4 [facility], [place] [address] [email or web address] Historical LMR Provider 04/17/17 07/07/21 Shanthi Pete PA-C 4 [facility], [place] [address] [email or web address] Historical LMR Provider 04/17/17 07/07/21 Ariel Fulton MD [address] [place] [address] Historical LMR Provider 04/17/17 2 documented as of this encounter Additional Source Comments The information contained in this document represents components of the legal health record. It is not the complete legal health record.[facility]
--- OUTSIDE RECORDS SUMMARY | 2025-04-28 17:17 | XMS_ITS | Clinical Summary ---
Author Organization [facility] Address [address] [place] [address] [place] [address] Phone Care Team Providers Care Clinical Trials Systems Administrator Name Role Phone Faith Carson NP Primary Care Provider [phone] Allergies Active Allergy Reactions Criticality Noted Date [...] the pelvis. I have asked our covering BAND HEAD SAW OPERATOR to look at it who felt that look more like scar tissue. In discussing with the patient, she had a second bladder sling surgery done at [facility] about 6 months ago. She has follow-up [...] bronchodilator; Additional Testing: Exhaled Nitric Oxide Test ([facility], [facility], [facility], [facility] and [facility] only); Performing Location: [facility]; Future albuterol 90 mcg/actuation inhaler 2-4 puff [...] supply with 3 refills was sent to [facility] today. We will repeat spirometry (baseline and [...] fall. Rheumatoid arthritis 05/26/2017 Overview (11/20/2022): Previous secretarial teacher Dr. Stoner, now Dr Jorgensen at [facility] in [place]. On immunosuppressives, with no evidence of pulmonary manifestations. Assessment & Plan (11/20/2022 10:24 AM EDT): I advised that she discuss with her secretarial teacher whether her immunosuppressives warrant another COVID-19 booster, [...] EDT): Continue with immunosuppressive regimen per your secretarial teacher. Chest CT and PFT evaluation performed over the past 14 months revealed no evidence of pulmonary involvement. Assessment & Plan (08/05/2017 9:23 AM EST): This appears clinically stable. I will defer further management to her secretarial teacher, Dr. Stoner. Assessment & Plan (05/26/2017 1:45 [...] will discuss discontinuation of methotrexate with her secretarial teacher and continue to work with Dr. Villasenor [...] do not improve, we coulld contact her admin asst Dr. Villasenor to discuss a course of [...] Pulmonary, Allergy and Critical Care Medicine 10 [place] [address] Emilio Mendoza MD, MS Moderate persistent asthma without complication (Primary Dx); Gastroesophageal reflux disease without esophagitis from Last 3 Months Immunizations Immunization Administration Dates Next Due COVID-19 (Pre-04/21) Pfizer Vaccine, mRNA, PF 10/09/2020,09/15/2020 [id number] FORMULATION 05/30/2009 INFLUENZA, SPLIT VIRUS, TRIVALENT PF [...] Allergy and Critical Care Medicine [address] [place] [address] Emilio Mendoza MD, MS [address] [address] [email or web address] Due Date Last Done Comments [...] 05/14/2023, 04/06/2022, Additional history exists COVID-19 VACCINE (2024- season) 2025 03/30/2024, 01/20/2024, 01/20/2024, Additional history [...] this topic Medical Devices Implanted Type Area Brush Hand Device Identifier Shelf Expiration Date Model / Serial / Lot Cage,Rods In Spine Procedures Procedure Name Priority Date/Time Associated Diagnosis Comments ENDOSCOPY, COLON 09/23/2024 2:00 PM EDT CREATININE/EGFR Routine 03/23/2019 8:29 AM EDT Moderate persistent asthma without complication BASIC METABOLIC PANEL Routine 02/17/2019 5:23 AM EDT from Last 3 Months or Most Recently Relevant to Health Maintenance Results * ENDOSCOPY, COLON (09/23/2024 2:00 PM EDT) Narrative Transcriptions Stephanie Villasenor MD - 09/23/2024 2:00 PM EDT [facility] Patient Name: Nikki Kumar Attending MD:: STEPHANIE VILLASENOR MD, Procedure Date: 09/23/2024 2:00 PM Date of : 1960 Age: 64 Admit Type: Outpatient Gender: Female Room: [place] [address] Referring MD: SOHAM TERRELL Exam Type: Colonoscopy [...] monitored continuously. The Olympus adult variable colonoscope [id number] #2 was introduced through the anus and [...] 2:00 PM Procedure Code(s): --- Professional --- 30057, Colonoscopy, flexible; with removal of tumor(s), polyp(s), or other lesion(s) by snare technique --- Technical --- 27107, Colonoscopy, flexible; with removal of tumor(s), polyp(s), [...] or abscess without bleeding CPT copyright 2021 [employer]. All rights reserved. The codes documented in this report are preliminary and upon union organizer reviewmay be revised to meet current compliance requirements. Procedure Date: 09/23/2024 2:00:[address] [place] [address] us Faith Carson [employer] PROGRAMMER GI PROCEDURE ORDERABLES Final Result * Creatinine/eGFR (03/23/2019 8:29 AM EDT) CREATININE 0.70 0.5 - 1.5 mg/dL [facility] EGFR 94 >59 mL/min/1.7 2 [facility] Comment:If patient is black, multiply result by 1.159. Estimated glomerular filtration rate calculated using the CKD-EPI equation. Blood 03/23/2019 8:29 AM EDT 03/23/2019 8:33 AM EDT us Stephanie Villasenor MD LAB BLOOD ORDERABLES Final Result [address] [address] * Basic metabolic panel (02/17/2019 5:23 AM EDT) SODIUM 142 133 - 146 mmol/L [facility] CHLORIDE 107 96 - 108 mmol/L [facility] POTASSIUM 4.8 3.3 - 5.1 mmol/L [facility] CO2 26 21 - 35 mmol/L [facility] BUN 14 6 - 19 mg/dL [facility] CREATININE 0.70 0.5 - 1.5 mg/dL [facility] GLUCOSE 93 70 - 99 mg/dL [facility] CALCIUM 9.4 8.4 - 10.3 mg/dL [facility] EGFR 94 >59 mL/min/1.7 3m2 [facility] Comment:If patient is black, multiply result by 1.159. Estimated glomerular filtration rate calculated using the CKD-EPI equation. ANION GAP 14 10 - 20 mmol/L [facility] Blood 02/17/2019 5:23 AM EDT 02/17/2019 5:51 AM EDT us Brandon Strauss PA-C LAB BLOOD ORDERABLES Final Re sult [facility] [address] [place] [address] from Last 3 Months or Most Recently Relevant to Health Maintenance Insurance [employer] POS PPO REPLACEMENT [...] Advance Directives For more information, please contact: [phone] (9AM - 5PM [facility], Friday-Friday) * Full Code (Confirmed) (Latest Code Status on File) Date Activated Date Inactivated Comments 02/16/2019 8:00 PM 02/18/2019 2:57 PM Question Answer Comments Code Status Confirmed With: Patient * Full Code (Confirmed) Date Activated Date Inactivated Comments 02/08/2019 6:52 PM 02/09/2019 12:51 PM Question Answer Comments Code Status Confirmed With: Patient Care Teams Clinical Trials Systems Administrator Relationship Specialty Start Date End Date Faith Carson NP [address] [place] [phone] PCP - General Unknown Provider Specialty 02/23/20 Additional Source Comments The information contained in this document represents components of the legal health record. It is not the complete legal health record.[facility]
--- OUTSIDE RECORDS SUMMARY | 2025-04-28 17:17 | XMS_ITS | Encounter Summary ---
Author Organization [facility] Address [address] [place] [address] [address] [place] [address] Phone Care Team Providers Care House Nurse Name Role Phone Angella Carsona Tonya FRY Primary Care Provider [phone] Encounter Details Date Type Department Care Team (Late st Contact Info) Description 09/23/2024 Procedure Pass [facility] Endoscopy Admitting Dept Virtual Department [address] [place] [address] Social History Tobacco Use Types Packs/Day Years [...] Description 02/21/2026 9:45 AM EDT Office Visit [facility] Pulmonary, Allergy and Critical Care Medicine 10 [place] [address] Emilio Mendoza MD, MS [address] [address] documented as of this encounter Visit Diagnoses Not on filedocumented in this encounter Additional Health Concerns Infection Onset Date Last Indicated Resolved Time CoV-Exposed Comment:Recent close contact documented in the Travel/Symptom Screening Form 09/15/2024 09/15/2024 09/26/2024 1:21 AM E DT documented as of this encounter Care Teams House Nurse Relationship Specialty Start Date End Date Faith Carson NP [address] [place] [phone] PCP - General Unknown Provider Specialty 02/23/20 documented as of this encounter Additional Source Comments The information contained in this document represents components of the legal health record. It is not the complete legal health record.[facility]
--- OUTSIDE RECORDS SUMMARY | 2025-04-28 17:17 | XMS_ITS | Encounter Summary ---
Author Organization [facility] Address [address] [place] [address] [place] [address] Phone Care Team Providers Care Grocery Cashier Name Role Phone YamilethFaith shaw Tonya FRY Primary Care Provider [phone] Encounter Details Date Type Department Care Team (Late Contact Info) Description 08/06/2021 Transcribe Orders [facility] PFT Lab [address] [place] [address] Emilio Mendoza MD, MS [address] [address] [email or web address] Social History Tobacco Use Types Packs/Day Years [...] Pulmonary, Allergy and Critical Care Medicine 10 [facility] [place], [place] [id number] Emilio Mendoza MD, MS [address] [address] [email or web address] documented as of this encounter Visit Diagnoses Not on filedocumented in this encounter Additional Health Concerns Infection Onset Date Last Indicated Resolved Time CoV-Exposed Comment:Recent close contact documented in the Travel/Symptom Screening Form 09/15/2024 09/15/2024 09/26/2024 1:21 AM E DT documented as of this encounter Care Teams Grocery Cashier Relationship Specialty Start Date End Date Faith Carson NP [address] [place] [phone] PCP - General Unknown Provider Specialty 02/23/20 documented as of this encounter Additional Source Comments The information contained in this document represents components of the legal health record. It is not the complete legal health record.[facility]
== END 2025-04-28 14:16 | disposition home or self-care (01) ==
LOC: HO.US 14:15
PROVIDERS: PCP Nurse Practitioner; Visit Provider Student in an Organized Health Care Education/Training Program
DX: E21.3 Hyperparathyroidism, unspecified (principal)
CPT/HCPCS: 76775

== ENCOUNTER → 2025-04-28 14:17 | Outpatient (BNV) | payer MEDICARE, SELFPAY | PROVIDERS: PCP Nurse Practitioner; Visit Provider Radiology Diagnostic Radiology | DX: E21.3 Hyperparathyroidism, unspecified (principal) | CPT/HCPCS: 76775 ==

== ENCOUNTER 2025-05-18 15:49 | Outpatient (AMB) | payer MEDICARE, SELFPAY ==
[2025-05-18 15:51] VITALS: BP 172/98; PULSE 70; O2SAT 96; BMI 34.1
--- NOTE | 2025-05-18 15:51 | A.OFFVIS_ITS ---
Vital Signs 3 05/18/25 15:51 Height 5 ft 2 in Weight 186 lb 8.177 oz BMI 34.1 BP 172/98 H Blood Pressure Location Lt brachial Position Sitting Pulse 70 Pulse Source Pulse Oximeter Pulse Oximetry (%) 96 Oxygen Delivery Method Room Air Intake Visit Reasons: Hyperparathyroidism Intake Note: NEW Patient presents today to establish care for Hyperthyroidism. Communication Studies Professor Required: No Accompanied by: Self / Same As Patient Allergies adalimumab (From Humira) Allergy (Mild, Verified 05/18/25 15:55) rashes amoxicillin Allergy (Mild, Verified 05/18/25 15:55) Rash Sulfa (Sulfonamide Antibiotics) Allergy (Mild, Verified 05/18/25 15:55) rashes HPI Comments Details: 64-year-old female coming in today for follow up of elevated PTH level. Labs from 11/16/2024 show calcium of 9.4, vitamin-D 99.2, PTH intact 152.2, EGFR greater than 60. Labs from July 2024 show a calcium of 9.6 with albumin of 4.4, corrected calcium would be 9.2. Normal magnesium. PTH was checked by rheum, she follows with them for RA and psoriatic arthritis both. Bone density : at [facility] , 2021 or 2022, has one scheduled for March or April 2025, per patient last was normal Fosamax 70 mg weekly for 10 years ?? Prescribed by PCP Faith Carson NP. so either diagnosed with osteoporosis many years ago or osteopenia with high FRAX? patient doesnt know. 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 no fractures Reports bone density scheduled for May 032024 at [facility] Records from [facility] showed last bone density from 2008 which was normal Labs done at [facility] 01/14/2025 showed creatinine of 0.9, EGFR 71, ionized calcium normal at 5.3, PTH elevated at 112 pg/mL, calcium 9.6, albumin 4.5, corrected calcium would be 9.1, magnesium 2.3, phosphorus 3.2, bone specific alkaline phosphatase 11.3, CTX 160, vitamin-D 50 Interval history Labs ordered on previous visit showed Ur Calcium 24 Hr: 58, Calcium/Creat 24 Hr (30-275 mg/g creat): 61 She is still aiotju05 mg weekly Does not take calcium supplement Drinks milk once daily, cheese 2x/wk, yogurt 3 tbs daily. No leafy green vegetable No falls or fractures No family history of hypercalcemia She take vitamin D included in her multivitamins, unclear dose Physical exam General: sitting comfortably in no acute distress HEENT: normocephalic/atraumatic, Neck: supple Cardiac: normal heart sounds Pulm: normal breath sounds B/L, no added breath sounds Abd: not distended, no tenderness Extremities: no edema, no signs of myxedema Laboratory Tests 03/08/25 07:30 Ur 24 Hour Volume 2075 Ur Creatinine mg/dL 44.26 Ur Creatinine 24 Hour 0.9 L Ur Calcium 24 Hr 58 Calcium/Creat 24 Hr 61 Laboratory Tests 08/19/24 11/16/24 13:10 13:30 Creatinine 0.80 Estimated GFR > 60 Calcium 9.6 9.4 Magnesium 2.1 Albumin 4.4 25-OH Vitamin D Total 99.2 PTH Intact 152.2 H Imaging: Renal US 04/28/25 FINDINGS: Right kidney: The right kidney measures 11.1 x 4.2 x 5.0 cm. Renal parenchymal echotexture and thickness are normal. There are no masses. A linear cortical calcification may be vascular in nature. No definite calculi are identified. There is fullness of the renal pelvis. There is no hydronephrosis. Left Kidney: The left kidney measures 10.3 x 5.4 x 4.3 cm. Renal parenchymal echotexture and thickness are normal. There are no masses. A linear cortical calcification may be vascular in nature. No definite calculi are identified. There is fullness of the renal pelvis. There is no hydronephrosis. IMPRESSION: No definite renal calculi are identified. There is fullness of the bilateral renal pelves without hydronephrosis. PFSH Family History Mother Bladder cancer Asthma Arthritis Father Stroke Heart problem Social History Alcohol intake: current Alcohol intake frequency: does not drink Patient Tobacco Use Status: Never used Tobacco Physical Exam Vital Signs: Last Vital Signs Pulse 70 05/18/25 15:51 BP 172/98 H 05/18/25 15:51 Pulse Ox 96 05/18/25 15:51 Oxygen Delivery Method Room Air 05/18/25 15:51 BMI result Body Mass Index 34.1 Assessment & Plan Assessment & Plan (1) Hyperparathyroidism: Comment: Seeing Endo. Possibly related to alendronate. US renal ordered. Code(s): E21.3 - Hyperparathyroidism, unspecified Category: Medical Plan: 64-year-old female coming in today for follow up of elevated PTH level. PTH was checked by Rheumatology. She had labs done in October 2024 which showed calcium of 9.4, vitamin-D 99.2, intact PTH 152.2, EGFR greater than 60. Labs prior to that in July 2024 showed calcium of 9.6 with albumin of 4.4, corrected calcium would be 9.2. Normal magnesium. She apparently has a history of osteoporosis or osteopenia with high FRAX as she has been on Fosamax 70 mg weekly since 2020. This is prescribed by PCP. Per her records last bone density was done in 2008? This was normal. Unclear whether she had any bone density in the middle. She is scheduled to get another bone density scan in follow up this year in April 2025. She has a history of lumbar surgery for DJD in her 40s, so they do include her forearm. I told her this is important especially when evaluating hyperparathyroidism. She has no history of kidney stones. Age is greater than 50. Her calcium levels are not elevated. Labs done at [facility] 01/14/2025 showed creatinine of 0.9, EGFR 71, ionized calcium normal at 5.3, PTH elevated at 112 pg/mL, calcium 9.6, albumin 4.5, corrected calcium would be 9.1, magnesium 2.3, phosphorus 3.2, bone specific alkaline phosphatase 11.3, CTX 160, vitamin-D 50 she could have some elevation in PTH attributed to being on Fosamax. Antiresorptives cause PTH elevation. Otherwise she has normal kidney function, vitamin-D is good so not related to those. 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 I think that she would benefit from increase calcium intake. A less likely but not impossible cause of her hyperpararhyroidism could be normocalcemic hyperparathyroidism which is possible but rare. I think the results from the DXA scan could help us as forearm osteoporosis is usually expected in PHPT. Plan: -continue Fosamax 70 mg weekly -continue current vitamin-D -Advise to increase calcium in the diet, but will prescribe Calcium Citrate 500mg BID -Obtain records from [facility] for DXA done April 2025 -Will repeat 24 hour urine calcium creatinine levels, PTH, BMP -follow up in 8 weeks to discuss results Plan I spent 30 minutes in reviewing the record, seeing the patient and documenting in the medical record. Orders: Orders 2 Comprehensive Met. Panel Today E21.3 - Hyperparathyroidism, unspecified Creatinine, 24 Hr Group Today E21.3 - Hyperparathyroidism, unspecified Calcium, 24 Hr Ur Today E21.3 - Hyperparathyroidism, unspecified Vitamin D 25-OH Total Today E21.3 - Hyperparathyroidism, unspecified Medications: New 2 calcium citrate 500 mg (2 x 250 mg calcium) PO BID 60 tabs 3RF Patient Instructions: What is Secondary Hyperparathyroidism? Your body has four small glands in your neck called parathyroid glands. These glands help control the level of calcium in your blood. When your calcium level drops too low, your parathyroid glands release more parathyroid hormone (PTH) to bring the calcium back up. How Does Low Calcium Intake Cause This? If you don?t get enough calcium from your diet over time, your blood calcium level can become too low. In response, your parathyroid glands work harder and release extra PTH. This is called ?secondary hyperparathyroidism? because the glands are reacting to another problem?in this case, not enough calcium in your diet. What Does Extra Parathyroid Hormone Do? PTH tries to raise your blood calcium by: Taking calcium from your bones Helping your kidneys hold on to more calcium Increasing the amount of calcium absorbed from your food Why is This a Problem? If this goes on for a long time, your bones can become weak because calcium is being taken from them. You might also develop other problems related to high PTH levels. What Can Be Done? The main treatment is to make sure you get enough calcium in your diet, and sometimes vitamin D, which helps your body absorb calcium. This can help bring your calcium and PTH levels back to normal and protect your bones. 24-Hour Urine Calcium Collection Instructions Purpose: This test measures the amount of calcium excreted in your urine over a 24-hour period. It helps evaluate calcium metabolism and diagnose certain conditions. Supplies Needed: 24-hour urine collection container (provided by the lab or clinic) Urine hat or collection device (optional, for easier collection) Written instructions (this sheet) Instructions: Start the Collection: Choose a day when you can be at home or have easy access to a bathroom. Upon waking up on the first day, urinate and discard this first morning urine. Do not collect this sample. Note the exact time?this is your start time. Collect All Urine: For the next 24 hours, collect all urine you pass into the provided container. Each time you urinate, collect it in a clean container and transfer it to the 24-hour collection jug. Store the collection container in a cool place, preferably in a refrigerator or on ice, during the collection period. Finish the Collection: Exactly 24 hours after your start time, urinate one last time and add this urine to the container. This completes the collection. After Collection: Ensure the lid is tightly closed. Label the container with your name, date, and start/end times. Return the container to the laboratory or your physician?s office as soon as possible after completion. Important Tips: Do not miss any urine during the 24-hour period. If you do, the test may need to be repeated. Do not allow toilet paper, stool, or other materials to get into the urine sample. Continue your usual diet unless instructed otherwise. Some tests may require you to avoid certain foods or medications?follow any additional instructions provided by your physician. Coding Level of Care Code Est Pt Level 4 (44375) Diagnoses Hyperparathyroidism E21.3
--- OUTSIDE RECORDS SUMMARY | 2025-05-19 04:26 | XMS_ITS | Encounter Summary ---
Author Organization [facility] Address [address] [place] [address] [place] [address] Phone Care Team Providers Care Wire Frame Lamp Shade Maker Name Role Phone Juanjose Bueno MD Unavailable Eduar May DO Unavailable [phone] Shanthi Pete PA-C Unavailable [phone] Ariel Fulton MD Unavailable Josey Lema MD Primary Care Provider [phone] Faith Carson NP Primary Care Provider [phone] Reason for Referral * Outpatient Procedure - Closed Specialty Diagnoses / Procedures Referred By Contharshal t Referred To Contact Radiology Diagnoses GERD without esophagitis Procedures NM Gastric Emptying Wally Villasenor MD Phone: tel: fax: [email or web address] Referral ID Status Reason Start Date Expiration Date Visits Re quested Visits Authorized [id number] Closed 10/30/2018 10/30/2019 1 1 Encounter Details Date Type Department Care Team (Latest Contact Info) Description 10/30/2018 Transcribe Orders [facility] Department [address] [place] [address] Wally Villasenor MD [address] [place] [address] [id number] [email or web address] GERD without esophagitis (Primary Dx) Social History [...] Description 02/21/2026 9:45 AM EDT Office Visit [facility] Pulmonary, Allergy and Critical Care Medicine [address] [place] [address] Emilio Mendoza MD, MS [address] [place] [phone] [email or web address] documented as of this encounter Results * [...] documented as of this encounter Care Teams Wire Frame Lamp Shade Maker Relationship Specialty Start Date End Date Josey Lema MD [address] [place] [id number] [email or web address] PCP - General Family Medicine 09/11/18 02/22/20 Faith Carson NP [address] [place] [phone] PCP - General Unknown Provider Specialty 02/23/20 Juanjose Bueno MD [address] [place] [address] Historical LMR Provider 04/17/17 07/07/21 Eduar May DO [address] [place] [address] [facility], [place] [address] Historical LMR Provider 04/17/17 07/07/21 Shanthi Pete PA-C [address] [place] [address] [facility], [place] [address] [email or web address] Historical LMR Provider 04/17/17 07/07/21 Ariel Fulton MD [address] [place] [phone] Historical LMR Provider 04/17/17 2 documented as of this encounter Additional Source Comments The information contained in this document represents components of the legal health record. It is not the complete legal health record.[facility]
--- OUTSIDE RECORDS SUMMARY | 2025-05-19 04:26 | XMS_ITS | Encounter Summary ---
Author Organization [facility] Address [address] [place] [address] [place] [address] Phone Care Team Providers Care Business Technology Analyst Name Role Phone Ariel Fulton MD Primary Care Provider [phone] Juanjose Bueno MD Unavailable Eduar May DO Unavailable [phone] Shanthi Pete PA-C Unavailable [phone] Ariel Fulton MD Unavailable Josey Lema MD Primary Care Provider Faith Carson NP Primary Care Provider [phone] Encounter Details Date Type Department Care Team (Late st Contact Info) Description 07/30/2017 Transcribe Orders [facility] PFT Lab [address] [place] [address] Emilio Mendoza MD, MS [address] [address] [email or web address] Social History Tobacco Use [...] Critical Care Medicine [address] [place] [address] Emilio Mendoza MD, MS 10 [facility] 2nd [place] [address] [email or web address] documented as of this encounter Visit Diagnoses Not on filedocumented in this encounter Additional Health Concerns Infection Onset Date Last Indicated Resolved Time CoV-Exposed Comment:Recent close contact documented in the Travel/Symptom Screening Form 09/15/2024 09/15/2024 09/26/2024 1:21 AM E DT documented as of this encounter Care Teams Business Technology Analyst Relationship Specialty Start Date End Date Ariel Fulton MD [address] [place] [address] PCP - General 04/17/17 09/10/18 Josey Lema MD [address] [place] [phone] [email or web address] PCP - General Family Medicine 09/11/18 02/22/20 Faith Carson NP [address] [place] [phone] PCP - General Unknown Provider Specialty 02/23/20 Juanjose Bueno MD [address] [place] [address] Historical LMR Provider 04/17/17 07/07/21 Eduar May DO 4 [facility] Orthopedics & Sports [facility], [place] [address] [email or web address] Historical LMR Provider 04/17/17 07/07/21 Shanthi Pete PA-C 4 [facility] Orthopedics & Sports [facility] [place] [address] [email or web address] Historical LMR Provider 04/17/17 07/07/21 Ariel Fulton MD [address] [place] [address] Historical LMR Provider 04/17/17 2 documented as of this encounter Additional Source Comments The information contained in this document represents components of the legal health record. It is not the complete legal health record.[facility]
--- OUTSIDE RECORDS SUMMARY | 2025-05-19 04:26 | XMS_ITS | Encounter Summary ---
Author Organization [facility] Address [address] [place] [address] [place] [address] Phone Care Team Providers Care Transaction Processor Name Role Phone DurangoFaith shaw Tonya FRY Primary Care Provider [phone] Encounter Details Date Type Department Care Team (Late Contact Info) Description 08/06/2021 Transcribe Orders [facility] PFT Lab [address] [place] [address] Emilio Mendoza MD, MS [address] [address] Social History Tobacco Use Types Packs/Day Years [...] Pulmonary, Allergy and Critical Care Medicine 10 [facility] [place], [place] [id number] Emilio Mendoza MD, MS [address] [address] [email or web address] documented as of this encounter Visit Diagnoses Not on filedocumented in this encounter Additional Health Concerns Infection Onset Date Last Indicated Resolved Time CoV-Exposed Comment:Recent close contact documented in the Travel/Symptom Screening Form 09/15/2024 09/15/2024 09/26/2024 1:21 AM E DT documented as of this encounter Care Teams Transaction Processor Relationship Specialty Start Date End Date Faith Carson NP [address] [place] [phone] PCP - General Unknown Provider Specialty 02/23/20 documented as of this encounter Additional Source Comments The information contained in this document represents components of the legal health record. It is not the complete legal health record.[facility]
--- OUTSIDE RECORDS SUMMARY | 2025-05-19 04:26 | XMS_ITS | Encounter Summary ---
Author Organization [facility] Address [address] [place] [address] [place] [address] Phone Care Team Providers Care Labor Representative Name Role Phone Juanjose Bueno MD Unavailable Eduar May DO Unavailable Shanthi Pete PA-C Unavailable [phone] Ariel Fulton MD Unavailable [phone] Josey Lema MD Primary Care Provider [phone] Faith Carson NP Primary Care Provider [phone] Encounter Details Date Type Department Care Team (Late st Contact Info) Description 02/17/2019 Procedure Pass [facility] Endoscopy Admitting Dept [facility] Department [address] [place] [address] Social History Tobacco Use Types Packs/Day Years [...] Pulmonary, Allergy and Critical Care Medicine 10 [facility] [place] [address] Emilio Mendoza MD, MS 10 [facility] 2nd [place] [address] [email or web address] documented as of this encounter Visit Diagnoses Not on filedocumented in this encounter Additional Health Concerns Infection Onset Date Last Indicated Resolved Time CoV-Exposed Comment:Recent close contact documented in the Travel/Symptom Screening Form 09/15/2024 09/15/2024 09/26/2024 1:21 AM E DT documented as of this encounter Care Teams Labor Representative Relationship Specialty Start Date End Date Josey Lema MD [address] [place] [address] [email or web address] PCP - General Family Medicine 09/11/18 02/22/20 Faith Carson NP [address] [place] [phone] PCP - General Unknown Provider Specialty 02/23/20 Juanjose Bueno MD [address] [place] [address] [email or web address] Historical LMR Provider 04/17/17 07/07/21 Eduar May DO [address] [place] [address] Orthopedics & Sports Medicine, [facility] [place] [address] Historical LMR Provider 04/17/17 07/07/21 Shanthi Pete PA-C [address] [place] [address] [facility] [place] [address] [email or web address] Historical LMR Provider 04/17/17 07/07/21 Ariel Fulton MD [address] [place] [address] Historical LMR Provider 04/17/17 2 documented as of this encounter Additional Source Comments The information contained in this document represents components of the legal health record. It is not the complete legal health record.[facility]
--- OUTSIDE RECORDS SUMMARY | 2025-05-19 04:26 | XMS_ITS | Encounter Summary ---
Author Organization [facility] Address [address] [place] [address] [place] [address] Phone Care Team Providers Care Head Well Puller Name Role Phone RaleighFaith shaw Tonya FRY Primary Care Provider Encounter Details Date Type Department Care Team (Late st Contact Info) Description 08/30/2022 Transcribe Orders [facility] PFT Lab [address] [place] [address] Emilio Mendoza MD, MS [address] [address] Social History Tobacco Use Types Packs/Day Years [...] Pulmonary, Allergy and Critical Care Medicine 10 [facility] [place], [place] [id number] Emilio Mendoza MD, MS [address] [address] [email or web address] documented as of this encounter Visit Diagnoses Not on filedocumented in this encounter Additional Health Concerns Infection Onset Date Last Indicated Resolved Time CoV-Exposed Comment:Recent close contact documented in the Travel/Symptom Screening Form 09/15/2024 09/15/2024 09/26/2024 1:21 AM E DT documented as of this encounter Care Teams Head Well Puller Relationship Specialty Start Date End Date Faith Carson NP [address] [place] [phone] PCP - General Unknown Provider Specialty 02/23/20 documented as of this encounter Additional Source Comments The information contained in this document represents components of the legal health record. It is not the complete legal health record.[facility]
--- OUTSIDE RECORDS SUMMARY | 2025-05-19 04:26 | XMS_ITS | Encounter Summary ---
Author Organization [facility] Address [address] [place] [address] [address] [place] [address] Phone Care Team Providers Care Supervisor Roving Name Role Phone Angella Carsona Tonya FRY Primary Care Provider [phone] Encounter Details Date Type Department Care Team (Late st Contact Info) Description 09/23/2024 Procedure Pass [facility] Endoscopy Admitting Dept Virtual Department 30 [place] [address] Social History Tobacco Use Types Packs/Day Years [...] Pulmonary, Allergy and Critical Care Medicine 10 [place] [address] Emilio Mendoza MD, MS [address] [address] documented as of this encounter Visit Diagnoses Not on filedocumented in this encounter Additional Health Concerns Infection Onset Date Last Indicated Resolved Time CoV-Exposed Comment:Recent close contact documented in the Travel/Symptom Screening Form 09/15/2024 09/15/2024 09/26/2024 1:21 AM E DT documented as of this encounter Care Teams Supervisor Roving Relationship Specialty Start Date End Date Faith Carson NP [address] [place] [phone] PCP - General Unknown Provider Specialty 02/23/20 documented as of this encounter Additional Source Comments The information contained in this document represents components of the legal health record. It is not the complete legal health record.[facility]
--- OUTSIDE RECORDS SUMMARY | 2025-05-19 04:26 | XMS_ITS | Encounter Summary ---
Author Organization [facility] Address [address] [place] [address] [place] [address] Phone Care Team Providers Care Die Cast Engineer Name Role Phone Juanjose Bueno MD Unavailable Eduar May DO Unavailable Shanthi Pete PA-C Unavailable Ariel Fulton MD Unavailable Josey Lema MD Primary Care Provider [phone] Faith Carson NP Primary Care Provider [phone] Encounter Details Date Type Department Care Team (Latest Contact Info) Description 03/26/2019 Transcribe Orders Virtual Department 30 [place] [address] Wally Villasenor MD [address] [place] [address] [phone] [email or web address] Chest pain, unspecified type (Primary Dx) Social [...] Description 02/21/2026 9:45 AM EDT Office Visit [facility] Pulmonary, Allergy and Critical Care Medicine [address] [place] [address] Emilio Mendoza MD, MS 10 [facility] 2nd [place] [address] documented as of this encounter Results * [...] documented as of this encounter Care Teams Die Cast Engineer Relationship Specialty Start Date End Date Josey Lema MD [address] [place] [phone] [email or web address] PCP - General Family Medicine 09/11/18 02/22/20 Faith Carson NP [address] [place] [phone] PCP - General Unknown Provider Specialty 02/23/20 Juanjose Bueno MD [address] [place] [address] Historical LMR Provider 04/17/17 07/07/21 Eduar May DO [address] [place] [address] [facility], [facility] [place] [address] Historical LMR Provider 04/17/17 07/07/21 Shanthi Pete PA-C [address] [place] [address] [facility], [place] [address] Historical LMR Provider 04/17/17 07/07/21 Ariel Fulton MD [address] [place] [address] Historical LMR Provider 04/17/17 2 documented as of this encounter Additional Source Comments The information contained in this document represents components of the legal health record. It is not the complete legal health record.[facility]
--- OUTSIDE RECORDS SUMMARY | 2025-05-19 04:26 | XMS_ITS | Clinical Summary ---
Author Organization [facility] Address [address] [place] [address] [place] [address] Phone Care Team Providers Care Molasses Preparer Name Role Phone Faith Carson NP Primary Care Provider [phone] Allergies Active Allergy Reactions Criticality Noted Date [...] the pelvis. I have asked our covering MILL TENDER WARM UP to look at it who felt that look more like scar tissue. In discussing with the patient, she had a second bladder sling surgery done at [facility] about 6 months ago. She has follow-up [...] bronchodilator; Additional Testing: Exhaled Nitric Oxide Test ([facility], [facility], [facility], [facility] and [facility] only); Performing Location: [facility]; Future albuterol 90 mcg/actuation inhaler [...] supply with 3 refills was sent to [facility] today. We will repeat spirometry (baseline and [...] fall. Rheumatoid arthritis 05/26/2017 Overview (11/20/2022): Previous ceramic sprayer Dr. Stoner, now Dr Jorgensen at [facility] in [place]. On immunosuppressives, with no evidence of pulmonary manifestations. Assessment & Plan (11/20/2022 10:24 AM EDT): I advised that she discuss with her ceramic sprayer whether her immunosuppressives warrant another COVID-19 booster, [...] EDT): Continue with immunosuppressive regimen per your ceramic sprayer. Chest CT and PFT evaluation performed over the past 14 months revealed no evidence of pulmonary involvement. Assessment & Plan (08/05/2017 9:23 AM EST): This appears clinically stable. I will defer further management to her ceramic sprayer, Dr. Stoner. Assessment & Plan (05/26/2017 1:45 [...] will discuss discontinuation of methotrexate with her ceramic sprayer and continue to work with Dr. Villasenor [...] do not improve, we coulld contact her milliner helper Dr. Villasenor to discuss a course of nonsteroidal anti-inflammatory medications. She has had an otherwise extensive work-up which is reassuring. No PE was found. Her chest CT does not suggest pulmonary involvement of her rheumatoid arthritis. Spirometry performed in the office today reveals no evidence of active asthma. Sjogren's syndrome 09/06/2005 5 Immunizations Immunization Administration Dates Next Due COVID-19 (Pre-04/21) Pfizer Vaccine, mRNA, PF 10/09/2020,09/15/2020 [id number] FORMULATION 05/30/2009 INFLUENZA, SPLIT VIRUS, TRIVALENT PF [...] 1 980 - 1981 Smokeless Tobacco: Never Tobacco Cessation:Counseling Given: Not [...] and Critical Care Medicine 10 [facility] [place] [address] Emilio Mendoza MD, MS 10 [facility] 2nd [place] [address] [email or web address] Health Maintenance Due Date Last Done Comments [...] 01/28/2025 Adult Td,Tdap Booster 12/15/2028 12/15/2018 COLONOSCOPY 09/24/2029 09/23/2024, 08/12/2019 COLORECTAL CANCER SCREENING 09/24/2029 ZOSTER VACCINES Completed 09/24/2018, 07/04/2018 PNEUMOCOCCAL VACCINES [...] this topic Medical Devices Implanted Type Area Building Construction Foreman Device Identifier Shelf Expiration Date Model / Serial / Lot Cage,Rods In Spine Procedures Procedure Name Priority Date/Time Associated Diagnosis Comments ENDOSCOPY, COLON 09/23/2024 2:00 PM EDT CREATININE WITH ESTIMATED GLOMERULAR FILTRATION RATE (EGFR) Routine 03/23/2019 8:29 AM EDT Moderate persistent asthma without complication BASIC METABOLIC PANEL (BMP) Routine 02/17/2019 5:23 AM EDT from Last 3 Months or Most Recently Relevant to Health Maintenance Results * ENDOSCOPY, COLON (09/23/2024 2:00 PM EDT) Narrative Transcriptions Stephanie Villasenor MD - 09/23/2024 2:00 PM EDT [facility] Patient Name: Nikki Kumar Attending MD:: STEPHANIE VILLASENOR MD, Procedure Date: 09/23/2024 2:00 PM Date of : 1960 Age: 64 Admit Type: Outpatient Gender: Female Room: [place] [address] Referring MD: SOHAM TERRELL Exam Type: Colonoscopy [...] monitored continuously. The Olympus adult variable colonoscope [id number] #2 was introduced through the anus and [...] 2:00 PM Procedure Code(s): --- Professional --- 06829, Colonoscopy, flexible; with removal of tumor(s), polyp(s), or other lesion(s) by snare technique --- Technical --- 89853, Colonoscopy, flexible; with removal of tumor(s), polyp(s), [...] or abscess without bleeding CPT copyright 2021 [employer]. All rights reserved. The codes documented in this report are preliminary and upon airport screener reviewmay be revised to meet current compliance requirements. Procedure Date: 09/23/2024 2:00:21 PM [address] [place] [address] us Faith Carson METAL WEATHER STRIPPER GI PROCEDURE ORDERABLES Final Result * Creatinine/eGFR (03/23/2019 8:29 AM EDT) CREATININE 0.70 0.5 - 1.5 mg/dL [facility] EGFR 94 >59 mL/min/1.[address] [place] [address] Comment:If patient is black, multiply result by 1.159. Estimated glomerular filtration rate calculated using the CKD-EPI equation. Blood 03/23/2019 8:29 AM EDT 03/23/2019 8:33 AM EDT Stephanie Villasenor MD LAB BLOOD BKR ORDERABLES F inal Result [facility] [address] [place] [address] * Basic metabolic panel (02/17/2019 5:23 AM EDT) SODIUM 142 133 - 146 mmol/L [facility] CHLORIDE 107 96 - 108 mmol/L [facility] POTASSIUM 4.8 3.3 - 5.1 mmol/L [facility] CO2 26 21 - 35 mmol/L [facility] BUN 14 6 - 19 mg/dL [facility] CREATININE 0.70 0.5 - 1.5 mg/dL [facility] GLUCOSE 93 70 - 99 mg/dL [facility] CALCIUM 9.4 8.4 - 10.3 mg/dL [facility] EGFR 94 >59 mL/min/1.[address] [place] [address] Comment:If patient is black, multiply result by 1.159. Estimated glomerular filtration rate calculated using the CKD-EPI equation. ANION GAP 14 10 - 20 mmol/L [facility] Blood 02/17/2019 5:23 AM EDT 02/17/2019 5:51 AM EDT us Brandon Strauss PA-C LAB BLOOD BKR ORDERABLES Indira geovanny Result [facility] [address] [place] [address] from Last 3 Months or Most Recently Relevant to Health Maintenance Insurance [employer] POS PPO REPLAC[place] [id number] [employer] POS PPO REPLACEMENT [...] Advance Directives For more information, please contact: [phone] (9AM - 5PM [place], Friday-Friday) * Full Code (Confirmed) (Latest Code Status on File) Date Activated Date Inactivated Comments 02/16/2019 8:00 PM 02/18/2019 2:57 PM Question Answer Comments Code Status Confirmed With: Patient * Full Code (Confirmed) Date Activated Date Inactivated Comments 02/08/2019 6:52 PM 02/09/2019 12:51 PM Question Answer Comments Code Status Confirmed With: Patient Care Teams Molasses Preparer Relationship Specialty Start Date End Date Faith Carson NP [address] [place] [phone] PCP - General Unknown Provider Specialty 02/23/20 Additional Source Comments The information contained in this document represents components of the legal health record. It is not the complete legal health record.[facility]
--- OUTSIDE RECORDS SUMMARY | 2025-05-19 04:26 | XMS_ITS | Encounter Summary ---
Author Organization [facility] Address [address] [place] [address] [place] [address] Phone Care Team Providers Care Professor Of Radiology Name Role Phone Juanjose Bueno MD Unavailable Eduar May DO Unavailable Shanthi Pete PA-C Unavailable Ariel Fulton MD Unavailable Josey Lema MD Primary Care Provider [phone] Faith Carson NP Primary Care Provider [phone] Encounter Details Date Type Department Care Team (Late st Contact Info) Description 08/12/2019 Procedure Pass [facility] Endoscopy Admitting Dept [facility] Department [address] [place] [address] Social History Tobacco Use Types Packs/Day Years [...] Pulmonary, Allergy and Critical Care Medicine 10 [facility] [place] [address] Emilio Mendoza MD, MS 10 [facility] 2nd [place] [address] [email or web address] documented as of this encounter Visit Diagnoses Not on filedocumented in this encounter Additional Health Concerns Infection Onset Date Last Indicated Resolved Time CoV-Exposed Comment:Recent close contact documented in the Travel/Symptom Screening Form 09/15/2024 09/15/2024 09/26/2024 1:21 AM E DT documented as of this encounter Care Teams Professor Of Radiology Relationship Specialty Start Date End Date Josey Lema MD [address] [place] [phone] [email or web address] PCP - General Family Medicine 09/11/18 02/22/20 Faith Carson NP [address] [place] [phone] PCP - General Unknown Provider Specialty 02/23/20 Juanjose Bueno MD [address] [place] [phone] [email or web address] Historical LMR Provider 04/17/17 07/07/21 Eduar May DO [address] [place] [address] Orthopedics & Sports Medicine, [place] [address] Historical LMR Provider 04/17/17 07/07/21 Shanthi Pete PA-C [address] [place] [address] [facility] [place] [address] [email or web address] Historical LMR Provider 04/17/17 07/07/21 Ariel Fulton MD [address] [place] [address] Historical LMR Provider 04/17/17 2 documented as of this encounter Additional Source Comments The information contained in this document represents components of the legal health record. It is not the complete legal health record.[facility]
--- OUTSIDE RECORDS SUMMARY | 2025-05-19 04:26 | XMS_ITS | Encounter Summary ---
Author Organization [facility] Address [address] [place] [address] [place] [address] Phone Care Team Providers Care Flight Technician Name Role Phone Ariel Fulton MD Primary Care Provider [phone] Juanjose Bueno MD Unavailable Eduar May DO Unavailable [phone] Shanthi Pete-C Unavailable [phone] Ariel Fulton MD Unavailable Josey Lema MD Primary Care Provider [phone] Faith Carson NP Primary Care Provider [phone] Encounter Details Date Type Department Care Team (Latest Contact Info) Description 04/21/2017 Transcribe Orders [facility] PFT Lab [address] [place] [address] [phone] Juanjose Bueno MD [address] [place], [place] [phone] [email or web address] Obstructive pattern present on pulmonary [...] Description 02/21/2026 9:45 AM EDT Office Visit [facility] Pulmonary, Allergy and Critical Care Medicine [address] [place] [address] Emilio Mendoza MD, MS 10 [facility] 2nd [place] [address] [email or web address] documented as of this encounter Results * [...] documented as of this encounter Care Teams Flight Technician Relationship Specialty Start Date End Date Ariel Fulton MD [address] [place] [phone] PCP - General 04/17/17 09/10/18 Josey Lema MD [address] [place] [address] [email or web address] PCP - General Family Medicine 09/11/18 02/22/20 Faith Carson NP [address] [place] [phone] PCP - General Unknown Provider Specialty 02/23/20 Juanjose Bueno MD [address] [place] [address] Historical LMR Provider 04/17/17 07/07/21 Eduar May DO [address] [place] [address] [facility] Medicine, [place] [address] Historical LMR Provider 04/17/17 07/07/21 Shanthi Pete PA-C [address] [place] [address] [facility] [address] [email or web address] Historical LMR Provider 04/17/17 07/07/21 Ariel Fulton MD [address] [place] [address] Historical LMR Provider 04/17/17 2 documented as of this encounter Additional Source Comments The information contained in this document represents components of the legal health record. It is not the complete legal health record.[facility]
== END 2025-05-18 16:37 | disposition home or self-care (01) ==
LOC: HO.ENCR 15:50
PROVIDERS: PCP Nurse Practitioner; Visit Provider Student in an Organized Health Care Education/Training Program
DX: E21.3 Hyperparathyroidism, unspecified (principal)
CPT/HCPCS: 99214

== ENCOUNTER → 2025-05-18 15:49 | Outpatient (BNVA) | payer MEDICARE, SELFPAY | PROVIDERS: PCP Nurse Practitioner; Visit Provider Student in an Organized Health Care Education/Training Program | DX: E21.3 Hyperparathyroidism, unspecified (principal) | CPT/HCPCS: 99212 ==

== ENCOUNTER 2025-06-02 09:34 | Outpatient (AMB) | payer MEDICARE, SELFPAY ==
--- NOTE | 2025-06-02 09:38 | A.OFFVIS_ITS ---
Vital Signs 06/02/25 09:39 Height 5 ft 2 in Weight 185 lb 3.013 oz BMI 33.9 BP 130/80 Blood Pressure Location Rt brachial Position Sitting Pulse 76 Pulse Source Pulse Oximeter Pulse Oximetry (%) 97 Oxygen Delivery Method Room Air Intake Visit Reasons: 3months Intake Note: Patient presents today for RA/PSA follow up. Accompanied by: Self / Same As Patient Allergies adalimumab (From Humira) Allergy (Mild, Verified 06/02/25 09:38) rashes amoxicillin Allergy (Mild, Verified 06/02/25 09:38) Rash Sulfa (Sulfonamide Antibiotics) Allergy (Mild, Verified 06/02/25 09:38) rashes HPI HPI 3months: Details: Morning stiffness is Minimal. She has developed new nodule ulnar surface of right IP joint and left 1st MTP joint. It is painful to touch. No new joint swelling. She uses Celebrex daily. When she has additional pain such as left upper arm pain, she will use it twice a day for a few days until pain goes away. No recent infection. [facility] Family History Mother Bladder cancer Asthma Arthritis Father Stroke Heart problem Social History Alcohol intake: current Alcohol intake frequency: does not drink Patient Tobacco Use Status: Never used Tobacco Physical Exam Vital Signs: Last Vital Signs Pulse 76 06/02/25 09:39 BP 130/80 06/02/25 09:39 Pulse Ox 97 06/02/25 09:39 Oxygen Delivery Method Room Air 06/02/25 09:39 BMI result Body Mass Index 33.9 Const Other: General: Comfortable CVS: RRR Respiratory: clear to auscultation bilaterally. Good respiratory effort Skin: No lesions seen MSK: Tender left 1st MTP. Hallux valgus deformity of left foot. No synovitis present. Normal range of motion of all joints. She has tender right 2nd IP joint nodule Assessment & Plan Assessment & Plan (1) Psoriatic arthritis: Comment: In remission on current regimen. She continues to have mild elevation in AST, which maybe due to drug side effect (leflunomide vs celebrex). She uses Celebrex for generalized osteoarthritis/musculoskeletal pain. She has developed new nodule right 2nd IP joint and left hallux valgus deformity due to osteoarthritis. I will order x-rays for further evaluation. Initially diagnosed with rheumatoid arthritis by Dr. Stoner. Anti CCP positive greater than 250 and rheumatoid factor positivity 198. Diagnosis was changed to psoriatic arthritis by Dr. Potts. She has been on leflunomide since 01/17/2024, Taltz, hydroxychloroquine and Celebrex. Failed treatment with methotrexate, Humira, Enbrel, Orencia, Stelara, Cosentyx from 2020 to 10/17/2022. Remicade was started 11/16/2022 and discontinued due to development of exacerbation of psoriasis. In remission on leflunomide 20 mg daily, Taltz, hydroxychloroquine 400 mg daily and Celebrex 200 mg twice a day. Leflunomide d/c 08/19/2024 due to hair loss and mild transaminitis (AST). History of peptic ulcer disease on PPI. Celebrex 200 mg b.i.d. was reduced to daily Code(s): L40.50 - Arthropathic psoriasis, unspecified Category: Medical Plan: Labs for diseaseand drug monitoring ordered. Continue Taltz 80 mg subcutaneous injection every 4 weeks Continue hydroxychloroquine 400 mg daily. March 2025 OCT and visual field OK Reduce Celebrex 200 mg PRN. I have asked her to use it sparingly. Hand x-rays ordered Foot x-rays ordered Return to clinic in 3 months (2) Other fdc (current) drug therapy: Code(s): Z79.899 - Other fdc (current) drug therapy Category: Medical Plan: See above (3) Transaminitis: Code(s): R74.01 - Elevation of levels of liver transaminase levels Category: Medical Plan: See above (4) Osteopenia: Comment: Patient brought in bone density from April 2025. She is on alendronate therapy for 4 years. Code(s): M85.80 - Other specified disorders of bone density and structure, unspecified site Category: Medical Plan: She will be following up with PCP for management of osteopenia in June. Plan . Orders: Orders Complete Blood Count Auto Diff Today Z79.899 - Other technician terminal and repeater (current) drug therapy Alanine Aminotransferase Today Z79.899 - Other technician terminal and repeater (current) drug therapy C Reactive Protein Today Z79.899 - Other technician terminal and repeater (current) drug therapy Aspartate Amino Transferase Today Z79.899 - Other technician terminal and repeater (current) drug therapy Creatinine Today Z79.89 - Other technician terminal and repeater (current) drug therapy Erythrocyte Sedimentation Rate Today Z79.89 - Other fdc (current) drug therapy XR Hand Bilat min 3v Today L40.50 - Arthropathic psoriasis, unspecified XR foot RT min 3V Today L40.50 - Arthropathic psoriasis, unspecified Medications: Refilled ixekizumab (Taltz Autoinjector) 80 mg subcut Q4W 1 mL 5RF hydroxychloroquine 400 mg (2 x 200 mg) PO DAILY 180 tabs 1RF 90 days celecoxib (Celebrex) 200 mg PO DAILY 90 caps 0RF 90 days Coding Level of Care Code Est Pt Level 4 (44124) Complex visit Add On G2211 Diagnoses Psoriatic arthritis L40.50 Other technician terminal and repeater (current) drug therapy Z79.89 Transaminitis R74.01 Osteopenia M85.80
[2025-06-02 09:39] VITALS: BP 130/80; PULSE 76; O2SAT 97; BMI 33.9
== END 2025-06-02 10:18 | disposition home or self-care (01) ==
LOC: HO.RHES 09:34
PROVIDERS: PCP Nurse Practitioner; Visit Provider Internal Medicine Rheumatology
DX: L40.50 Arthropathic psoriasis, unspecified (principal); Z79.899 Other long term (current) drug therapy; R74.01 Elevation of levels of liver transaminase levels; M85.80 Other specified disorders of bone density and structure, unspecified site
CPT/HCPCS: 99214; G2211

== ENCOUNTER 2025-06-02 09:34 | Outpatient (REF) | payer MEDICARE, SELFPAY ==
--- NOTE | ~2025-06-02 | XR_ITS ---
Exam: XR HAND 3 VIEWS BILATERAL, bilateral hand x-rays TECHNIQUE: AP, lateral, and ball-catcher views upper extremity, bilateral hands INDICATION: L40.50 - Arthropathic psoriasis, unspecified COMPARISON: None available. FINDINGS: RIGHT HAND: There is mild degenerative irregularity with marginal sites and subchondral sclerosis involving the DIP joint of the third and fourth digits. DIP joint of the fifth digit demonstrates small marginal osteophytes and cystlike lucency on the ulnar side of the middle phalanx There are marginal osteophytes and mild joint space narrowing involving the IP and MCP joints of the thumb with small cystlike lucencies in the first metacarpal head and radial base of the proximal phalanx. LEFT HAND: PIP joints demonstrate small marginal osteophytes, mostly on the ulnar side, involving the second, third, fourth, and fifth digits. There are cystlike lucencies in the fifth proximal phalanx head. There is moderate narrowing of the IP joint of thumb with marginal osteophytes. There is mild to moderate narrowing of the MCP joint of thumb with marginal osteophytes. There are cystic lucencies in the head of the first and second metacarpals. 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 Electronically signed by: Mejia Oliveira MD 06/02/2025 12:34 PM [facility]
--- NOTE | ~2025-06-02 | XR_ITS ---
Exam: XR FOOT 3 OR MORE VIEWS BILATERAL, bilateral foot x-rays TECHNIQUE: AP, OBL and lateral views lower extremity, bilateral feet INDICATION: L40.50 - Arthropathic psoriasis, unspecified COMPARISON: None FINDINGS: RIGHT FOOT: Marginal erosion with sclerotic margins and possibly with whiskering along the medial metaphysis of the distal phalanx are noted in the medial IP joint of the great toe. No erosions are identified. There are small calcaneal spurs at the Achilles tendon and plantar fascia attachments. LEFT FOOT: There is erosion with overhanging margin and possibly whiskering involving the medial base of the distal phalanx great toe. There are also cystlike lucencies in the medial head of the proximal phalanx and medial base distal phalanx with well-defined margins. There is a vague somewhat circular lucency in the medial base of the first proximal phalanx visible on AP view. Erosion with sclerotic margins are present involving the medial head of the third metatarsal. Small calcaneal spurs are present Achilles tendon and plantar fascial attachments. XR/XR Foot Jon 3V IMPRESSION: Right foot: Chronic erosive changes present involving the medial IP joint of the great toe could be related to gout, rheumatoid arthritis in remission, or other inflammatory arthropathy. Left foot: Erosive changes involving the IP joint of the great toe, third metatarsal head, and possibly the medial base of the first proximal phalanx is consistent with inflammatory arthropathy such as gout, rheumatoid arthritis, or psoriatic arthritis. Electronically signed by: Mejia Oliveira MD 06/02/2025 12:25 PM [facility]
--- OUTSIDE RECORDS SUMMARY | 2025-06-02 12:29 | XMS_ITS | Encounter Summary ---
Author Organization [facility] Address [address] [place] [address] [place] [address] Phone Care Team Providers Care Marketing Proposal Specialist Name Role Phone YamilethFaith shaw Tonya FRY Primary Care Provider [phone] Encounter Details Date Type Department Care Team (Late st Contact Info) Description 08/30/2022 Transcribe Orders [facility] PFT Lab [address] [place] [address] Emilio Mendoza MD, MS [address] [address] [email or web address] Social History Tobacco Use Types Packs/Day [...] and Critical Care Medicine 10 [facility] [place], [place] [id number] Emilio Mendoza MD, MS [address] [address] [email or web address] documented as of this encounter Visit Diagnoses Not on filedocumented in this encounter Additional Health Concerns Infection Onset Date Last Indicated Resolved Time CoV-Exposed Comment:Recent close contact documented in the Travel/Symptom Screening Form 09/15/2024 09/15/2024 09/26/2024 1:21 AM E DT documented as of this encounter Care Teams Marketing Proposal Specialist Relationship Specialty Start Date End Date Faith Carson NP [address] [place] [phone] PCP - General Unknown Provider Specialty 02/23/20 documented as of this encounter Additional Source Comments The information contained in this document represents components of the legal health record. It is not the complete legal health record.[facility]
--- OUTSIDE RECORDS SUMMARY | 2025-06-02 12:29 | XMS_ITS | Encounter Summary ---
Author Organization [facility] Address [address] [place] [address] [address] [place] [address] Phone Care Team Providers Care Director Of Marketing Name Role Phone Angella Carsona Tonya FRY Primary Care Provider [phone] Encounter Details Date Type Department Care Team (Late st Contact Info) Description 09/23/2024 Procedure Pass [facility] Endoscopy Admitting Dept Virtual Department [address] [place] [address] Social History Tobacco Use Types Packs/Day Years [...] Description 02/21/2026 9:45 AM EDT Office Visit [facility] Pulmonary, Allergy and Critical Care Medicine [address] [place] [address] Emilio Mendoza MD, MS [address] [address] documented as of this encounter Visit Diagnoses Not on filedocumented in this encounter Additional Health Concerns Infection Onset Date Last Indicated Resolved Time CoV-Exposed Comment:Recent close contact documented in the Travel/Symptom Screening Form 09/15/2024 09/15/2024 09/26/2024 1:21 AM E DT documented as of this encounter Care Teams Director Of Marketing Relationship Specialty Start Date End Date Faith Carson NP [address] [place] [phone] PCP - General Unknown Provider Specialty 02/23/20 documented as of this encounter Additional Source Comments The information contained in this document represents components of the legal health record. It is not the complete legal health record.[facility]
--- OUTSIDE RECORDS SUMMARY | 2025-06-02 12:29 | XMS_ITS | Encounter Summary ---
Author Organization [facility] Address [address] [place] [address] [place] [address] Phone Care Team Providers Care Women'S Lacrosse Coach Name Role Phone Juanjose Bueno MD Unavailable [phone] Eduar May DO Unavailable [phone] Shanthi Pete PA-C Unavailable [phone] Ariel Fulton MD Unavailable Josey Lema MD Primary Care Provider [phone] Faith Carson NP Primary Care Provider [phone] Reason for Referral * Outpatient Procedure - Closed Specialty Diagnoses / Procedures Referred By Contharshal t Referred To Contact Radiology Diagnoses GERD without esophagitis Procedures NM Gastric Emptying Wally Villasenor MD Phone: tel: fax: [email or web address] Referral ID Status Reason Start Date Expiration Date Visits Re quested Visits Authorized [id number] Closed 10/30/2018 10/30/2019 1 1 Encounter Details Date Type Department Care Team (Latest Contact Info) Description 10/30/2018 Transcribe Orders [facility] Department [address] [place] [address] Wally Villasenor MD [address] [place] [address] [phone] [email or web address] GERD without esophagitis (Primary Dx) [...] 02/21/2026 9:45 AM EDT Office [place] [facility] [place], Allergy and Critical Care Medicine [address] [place] [address] Emilio Mendoza MD, MS [address] [place] [address] [email or web address] documented as of this encounter [...] documented as of this encounter Care Teams Women'S Lacrosse Coach Relationship Specialty Start Date End Date Josey Lema MD [address] [place] [address] [email or web address] PCP - General Family Medicine 09/11/18 02/22/20 Faith Carson NP [address] [place] [phone] PCP - General Unknown Provider Specialty 02/23/20 Juanjose Bueno MD [address] [place] [address] Historical LMR Provider 04/17/17 07/07/21 Eduar May DO [address] [place] [address] Orthopedics Sports [facility], [place] [address] Historical LMR Provider 04/17/17 07/07/21 Shanthi Pete PA-C [address] [place] [address] Orthopedics Sports [facility], [place] [address] [email or web address] Historical LMR Provider 04/17/17 07/07/21 Ariel Fulton MD [address] [place] [address] Historical LMR Provider 04/17/17 2 documented as of this encounter Additional Source Comments The information contained in this document represents components of the legal health record. It is not the complete legal health record.[facility]
--- OUTSIDE RECORDS SUMMARY | 2025-06-02 12:29 | XMS_ITS | Encounter Summary ---
Author Organization [facility] Address [address] [place] [address] [place] [address] Phone Care Team Providers Care Dumper Bailer Operator Name Role Phone YamilethFaith shaw Tonya FRY Primary Care Provider [phone] Encounter Details Date Type Department Care Team (Late Contact Info) Description 08/06/2021 Transcribe Orders [facility] PFT Lab 30 [place] [address] Emilio Mendoza MD, MS [address] [address] [email or web address] Social History Tobacco Use Types Packs/Day Years [...] Pulmonary, Allergy and Critical Care Medicine 10 [facility] [place], [place] [phone] Emilio Mendoza MD, MS [address] [address] [email or web address] documented as of this encounter Visit Diagnoses Not on filedocumented in this encounter Additional Health Concerns Infection Onset Date Last Indicated Resolved Time CoV-Exposed Comment:Recent close contact documented in the Travel/Symptom Screening Form 09/15/2024 09/15/2024 09/26/2024 1:21 AM E DT documented as of this encounter Care Teams Dumper Bailer Operator Relationship Specialty Start Date End Date Faith Carson NP [address] [place] [phone] PCP - General Unknown Provider Specialty 02/23/20 documented as of this encounter Additional Source Comments The information contained in this document represents components of the legal health record. It is not the complete legal health record.[facility]
--- OUTSIDE RECORDS SUMMARY | 2025-06-02 12:29 | XMS_ITS | Encounter Summary ---
Author Organization [facility] Address [address] [place] [address] [place] [address] Phone Care Team Providers Care Program Review Director Name Role Phone Ariel Fulton MD Primary Care Provider [phone] Juanjose Bueno MD Unavailable Eduar May DO Unavailable Shanthi Pete-C Unavailable Ariel Fulton MD Unavailable [phone] Josey Lema MD Primary Care Provider [phone] Faith Carson NP Primary Care Provider [phone] Encounter Details Date Type Department Care Team (Latest Contact Info) Description 04/21/2017 Transcribe Orders [facility] PFT Lab [address] [place] [address] [phone] Juanjose Bueno MD 30 [place], [place] [phone] [email or web address] Obstructive pattern present on pulmonary [...] Description 02/21/2026 9:45 AM EDT Office [place] [facility]monary, Allergy and Critical Care Medicine [address] [place] [address] Emilio Mendoaz MD, MS 10 [facility] 2nd [place] [address] [email or web address] documented as of this encounter Results * [...] documented as of this encounter Care Teams Program Review Director Relationship Specialty Start Date End Date Ariel Fulton MD [address] [place] [address] PCP - General 04/17/17 09/10/18 Josey Lema MD [address] [place] [address] [email or web address] PCP - General Family Medicine 09/11/18 02/22/20 Faith Carson NP [address] [place] [phone] PCP - General Unknown Provider Specialty 02/23/20 Juanjose Bueno MD [address] [place] [address] Historical LMR Provider 04/17/17 07/07/21 Eduar May DO [address] [place] [address] Orthopedics & Sports Medicine, [place] [address] Historical LMR Provider 04/17/17 07/07/21 Shanthi Pete PA-C [address] [place] [address] [facility] [place] [address] [email or web address] Historical LMR Provider 04/17/17 07/07/21 Ariel Fulton MD [address] [place] [address] Historical LMR Provider 04/17/17 2 documented as of this encounter Additional Source Comments The information contained in this document represents components of the legal health record. It is not the complete legal health record.[facility]
--- OUTSIDE RECORDS SUMMARY | 2025-06-02 12:29 | XMS_ITS | Encounter Summary ---
Author Organization [facility] Address [address] [place] [address] [place] [address] Phone Care Team Providers Care Log Deckman Name Role Phone Juanjose Bueno MD Unavailable Eduar May DO Unavailable Shanthi Pete PA-C Unavailable [phone] Arile Fulton MD Unavailable [phone] Josey Lema MD Primary Care Provider [phone] Faith Carson NP Primary Care Provider [phone] Encounter Details Date Type Department Care Team (Late st Contact Info) Description 02/17/2019 Procedure Pass [facility] Endoscopy Admitting Dept [facility] Department [address] [place] [address] Social History Tobacco Use Types Packs/Day Years [...] Pulmonary, Allergy and Critical Care Medicine 10 [facility] [place] [address] Emilio Mendoza MD, MS 10 [facility] 2nd [place] [address] [email or web address] documented as of this encounter Visit Diagnoses Not on filedocumented in this encounter Additional Health Concerns Infection Onset Date Last Indicated Resolved Time CoV-Exposed Comment:Recent close contact documented in the Travel/Symptom Screening Form 09/15/2024 09/15/2024 09/26/2024 1:21 AM E DT documented as of this encounter Care Teams Log Deckman Relationship Specialty Start Date End Date Josey Lema MD [address] [place] [address] [email or web address] PCP - General Family Medicine 09/11/18 02/22/20 Faith Carson NP [address] [place] [phone] PCP - General Unknown Provider Specialty 02/23/20 Juanjose Bueno MD [address] [place] [address] [email or web address] Historical LMR Provider 04/17/17 07/07/21 Eduar May DO [address] [place] [address] Orthopedics & Sports Medicine, [facility] [place] [address] Historical LMR Provider 04/17/17 07/07/21 Shanthi Pete PA-C [address] [place] [address] [facility] [place] [address] [email or web address] Historical LMR Provider 04/17/17 07/07/21 Ariel Fulton MD [address] [place] [address] Historical LMR Provider 04/17/17 2 documented as of this encounter Additional Source Comments The information contained in this document represents components of the legal health record. It is not the complete legal health record.[facility]
--- OUTSIDE RECORDS SUMMARY | 2025-06-02 12:29 | XMS_ITS | Encounter Summary ---
Author Organization [facility] Address [address] [place] [address] [place] [address] Phone Care Team Providers Care English Faculty Member Name Role Phone Juanjose Bueno MD Unavailable [phone] Eduar May DO Unavailable Shanthi Pete PA-C Unavailable [phone] Ariel Fulton MD Unavailable Josey Lema MD Primary Care Provider Faith Carson NP Primary Care Provider [phone] Encounter Details Date Type Department Care Team (Late st Contact Info) Description 08/12/2019 Procedure Pass [facility] Endoscopy Admitting Dept [facility] Department [address] [place] [address] Social History Tobacco Use Types Packs/Day Years [...] Pulmonary, Allergy and Critical Care Medicine 10 [facility] [place] [address] Emilio Mendoza MD, MS 10 [facility] 2nd [place] [address] [email or web address] documented as of this encounter Visit Diagnoses Not on filedocumented in this encounter Additional Health Concerns Infection Onset Date Last Indicated Resolved Time CoV-Exposed Comment:Recent close contact documented in the Travel/Symptom Screening Form 09/15/2024 09/15/2024 09/26/2024 1:21 AM E DT documented as of this encounter Care Teams English Faculty Member Relationship Specialty Start Date End Date Josey Lema MD [address] [place] [address] [email or web address] PCP - General Family Medicine 09/11/18 02/22/20 Faith Carson NP [address] [place] [phone] PCP - General Unknown Provider Specialty 02/23/20 Juanjose Bueno MD [address] [place] [address] [email or web address] Historical LMR Provider 04/17/17 07/07/21 Eduar May DO [address] [place] [address] Orthopedics & Sports Medicine, [facility] [place] [address] Historical LMR Provider 04/17/17 07/07/21 Shanthi Pete PA-C [address] [place] [address] [facility] [place] [address] [email or web address] Historical LMR Provider 04/17/17 07/07/21 Ariel Fulton MD [address] [place] [address] Historical LMR Provider 04/17/17 2 documented as of this encounter Additional Source Comments The information contained in this document represents components of the legal health record. It is not the complete legal health record.[facility]
--- OUTSIDE RECORDS SUMMARY | 2025-06-02 12:29 | XMS_ITS | Clinical Summary ---
Author Organization [facility] Address [address] [place] [address] [place] [address] Phone Care Team Providers Care Dog Behaviorist Name Role Phone Faith Carson NP Primary Care Provider [phone] Allergies Active Allergy Reactions Criticality Noted Date [...] the pelvis. I have asked our covering ACCOUNTANT TAX to look at it who felt that look more like scar tissue. In discussing with the patient, she had a second bladder sling surgery done at [facility] about 6 months ago. She has follow-up [...] bronchodilator; Additional Testing: Exhaled Nitric Oxide Test ([facility], [facility], [facility], [facility] and [facility] only); Performing Location: [facility]; Future albuterol 90 mcg/actuation inhaler 2-4 [...] supply with 3 refills was sent to [facility] today. We will repeat spirometry (baseline and [...] fall. Rheumatoid arthritis 05/26/2017 Overview (11/20/2022): Previous etl manager Dr. Stoner, now Dr Jorgensen at the [facility] in [place]. On immunosuppressives, with no evidence of pulmonary manifestations. Assessment & Plan (11/20/2022 10:24 AM EDT): I advised that she discuss with her etl manager whether her immunosuppressives warrant another COVID-19 booster, [...] EDT): Continue with immunosuppressive regimen per your etl manager. Chest CT and PFT evaluation performed over the past 14 months revealed no evidence of pulmonary involvement. Assessment & Plan (08/05/2017 9:23 AM EST): This appears clinically stable. I will defer further management to her etl manager, Dr. Stoner. Assessment & Plan (05/26/2017 1:45 [...] will discuss discontinuation of methotrexate with her etl manager and continue to work with Dr. Villasenor [...] do not improve, we coulld contact her court worker Dr. Villasenor to discuss a course of [...] COVID-19 (Pre-04/21) Pfizer Vaccine, mRNA, PF 10/09/2020,09/15/2020 [id number] FORMULATION 05/30/2009 INFLUENZA, SPLIT VIRUS, TRIVALENT PF [...] Allergy and Critical Care Medicine 10 [facility] [place] [address] Emilio Mendoza MD, MS 10 [facility] 2nd [place] [address] [email or web address] Health Maintenance Due Date Last Done Comments [...] this topic Medical Devices Implanted Type Area Legal Document Assistant Device Identifier Shelf Expiration Date Model / [...] Villasenor MD - 09/23/2024 2:00 PM EDT [facility] Patient Name: Nikki Kumar Attending MD:: STEPHANIE VILLASENOR MD, Procedure Date: 09/23/2024 2:00 PM Date of : 1960 Age: 64 Admit Type: Outpatient Gender: Female Room: [place] [address] Referring MD: SOHAM TERRELL Exam Type: Colonoscopy [...] monitored continuously. The Olympus adult variable colonoscope [id number] #2 was introduced through the anus and [...] 2:00 PM Procedure Code(s): --- Professional --- 33814, Colonoscopy, flexible; with removal of tumor(s), polyp(s), or other lesion(s) by snare technique --- Technical --- 81951, Colonoscopy, flexible; with removal of tumor(s), polyp(s), [...] or abscess without bleeding CPT copyright 2021 [employer]. All rights reserved. The codes documented in this report are preliminary and upon hospital coder reviewmay be revised to meet current compliance requirements. Procedure Date: 09/23/2024 2:00:21 PM [address] [place] [address] us Faith Carson SR. VENDOR MANAGEMENT ASSOCIATE GI PROCEDURE ORDERABLES Final Result * Creatinine/eGFR (03/23/2019 8:29 AM EDT) CREATININE 0.70 0.5 - 1.5 mg/dL [facility] EGFR 94 >59 mL/min/1.[address] [place] [address] Comment:If patient is black, multiply result by 1.159. Estimated glomerular filtration rate calculated using the CKD-EPI equation. Blood 03/23/2019 8:29 AM EDT 03/23/2019 8:33 AM EDT Stephanie Villasenor MD LAB BLOOD BKR ORDERABLES F inal Result [facility] [address] [place] [address] * Basic metabolic panel (02/17/2019 5:23 AM EDT) SODIUM 142 133 - 146 mmol/L [facility] CHLORIDE 107 96 - 108 mmol/L [facility] POTASSIUM 4.8 3.3 - 5.1 mmol/L [facility] CO2 26 21 - 35 mmol/L [facility] BUN 14 6 - 19 mg/dL [facility] CREATININE 0.70 0.5 - 1.5 mg/dL [facility] GLUCOSE 93 70 - 99 mg/dL [facility] CALCIUM 9.4 8.4 - 10.3 mg/dL [facility] EGFR 94 >59 mL/min/1.[address] [place] [address] Comment:If patient is black, multiply result by 1.159. Estimated glomerular filtration rate calculated using the CKD-EPI equation. ANION GAP 14 10 - 20 mmol/L [facility] Blood 02/17/2019 5:23 AM EDT 02/17/2019 5:51 AM EDT us Brandon Strauss PA-C LAB BLOOD BKR ORDERABLES Indira geovanny Result [facility] [address] [place] [address] from Last 3 Months or Most Recently Relevant to Health Maintenance Insurance [employer] POS PPO REPLACEMENT [place] [id number] [employer] POS PPO REPLACEMENT [...] Advance Directives For more information, please contact: [phone] (9AM - 5PM [place], Friday-Friday) * Full Code (Confirmed) (Latest Code Status on File) Date Activated Date Inactivated Comments 02/16/2019 8:00 PM 02/18/2019 2:57 PM Question Answer Comments Code Status Confirmed With: Patient * Full Code (Confirmed) Date Activated Date Inactivated Comments 02/08/2019 6:52 PM 02/09/2019 12:51 PM Question Answer Comments Code Status Confirmed With: Patient Care Teams Dog Behaviorist Relationship Specialty Start Date End Date Faith Carson NP [address] [place] [phone] PCP - General Unknown Provider Specialty 02/23/20 Additional Source Comments The information contained in this document represents components of the legal health record. It is not the complete legal health record.[facility]
--- OUTSIDE RECORDS SUMMARY | 2025-06-02 12:29 | XMS_ITS | Encounter Summary ---
Author Organization [facility] Address [address] [place] [address] [place] [address] Phone Care Team Providers Care Television Audio Engineer Name Role Phone Ariel Fulton MD Primary Care Provider [phone] Juanjose Bueno MD Unavailable [phone] Eudar May DO Unavailable Shanthi Pete PA-C Unavailable Ariel Fulton MD Unavailable [phone] Josey Lema MD Primary Care Provider [phone] Faith Carson NP Primary Care Provider [phone] Encounter Details Date Type Department Care Team (Late st Contact Info) Description 07/30/2017 Transcribe Orders [facility] PFT Lab [address] [place] [address] Emilio Mendoza MD, MS [address] [address] [email or web address] Social History Tobacco Use [...] Critical Care Medicine [address] [place] [address] Emilio Mendoza MD, MS 10 [facility] 2nd [place] [address] [email or web address] documented as of this encounter Visit Diagnoses Not on filedocumented in this encounter Additional Health Concerns Infection Onset Date Last Indicated Resolved Time CoV-Exposed Comment:Recent close contact documented in the Travel/Symptom Screening Form 09/15/2024 09/15/2024 09/26/2024 1:21 AM E DT documented as of this encounter Care Teams Television Audio Engineer Relationship Specialty Start Date End Date Ariel Fulton MD [address] [place] [address] PCP - General 04/17/17 09/10/18 Joesy Lema MD [address] [place] [address] [email or web address] PCP - General Family Medicine 09/11/18 02/22/20 Faith Carson NP [address] [place] [phone] PCP - General Unknown Provider Specialty 02/23/20 Juanjose Bueno MD [address] [place] [address] Historical LMR Provider 04/17/17 07/07/21 Eduar May DO 4 [facility] Orthopedics & Sports [facility], [place] [address] [email or web address] Historical LMR Provider 04/17/17 07/07/21 Shanthi Pete PA-C 4 [facility] Orthopedics & Sports [facility], [place] [address] [email or web address] Historical LMR Provider 04/17/17 07/07/21 Ariel Fulton MD [address] [place] [address] Historical LMR Provider 04/17/17 2 documented as of this encounter Additional Source Comments The information contained in this document represents components of the legal health record. It is not the complete legal health record.[facility]
--- OUTSIDE RECORDS SUMMARY | 2025-06-02 12:29 | XMS_ITS | Encounter Summary ---
Author Organization [facility] Address [address] [place] [address] [place] [address] Phone Care Team Providers Care Programmer Analyst Consultant Name Role Phone Juanjose Bueno MD Unavailable Eduar May DO Unavailable [phone] Shanthi Pete PA-C Unavailable [phone] Ariel Fulton MD Unavailable [phone] Josey Lema MD Primary Care Provider [phone] Faith Carson NP Primary Care Provider [phone] Encounter Details Date Type Department Care Team (Latest Contact Info) Description 03/26/2019 Transcribe Orders Virtual Department 30 [place] [address] Wally Villasenor MD [address] [place] [address] [phone] [email or web address] Chest pain, unspecified type (Primary Dx) Social [...] Critical Care Medicine [address] [place] [address] Emilio Mendoza MD, MS 10 [facility] 2nd [place] [address] documented as of this encounter Results * [...] documented as of this encounter Care Teams Programmer Analyst Consultant Relationship Specialty Start Date End Date Josey Lema MD [address] [place] [address] [email or web address] PCP - General Family Medicine 09/11/18 02/22/20 Faith Carson NP [address] [place] [phone] PCP - General Unknown Provider Specialty 02/23/20 Juanjose Bueno MD [address] [place] [address] Historical LMR Provider 04/17/17 07/07/21 Eduar May DO [address] [place] [address] Orthopedics & Sports [facility] [place] [address] Historical LMR Provider 04/17/17 07/07/21 Shanthi Pete PA-C [address] [place] [address] Orthopedics Sports [facility], [place] [address] Historical LMR Provider 04/17/17 07/07/21 Ariel Fulton MD [address] [place] [address] Historical LMR Provider 04/17/17 2 documented as of this encounter Additional Source Comments The information contained in this document represents components of the legal health record. It is not the complete legal health record.[facility]
[2025-06-02 13:22] LABS: MANUAL DIFF FLAG NO
[2025-06-02 13:38] LABS: Hematocrit 42.6 % (37.0-47.0); Hemoglobin 13.6 g/dl (12.0-16.0); Imm Gran Abs Auto 0.03 X10*3/uL (0.00-0.03); Imm Gran Pct Auto 0.3 % (0.0-0.4); Lymphocytes Absolute Auto 2.2 X10*3/uL (1.2-4.9); Mean Corpuscular HGB Conc 31.9 g/dl (31.0-35.0); Mean Corpuscular Hemoglobin 30.4 pg (27.0-33.0); Mean Corpuscular Volume 95.1 fL (80.0-98.0); NRBC Abs Auto 0.000 X10*3/uL (0.0-0.012); NRBC Pct Auto 0.0 /100WBC (0.0-0.2); Platelet Count 285 X10*3/uL (160-400); Red Blood Count 4.48 X10*6/uL (4.20-5.50); White Blood Count 9.0 X10*3/uL (4.8-10.8)
[2025-06-02 14:09] LABS: Alanine Aminotransferase 25 U/L (0-31); Aspartate Amino Transferase 36 U/L (5-31); Estimated Glomerular Filt Rate > 60
[2025-06-02 14:18] LABS: Erythrocyte Sedimentation Rate 13 MM/HR (0-20)
== END 2025-06-02 09:35 | disposition home or self-care (01) ==
LOC: HO.XRAY 09:34
PROVIDERS: Visit Provider Internal Medicine Rheumatology
DX: L40.50 Arthropathic psoriasis, unspecified (principal); M19.041 Primary osteoarthritis, right hand; M19.042 Primary osteoarthritis, left hand; M85.80 Other specified disorders of bone density and structure, unspecified site; R74.01 Elevation of levels of liver transaminase levels; Z79.620 Long term (current) use of immunosuppressive biologic; Z79.899 Other long term (current) drug therapy
CPT/HCPCS: 36415; 73130; 73630; 82565; 84450; 84460; 85025; 85652; 86140; 99212

== ENCOUNTER → 2025-06-02 11:36 | Outpatient (BNV) | payer MEDICARE, SELFPAY | PROVIDERS: Visit Provider Radiology Diagnostic Radiology | DX: L40.50 Arthropathic psoriasis, unspecified (principal); M19.041 Primary osteoarthritis, right hand; M19.042 Primary osteoarthritis, left hand; M89.8X7 Other specified disorders of bone, ankle and foot | CPT/HCPCS: 73130; 73630 ==